=== PATIENT | male | born 1955 | race Hispanic/Latino ===

== ENCOUNTER 2020-01-24 22:23 | Inpatient (IN) | payer OTHER ==
[2020-01-24 22:55] LABS: Basophils % 0.8 % (0-1.3); Hematocrit 43.7 % (39.6-49.0); Lymphocytes % 19.1 % (15.3-44.8); RBC Red Blood Cell Count 4.84 M/uL (4.33-5.43)
[2020-01-24 22:59] LABS: Protime INR 1.06
[2020-01-24] MEDS ORDERED: NA CHLORIDE 0.9% 250 ML ONE (23:11)
[2020-01-24] MEDS ORDERED: AZITHROMYCIN 500 MG INJ IVPB ONE (23:11)
[2020-01-24 23:12] LABS: Albumin 3.8 g/dL (3.4-5.0); Bilirubin Direct 0.2 mg/dL (0-0.2); Bilirubin Total 0.6 mg/dL (0.2-1.0); CKMB Creatine Kinase MB 1.6 ng/mL (0.3-3.6); Magnesium 2.3 mg/dL (1.8-2.4); Potassium 4.1 mmol/L (3.5-5.1); Protein, Total 7.9 g/dL (6.4-8.2); Troponin (Emerg Dept Use Only) 0.22 ng/mL (0.0-0.045)
[2020-01-24] MEDS ORDERED: NA CHLORIDE 0.9% 500 ML ONE (23:12)
[2020-01-24] MEDS ORDERED: CEFTRIAXONE/SWI 1gm 1 GM/10 ML SYR ONE (23:12)
--- NOTE | 2020-01-25 00:03 | ER ---
Nurse's Notes [facility] Name: Krzysztof Gay Age: 64 yrs Sex: Male : 1955 Arrival Date: 01/24/2020 Time: 22:24 Bed 7 Private MD: Diagnosis: Pulmonary embolism without acute cor pulmonale;Unspecified combined systolic (congestive) and diastolic (congestive) heart failure Presentation: 01/23 22:37 Chief complaint: Patient states: shortness of breath progressively getting worse for 4 wh weeks now. Pt C/O cough but denies fever. Coronavirus screen: Client denies travel out of the [place] in the last 14 days. cough unrelated to allergies, shortness of breath, Client presents with at least one sign or symptom that may indicate coronavirus-19. Standard/surgical mask placed on the client. Ebola Screen: Patient negative for fever greater than or equal to 101.5 degrees Fahrenheit, and additional compatible Ebola Virus Disease symptoms Patient denies exposure to infectious person. Initial Sepsis Screen: Does the patient meet any 2 criteria? RR > 20 per min. HR > 90 bpm. Does the patient have a suspected source of infection? No. Patient's initial sepsis screen is negative. Risk Assessment: Do you want to hurt yourself or someone else? Patient reports no desire to harm self or others. Onset of symptoms was January 24, 2020. 22:37 Method Of Arrival: Ambulatory 22:37 Acuity: GELACIO 3 Triage Assessment: 22:42 Respiratory: Onset: The symptoms/episode began/occurred gradually, the patient has mild shortness of breath. Historical: - Allergies: 22:41 No Known Allergies; - Home Meds: 22:41 Unable to obtain [Active]; - PMHx: 22:41 Depression; Hypertension; - PSHx: 22:41 Neck Surgery; - Immunization history:: Adult Immunizations unknown. - Social history:: Smoking status: Patient/guardian denies using. Screenin:42 Abuse screen: Denies threats or abuse. Denies injuries from another. Nutritional screening: No deficits noted. Tuberculosis screening: No symptoms or risk factors identified. Fall Risk None identified. Assessment: 22:41 General: Appears in no apparent distress. Behavior is calm, cooperative, appropriate for age. Pain: Denies pain. Neuro: Level of Consciousness is awake, alert, obeys commands, Oriented to person, place, time, situation, Appropriate for age. Cardiovascular: Heart tones S1 S2 Rhythm is sinus tachycardia. Respiratory: Reports shortness of breath cough that is Airway is patent Respiratory effort is even, Respiratory pattern is tachypnea Breath sounds with wheezes. GI: Abdomen is flat, non-distended. : No signs and/or symptoms were reported regarding the genitourinary system. EENT: No signs and/or symptoms were reported regarding the EENT system. Derm: Skin is intact, is healthy with good turgor, Skin is pink, warm \T\ dry. normal. Musculoskeletal: Circulation, motion, and sensation intact. 01/24 00:00 Reassessment: Patient appears in no apparent distress at this time. No changes from previously documented assessment. Patient and/or family updated on plan of care and expected duration. Pain level reassessed. Patient is alert, oriented x 3, equal unlabored respirations, skin warm/dry/pink. 00:25 Reassessment: Provider at bedside explaining POC need for admit. Vital Signs: 01/23 22:37 BP 159 / 118; Pulse 132; Resp 24; Temp 98.6; Pulse Ox 100% on R/A; Weight 79.38 kg; Height 5 ft. 10 in. (177.80 cm); 01/24 00:00 BP 121 / 91; Pulse 115; Resp 22; Pulse Ox 98% on R/A; 00:45 BP 125 / 95; Pulse 126; Resp 22; Pulse Ox 99% on R/A; 01/23 22:37 Body Mass Index 25.11 (79.38 kg, 177.80 cm) ED Course: 01/23 22:24 Patient arrived in ED. ds1 22:26 Bright Long MD is Attending Physician. tw4 22:36 Naren Faulkner is Primary Nurse. 22:40 Triage completed. 22:43 Patient has correct armband on for positive identification. Placed in gown. Bed in low wh position. Call light in reach. Side rails up X 1. railroad detective on. Pulse ox on. NIBP on. 22:43 Arm band placed on right wrist. 22:45 Inserted saline lock: 20 gauge in right antecubital area, using aseptic technique. jb5 Blood collected. 22:48 XRAY CXR (1 view) In Process Unspecified. EDMS 22:50 BMP Sent. jb5 22:50 CBC with Diff Sent. jb5 22:50 Ckmb Sent. jb5 22:50 CPK Sent. jb5 22:50 D-Dimer Sent. jb5 22:50 Hepatic Function Sent. jb5 22:50 Lipase Sent. jb5 22:50 Magnesium Sent. jb5 22:51 NT PRO-BNP Sent. jb5 22:51 PT-INR Sent. jb5 22:51 Ptt, Activated Sent. jb5 22:51 Troponin (emerg Dept Use Only) Sent. jb5 23:48 CT Chest For PE Angio In Process Unspecified. [facility] 01/24 00:00 Tabitha Keyes MD is Hospitalizing Provider. tw4 00:01 Hospitalizing Provider role handed off by Tabitha Keyes MD tw4 00:01 Amos Faith MD is Hospitalizing Provider. tw4 00:41 Inserted saline lock: 20 gauge in right wrist, using aseptic technique. 00:54 No provider procedures requiring assistance completed. Patient admitted, IV remains in place. Administered Medications: Discontinued: Heparin (DVT/PE Drip) 18 units/kg/hr - (HEParin 69093 units, D5W 500 ml) IV at calculated rate Per protocol; Max initial rate 1800 units/hr 01/23 23:04 Drug: NS 0.9% 500 ml Route: IV; Rate: bolus; Site: right antecubital; 01/24 00:37 Follow up: Response: No adverse reaction; IV Status: Order to discontinue infusion 01/23 23:06 Drug: Rocephin - (cefTRIAXone) 1 grams Route: IVPB; Infused Over: 30 mins; Site: right antecubital; 01/24 00:37 Follow up: Response: No adverse reaction; IV Status: Completed infusion 01/23 23:09 Drug: AZITHromycin 500 mg Route: IVPB; Infused Over: 1 hrs; Site: right antecubital; 01/24 00:37 Follow up: Response: No adverse reaction; IV Status: Completed infusion 00:28 Drug: Heparin (DVT/PE- Bolus per protocol) - HEParin 80 units/kg {Co-Signature: [facility] (Rui Gavin RN).} Route: IVP; Site: right antecubital; 00:37 Follow up: Response: No adverse reaction 00:32 Drug: Heparin (DVT/PE Drip) 18 units/kg/hr - (HEParin 19632 units, D5W 500 ml) {Co-Signature: rv (Rui Gavin RN).} Route: IV; Rate: calculated rate; Site: right antecubital; 00:38 Follow up: Response: No adverse reaction; IV Status: Order to discontinue infusion 00:34 Drug: Lasix 60 mg Route: IVP; Site: right antecubital; rv 00:45 Follow up: Response: No adverse reaction 00:45 Drug: Lovenox 1 mg/kg Route: Sub-Q; Site: right lower abdomen; 00:54 Follow up: Response: No adverse reaction Outcome: 00:03 Decision to Hospitalize by Provider. tw4 00:54 Admitted to ER Hold. Please see [facility] for further documentation. 00:54 Condition: stable 00:54 Instructed on the need for admit. 09:56 Patient left the ED. sv Signatures: Dispatcher [employer] EDMS Yessica Nelson, RN BRANDI Andra Díaz ds1 Rosa Flanagan jb5 Naren Faulkner Bright Long MD MD tw4 Rui Gavin, RN RN rv Rui Gavin RN rv Corrections: (The following items were deleted from the chart) 00:46 01/23 22:41 Respiratory: Reports shortness of breath cough that is Airway is patent Respiratory effort is even, Respiratory pattern is tachypnea Breath sounds with wheezes 01/24 01:43 01/23 22:41 Respiratory: Reports shortness of breath cough that is Airway is patent Respiratory effort is even, Respiratory pattern is tachypnea Breath sounds are clear
--- NOTE | 2020-01-25 00:04 | EDPHYS ---
Physician Documentation [facility] Name: Krzysztof Gay Age: 64 yrs Sex: Male : 1955 Arrival Date: 01/24/2020 Time: 22:24 Bed 7 Private MD: ED Physician Bright Long HPI: 01/23 23:00 This 64 yrs old Male presents to ER via Ambulatory with complaints of tw4 Shortness Of Breath. 23:00 The patient has shortness of breath at rest. Onset: The symptoms/episode began/occurred tw4 3 month(s) ago, and became worse 3 week(s) ago. Duration: The symptoms are intermittent. The patient's shortness of breath is aggravated by exertion, supine position, is alleviated by rest. Associated signs and symptoms: The patient has no apparent associated signs or symptoms. Severity of symptoms: At their worst the symptoms were moderate in the emergency department the symptoms are unchanged. The patient has not experienced similar symptoms in the past. Historical: - Allergies: 22:41 No Known Allergies; - Home Meds: 22:41 Unable to obtain [Active]; - PMHx: 22:41 Depression; Hypertension; - PSHx: 22:41 Neck Surgery; - Immunization history:: Adult Immunizations unknown. - Social history:: Smoking status: Patient/guardian denies using. ROS: 23:00 Constitutional: Negative for fever, chills, and weight loss, Eyes: Negative for injury, tw4 pain, redness, and discharge, Cardiovascular: Negative for chest pain, palpitations, and edema, Abdomen/GI: Negative for abdominal pain, nausea, vomiting, diarrhea, and constipation, Back: Negative for injury and pain, MS/Extremity: Negative for injury and deformity, Skin: Negative for injury, rash, and discoloration, Neuro: Negative for headache, weakness, numbness, tingling, and seizure. 23:00 Respiratory: Positive for shortness of breath, Negative for cough, dyspnea on exertion, hemoptysis, orthopnea, pleurisy. Exam: 23:00 Constitutional: This is a well developed, well nourished patient who is awake, alert, tw4 and in no acute distress. Head/Face: Normocephalic, atraumatic. Chest/axilla: Normal chest wall appearance and motion. Nontender with no deformity. No lesions are appreciated. 23:00 Respiratory: Lungs have equal breath sounds bilaterally, clear to auscultation and percussion. No rales, rhonchi or wheezes noted. No increased work of breathing, no retractions or nasal flaring. Abdomen/GI: Soft, non-tender, with normal bowel sounds. No distension or tympany. No guarding or rebound. No evidence of tenderness throughout. Back: No spinal tenderness. No costovertebral tenderness. Full range of motion. Skin: Warm, dry with normal turgor. Normal color with no rashes, no lesions, and no evidence of cellulitis. MS/ Extremity: Pulses equal, no cyanosis. Neurovascular intact. Full, normal range of motion. Neuro: Awake and alert, GCS 15, oriented to person, place, time, and situation. Cranial nerves II-XII grossly intact. Motor strength 5/5 in all extremities. Sensory grossly intact. Cerebellar exam normal. Normal gait. 23:00 Cardiovascular: Rate: tachycardic, actual rate is 132 bpm, Rhythm: Pulses: no pulse deficits are appreciated. Vital Signs: 22:37 BP 159 / 118; Pulse 132; Resp 24; Temp 98.6; Pulse Ox 100% on R/A; Weight 79.38 kg; Height 5 ft. 10 in. (177.80 cm); 01/24 00:00 BP 121 / 91; Pulse 115; Resp 22; Pulse Ox 98% on R/A; 00:45 BP 125 / 95; Pulse 126; Resp 22; Pulse Ox 99% on R/A; 01/23 22:37 Body Mass Index 25.11 (79.38 kg, 177.80 cm) MDM: 01/23 22:26 Patient medically screened. tw4 01/24 02:39 Differential diagnosis: Anemia Bronchitis reactive airway disease, Unstable Angina. tw4 Antibiotic administration: Rocephin and Zithromax given. Data reviewed: nurses notes. Data reviewed: vital signs, lab test result(s), cardiac enzymes, CBC, electrolytes, radiologic studies, CT scan, plain films. Data interpreted: Pulse oximetry: Interpretation: normal. Test interpretation: by ED physician or midlevel provider: plain radiologic studies. Counseling: I had a detailed discussion with the patient and/or guardian regarding: the historical points, exam findings, and any diagnostic results supporting the discharge/admit diagnosis, lab results, radiology results. Physician consultation: Amos Faith MD regarding admission, to the ICU, patient's condition, and will see patient. 01/23 22:35 Order name: Blood Culture Adult (2) 01/23 22:35 Order name: BMP; Complete Time: 23:16 01/23 23:38 Interpretation: Normal except: GLUC 143; CRE 1.89; GFR 36. 01/23 22:35 Order name: CBC with Diff; Complete Time: 23:16 01/23 22:35 Order name: Ckmb; Complete Time: 23:16 01/23 22:35 Order name: CPK; Complete Time: 23:16 01/23 22:35 Order name: D-Dimer; Complete Time: 23:16 01/23 23:38 Interpretation: Normal except: D-DIMER 6485. 01/23 22:35 Order name: Hepatic Function; Complete Time: 23:16 01/23 23:38 Interpretation: Normal except: A/G 0.9; GLOB 4.1. 01/23 22:35 Order name: Lipase; Complete Time: 23:16 01/23 22:35 Order name: Magnesium; Complete Time: 23:16 01/23 22:35 Order name: NT PRO-BNP; Complete Time: 23:16 01/23 23:38 Interpretation: Normal except: NT PRO-BNP 2627. 01/23 22:35 Order name: PT-INR; Complete Time: 23:16 01/23 22:35 Order name: Ptt, Activated; Complete Time: 23:16 01/23 22:35 Order name: Troponin (emerg Dept Use Only); Complete Time: 23:16 01/23 23:38 Interpretation: Normal except: TROPED 0.22. 01/23 22:35 Order name: XRAY CXR (1 view) 01/23 22:35 Order name: CT Chest For PE Angio 01/23 22:51 Order name: Lactate; Complete Time: 23:38 01/23 23:38 Interpretation: Normal except: LAC 2.9. 01/24 00:05 Order name: SARS-COV-2 RT PCR; Complete Time: 00:10 EDMS 01/24 02:29 Order name: Lactate Sepsis 2 HR Follow-up; Complete Time: 02:38 EDMS 01/24 02:38 Interpretation: Normal except: LACTATE SEPSIS 3.4. tw4 01/24 02:31 Order name: Troponin I; Complete Time: 02:38 EDMS 01/24 02:38 Interpretation: Normal except: TROP 0.81. tw4 01/24 06:00 Order name: Lipid Profile; Complete Time: 06:19 EDMS 01/24 06:19 Interpretation: Normal except: CHOL 224; C-LDL 148. tw4 01/24 06:14 Order name: Troponin I; Complete Time: 06:19 EDMS 01/24 06:20 Interpretation: Within normal limits: TROP 1.89. tw 01/24 06:18 Order name: Protime (+INR); Complete Time: 06:19 EDIN 01/24 06:19 Interpretation: Normal except: PT 13.8. tw 01/24 06:43 Order name: CBC with Automated Diff EDIN 01/24 07:04 Order name: Basic Metabolic Panel EDIN 01/24 07:04 Order name: Magnesium EDIN 01/24 07:07 Order name: Lactate EDIN 01/23 22:35 Order name: EKG; Complete Time: 22:36 tw4 01/23 22:35 Order name: Cardiac monitoring; Complete Time: 22:51 tw4 01/23 22:35 Order name: EKG - Nurse/Tech; Complete Time: 22:51 [facility] 01/23 22:35 Order name: IV Saline Lock; Complete Time: 22:51 tw 01/23 22:35 Order name: Labs collected and sent; Complete Time: 22:51 tw4 01/23 22:35 Order name: O2 Per Protocol; Complete Time: 22:52 tw 01/23 22:35 Order name: O2 Sat Monitoring; Complete Time: 22:52 tw 01/23 22:49 Order name: Document PUI#; Complete Time: 22:52 tw 01/23 22:49 Order name: Droplet/Contact Precautions; Complete Time: 22:52 [facility] 01/23 22:49 Order name: Notify Health Dept [phone]/ ; Complete Time: 22:53 tw4 01/24 00:47 Order name: CONS Physician Consult EDMS EC/25 23:00 Rate is 125 beats/min. Rhythm is regular. QRS [place] is Normal. QRS interval is normal. tw4 QT interval is normal. No Q waves. T waves are Peaked in leads V4, V5, V6. T waves are Inverted in leads II, III, aVF. No ST changes noted. Clinical impression: Sinus tachycardia. Interpreted by me. Reviewed by me. Administered Medications: Discontinued: Heparin (DVT/PE Drip) 18 units/kg/hr - (HEParin 30177 units, D5W 500 ml) IV at calculated rate Per protocol; Max initial rate 1800 units/hr 23:04 Drug: NS 0.9% 500 ml Route: IV; Rate: bolus; Site: right antecubital; 01/24 00:37 Follow up: Response: No adverse reaction; IV Status: Order to discontinue infusion 01/23 23:06 Drug: Rocephin - (cefTRIAXone) 1 grams Route: IVPB; Infused Over: 30 mins; Site: right antecubital; 01/24 00:37 Follow up: Response: No adverse reaction; IV Status: Completed infusion 01/23 23:09 Drug: AZITHromycin 500 mg Route: IVPB; Infused Over: 1 hrs; Site: right antecubital; 01/24 00:37 Follow up: Response: No adverse reaction; IV Status: Completed infusion 00:28 Drug: Heparin (DVT/PE- Bolus per protocol) - HEParin 80 units/kg {Co-Signature: rv (Rui Gavin RN).} Route: IVP; Site: right antecubital; 00:37 Follow up: Response: No adverse reaction 00:32 Drug: Heparin (DVT/PE Drip) 18 units/kg/hr - (HEParin 57327 units, D5W 500 ml) {Co-Signature: rv (Rui Gavin RN).} Route: IV; Rate: calculated rate; Site: right antecubital; 00:38 Follow up: Response: No adverse reaction; IV Status: Order to discontinue infusion 00:34 Drug: Lasix 60 mg Route: IVP; Site: right antecubital; 00:45 Follow up: Response: No adverse reaction 00:45 Drug: Lovenox 1 mg/kg Route: Sub-Q; Site: right lower abdomen; 00:54 Follow up: Response: No adverse reaction Disposition: 01/25/20 00:03 Hospitalization ordered by Amos Faith for Inpatient Admission. Preliminary diagnosis are Pulmonary embolism without acute cor pulmonale, Unspecified combined systolic (congestive) and diastolic (congestive) heart failure. - Bed requested for Telemetry/MedSurg (Inpatient). - Status is Inpatient Admission. sv - Condition is Stable. - Problem is new. - Symptoms have improved. Signatures: Dispatcher [employer] EDIN Yessica eNlson RN RN Roger Middleton PA PA [id number] Lucie, Naren Bright Long MD MD tw4 Rose MarroquinElena 2 Fani Miller Ronaldo, RN RN rv Rui Gavin RN rv Corrections: (The following items were deleted from the chart) 01/23 23:03 22:50 CORONAVIRUS+MR.LAB.BRZ ordered. [facility] 01/24 00:29 00:03 Hospitalization Ordered by Amos Faith MD for Inpatient Admission. Preliminary tw4 diagnosis is Pulmonary embolism without acute cor pulmonale; Unspecified combined systolic (congestive) and diastolic (congestive) heart failure. Bed requested for Telemetry/MedSurg (Inpatient). Status is Inpatient Admission. Condition is Stable. Problem is new. Symptoms have improved. tw4 00:52 00:29 01/25/2020 00:03 Hospitalization Ordered by Amos Faith MD for Inpatient 2 Admission. Preliminary diagnosis is Pulmonary embolism without acute cor pulmonale; Unspecified combined systolic (congestive) and diastolic (congestive) heart failure. Bed requested for Intensive Care Unit. Status is Inpatient Admission. Condition is Stable. Problem is new. Symptoms have improved. tw4 07:49 00:52 01/25/2020 00:03 Hospitalization Ordered by Amos Faith MD for Inpatient eb Admission. Preliminary diagnosis is Pulmonary embolism without acute cor pulmonale; Unspecified combined systolic (congestive) and diastolic (congestive) heart failure. Bed requested for [facility] ER HOLD. Status is Inpatient Admission. Condition is Stable. Problem is new. Symptoms have improved. mw2 09:22 07:49 01/25/2020 00:03 Hospitalization Ordered by Amos Faith MD for Inpatient eb Admission. Preliminary diagnosis is Pulmonary embolism without acute cor pulmonale; Unspecified combined systolic (congestive) and diastolic (congestive) heart failure. Bed requested for Telemetry/MedSurg (Inpatient). Status is Inpatient Admission. Condition is Stable. Problem is new. Symptoms have improved. eb 09:56 09:22 01/25/2020 00:03 Hospitalization Ordered by Amos Faith MD for Inpatient sv Admission. Preliminary diagnosis is Pulmonary embolism without acute cor pulmonale; Unspecified combined systolic (congestive) and diastolic (congestive) heart failure. Bed requested for Telemetry/MedSurg (Inpatient). Status is Inpatient Admission. Condition is Stable. Problem is new. Symptoms have improved. eb
[2020-01-25] MEDS ORDERED: HEPARIN 5000 UNIT/ML 1 ML VIAL ONE (00:29)
[2020-01-25] MEDS ORDERED: HEPARIN/D5W 25,000 UNIT/500 ML BAG IV ONE (00:30)
[2020-01-25] MEDS ORDERED: FUROSEMIDE 100 MG/10 ML VIAL IV ONE (00:46)
[2020-01-25] MEDS ORDERED: ENOXAPARIN 100 MG/ML SYR SQ ONE (00:54)
[2020-01-25] MEDS ORDERED: ENOXAPARIN 80 MG/0.8 ML SQ ONE (00:58)
[2020-01-25 01:09] VITALS: BMI 25.9
[2020-01-25] MEDS ORDERED: IPRATROPIUM BROM 0.5MG/2.5ML NEB PRN (01:10)
[2020-01-25] MEDS ORDERED: MORPHINE 2 MG/ML SYR IV PRN (01:10)
[2020-01-25] MEDS ORDERED: ALBUTEROL 2.5 MG/3 ML NEB SOL NEB PRN (01:10)
[2020-01-25] MEDS ORDERED: ONDANSETRON 4 MG/2 ML VIAL IV PRN (01:10)
--- NOTE | 2020-01-25 01:26 | P.HP ---
Certification for Inpatient Patient admitted to: Inpatient With expected LOS: >2 Midnights Patient will require the following post-hospital care: None Practitioner: I am a practitioner with admitting privileges, knowledge of patient current condition, hospital course, and medical plan of care. Services: Services provided to patient in accordance with Admission requirements found in Title 42 Section 412.3 of the Code of Federal Regulations <Beltran Middleton - Last Filed: 01/25/20 00:59> Patient History Date of Service: 01/25/20 Primary Care Provider: None Reason for admission: Pulmonary Embolus, CHF History of Present Illness: This is a 64 y/o Male with history of Hypertension and Depression that came to the emergency room for evaluation today for increased shortness of breath that started about 3 months ago but over the last 3 weeks has had increased symptoms. Today had markedly worse symptoms to the point where he was short of breath at rest. Came to be evaluated at that time. Patient upon arrival was tachycardic and dyspneic but with normal oxygen saturation. Denies recent surgeries over the past six months, recent trauma, prolonged immobilization, smoking history, or cancer history. Patient on CXR shows cardiomegaly. Labs notable for a creatinine of 1.86, troponin of 0.22, elevated DD, and elevated BNP. CTA PE protocol completed showing bilateral lobar pulmonary embolisms with segmental extension. No right heart failure noted on CT. After assessing patient. He remains dyspneic and tachycardic but with normal BP and oxygen saturation on O2 via NC. Will admit to ICU for the night for closer observation Home medications list reviewed: Yes - Past Medical/Surgical History Has patient received pneumonia vaccine in the past: No Diabetic: No - Social History Smoking Status: Never smoker Smoking therapy provided: No Alcohol use: No CD- Drugs: No Caffeine use: No Place of Residence: Home <Beltran Middleton - Last Filed: 01/25/20 00:59> Date of Service: 01/25/20 <Amos Faith - Last Filed: 01/25/20 13:05> Review of Systems General: Unremarkable Eyes: Unremarkable ENT: Unremarkable Respiratory: Cough, Shortness of Breath, SOB with Excertion Cardiovascular: As per HPI Gastrointestinal: Unremarkable Musculoskeletal: Unremarkable Integumentary: Unremarkable Neurological: Unremarkable Lymphatics: Unremarkable <Beltran Middleton - Last Filed: 01/25/20 00:59> Physical Examination - Vital Signs Temperature: 98.6 F Blood Pressure: 159/118 Pulse: 132 Respirations: 28 Pulse Ox (%): 97 (NC 2 Lpm ) - Physical Exam General: Alert, In no apparent distress, Oriented x3, Cooperative HEENT: PERRLA, Mucous membr. moist/pink, EOMI Neck: Supple, 2+ carotid pulse no bruit, JVD not distended, No Thyromegaly Respiratory: Other (Patient has bilateral crackles in the bases with mild expiratory wheezing present ) Cardiovascular: No edema, Normal pulses, No gallops, No rubs, No murmurs, Irregular heart rate/rhythm (Sinus Tachycardia present ) Capillary refill: <2 Seconds Gastrointestinal: Normal bowel sounds, Soft and benign, Non-distended, No ascites, No tenderness, No masses, No rebound, No guarding Musculoskeletal: No clubbing, No swelling, No contractures, No erythema, No tenderness, No warmth Integumentary: No rashes, No breakdown, No significant lesion, No tenderness /swelling, No erythema, No warmth, No cyanosis Neurological: Normal speech, Normal strength at 5/5 x4 extr, Normal tone, Sensation intact, Cranial nerves 3-12 intact, Normal affect Lymphatics: No axilla or inguinal lymphadenopathy - Studies Laboratory Data (last 24 hrs) 01/24/20 22:43: PT 12.5, INR 1.06, APTT 27.0 01/24/20 22:43: WBC 10.6, Hgb 14.8, Hct 43.7, Plt Count 217 01/24/20 22:43: Sodium 139, Potassium 4.1, BUN 17, Creatinine 1.89 H, Glucose 143 H, Magnesium 2.3, Total Bilirubin 0.6, AST 15, ALT 23, Alkaline Phosphatase 82, Lipase 85 <Beltran Middleton - Last Filed: 01/25/20 00:59> - Studies Laboratory Data (last 24 hrs) 01/24/20 22:43: PT 12.5, INR 1.06, APTT 27.0 01/24/20 22:43: WBC 10.6, Hgb 14.8, Hct 43.7, Plt Count 217 01/24/20 22:43: Sodium 139, Potassium 4.1, BUN 17, Creatinine 1.89 H, Glucose 143 H, Magnesium 2.3, Total Bilirubin 0.6, AST 15, ALT 23, Alkaline Phosphatase 82, Lipase 85 Microbiology Data (last 24 hrs): 01/24/20 22:55 Blood - Blood Anaerobic Blood Culture - Final <Amos Faith - Last Filed: 01/25/20 13:05> Assessment and Plan - Problems (Diagnosis) (1) Pulmonary embolus Current Visit: Yes Status: Acute Qualifiers: Pulmonary embolism type: other Chronicity: acute Acute cor pulmonale presence: without acute cor pulmonale Qualified Code(s): I26.99 - Other pulmonary embolism without acute cor pulmonale (2) Congestive heart failure Current Visit: Yes Status: Acute Qualifiers: Heart failure type: unspecified Heart failure chronicity: acute Qualified Code(s): I50.9 - Heart failure, unspecified (3) Hypertension Current Visit: Yes Status: Chronic Qualifiers: Hypertension type: essential hypertension Qualified Code(s): I10 - Essential (primary) hypertension (4) Elevated troponin Current Visit: Yes Status: Acute - Plan 1. Continue to monitor for hemodynamic stability in ICU 2. Heparinize therapeutically per guidelines for pulmonary embolus 3. Consulted pulmonary critical care 4. Consulted Cardiology 5. Will continue to diurese patient for pulmonary congestion 6. Will maintain and treat BP to acceptable level 7. Labs in the AM and will continue to trend troponin Discharge Plan: Home Plan to discharge in: Greater than 2 days - Advance Directives Does patient have a Living Will: No Does patient have a Durable POA for Healthcare: No - Code Status/Comfort Care Code Status Assessed: Yes Code Status: Full Code Critical Care: Yes (30 minutes ) Time Spent Managing Pts Care (In Minutes): 70 <Beltran Middleton - Last Filed: 01/25/20 00:59> - Plan Plan of care discussed with Beltran Middleton and I agree with the management plan as noted above. Patient with approximately 1 year of intermittent heart failure symptoms: Orthopnea, lower extremity edema, SOB Troponin continues to rise, concern for NSTEMI continue aspirin, BB, discussed with cardiology - may need cardiac cath tomorrow, heparin drip patient denies chest pain /pressure <Amos Faith - Last Filed: 01/25/20 13:05>
[2020-01-25 05:51] LABS: Protime INR 1.17
[2020-01-25 06:36] LABS: Absolute Lymphocytes (CBC) 1.6 K/uL (0.7-4.9); Basophils % 0.8 % (0-1.3); Hematocrit 40.4 % (39.6-49.0); MPV 11.1 fL (7.6-11.3); RBC Red Blood Cell Count 4.44 M/uL (4.33-5.43)
[2020-01-25 07:03] LABS: Magnesium 2.2 mg/dL (1.8-2.4); Potassium 4.3 mmol/L (3.5-5.1)
[2020-01-25] MEDS ORDERED: PNEUMOCOCCAL VACCINE 0.5 ML IMVAC ONE (08:00)
[2020-01-25] MEDS ORDERED: INFLUENZA VACCINE (for 3y+) 0.5 ML DOSE IMVAC ONE (08:00)
[2020-01-25] MEDS ORDERED: FUROSEMIDE 20 MG/ 2ML VIAL IV SCH ×2 (09:00→17:00)
[2020-01-25] MEDS ORDERED: LOSARTAN POTASSIUM 50 MG TABLET PO SCH (09:00)
[2020-01-25] MEDS ORDERED: FUROSEMIDE 20 MG/ 2ML VIAL ONE (09:07)
--- NOTE | 2020-01-25 10:38 | RAD REPORT ---
EXAM DESCRIPTION: USExtrem Venous W Compress Bil01/25/2020 10:19 am CLINICAL HISTORY: Leg pain COMPARISON: none FINDINGS: The common femoral, superficial femoral, right popliteal and posterior tibial veins bilate rally are compressible and demonstrate augmentation. Doppler demonstrates good flow. Echogenic material is present within left popliteal vein compatible with acute thrombus. The vein is partially compressible IMPRESSION: Acute thrombus left popliteal vein.
--- NOTE | 2020-01-25 10:40 | P.CNS ---
Date of Consult: 01/25/20 Primary Care Provider: None Chief Complaint: Pulmonary Embolus, CHF History of Present Illness: Patient is 64 years of age with a history of hypertension depression came to the emergency room with worsening dyspnea for the past 3 months subtle the past 3 weeks patient is Yoruba-speaking only found to have lower lobe pulmonary embolism in addition to bilateral pleural effusions as doing well No medications have been listed Allergies No Known Allergies Allergy (Verified 01/25/20 01:08) - Past Medical/Surgical History Diabetic: No -: Hypertension -: Depression -: Neck Surgery - Social History Alcohol use: No CD- Drugs: No Caffeine use: No Place of Residence: Home Review of Systems is unable to be obtained Physical Examination Temp Pulse Resp BP Pulse Ox 96.9 F 118 H 18 142/90 H 96 01/25/20 10:08 01/25/20 10:08 01/25/20 10:08 01/25/20 10:08 01/25/20 10:08 General: Alert, In no apparent distress, Oriented x3 Respiratory: Crackles/rales Cardiovascular: No edema, Abnormal S3 Gastrointestinal: Normal bowel sounds, Soft and benign Laboratory Data (last 24 hrs) 01/24/20 22:43: PT 12.5, INR 1.06, APTT 27.0 01/24/20 22:43: WBC 10.6, Hgb 14.8, Hct 43.7, Plt Count 217 01/24/20 22:43: Sodium 139, Potassium 4.1, BUN 17, Creatinine 1.89 H, Glucose 143 H, Magnesium 2.3, Total Bilirubin 0.6, AST 15, ALT 23, Alkaline Phosphatase 82, Lipase 85 - Problems (1) Pulmonary embolus Current Visit: Yes Status: Acute Plan: Patient is 64 years of age had chronic dyspnea for 3 months worse the past 3 weeks years bilateral lower lobe emboli agree with full anticoagulation Qualifiers: Pulmonary embolism type: other Chronicity: acute Acute cor pulmonale presence: without acute cor pulmonale Qualified Code(s): I26.99 - Other pulmonary embolism without acute cor pulmonale (2) Congestive heart failure Current Visit: Yes Status: Acute Plan: Patient is 64 years of age has bilateral pleural effusion history of congestive heart failure he also has chronic renal failure CBC unremarkable agree with diuretics 2D echo discuss with cardiology plan to do an echocardiogram this tomorrow switched to IV heparin this evening the have underlying coronary artery disease I have added a low-dose beta-lacey with a low-dose MENG-inhibitor continue with diuretics Qualifiers: Heart failure type: unspecified Heart failure chronicity: acute Qualified Code(s): I50.9 - Heart failure, unspecified
[2020-01-25] MEDS: carvediloL 3.125 MG TAB PO SCH ×2 (11:41→18:00)
[2020-01-25] MEDS ORDERED: ENOXAPARIN 80 MG/0.8 ML SQ SCH (12:00)
--- NOTE | 2020-01-25 13:21 | CON ---
Date of Consultation: 01/25/2020 Reason For Consultation: Elevated troponin. History Of Present Illness: A 64-year-old male, history of hypertension, no known cardiac history, p resented with shortness of breath, worsening over the past few months along with orthopnea and lower extremity edema and some chest discomfort. He describes it as burning sensation. He declines having any chest pain today. No significant shortness of breath and he was speaking in full sentences. Wo rkup revealed bilateral lobar pulmonary embolism, started on Lovenox. Clinically and hemodynamically however he has been stable. Past Medical History: Hypertension. Medications: Refer to reconciliation sheet for detailed list. Allergies: NO KNOWN DRUG ALLERGIES. Social History: He is an ex-smoker, stopped about 25 years ago. Does not drink, use any drugs. Review of Systems: All systems reviewed and they were negative except mentioned in the HPI. Family History: No premature coronary artery disease or cancer. Physical Examination: Vital Signs: Temperature 96.9, heart rate is 110, breathing at 18, blood pressure is 142/90, satting 96%. General: This is a middle-aged male, in no distress. Head and neck: PUPILS are equal, reactive to light. Intact eye movements. No JVD. No cervical lym phadenopathy. Neck supple. Thyroid is not enlarged. Lungs: Clear to auscultation bilaterally. No rhonchi, rales, or crackles. No accessory muscle use. Heart: Regular rate and rhythm. No extra sounds. Abdomen: Soft, nontender. Bowel sounds positive. No organomegaly. No masses or hernia. No rigidi ty or rebound. Extremities: No clubbing, cyanosis. Positive edema. Skin: No rashes. Neurologic: Alert, awake, oriented x3. No acute focal deficits appreciated. Investigations: Creatinine 1.74, down from earlier which was 1.89. His troponin peaked at 4.33. LD L cholesterol is 148. CTA chest, bilateral pulmonary embolism. Assessment And Recommendations: 1.Hxu-[id number] myocardial infarction. On EKG, There is a T-wave inversion in inferolateral lead s. The patient is chest pain free at this moment. Recommend IV heparin for anticoagulation for the purpose of pulmonary embolism and to keep n.p.o. past midnight. Obtain echocardiogram first thing in the morning. If ejection fraction is low, proceed with coronary angiogram despite the fact that his kidney function is abnormal, but if his ejection fraction is normal, we will wait on the coronary an giogram until the kidney function further improves. 2.Acute congestive heart failure symptoms. Agree with IV diuretics. Obtain echocardiogram and like ly coronary angiogram in the morning tomorrow and continue to trend troponins. 3.Pulmonary embolus. IV heparin as above. Discussed the case with the primary hospitalist and pulmonary speech correction consultant on the case. /MODL Voice ID: [id number] Report ID: [id number]
[2020-01-25] MEDS: ASPIRIN EC 81 MG TAB PO SCH (13:45)
--- NOTE | 2020-01-25 14:13 | RAD REPORT ---
EXAM DESCRIPTION: RAD - Chest Single View - 01/24/2020 10:50 pm CLINICAL HISTORY: SOB COMPARISON: None. FINDINGS: Single frontal radiograph view of the chest. Cardiomediastinal silhouette: Cardiomegaly. Lungs: Pulmonary vascular congestion with bilateral interstitial opacities. Bones: Degenerative change of the spine and shoulders. Upper abdomen: No abnormality identified. IMPRESSION: 1. Cardiomegaly with interstitial pulmonary edema pattern. Electronically signed by: Severino Olsen 01/24/2020 11:44 PM NEUROLOGY PROFESSOR Due to temporary technical issues with the PACS/Fluency reporting system, reports are being signed by the in house radiologists without review as a courtesy to insure prompt reporting. The interpreting radiologist is fully responsible for the content of the report.
--- NOTE | 2020-01-25 14:16 | RAD REPORT ---
EXAM DESCRIPTION: CT - Chest For Pe Angio - 01/25/2020 12:40 am CLINICAL HISTORY: DYSPNEA COMPARISON: None Available. TECHNIQUE: CTA of the chest obtained following the uncomplicated intravenous administration of iodin ated contrast. 3-D/MIP reformatted images of the chest available for evaluation. FINDINGS: Chest: Pulmonary arteries: Contrast bolus is adequate. Multiple lobar and segmental pulmonary emboli bilater ally most severely affecting the lower lobes. Moderate clot burden. Thyroid: No abnormalities of the visualized thyroid. Great Vessels: Great vessels have normal anatomic configuration. Thoracic Aorta: Atherosclerotic plaque of the thoracic aorta. Heart: Cardiomegaly. Coronary artery atherosclerosis. No definite bowing of the intraventricular sept um or right ventricular enlargement. Lymph Nodes: No enlarged mediastinal lymph nodes identified. Esophagus: No abnormalities of the esophagus identified. Other: No additional findings. Lungs: Bibasilar compressive atelectasis. Pleura: Small bilateral pleural effusions. Respiratory motion artifact. Trachea/Airways: No acute abnormality of the trachea. Bones: Mild degenerative endplate spondylosis. Upper Abdomen: Limited images of the upper abdomen demonstrate no definite abnormalities of visualize d portions of the liver, pancreas, spleen, or adrenal glands. IMPRESSION: 1. Multiple bilateral lobar and segmental pulmonary emboli, most severely affecting the lower lobes. Moderate clot burden. No right heart strain. 2. Small bilateral pleural effusions with bibasilar compressive atelectasis. 3. Cardiomegaly with coronary artery atherosclerosis. Urgent finding reported to Dr. Long at 01/24/2020 11:56 PM BUTTER GRADER This exam was performed according to our departmental dose-optimization program, which includes autom ated exposure control, adjustment of the mA and/or kV according to patient size and/or use of iterati ve reconstruction technique. Electronically signed by: Severino Olsen 01/25/2020 12:00 AM BUTTER GRADER Due to temporary technical issues with the PACS/Fluency reporting system, reports are being signed by the in house radiologists without review as a courtesy to insure prompt reporting. The interpreting radiologist is fully responsible for the content of the report.
--- NOTE | 2020-01-25 15:23 | P.CNS ---
Date of Consult: 01/25/20 Reason for Consult: elevated creatinine Primary Care Provider: None Chief Complaint: Pulmonary Embolus, CHF History of Present Illness: Patient is 64 years of age with HTN , Depression , history of intermittent nocturia and hesistancy , previously on oral meds for HTN but none since stopped following with PCP at [place] over last 2 years , admitted now for worsening SOB . CT shows b/l pulmonary embolism . He denies any body swelling , no nausea or vomiting .in the ER , his creatinine is noted elevated to 1.8, + contrast exposure now . No skin rash , no new joint paisn . He wdit to 1x/day use of Ibuprofen for a sinus infection 2 weeks ago . duration of use of 2 days . No family hx of ESRD Allergies No Known Allergies Allergy (Verified 01/25/20 01:08) Home medications list reviewed: Yes Home Medications: OLANZapine [Zyprexa] 5 mg PO DAILY 01/25/20 - Past Medical/Surgical History Diabetic: No -: Hypertension -: Depression -: Neck Surgery - Social History Alcohol use: No CD- Drugs: No Caffeine use: No Place of Residence: Home Review of Systems 10-point ROS is otherwise unremarkable Physical Examination Temp Pulse Resp BP Pulse Ox 96.9 F 118 H 18 142/90 H 96 01/25/20 10:08 01/25/20 11:41 01/25/20 10:08 01/25/20 11:41 01/25/20 10:08 General: Alert, In no apparent distress, Oriented x3, Obese HEENT: Atraumatic, Normocephalic, PERRLA Neck: Supple, 2+ carotid pulse no bruit, JVD not distended, No Thyromegaly Respiratory: Clear to auscultation bilaterally, Normal air movement Cardiovascular: No edema, Normal pulses, Normal S1 S2 Gastrointestinal: Normal bowel sounds, Soft and benign, Non-distended Musculoskeletal: No clubbing, No swelling Integumentary: No rashes, No breakdown, No significant lesion Neurological: Normal speech, Normal strength at 5/5 x4 extr, Normal tone Urinary: Kidneys palpable Laboratory Data (last 24 hrs) 01/24/20 22:43: PT 12.5, INR 1.06, APTT 27.0 01/24/20 22:43: WBC 10.6, Hgb 14.8, Hct 43.7, Plt Count 217 01/24/20 22:43: Sodium 139, Potassium 4.1, BUN 17, Creatinine 1.89 H, Glucose 143 H, Magnesium 2.3, Total Bilirubin 0.6, AST 15, ALT 23, Alkaline Phosphatase 82, Lipase 85 - Problems (1) ARF (acute renal failure) Current Visit: Yes Status: Acute (2) Congestive heart failure Current Visit: Yes Status: Acute Qualifiers: Heart failure type: unspecified Heart failure chronicity: acute Qualified Code(s): I50.9 - Heart failure, unspecified (3) Elevated troponin Current Visit: Yes Status: Acute (4) Pulmonary embolus Current Visit: Yes Status: Acute Qualifiers: Pulmonary embolism type: other Chronicity: acute Acute cor pulmonale presence: without acute cor pulmonale Qualified Code(s): I26.99 - Other pulmonary embolism without acute cor pulmonale (5) Hypertension Current Visit: Yes Status: Chronic Qualifiers: Hypertension type: essential hypertension Qualified Code(s): I10 - Essential (primary) hypertension Physician Review Additional Text: # ARF -creatinine elevated at 1.86 - may be due to pre-renal from increase resp fluid loss - high risk of superimposed contrast nephropathy - will start gentle IVF - avoid nsaids - obtain urine studies -Hold ACEI or ARB for now until creatinine < 1.2- will dc already started losartan # HTN -elevated , given hx of LUTS - will add cardura 2 mg bid or flomax # b/l PE- follow plan for anticoagulation thank you Dr Faith for this consult , may team will follow along .
[2020-01-25 15:31] LABS: Urine Appearance CLEAR; Urine Bilirubin NEGATIVE (NEG); Urine Blood NEGATIVE (NEG); Urine Color YELLOW; Urine Glucose NEGATIVE (NEG); Urine Protein NEGATIVE (NEG); Urine Specific Gravity 1.015 (1.005-1.030); Urine Urobilinogen 0.2 mg/dL (0.2-1.0)
[2020-01-25 15:35] LABS: Urine Microscopic Reflex NO UMIC
--- NOTE | 2020-01-25 18:56 | RAD REPORT ---
EXAM DESCRIPTION: CT - Head Brain Wo Cont - 01/25/2020 6:44 pm CLINICAL HISTORY: Dysarthria/possible CVA COMPARISON: None TECHNIQUE: Computed axial tomography of the head was obtained. IV contrast was not requested. All CT scans are performed using dose optimization technique as appropriate and may include automated exposure control or mA/KV adjustment according to patient size. FINDINGS: An intracranial bleed is not seen . The ventricles are normal in caliber. No extra-axial fluid collection is noted. Fluid within the sinuses/ mastoids is not seen. IMPRESSION: No acute intracranial abnormality is seen. If patient's symptoms persist MRI of the bra in would be recommended.
--- NOTE | 2020-01-25 19:17 | P.PN ---
Subjective Date of Service: 01/25/20 Primary Care Provider: None Chief Complaint: Pulmonary Embolus, CHF Subjective: New changes Patient at approximately 1800 hours today after utilizing the bathroom started to have mental status changes per family. Called nurse in who noticed he was having trouble getting his name out. This was reported to me and head CT was ordered stat. Patient had neurologic assessment completed showing NIH of 1 on descriptive changes showing mild aphasia. No other focal deficits noted. CT by Dr. Leone was negative for acute changes. Patient seems to be doing better from when family talked to him till now. I talked to Dr. Jernigan about case and the fact that it is mild and patient is on full anticoagulation. Would not be a candidate for tPA. Dr. Jernigan agrees and will consult on case and see patient tomorrow morning. MRI Stroke protocol ordered for AM. Neuro checks Q2HR ordered as well. Reminded family to make sure he is not to get out of bed for any reason. Review of Systems General: As per HPI Eyes: Unremarkable ENT: Unremarkable Respiratory: Unremarkable Cardiovascular: Unremarkable Gastrointestinal: Unremarkable Musculoskeletal: Unremarkable Integumentary: Unremarkable Neurological: As per HPI Lymphatics: Unremarkable Physical Examination - Vital Signs Temperature: 98.7 F Blood Pressure: 106/61 Pulse: 102 Respirations: 16 Pulse Ox (%): 95 - Physical Exam General: Alert, In no apparent distress, Oriented x3, Cooperative HEENT: PERRLA, Mucous membr. moist/pink, EOMI Neck: Supple Respiratory: Clear to auscultation bilaterally, Normal air movement Cardiovascular: No edema, Normal pulses, Regular rate/rhythm, Normal S1 S2, No gallops, No rubs, No murmurs Capillary refill: <2 Seconds Gastrointestinal: Normal bowel sounds, Soft and benign, Non-distended, No ascites, No tenderness, No masses, No rebound, No guarding Musculoskeletal: No clubbing, No swelling, No contractures, No erythema, No tenderness, No warmth Integumentary: No rashes, No breakdown, No significant lesion, No tenderness/swelling, No erythema, No warmth, No cyanosis Neurological: Normal speech, Normal strength at 5/5 x4 extr, Normal tone, Sensation intact, Cranial nerves 3-12 intact, Normal affect, Other (NIH 1 present...Mild aphasia ) Lymphatics: No axilla or inguinal lymphadenopathy - Studies Laboratory Data (last 24 hrs) 01/24/20 22:43: PT 12.5, INR 1.06, APTT 27.0 01/24/20 22:43: WBC 10.6, Hgb 14.8, Hct 43.7, Plt Count 217 01/24/20 22:43: Sodium 139, Potassium 4.1, BUN 17, Creatinine 1.89 H, Glucose 143 H, Magnesium 2.3, Total Bilirubin 0.6, AST 15, ALT 23, Alkaline Phosphatase 82, Lipase 85 Microbiology Data (last 24 hrs): 01/24/20 22:55 Blood - Blood Anaerobic Blood Culture - Final Medications List Reviewed: Yes Assessment & Plan - Problems (Diagnosis) (1) Pulmonary embolus Current Visit: Yes Status: Acute Plan: Switching patient to heparin at 23:00 hours from LMWH in preparation for cardiac cath Qualifiers: Pulmonary embolism type: other Chronicity: acute Acute cor pulmonale presence: without acute cor pulmonale Qualified Code(s): I26.99 - Other pulmonary embolism without acute cor pulmonale (2) Congestive heart failure Current Visit: Yes Status: Acute Plan: Will continue to diurese and monitor for pulmonary congestion or worsening of HF Qualifiers: Heart failure type: unspecified Heart failure chronicity: acute Qualified Code(s): I50.9 - Heart failure, unspecified (3) Hypertension Current Visit: Yes Status: Chronic Plan: Monitor BP closely. Will keep patient permissively hypertensive now that he had mild CVA vs. TIA Qualifiers: Hypertension type: essential hypertension Qualified Code(s): I10 - Essential (primary) hypertension (4) Elevated troponin Current Visit: Yes Status: Acute Plan: Plan is to still have patient go to cardiac catheterization laboratory technician in the AM for angiogram. Will continue to monitor troponins (5) CVA (cerebral vascular accident) Current Visit: Yes Status: Acute Plan: Patient not candidate for tPA. Will continue heparin therapy. Dr. Jernigan consulted. Neuro checks Q2HR ordered and MRI stroke protocol ordered Qualifiers: CVA mechanism: unspecified Qualified Code(s): I63.9 - Cerebral infarction, unspecified Discharge Plan: Home Plan to discharge in: Greater than 2 days Time Spent Managing Pts Care (In Minutes): 45
[2020-01-25] MEDS: FOLIC ACID 1 MG in NA CHLORIDE 0.9% 50 ML IV SCH (20:00)
[2020-01-25] MEDS ORDERED: ATORVASTATIN 40 MG TAB PO SCH (21:00)
[2020-01-25] MEDS ORDERED: FOLIC ACID 5 MG/ML VIAL ONE (21:30)
[2020-01-25] MEDS ORDERED: NA CHLORIDE 0.9% 50 ML ONE (21:31)
[2020-01-25 22:42] LABS: Protime INR 1.13
[2020-01-25] MEDS ORDERED: HEPARIN/D5W 25,000 UNIT/500 ML BAG IV SCH (23:00)
[2020-01-25] MEDS ORDERED: HEPARIN 5000 UNIT/ML 1 ML VIAL IV SCH (23:00)
[2020-01-26 04:35] LABS: Absolute Lymphocytes (CBC) 1.7 K/uL (0.7-4.9); Basophils % 1.1 % (0-1.3); Hematocrit 39.5 % (39.6-49.0); Lymphocytes % 19.8 % (15.3-44.8); MPV 11.4 fL (7.6-11.3); RBC Red Blood Cell Count 4.33 M/uL (4.33-5.43)
[2020-01-26 04:36] LABS: Protime INR 1.21
[2020-01-26 04:45] LABS: Potassium 3.9 mmol/L (3.5-5.1)
[2020-01-26] MEDS: carvediloL 3.125 MG TAB PO SCH (05:32)
[2020-01-26] MEDS ORDERED: FUROSEMIDE 20 MG TABLET PO SCH (09:00)
[2020-01-26] MEDS ORDERED: LORazepam 2 MG/ML VIAL IV ONE (09:36)
[2020-01-26] MEDS: ASPIRIN EC 81 MG TAB PO SCH (10:09)
[2020-01-26] MEDS: FOLIC ACID 1 MG in NA CHLORIDE 0.9% 50 ML IV SCH (10:12)
[2020-01-26] MEDS ORDERED: HEPARIN 5000 UNIT/ML 1 ML VIAL ONE (11:18)
[2020-01-26] MEDS ORDERED: MIDAZOLAM HCL 2 MG/2 ML INJ ONE (11:18)
[2020-01-26] MEDS ORDERED: HEPA 1000U/500MLS 2,000 UNIT/1,000 ML BAG IV ONE (11:18)
[2020-01-26] MEDS ORDERED: FENTANYL CITR 100 MCG/2 ML ONE (11:18)
[2020-01-26] MEDS ORDERED: VERAPAMIL HCL 10 MG/4 ML VIAL IV ONE (11:19)
[2020-01-26] MEDS ORDERED: NITROGLYCERIN/D5W 25 MG/250 ML BTL IV ONE (11:19)
[2020-01-26] MEDS ORDERED: NITROGLYCERIN 100 MCG/ML SYR (for cath lab use only) IV ONE (11:19)
[2020-01-26] MEDS ORDERED: ATROPINE SULF 1 MG/10 ML SYR IV ONE (11:19)
[2020-01-26] MEDS ORDERED: LIDOCAINE 1% 20 ML MDV ONE (11:19)
[2020-01-26] MEDS ORDERED: NA CHLORIDE 0.9% 1,000 ML ONE (11:20)
--- NOTE | 2020-01-26 11:39 | RAD REPORT ---
EXAM DESCRIPTION: US - Renal Ultrasound-Complete - 01/26/2020 11:18 am CLINICAL HISTORY: . Acute renal insufficiency COMPARISON: None. FINDINGS: The right kidney measures 11 cm with a mildly increased echotexture. 2.7 centimeter cyst The left kidney measures 11 cm with a mildly increased echotexture. Small left renal cyst Hydronephrosis is not seen. No gross abnormality of bladder. The prostate gland is moderately enlarged IMPRESSION: No hydronephrosis Mildly increased renal echotexture consistent with parenchymal disease
--- NOTE | 2020-01-26 11:51 | RAD REPORT ---
EXAM DESCRIPTION: MRI - Brain Wo Cont - 01/26/2020 11:07 am CLINICAL HISTORY: Dysarthria/CVA COMPARISON: January 25, [address] TECHNIQUE: Axial, sagittal, and coronal magnetic images of the brain were obtained. Contrast was not requested FINDINGS: Mild abnormal signal within periventricular, deep and subcortical white matter consistent with ischemic changes secondary small vessel disease Diffusion-weighted/ADC mapping reveals 13 millimeter area abnormal signal within the left insula comp atible with acute infarction. 7 millimeter area of abnormal signal within the deep white matter left frontal lobe an additional smaller areas of abnormal signal compatible with acute infarct. . The ventricles are normal caliber. An extra-axial fluid collection is not present Fluid within the sinuses/mastoids is not noted IMPRESSION: Acute left insular infarct. Additional small left frontal lobe white matter infarcts
--- NOTE | 2020-01-26 12:21 | RAD REPORT ---
EXAM DESCRIPTION: MRI - MRA Head Wo Cont - 01/26/2020 11:06 am CLINICAL HISTORY: Dysarthria/CVA COMPARISON: None. TECHNIQUE: Magnetic resonance angiogram was performed. 3D MIPS reconstruction performed FINDINGS: The anterior cerebral, right middle cerebral, posterior cerebral, distal internal carotid and basilar arteries do not demonstrate a significant stenosis. There is an abrupt cut off of a branch of the left middle cerebral artery An aneurysm is not displayed. IMPRESSION: Abrupt cut off of a branch of the left middle cerebral artery suspicious for thrombus
--- NOTE | 2020-01-26 13:24 | P.PN ---
Subjective Date of Service: 01/26/20 Primary Care Provider: None Chief Complaint: Pulmonary Embolus, CHF Subjective: No new changes, Other (had LHC that revealed severely reduced EF of 10-15% and apical balooning. had CVA diagnosed overnight.) Physical Examination - Vital Signs Temperature: 98.2 F Blood Pressure: 124/73 Pulse: 113 Respirations: 18 Pulse Ox (%): 95 - Physical Exam General: Alert, Oriented x3 HEENT: Atraumatic, Normocephalic Neck: Supple Respiratory: Clear to auscultation bilaterally Cardiovascular: Regular rate/rhythm, Normal S1 S2 Gastrointestinal: Normal bowel sounds Musculoskeletal: No swelling Neurological: Normal speech, Normal strength at 5/5 x4 extr, Cranial nerves 3-12 intact - Studies Microbiology Data (last 24 hrs): 01/24/20 22:55 Blood - Blood Anaerobic Blood Culture - Final Medications List Reviewed: Yes Assessment And Plan - Plan ALYSSA-Creatinine is stable at 1.74. Still deemed due to contrast nephropathy/prerenal issues. we will continue gentle hydration and avoid nephrotoxins. we will continue to dose meds for eGFR. we will continue to hold losartan. PE-On anticoagulation with heparin drip. we will monitor. NSTEMI- elevated troponin noted. LHC done today revealed cardiomyopathy without significant coronary lesions. we will continue care as per cardiology. CVA-Newly diagnosed overnight today. On antiplatelet meds and anticoagulation therapy. Pt is being transferred to [facility] for higher level of care.
[2020-01-26] MEDS ORDERED: ACETYLCYST 20% 4 ML VIAL IH ONE (13:36)
[2020-01-26] MEDS ORDERED: METOPROLOL TARTRATE 5 MG/5 ML INJ IV ONE (13:40)
--- NOTE | 2020-01-26 14:04 | OP ---
Date of Procedure: 01/26/2020 Surgeon: BRITTNEY MARTINS Procedure Performed: Selective coronary angiogram. Indication: 1.Non-ST elevation myocardial infarction. 2.Severely depressed LV function. Access: Right radial artery 6-Bahraini closed with TR band. Complications: None. Bleeding: Less than 5 mL. Total Contrast Used: 11 mL. Description Of Procedure: After risks, benefits, and alternatives were explained, patient agreed to procedure and signed informed consent. We brought the patient [facility], prepped and draped in usual sterile fashion. We accessed right radial artery using a pediatric micropuncture kit and placed a 6-Bahraini slender sheath, and we took 5-Bahraini [place] catheter into the aortic root, engaged the left main coronary artery and the right coronary artery and took standard vi ews. Then, we took the catheter out as well as the sheath and placed a TR band with good hemostasis. Findings: 1.Left main is large and normal. 2.LAD: Moderate size with luminal irregularities. No significant disease. 3.Ramus intermedius: Moderate in size with luminal irregularities. 4.Left circumflex: Moderate size, no significant disease. 5.RCA is large dominant and normal. Conclusion: Nonischemic cardiomyopathy with normal coronary arteries. Recommendation: Guideline directed medical therapy for congestive heart failure and obtain an offici al echocardiogram. SR/MODL Voice ID: [id number] Report ID: [id number]
[2020-01-26 14:28] VITALS: BP 112/84; TEMP 98.1; O2SAT 98
--- NOTE | 2020-01-26 15:34 | CON ---
Reason For Hospitalization: Speech difficulties, problems understanding, being understood and gettin g words out. History Of Present Illness: Mr. Brady Gay is a 64-year-old patient with hypertension, dyslipidemia , who comes in the hospital on the 23 of January after experiencing sudden difficulty getting word s and thoughts together and expressing himself. He came in on 23 of January with these symptoms. However, he appeared to have had a fluctuating course, but initially, he had also shortness of breat h and his evaluation revealed pulmonary embolus in multiple lobes and his evaluation of the extremiti es revealed an acute thrombus in the left popliteal vein. The patient's family said he actually had a lower extremity clot after he drove a long trip to [place] from [place] and has been treated for that . His head CT scan in the emergency room showed no acute ischemic or hemorrhagic changes. The patie nt was treated with high-dose anticoagulation because of his pulmonary embolus and the lower extremit y thrombus and he is treated with such. His speech deficits improved and he is more comprehensible. He was able to be understood more clearly. Throughout this, he did not have face, arm or leg numbne ss or weakness. A subsequent brain MRI done on the showed an acute left insular infarct. In ad dition, there were small left frontal lobe white matter infarcts which suggested thromboembolic event s. The MRA of his brain revealed an abrupt cut off branch of the left middle cerebral artery which m ay explain in part the patient's aphasic presentation. However, his full-dose anticoagulation likely is a contributing factor to improving his speech function. He did have a cardiac catheterization wh ich was done after his echocardiogram suggested about 10% to 15% ejection fraction. The study identi fied nonischemic cardiomyopathy with normal coronary arteries. The left main was readily large and n ormal. Left anterior descending was moderate size with luminal irregularities. The ramus intermediu s was moderate in size with luminal irregularities. The left circumflex was moderate in size with no significant disease and the right coronary artery was large, dominant and normal. The potential for the improvement and any ischemic deficits due to his intercerebral occlusion was discussed with the team and it was felt that the patient would be best served by a transfer to [place] for potential int ercerebral 4-vessel angiogram and intervention as appropriate. Therefore, this transfer was initiate d. Past Medical History: Hypertension, dyslipidemia, remote history of smoking in the past, depression. Social History: As indicated smoking, but no alcohol or IV drug use. No risky behaviors or practice s. Family History: The patient denies any history of coagulation in his family or hypercoagulable state s. Allergies: NO KNOWN DRUG ALLERGIES. Current Medications: Aspirin 81 mg daily, Lipitor 40 mg at bedtime, Coreg 3.125 mg twice daily, Lasi x 20 mg daily. He is on full dose heparin 25,000 units and was received earlier and he is receiving 1000 units and he is on cardiac protocol following his cardiac catheterization. He also has Atrovent nebulizer for his pulmonary congestion as identified on chest imaging. Review of Systems: Aside from mentioned, no recent fevers, chills, nausea, vomiting, myalgias, arthralgias, headache, we ight change, rash, psychiatric complaints. No gastrointestinal issues or genitourinary issues. Surgical History: Neck surgery. Physical Examination: VITAL SIGNS: Blood pressure 124/73, pulse up to 113, respiratory rate 16-20, temperature 98.2, oxyge n saturation 95% on 3 L oxygen by nasal cannula. Weight 180 pounds, height 5 feet 10 inches, BMI 25. General: Mr. Abreu is resting comfortably. He is in no significant distress. HEENT: He is normocephalic, atraumatic. Sclerae anicteric. Oropharynx is pink and moist. Neck: Supple. Chest: Clear. Heart: Regular. Extremities: Show no edema, clubbing, or cyanosis Neurologic: He is actually alert and oriented to person, place, time, and situation. He has no expressive or receptive aphasias as his deficits are r esolved. Cranial nerves show no focal deficits on 2 through 12 and fully intact. His motor examinat ion in the upper and lower extremities show full strength proximally and distally, 5/5. Sensory exam intact in upper and lower extremities proximally and distally. Reflexes 2+ in upper and lower extre mities proximally and distally. Coordination intact in upper and lower extremities. Gait, he has go od stance and stride. Laboratory Studies: Complete blood count with differential essentially normal. Coagulation panel sh ows aPTT that is elevated to 112 and after hydration now up to 35.4, which is normal. INR 1.1 1.21. Chemistries show elevated creatinine to 1.73, glucose up to 114, lactic acid 1.2. Troponin has been elevated as the patient is having cardiac cath. His most recent troponin 6.18 and beta natriuretic peptide of 1597. Cholesterol panel shows LDL cholesterol elevated to 148, total cholesterol 224. Li pase 85. His cholesterol to HDL ratio 4.67, HDL cholesterol of 48. Lactic acid was 3.4 on yesterday . His urinalysis is unremarkable except elevated random total protein in the urine. COVID-19 is neg ative. His renal ultrasound shows no significant abnormalities. Chest and thoracic CT angiogram ash ntified multiple bilateral lobar and segmental pulmonary emboli, most severely affecting the lower lo bes. Moderate clot burden. There is no right cardiac strain. There are small bilateral pleural eff usions and bibasilar compressive atelectasis. There is cardiomegaly with coronary artery sclerosis i dentified. Assessment: Mr. 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 He also has pulmonary embolus and lower extremity clot as well. There was no evidence noted of a [id number] shunt on the patient's evaluation by the band tumbler. The patient is bein g prepped for transfer to [place] for possible intracerebral intervention to minimize his risk of wor sening cognitive deficits and also neurological focal deficits. Plan: The patient will maintain good hydration. At this point, full anticoagulation in addition to the high-dose statin along with aspirin and will be monitored carefully for risk of developing a hemo rrhagic conversion. He has a workup for infection suggesting possibility of an infection. He is estefany ng treated by primary care physician for that. Once he is fully evaluated in [place] and treated, he may return to [facility] or actually return to clinic with Dr. Jernigan for followup within a month. LAUREL/KAMRON Voice ID: [id number] Report ID: [id number]
--- NOTE | 2020-01-26 21:25 | P.DS ---
Admission Date: 01/25/20 Discharge Date: 01/26/20 Primary Care Provider: None Disposition: TRANSFER TO [facility] Reason for Admission: Pulmonary Embolus, CHF Consultations: Pulmonology - Dr. Pacheco Nephrology - Dr. Mackenzie / [place] Cardiology - Dr. Montiel Neurology - Dr. Jernigan Procedures: CXR (01/24): Cardiomegaly with insterstitial pulmonary edema pattern CTA Chest (01/24): multiple bilateral lobar and segmental PE, most severely affecting the lower lobes. Moderate clot burden. No right heart strain. Small bilateral pleural effusions with bibasilar compressive atelectasis. Cardiomegaly with coronary artery atherosclerosis. Renal U/S (01/24): No hydronephrosis. Mildly increased renal echotexture consistent with parenchymal disease. Bilateral Lower Extremity Venous U/S (01/24): Acute thrombus Left popliteal vein CT Head (01/24): no acute intracranial abnormality is seen. MRI Brain (01/25): 13mm area of abnormal signal within left insula compatible with acute infarction. 7mm area of abnormal signal within the deep white matter of Left frontal lobe and additional smaller areas of abnormal signal compatible with acute infarct. mild abnormal signal within periventricular, deep, and subcortical white matter consistent with ischemic changes secondary to small vessel disease. MRA Brain (01/25): The anterior cerebral, right middle cerebral, posterior cerebral, distal internal carotid and basilar arteries do not demonstrate a significant stenosis. There is an abrupt cut off of a branch of the left middle cerebral artery. An aneurysm is not displayed. Cardiac Cath (01/25): nonischemic cardiomyopathy with normal coronary arteries. (11ml contrast used) 1. Left main is large and normal. 2. LAD: Moderate size with luminal irregularities. No significant disease. 3. Ramus intermedius: Moderate in size with luminal irregularities. 4. Left circumflex: Moderate size, no significant disease. 5. RCA is large dominant and normal. Problem List: Acute left insula infarction and small acute infarcts in left frontal lobe Thrombus in branch of left middle cerebral artery Bilateral lobar and segmental PE Nonischemic cardiomyopathy with normal coronary arteries (likely Takotsubo) NSTEMI Hypertension Brief History of Present Illness: 64yo M, PMH reportedly: HTN, Depression, who presented to ED due to increased SOB that began ~3 months ago, but acutely worsened over the last ~3 weeks. He reported markedly worse symptoms over the past day to the point he was short of breath at rest. Workup in ED revealed bilateral PE, Cr: 1.86, troponin: 0.22, and elevated BNP. Hospital Course: Patient was admitted for further evaluation/treatment of his bilateral PE. Pulmonology was consulted and he was started on 1mg/kg lovenox q12hr. His troponins were trended and continued to climb (peaking at 6.4). Cardiology was consulted and patient was transitioned to heparin drip in the late evening of 01/24. On 01/24 at ~1800, family noted patient had difficulty speaking (having difficulty getting words out, expressing himself) after patient got out of bed to use the bathroom. Neurologic assessment at this time was consistent with NIH of 1 on descriptive images/language showing mild aphasia, no other focal deficits noted. A stat CT brain was negative for acute changes. Upon arrival to room from CT patient appeared to be talking better. The case was discussed with neurology and the fact that it was mild and patient was on full anticoagulation, he would not be a candidate for tPA. He had MRI brain the following morning w hich was consistent with a new stroke. MRA revealed an abrupt cutoff of a branch of his Left MCA. At time of transfer, patient's language / aphasia had significantly improved and appeared to have resolved. A bedside echocardiogram was performed by Dr. Montiel, [employer], which was concerning for EF: 10-15%. The patient was taken for diagnostic cardiac catheterization, revealing normal coronary arteries, but severely depressed LVEF (10-15%) and minimally functioning anterior LV wall. The case was again discussed with neurology who recommended transfer to tertiary care center for further monitoring and evaluation with possible intercerebal 4-vessel angiogram / MRI perfusion scan and intervention as appropriate. Patient was noted to have elevated creatinine with unknown baseline and denied history of kidney disease. Nephrology was consulted - felt likely due to contrast induced nephropathy from CTA / pre-renal. Renal U/S was obtained as noted above. Vital Signs/Physical Exam: Temp Pulse Resp BP Pulse Ox 98.1 F 98 H 18 112/84 95 01/26/20 14:19 01/26/20 14:19 01/26/20 14:19 01/26/20 14:19 01/26/20 14:13 General: Alert, Oriented x3 HEENT: PERRLA, EOMI, Sclerae nonicteric Respiratory: Diminished, Crackles/rales (bilaterally) Cardiovascular: No edema, No murmurs, Irregular heart rate/rhythm (sinus tachycardia 90s) Gastrointestinal: Soft and benign, Non-distended, No tenderness Musculoskeletal: No tenderness Integumentary: No rashes Neurological: Normal speech, Normal strength at 5/5 x4 extr, Sensation intact, Cranial nerves 3-12 intact, Normal reflexes 2+ (bilaterally, & symmetric), Normal affect Laboratory Data at Discharge: WBC 8.8 K/uL (4.3-10.9) 01/26/20 04:06 Hgb 13.2 g/dL (13.6-17.9) L 01/26/20 04:06 Hct 39.5 % (39.6-49.0) L 01/26/20 04:06 Plt Count 203 K/uL (152-406) 01/26/20 04:06 PT 14.2 SECONDS (9.5-12.5) H 01/26/20 04:06 INR 1.21 01/26/20 04:06 APTT 35.4 SECONDS (24.3-36.9) 01/26/20 11:51 Sodium 139 mmol/L (136-145) 01/26/20 04:06 Potassium 3.9 mmol/L (3.5-5.1) 01/26/20 04:06 BUN 22 mg/dL (7-18) H 01/26/20 04:06 Creatinine 1.73 mg/dL (0.55-1.3) H 01/26/20 04:06 Glucose 112 mg/dL (74-106) H 01/26/20 04:06 Magnesium 2.2 mg/dL (1.8-2.4) 01/25/20 06:23 Total Bilirubin 0.6 mg/dL (0.2-1.0) 01/24/20 22:43 AST 15 U/L (15-37) 01/24/20 22:43 ALT 23 U/L (12-78) 01/24/20 22:43 Alkaline Phosphatase 82 U/L (45-117) 01/24/20 22:43 Troponin I 6.18 ng/mL (0.0-0.045) H* 01/25/20 22:27 Triglycerides 139 mg/dL (<150) 01/25/20 05:30 Cholesterol 224 mg/dL (<200) H 01/25/20 05:30 HDL Cholesterol 48 mg/dL (40-60) 01/25/20 05:30 Cholesterol/HDL Ratio 4.67 01/25/20 05:30 Lipase 85 U/L (73-393) 01/24/20 22:43 Home Medications: OLANZapine [Zyprexa] 5 mg PO DAILY 01/25/20 Followup: NONE,NONE [Primary Care Provider] - Time spent managing pt's care (in minutes): 55
== END 2020-01-26 15:02 | disposition short-term general hospital (02) | DRG 175 ==
LOC: ER 22:23 → ERHOLD 01-25 00:53 → 2ND 01-25 09:39
PROVIDERS: ADMIT Hospitalist; ATTEND Hospitalist
PROC: 4A023N7 Measurement of Cardiac Sampling and Pressure, Left Heart, Percutaneous Approach (ICD-10-PCS; principal; 2020-01-26)
PROC: B2111ZZ Fluoroscopy of Multiple Coronary Arteries using Low Osmolar Contrast (ICD-10-PCS; 2020-01-26)
DX: I26.99 Other pulmonary embolism without acute cor pulmonale (principal); I63.9 Cerebral infarction, unspecified; I21.4 Non-ST elevation (NSTEMI) myocardial infarction; I50.21 Acute systolic (congestive) heart failure; I13.0 Hypertensive heart and chronic kidney disease with heart failure and stage 1 through stage 4 chronic kidney disease, or unspecified chronic kidney disease; N17.9 Acute kidney failure, unspecified; I42.8 Other cardiomyopathies; I51.81 Takotsubo syndrome; R47.01 Aphasia; I82.432 Acute embolism and thrombosis of left popliteal vein; N18.9 Chronic kidney disease, unspecified; E78.5 Hyperlipidemia, unspecified; I25.10 Atherosclerotic heart disease of native coronary artery without angina pectoris; R29.701 NIHSS score 1; Z87.891 Personal history of nicotine dependence; Z79.899 Other long term (current) drug therapy; Z20.828 Contact with and (suspected) exposure to other viral communicable diseases
CPT/HCPCS: 36415; 70450; 70544; 70551; 71045; 71275; 76770; 80048; 80061; 80076; 81003; 82550; 82553; 82570; 83605; 83690; 83735; 83880; 84156; 84300; 84484; 85025; 85347; 85379; 85610; 85730; 87040; 93005; 93454; 93970; 96365; 96372; 96375; 99285; C1893; J0456; J0696; J1644; J1650; J1940; J2250; J3010; J7030; J7040; J7050; Q9967; U0003

== ENCOUNTER 2020-02-14 11:08 | Observation (INO) | payer OTHER, SELFPAY ==
--- OUTSIDE RECORDS SUMMARY | 2020-02-14 11:16 | XMS REPORT | Clinical Summary ---
:1955 Author Organization [facility] Address [address] [place] [address] Care Team Providers Name Role Phone Unavailable Primary Care Provider Unavailable Allergies No Known Allergies Medications Medication Sig Dispensed Refills Start Date End Date Status OLANZapine Take 5 mg by 0 Active (ZYPREXA) 5 MG mouth tablet nightly. amiodarone Take 1 tablet 60 tablet 0 01/31/2020 Acti ve (PACERONE) 100 MG (100 mg 1 tablet total) by mouth 2 (two) times daily for 30 days. apixaban (ELIQUIS) Take 1 tablet 60 tablet 0 01/31/2020 Active 5 mg Tab tablet (5 mg total) 1 by mouth 2 (two) times daily for 30 days. atorvastatin Take 1 tablet 30 tablet 0 01/31/2020 Ac tive (LIPITOR) 80 MG (80 mg total) 1 tablet by mouth nightly for 30 days. enalapril Take 20 mg by 0 Discon tinued (VASOTEC) 20 MG mouth daily. 0 ( Stop Taking at tablet Discharge) Active Problems Problem Noted Date Iron deficiency 01/30/2020 Congestive heart failure 01/27/2020 Acute pulmonary embolism without acute cor pulmonale 1 03/28/2019 Hypertension 01/27/2020 Aphasia 01/27/2020 Troponin level elevated 01/27/2020 Bipolar depression 01/27/2020 Acute deep vein thrombosis (DVT) of popliteal vein of left lower extremity 01/27/2020 Pulmonary hypertension 01/27/2020 Ischemic stroke 01/26/2020 Encounters Date Type Specialty Care Team Description 01/28/2020 Travel 01/26/2020 - Hospital General Internal Basilio Trammell Iron defic iency (Primary Dx); 01/31/2020 Encounter Medicine MD Margy Aphasia; Jame Long Congestive he art failure, unspecified HF chronicity, unspecified heart failure type (HCC); MD Essence Ischemic stroke (HCC); Sherry Alexis Other acute pul monary embolism, unspecified whether acute cor pulmonale present (HCC); MD Romeo Acute deep vein thrombosis (DVT) of popl iteal vein of left lower extremity (HCC); Trixie Julian acute pul monary embolism without acute cor pulmonale (HCC); Tabitha Chapman MD Bipolar depr ession (HCC); Acute systolic congestive heart failure (HCC); Pulmonary hyper tension (HCC); Troponin level elevated; 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 Last Filed Vital Signs Vital Sign Reading Time Taken Comments Blood Pressure 120/78 01/31/2020 3:00 PM [facility] Pulse 92 01/31/2020 3:00 PM [facility] Temperature 37.4 C (99.4 F) 01/31/2020 3:00 PM [facility] Respiratory Rate 18 01/31/2020 3:00 PM [facility] Oxygen Saturation 97% 01/31/2020 3:00 PM [facility] Inhaled Oxygen Concentration - - Weight 75.8 kg (167 lb) 01/26/2020 4:30 PM [facility] Height 177.8 cm (5' 10") 01/27/2020 7:00 AM [facility] Body Mass Index 23.96 01/26/2020 4:30 PM [facility] Plan of Treatment Date Type Specialty Care Team Description 03/19/2020 Office Visit Cardiology Adrián Davis MD [address] [place] [address] [address] [facility] [place], [place] [address] [phone] Health Maintenance Due Date Last Done Comments COLON CANCER SCREENING COLONOSCOPY 1955 PNEUMOCOCCAL 65+ YRS (1 of 1 - [id number]) 2018 MEDICARE ANNUAL WELLNESS (YEAR 2 or FIRST YEAR if no 01/30/2019 IPPE) INFLUENZA VACCINE (#1) 2019 Procedures Procedure Name Priority Date/Time Associated Comments Diagnosis SARS-COV2/RT-PCR ([facility] & Routine 01/31/2020 3:50 Results for this REF LABS) PM [facility] [employer] [facility] procedure are i n the results section. ECG 12-LEAD Routine 01/31/2020 7:39 Results for this AM [facility] procedure are i n the results section. PT/APTT Routine 01/31/2020 4:20 Results for this AM [facility] procedure are i n the results section. BASIC METABOLIC PANEL Routine 01/31/2020 4:20 Re sults for this (7) AM [facility] procedure are i n the results section. MAGNESIUM Routine 01/31/2020 4:20 Results for this AM [facility] procedure are i n the results section. MR CARDIAC WITHOUT & Routine 01/30/2020 11:26 Res ults for this WITH CONTRAST AM [facility] procedure are in the results section. ECG 12-LEAD Routine 01/30/2020 8:14 Results for this AM [facility] [employer] [facility] procedure are i n the results section. CBC W/PLT COUNT & AUTO Routine 01/30/2020 2:22 R esults for this DIFFERENTIAL AM [facility] procedure are i n the results section. CBC W/PLT COUNT & AUTO Add-On 01/30/2020 2:22 R esults for this DIFFERENTIAL AM [facility] procedure are i n the results section. APTT Routine 01/30/2020 2:22 Results for this AM [facility] [employer] [facility] procedure are i n the results section. RETICULOCYTE COUNT Routine 01/30/2020 2:22 Resul ts for this AM [facility] [employer] [facility] procedure are i n the results section. PERIPHERAL BLOOD SMEAR - Routine 01/30/2020 2:22 Results for this PATHOLOGIST REVIEW AM [facility] procedure are in the results section. FOLATE, SERUM Routine 01/30/2020 2:22 Results fo r this AM [facility] [employer] [facility] procedure are i n the results section. VITAMIN B12 Routine 01/30/2020 2:22 Results for this AM [facility] procedure are i n the results section. IRON, TIBC, % SAT. Routine 01/30/2020 2:22 Resul ts for this (WITHOUT FERRITIN) AM [facility] procedure are in the results section. FERRITIN Routine 01/30/2020 2:22 Results for this AM [facility] [employer] [facility] procedure are i n the results section. BASIC METABOLIC PANEL Routine 01/30/2020 2:22 Re sults for this (7) AM [facility] [employer] [facility] procedure are i n the results section. MAGNESIUM Routine 01/30/2020 2:22 Results for this AM [facility] [employer] [facility] procedure are i n the results section. CT CHEST WITH IV Routine 01/30/2020 1:57 Results for this CONTRAST AM [facility] [employer] [facility] procedure are i n the results section. CT ABDOMEN/PELVIS WITH Routine 01/30/2020 1:10 R esults for this IV CONTRAST AM [facility] [employer] [facility] procedure are i n the results section. APTT Routine 01/29/2020 8:05 Results for this PM [facility] [employer] [facility] procedure are i n the results section. XR FOOT RIGHT 3 VIEW Routine 01/29/2020 2:58 Res ults for this PM [facility] [employer] [facility] procedure are i n the results section. THROMBIN TIME Routine 01/29/2020 12:00 Results fo r this PM [facility] [employer] [facility] procedure are i n the results section. APTT Routine 01/29/2020 12:00 Results for this PM [facility] [employer] [facility] procedure are i n the results section. ALPHA FETOPROTEIN (AFP), Routine 01/29/2020 12:00 Results for this TUMOR MARKER PM [facility] [employer] [facility] procedure are i n the results section. CARBOHYDRATE ANTIGEN Routine 01/29/2020 12:00 Res ults for this 19-9 (CA 19-9) PM [facility] [employer] [facility] procedure are in the results section. CARCINOEMBRYONIC ANTIGEN Routine 01/29/2020 12:00 Results for this (CEA) PM [facility] procedure are i n the results section. ECG 12-LEAD Routine 01/29/2020 8:20 Results for this AM [facility] [employer] [facility] procedure are i n the results section. APTT Routine 01/29/2020 5:38 Results for this AM [facility] [employer] [facility] procedure are i n the results section. YENH-2-LGGHCNPZAGFT I Routine 01/29/2020 5:12 Re sults for this IGA AM [facility] procedure are i n the results section. LWFA-2-BKSOWXMJSFAU I Routine 01/29/2020 5:12 Re sults for this IGM AM [facility] [employer] [facility] procedure are i n the results section. DYKE-3-CQOSZRKGCXXN I Routine 01/29/2020 5:12 Re sults for this IGG AM [facility] procedure are i n the results section. JAK2 MUTATION (V617F) Routine 01/29/2020 5:12 Re sults for this QUANTITATIVE AM [facility] procedure are i n the results section. PSA Routine 01/29/2020 5:12 Results for this AM [facility] [employer] [facility] procedure are i n the results section. BETA-2 GLYCOPROTEIN Routine 01/29/2020 5:12 Resu lts for this ANTIBODIES AM [facility] procedure are i n the results section. CARDIOLIPIN ANTIBODIES, Routine 01/29/2020 5:12 Results for this IGG AND IGM AM [facility] procedure are i n the results section. BASIC METABOLIC PANEL Routine 01/29/2020 5:12 Re sults for this (7) AM [facility] [employer] [facility] procedure are i n the results section. MAGNESIUM Routine 01/29/2020 5:12 Results for this AM [facility] [employer] [facility] procedure are i n the results section. APTT Routine 01/28/2020 10:16 Results for this PM [facility] [facility] procedure are i n the results section. APTT Routine 01/28/2020 4:33 Results for this PM [facility] [employer] [facility] procedure are i n the results section. ECHO W/ CONTRAST LIMITED KARMA 01/28/2020 9:36 Results for this STUDY AM [facility] procedure are i n the results section. APTT Routine 01/28/2020 8:18 Results for this AM [facility] [facility] procedure are i n the results section. TROPONIN I Routine 01/28/2020 8:15 Results for this AM [facility] [employer] [facility] procedure are i n the results section. TROPONIN I Routine 01/28/2020 1:45 Results for this AM [facility] [employer] [facility] procedure are i n the results section. APTT Routine 01/28/2020 1:45 Results for this AM [facility] [facility] procedure are i n the results section. BASIC METABOLIC PANEL Routine 01/28/2020 1:45 Re sults for this (7) AM [facility] procedure are i n the results section. MAGNESIUM Routine 01/28/2020 1:45 Results for this AM [facility] [employer] [facility] procedure are i n the results section. TROPONIN I Routine 01/27/2020 6:21 Results for this PM [facility] [facility] procedure are i n the results section. APTT Routine 01/27/2020 6:21 Results for this PM [facility] [employer] [facility] procedure are i n the results section. 2D ECHO W/ DOPPLER STAT 01/27/2020 7:46 Resul ts for this (CW/PW/COLOR) AM [facility] procedure are in the results section. APTT Routine 01/27/2020 7:46 Results for this AM [facility] [employer] [facility] procedure are i n the results section. TROPONIN I Routine 01/27/2020 7:46 Results for this AM [facility] [employer] [facility] procedure are i n the results section. CT BRAIN WITHOUT IV Routine 01/27/2020 4:52 Resu lts for this CONTRAST AM [facility] [facility] procedure are i n the results section. CBC (HEMOGRAM ONLY) Routine 01/27/2020 12:50 Resu lts for this AM [facility] [employer] [facility] procedure are i n the results section. BASIC METABOLIC PANEL Routine 01/27/2020 12:50 Re sults for this (7) AM [facility] [employer] [facility] procedure are i n the results section. PHOSPHORUS Routine 01/27/2020 12:50 Results for this AM [facility] [employer] [facility] procedure are i n the results section. MAGNESIUM Routine 01/27/2020 12:50 Results for this AM [facility] [employer] [facility] procedure are i n the results section. HEMOGLOBIN A1C Routine 01/27/2020 12:50 Results f or this AM [facility] [employer] [facility] procedure are i n the results section. LIPID PANEL Routine 01/27/2020 12:50 Results for this AM [facility] [employer] [facility] procedure are i n the results section. APTT STAT 01/27/2020 12:50 Results for this AM [facility] [employer] [facility] procedure are i n the results section. TROPONIN I Routine 01/27/2020 12:18 Results for this AM [facility] [employer] [facility] procedure are i n the results section. ABORH, MANUAL STAT 01/26/2020 6:18 Results fo r this PM [facility] [facility] [employer] [facility] procedure are i n the results section. CBC W/PLT COUNT & AUTO Routine 01/26/2020 5:54 R esults for this DIFFERENTIAL PM [facility] [facility] procedure are i n the results section. HOMOCYSTEINE Routine 01/26/2020 5:54 Results for this PM [facility] [facility] procedure are i n the results section. RPR Routine 01/26/2020 5:54 Results for this PM [facility] [facility] procedure are i n the results section. HEMOGLOBIN A1C AP Routine 01/26/2020 5:54 Results f or this PM [facility] [facility] procedure are i n the results section. CBC W/PLT COUNT & AUTO Routine 01/26/2020 5:54 R esults for this DIFFERENTIAL PM [facility] [facility] procedure are i n the results section. BASIC METABOLIC PANEL Routine 01/26/2020 5:54 Re sults for this (7) PM [facility] [employer] [facility] procedure are i n the results section. TYPE AND SCREEN, Routine 01/26/2020 5:53 Results for this AUTOMATED PM [facility] procedure are i n the results section. APTT Routine 01/26/2020 5:53 Results for this PM [facility] [employer] [facility] procedure are i n the results section. after 02/13/2019 Results SARS-CoV2/RT-PCR (Asymptomatic ONLY) (01/31/2020 3:50 PM [facility] [employer] [facility]) SARS-COV2/RT-PCR Negative Not Detected, [facility] Negative, See [facility] external report CENTER for linked test SARS-COV-2 [facility] PER[facility] Specimen Other - Nasopharyngeal wall structure (b arianna structure) Narrative Performed At Negative result for this test determines that ADE FARMERDom [facility] SARS-CoV-2 RNA was not present in the specimen above the Limit of Detection (LOD). However, Negative results do not preclude SARS-CoV-2 infection and should not be used as the sole basis for treatment or patient management decisions. Negative results must be combined with clinical observations, patient history, and epidemiological information. A false negative result may occur if a specimen is improperly collected, transported or handled. A false negative result should be considered if patient's recent exposures or clinical presentation indicate that COVID-19 (SARS-CoV-2) is likely and diagnostic tests for other causes of illness are negative. Re-testing should be considered in cases of suspected false negatives. The limit of detection for this assay is 800 copies/mL. This SARS CoV-2 test is a real-time RT-PCR test intended for the qualitative detection of nucleic acid from SARS-CoV-2 in a nasopharyngeal swab specimen collected from individuals suspected of COVID-19 by their healthcare provider. This test has not been Food and Drug Administration (FDA) cleared or approved. This is a modified version of an approved Emergency Use Authorization (EUA) and is in the process of review by the FDA. Once authorized by the FDA, the issued EUA will be effective until the declaration that circumstances exist justifying the authorization of the emergency use of in vitro diagnostic tests for detection and/or diagnosis of COVID-19 is terminated under Section 564(b)(2) of the Act or the EUA is revoked under Section 564(g) of the Act. Fact Sheet for Healthcare Providers: https://www.[employer].com/sites/default/files/pro duct/documents/Fact_Sheet_HC_Providers_Lyra_SA RS-CoV-2.pdf Fact Sheet for Healthcare Patients: https://www.[employer].com/sites/default/files/pro duct/documents/Fact_Sheet_Patients_Lyra_SARS-C oV-2.pdf Performing Laboratory: [place] [address] [facility] [place] [address] Performing Organization Address [facility] Phone Number [facility] [address] [place] [address] CENTER ECG 12 lead (01/31/2020 7:39 AM [facility] [facility])Only the most recent of3 resultswithin the time period is included. Specimen Narrative Performed At Ventricular Rate 92 BPM GE MUSE Atrial Rate 92 BPM P-R Interval 130 ms QRS Duration 152 ms Q-T Interval 422 ms QTC Calculation(Bazett) 521 ms P [place] 65 degrees R [place] 45 degrees T [place] 67 degrees Normal sinus rhythm Non-specific intra-ventricular conductio n delay Abnormal ECG When compared with ECG of 30-JAN-2020 08 :14, T wave inversion no longer evident in In ferior leads Confirmed by MD Lay Roberto ([id number]) on 01/30 9:22:50 PM Procedure Note Interface, External Ris In - 01/31/2020 9:22 PM [facility] [facility] Ventricular Rate 92 BPM Atrial Rate 92 BPM P-R Interval 130 ms QRS Duration 152 ms Q-T Interval 422 ms QTC Calculation(Bazett) 521 ms P [place] 65 degrees R [place] 45 degrees T [place] 67 degrees Normal sinus rhythm Non-specific intra-ventricular conductio n delay Abnormal ECG When compared with ECG of 30-JAN-2020 08 :14, T wave inversion no longer evident in In ferior leads Confirmed by MD Lay Roberto ([id number]) on 01/31/2020 9:22:50 PM Performing Organization Address City/[facility]/Zipcode Phone Number Depop PT/aPTT (01/31/2020 4:20 AM [facility] [employer] [facility]) Pathologist Sig nature Protime 13.1 11.9 - 14.2 seconds [facility] INR 1.03 <=5.90 [facility] PTT 76.6 (H) 22.5 - 36.0 seconds [facility] Specimen Blood Narrative Performed At Effective 07/27/2018: PT Reference Range [facility] Change New: 11.9-14.2 Previous: 11.7-14.7 RECOMMENDED COUMADIN/WARFARIN INR THERAPY RANGES STANDARD DOSE: 2.0-3.0 Includes: PROPHYLAXIS for venous thrombosis, systemic embolization; TREATMENT for venous thrombosis and/or pulmonary embolus. HIGH RISK: Target INR is 2.5-3.5 for patients wiht mechanical heart valves. Performing Organization Address City/[facility] Phone Number [facility] [address] [place] [address] [phone] CENTER Magnesium (01/31/2020 4:20 AM [facility] [employer] [facility])Only the most recent of5 resultswithin the time period is included. Pathologist Sig nature Magnesium 1.9 1.6 - 2.6 mg/dL [facility] Specimen Blood Narrative Performed At Offset Duplicating Machine Operator ID - [facility] Performing Organization Address [facility] Phone Number [address] [address] CENTER Basic Metabolic Panel (01/31/2020 4:20 AM [facility] [employer] [facility])Only the most recent of6 results within the time period is included. Sodium 139 136 - 145 meq/L [facility] Potassium 4.1 3.5 - 5.1 meq/L [facility] Chloride 106 98 - 107 meq/L [facility] CO2 21 (L) 22 - 29 meq/L [facility] BUN 18 7 - 21 mg/dL [facility] Creatinine 1.47 (H) 0.57 - 1.25 [facility] mg/dL [facility] Glucose 108 (H) 70 - 105 mg/dL [facility] Calcium 9.2 8.4 - 10.2 [facility] mg/dL [facility] EGFR 48Comment: ESTIMATED mL/min/1.73 sq [facility] GFR IS NOT m [facility] ACCURATE [place] CREATININE CLEARANCE IN PREDICTING GLOMERULAR FILTRATION RATE. ESTIMATED GFR IS NOT APPLICABLE FOR DIALYSIS PATIENTS. Specimen Blood Narrative Performed At Offset Duplicating Machine Operator [facility] Performing Organization Address City/State/Zipcode Phone Number [facility] [address] [place] [address] CENTER MR cardiac without & with IV contrast (01/30/2020 11:26 AM [facility] [facility]) Specimen Narrative Performed At FINAL REPORT [employer] [place] EXAM: MRI CARDIAC WITH AND WITHOUT INDICATION: Cardiomyopathy, non-ischemic suspected COMPARISON: CT chest abdomen and pelvis 01/30/2020. Technique: [employer] 450 1.5 [employer] MRI scanner. Multiplanar and multisequence imaging was performed of jenny akins heart. * Dual IR T1 and gradient echo imaging for anatomic definition. * Dynamic cine imaging (FIESTA) for card iac chamber and wall-motion analysis. * Flow quantification sequences for hemo dynamics. * T1 weighted dual IR sequence post co ntrast and Delayed gadolinium-enhancement analysis after in jection of gadolinium-chelate (dose per epic notes). FINDINGS: The chest wall and mediastinum appear no rmal. No significant adenopathy is identified. The thora cic aorta appears normal in course, caliber, and contour. There is no evidence for acute aortic pathology. Small bilateral pleural effusions. Hyper intense consolidations in both lung bases are better evaluated on same-day CT chest. Suboptimally seen pulmonary embolism and better visualized on same-day CT. CARDIAC CHAMBERS: The cardiac chambers demonstrate normal atrioventricular and ventriculoarterial concordance, and syst emic and pulmonary venous return. The left atrium is enlarged. Jenny akins right atrium normal in size. LEFT VENTRICLE: The left ventricle is se verely dilated but normal in thickness, and has severely depressed sy stolic function. Severe global hypokinesis. No visualized thromb us in the left ventricle. Quantitative left ventricular functional values are as follows: EDV = 388.7 mL; EDVi = 199 mL/m2 ESV = 328.4 mL; ESVi = 168.1 mL/m2 Stroke volume = 60.3 mL; SVi = 30.9 m L/m2 LVEF = 16 % Absolute Cardiac Output = 6.0 l/min.; COi = 3.1 l/min/m2 LV mass = 289.2 gm Black blood image sequence demonstrates homogeneous intensity of the left ventricular myocardium, which goes against edema or infiltrative process. Delayed-enhancement imaging reveals few small foci of intramyocardial delay enhancement along the anterolatera l and inferolateral wall of the left ventricle. While some of these foci appear to represent volume average from the adjacent blood p ool, a few may represent true foci of intramyocardial interstitial fib rosis, for example, on series 29, image three and distal inferolateral wall on series 30, image 8. RIGHT VENTRICLE: The right ventricle is normal in size and shape, and has moderately decreased systolic functi on. Mild global hypokinesis. No presence of scar. Quantitative right ventricular functiona l values are as follows: EDV = 151 mL; EDVi = 77.3 mL/m2 ESV = 96.9 mL; ESVi = 49.6 mL/m2 Stroke volume = 54.1 mL; SVi = 27.7 m L/m2 RVEF = 36 % Absolute Cardiac Output = 5.4 l/min.; COi = 2.8 l/min/m2 CARDIAC VALVES: Aortic valve: Normal Mitral valve: Mild thickening of the trudy ral valve leaflets with associated mild mitral valve regurgitati on with an eccentric posteriorly directed jet. Tricuspid valve: Normal Pulmonic valve: Not evaluated Flow quantification through the ascendin g aorta: Forward volume = 38 mL/beat Reverse volume = 4.5 mL/beat Net forward volume = 33.5 mL/beat Aortic regurgitant fraction = 11.8 % PERICARDIUM: Small pericardial effusion. UPPER ABDOMEN: Partially visualized right renal cysts. BONES: No acute bone marrow abnormalities. IMPRESSION: 1. Dilated left ventricle with preserv ed thickness and severely decreased systolic function (LVEF 16%). Severe global hypokinesis with associated scattered foci of intram yocardial scar in the lateral wall of the left ventricle, some of whic h may represent volume average while others may represent true tiny areas of interstitial fibrosis. 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 However, there ar e no findings to suggest amyloidosis or LV noncompaction. Sarcoid osis appears also less likely given the absence of mediastinal and pul monary sarcoidosis. 2. No visualized thrombus in the left ventricle. 3. Normal size of the right ventricle with associated mild global hypokinesis and moderate decreased systo lic function (RVEF 36%). There are scar within the right ventricl e. 4. Mild mitral valve regurgitation. 5. Small bilateral pleural effusions wit h adjacent consolidations and few segmental pulmonary pulmonary artery embolism are better seen on same-day CT. Signed: Anastasia Mahajan MD Report Verified Date/Time: 01/30/2020 16:48:46 [place] Location: [facility] [address] Procedure Note Interface, External Ris In - 01/30/2020 4:50 PM [facility] [facility] FINAL REPORT EXAM: MRI CARDIAC WITH AND WITHOUT INDICATION: Cardiomyopathy, non-ischemic suspected COMPARISON: CT chest abdomen and pelvis 01/30/2020. Technique: [employer]A 450 1.5 [facility] MRI scanner. Multiplanar and multisequence imaging was performed of [facility] heart. * Dual IR T1 and gradient echo imaging for anatomic definition. * Dynamic cine imaging (FIESTA) for card iac chamber and wall-motion analysis. * Flow quantification sequences for hemo dynamics. * T1 weighted dual IR sequence post con trast and Delayed gadolinium-enhancement analysis after in jection of gadolinium-chelate (dose per epic notes). FINDINGS: The chest wall and mediastinum appear no rmal. No significant adenopathy is identified. The thoraci c aorta appears normal in course, caliber, and contour. There is no evidence for acute aortic pathology. Small bilateral pleural effusions. Hyper intense consolidations in both lung bases are better evaluated on same-day CT chest. Suboptimally seen pulmonary embolism and better visualized on same-day CT. CARDIAC CHAMBERS: The cardiac chambers demonstrate normal atrioventricular and ventriculoarterial concordance, and syst emic and pulmonary venous return. The left atrium is enlarged. Th e right atrium normal in size. LEFT VENTRICLE: The left ventricle is se verely dilated but normal in thickness, and has severely depressed sy stolic function. Severe global hypokinesis. No visualized thromb us in the left ventricle. Quantitative left ventricular functional values are as follows: EDV = 388.7 mL; EDVi = 199 mL/m2 ESV = 328.4 mL; ESVi = 168.1 mL/m2 Stroke volume = 60.3 mL; SVi = 30.9 mL /m2 LVEF = 16 % Absolute Cardiac Output = 6.0 l/min.; COi = 3.1 l/min/m2 LV mass = 289.2 gm Black blood image sequence demonstrates homogeneous intensity of the left ventricular myocardium, which goes against edema or infiltrative process. Delayed-enhancement imaging reveals few small foci of intramyocardial delay enhancement along the anterolatera l and inferolateral wall of the left ventricle. While some of these foci appear to represent volume average from the adjacent blood p ool, a few may represent true foci of intramyocardial interstitial fib rosis, for example, on series 29, image three and distal inferolateral wall on series 30, image 8. RIGHT VENTRICLE: The right ventricle is normal in size and shape, and has moderately decreased systolic functi on. Mild global hypokinesis. No presence of scar. Quantitative right ventricular functiona l values are as follows: EDV = 151 mL; EDVi = 77.3 mL/m2 ESV = 96.9 mL; ESVi = 49.6 mL/m2 Stroke volume = 54.1 mL; SVi = 27.7 mL /m2 RVEF = 36 % Absolute Cardiac Output = 5.4 l/min.; COi = 2.8 l/min/m2 CARDIAC VALVES: Aortic valve: Normal Mitral valve: Mild thickening of the trudy ral valve leaflets with associated mild mitral valve regurgitati on with an eccentric posteriorly directed jet. Tricuspid valve: Normal Pulmonic valve: Not evaluated Flow quantification through the ascendin g aorta: Forward volume = 38 mL/beat Reverse volume = 4.5 mL/beat Net forward volume = 33.5 mL/beat Aortic regurgitant fraction = 11.8 % PERICARDIUM: Small pericardial effusion. UPPER ABDOMEN: Partially visualized right renal cysts. BONES: No acute bone marrow abnormalities. IMPRESSION: 1. Dilated left ventricle with preserve d thickness and severely decreased systolic function (LVEF 16%). Severe global hypokinesis with associated scattered foci of intram yocardial scar in the lateral wall of the left ventricle, some of whic h may represent volume average while others may represent true tiny areas of interstitial fibrosis. 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 However, there ar e no findings to suggest amyloidosis or LV noncompaction. Sarcoid osis appears also less likely given the absence of mediastinal and pul monary sarcoidosis. 2. No visualized thrombus in the left v entricle. 3. Normal size of the right ventricle w ith associated mild global hypokinesis and moderate decreased systo lic function (RVEF 36%). There are scar within the right ventricl e. 4. Mild mitral valve regurgitation. 5. Small bilateral pleural effusions wit h adjacent consolidations and few segmental pulmonary pulmonary artery embolism are better seen on same-day CT. Signed: Anastasia Mahajan MD Report Verified Date/Time: 01/30/2020 1 6:48:46 [place] Location: [place] Robby mclean [address] [place] [address] Performing Organization Address City/[facility] [place]/[facility] Phone Number [facility] Peripheral Blood Smear - Path Review (01/30/2020 2:22 AM [employer]) Pathologist Review Cell counts [facility] Pathologist: Lynda Mccoy [facility] One[facility] (beqom [facility] signature) CENTER Specimen Blood Performing Organization Address [facility] [place]/[facility] Phone Number [address] [address] CENTER Iron, TIBC, % sat. (without ferritin) (01/30/2020 2:22 AM [employer]) Pathologist Sig nature Iron 34.0 (L) 40.0 - 160.[address] [facility] ug/dL [facility] TIBC 278 250 - 450 ug/dL [facility] Iron % Saturation 12 (L) 20 - 55 % [facility] Specimen Blood Narrative Performed At Offset Duplicating Machine Operator ID - [facility] Performing Organization Address [facility] [place]/[facility] Phone Number [address] [address] CENTER CBC with platelet count + automated diff (01/30/2020 2:22 AM [employer])Only the most recent of2 resultswithin the time period is included. Pathologist Sig nature WBC 6.2 3.5 - 10.5 [facility] K/L [facility] RBC 4.17 (L) 4.63 - 6.08 [facility] M/L [facility] Hemoglobin 12.4 (L) 13.7 - 17.5 [facility] GM/DL [facility] Hematocrit 39.1 (L) 40.1 - 51.0 % [facility] MCV 93.8 (H) 79.0 - 92.2 fL [facility] MCH 29.7 25.7 - 32.2 pg [facility] MCHC 31.7 (L) 32.3 - 36.5 [facility] GM/DL [facility] RDW 12.5 11.6 - 14.4 % [facility] Platelets 224 150 - 450 K/CU [facility] MM [facility] MPV 13.2 (H) 9.4 - 12.4 fL [facility] nRBC 0 0 - 0 /100 WBC [facility] % Neutros 64 % [facility] % Lymphs 25 % [facility] % Monos 8 % [facility] % Eos 3 % [facility] % Baso 1 % [facility] # Neutros 3.94 1.78 - 5.38 [facility] # Lymphs 1.54 1.32 - 3.57 [facility] # Monos 0.49 0.30 - 0.82 [facility] # Eos 0.16 0.04 - 0.54 [facility] # Baso 0.05 0.01 - 0.08 [facility] Immature 0 0 - 1 % [facility] Granulocytes-Relative [facility] Specimen Blood Performing Organization Address City/State/Zipcode Phone Number [facility] [address] [place] [address] CENTER aPTT (01/30/2020 2:22 AM [employer])Only the most recent of12 resultswithin the time period is included. Pathologist Sig nature PTT 82.7 (H) 22.5 - 36.0 seconds [facility] Specimen Blood Performing Organization Address [facility] Phone Number [address] [address] CENTER Reticulocyte count (01/30/2020 2:22 AM [employer]) Pathologist Sig nature % Retic 1.9 (H) 0.5 - 1.8 % [facility] Specimen Blood Narrative Performed At Offset Duplicating Machine Operator ID - [id number] [facility] Performing Organization Address [facility] Phone Number [address] [address] CENTER Folate, Serum (01/30/2020 2:22 AM [employer]) Pathologist Sig nature Folate 10.50 >=7.00 ng/mL [facility] Specimen Blood Narrative Performed At [employer] Duplicating Machine Operator ID - EDASI [facility] Performing Organization Address [facility] Phone Number [address] [address] CENTER Ferritin (01/30/2020 2:22 AM [employer]) Pathologist Sig nature Ferritin 95.99 5.00 - 275.00 ng/mL [facility] Specimen Blood Narrative Performed At Offset Duplicating Machine Operator ID - ED[facility]I [facility] Performing Organization Address [facility] Phone Number [address] [address] CENTER Vitamin B12 (01/30/2020 2:22 AM [employer]) Pathologist Sig nature Vitamin B12 296 213 - 816 pg/mL [facility] Specimen Blood Narrative Performed At Offset Duplicating Machine Operator ID - EDASI [facility] Performing Organization Address City/State/Zipcode Phone Number [facility] [address] [place] [address] chest with IV contrast (01/30/2020 1:57 AM [employer]) Specimen Narrative Performed At FINAL REPORT [employer] [place] EXAM: CT of the chest, abdomen and pelvi s, with contrast CLINICAL HISTORY: Unlisted reason for ex am. Evaluate for malignancy. Patient with unprovoked DVT and PEs. TECHNIQUE: CT of the chest, abdomen and pelvis was performed with intravenous contrast administration. T his exam was performed according to our departmental dose optim ization program which includes automated exposure control, adj ustment of the mA and/or kV according to patient's size and/or use o f iterative reconstructive technique. COMPARISON: None FINDINGS: CHEST: LOWER NECK: Within normal limits. AIRWAYS, PLEURA AND LUNGS: Patent centra l tracheobronchial tree. Peripheral airspace opacities in the lef t lower lobe, which may represent pneumonia or infarcts. Small b ilateral pleural effusions (right greater than left) with associate d compressive atelectasis. No pneumothorax. VESSELS: Atherosclerotic calcifications of the aorta and coronary arteries. No thoracic aortic aneurysm. F illing defects in segmental and subsegmental branches of the bilater al lower lobe pulmonary arteries similarly acute emboli. HEART: Cardiomegaly. No pericardial effu malka. JACKI AND MEDIASTINUM: Within normal limi ts. SOFT TISSUES: Within normal limits. BONES: Mild pulmonary compression fractu re deformities of T4-T6 vertebral bodies. Generalized osteopenia . No suspicious osseous lesions. ABDOMEN AND PELVIS: HEPATOBILIARY: Within normal limits. PANCREAS: Within normal limits. SPLEEN: Within normal limits. ADRENALS: Within normal limits. KIDNEYS/URETERS: Round left renal hypode nsities measuring simple fluid attenuation, which may represent c ysts, measuring up to 3.4 x 3 cm in size. Bilateral renal hypodensitie s too small to characterize. No hydroureteronephrosis or radiopaque s tones. URINARY BLADDER: Within normal limits. REPRODUCTIVE ORGANS: Enlarged prostate g land measuring 5.3 cm in diameter. BOWEL/MESENTERY: No bowel obstruction or abnormal wall thickening. Normal appendix. PERITONEUM/RETROPERITONEUM: No free air, free fluid or fluid collection. VESSELS: Mild abdomen demonstrates solomon es of the aorta with calcified and noncalcified mural plaque. No abdominal aortic aneurysm. LYMPH NODES: No abdominal or pelvic lymp hadenopathy. SOFT TISSUES: Within normal limits. BONES: Generalized osteopenia. No suspic ious osseous lesion. Degenerative changes of the lumbar spine . IMPRESSION: Bilateral lower lobe segmental and subse gmental pulmonary emboli. Left lower lobe opacity which may repres ent pneumonia/or pulmonary infarct. Cardiomegaly. Left renal cysts and other additional bi lateral renal hypodensities too small to characterize. Renal ultraso und versus CT/MRI may be performed for further characterization. Enlarged prostate gland. No findings to suggest malignancy in the chest, abdomen pelvis. Signed: Anca Solis MD Report Verified Date/Time: 01/30/2020 03:26:01 Procedure Note Interface, External Ris In - 01/30/2020 3:29 AM [employer] FINAL REPORT EXAM: CT of the chest, abdomen and pelvi s, with contrast CLINICAL HISTORY: Unlisted reason for ex am. Evaluate for malignancy. Patient with unprovoked DVT and PEs. TECHNIQUE: CT of the chest, abdomen and pelvis was performed with intravenous contrast administration. Th is exam was performed according to our departmental dose optim ization program which includes automated exposure control, adj ustment of the mA and/or kV according to patient's size and/or use o f iterative reconstructive technique. COMPARISON: None FINDINGS: CHEST: LOWER NECK: Within normal limits. AIRWAYS, PLEURA AND LUNGS: Patent centra l tracheobronchial tree. Peripheral airspace opacities in the lef t lower lobe, which may represent pneumonia or infarcts. Small b ilateral pleural effusions (right greater than left) with associate d compressive atelectasis. No pneumothorax. VESSELS: Atherosclerotic calcifications of the aorta and coronary arteries. No thoracic aortic aneurysm. F illing defects in segmental and subsegmental branches of the bilater al lower lobe pulmonary arteries similarly acute emboli. HEART: Cardiomegaly. No pericardial effu malka. JACKI AND MEDIASTINUM: Within normal limi ts. SOFT TISSUES: Within normal limits. BONES: Mild pulmonary compression fractu re deformities of T4-T6 vertebral bodies. Generalized osteopenia . No suspicious osseous lesions. ABDOMEN AND PELVIS: HEPATOBILIARY: Within normal limits. PANCREAS: Within normal limits. SPLEEN: Within normal limits. ADRENALS: Within normal limits. KIDNEYS/URETERS: Round left renal hypode nsities measuring simple fluid attenuation, which may represent c ysts, measuring up to 3.4 x 3 cm in size. Bilateral renal hypodensitie s too small to characterize. No hydroureteronephrosis or radiopaque s tones. URINARY BLADDER: Within normal limits. REPRODUCTIVE ORGANS: Enlarged prostate g land measuring 5.3 cm in diameter. BOWEL/MESENTERY: No bowel obstruction or abnormal wall thickening. Normal appendix. PERITONEUM/RETROPERITONEUM: No free air, free fluid or fluid collection. VESSELS: Mild abdomen demonstrates solomon es of the aorta with calcified and noncalcified mural plaque. No abdominal aortic aneurysm. LYMPH NODES: No abdominal or pelvic lymp hadenopathy. SOFT TISSUES: Within normal limits. BONES: Generalized osteopenia. No suspic ious osseous lesion. Degenerative changes of the lumbar spine . IMPRESSION: Bilateral lower lobe segmental and subse gmental pulmonary emboli. Left lower lobe opacity which may repres ent pneumonia/or pulmonary infarct. Cardiomegaly. Left renal cysts and other additional bi lateral renal hypodensities too small to characterize. Renal ultraso und versus CT/MRI may be performed for further characterization. Enlarged prostate gland. No findings to suggest malignancy in the chest, abdomen pelvis. Signed: Anca Solis MD Report Verified Date/Time: 01/30/2020 0 3:26:01 Performing Organization Address City/State/[facility] Phone Number [employer] [place] CT abdomen/pelvis with IV contrast (01/30/2020 1:10 AM [employer]) Specimen Narrative Performed At FINAL REPORT [employer] [place] EXAM: CT of the chest, abdomen and pelvi s, with contrast CLINICAL HISTORY: Unlisted reason for ex am. Evaluate for malignancy. Patient with unprovoked DVT and PEs. TECHNIQUE: CT of the chest, abdomen and pelvis was performed with intravenous contrast administration. T his exam was performed according to our departmental dose optim ization program which includes automated exposure control, adj ustment of the mA and/or kV according to patient's size and/or use o f iterative reconstructive technique. COMPARISON: None FINDINGS: CHEST: LOWER NECK: Within normal limits. AIRWAYS, PLEURA AND LUNGS: Patent centra l tracheobronchial tree. Peripheral airspace opacities in the lef t lower lobe, which may represent pneumonia or infarcts. Small b ilateral pleural effusions (right greater than left) with associate d compressive atelectasis. No pneumothorax. VESSELS: Atherosclerotic calcifications of the aorta and coronary arteries. No thoracic aortic aneurysm. F illing defects in segmental and subsegmental branches of the bilater al lower lobe pulmonary arteries similarly acute emboli. HEART: Cardiomegaly. No pericardial effu malka. JACKI AND MEDIASTINUM: Within normal limi ts. SOFT TISSUES: Within normal limits. BONES: Mild pulmonary compression fractu re deformities of T4-T6 vertebral bodies. Generalized osteopenia . No suspicious osseous lesions. ABDOMEN AND PELVIS: HEPATOBILIARY: Within normal limits. PANCREAS: Within normal limits. SPLEEN: Within normal limits. ADRENALS: Within normal limits. KIDNEYS/URETERS: Round left renal hypode nsities measuring simple fluid attenuation, which may represent c ysts, measuring up to 3.4 x 3 cm in size. Bilateral renal hypodensitie s too small to characterize. No hydroureteronephrosis or radiopaque s tones. URINARY BLADDER: Within normal limits. REPRODUCTIVE ORGANS: Enlarged prostate g land measuring 5.3 cm in diameter. BOWEL/MESENTERY: No bowel obstruction or abnormal wall thickening. Normal appendix. PERITONEUM/RETROPERITONEUM: No free air, free fluid or fluid collection. VESSELS: Mild abdomen demonstrates solomon es of the aorta with calcified and noncalcified mural plaque. No abdominal aortic aneurysm. LYMPH NODES: No abdominal or pelvic lymp hadenopathy. SOFT TISSUES: Within normal limits. BONES: Generalized osteopenia. No suspic ious osseous lesion. Degenerative changes of the lumbar spine . IMPRESSION: Bilateral lower lobe segmental and subse gmental pulmonary emboli. Left lower lobe opacity which may repres ent pneumonia/or pulmonary infarct. Cardiomegaly. Left renal cysts and other additional bi lateral renal hypodensities too small to characterize. Renal ultraso und versus CT/MRI may be performed for further characterization. Enlarged prostate gland. No findings to suggest malignancy in the chest, abdomen pelvis. Signed: Anca Solis MD Report Verified Date/Time: 01/30/2020 03:26:01 Procedure Note Interface, External Ris In - 01/30/2020 3:29 AM [employer] FINAL REPORT EXAM: CT of the chest, abdomen and pelvi s, with contrast CLINICAL HISTORY: Unlisted reason for ex am. Evaluate for malignancy. Patient with unprovoked DVT and PEs. TECHNIQUE: CT of the chest, abdomen and pelvis was performed with intravenous contrast administration. Th is exam was performed according to our departmental dose optim ization program which includes automated exposure control, adj ustment of the mA and/or kV according to patient's size and/or use o f iterative reconstructive technique. COMPARISON: None FINDINGS: CHEST: LOWER NECK: Within normal limits. AIRWAYS, PLEURA AND LUNGS: Patent centra l tracheobronchial tree. Peripheral airspace opacities in the lef t lower lobe, which may represent pneumonia or infarcts. Small b ilateral pleural effusions (right greater than left) with associate d compressive atelectasis. No pneumothorax. VESSELS: Atherosclerotic calcifications of the aorta and coronary arteries. No thoracic aortic aneurysm. F illing defects in segmental and subsegmental branches of the bilater al lower lobe pulmonary arteries similarly acute emboli. HEART: Cardiomegaly. No pericardial effu malka. JACKI AND MEDIASTINUM: Within normal limi ts. SOFT TISSUES: Within normal limits. BONES: Mild pulmonary compression fractu re deformities of T4-T6 vertebral bodies. Generalized osteopenia . No suspicious osseous lesions. ABDOMEN AND PELVIS: HEPATOBILIARY: Within normal limits. PANCREAS: Within normal limits. SPLEEN: Within normal limits. ADRENALS: Within normal limits. KIDNEYS/URETERS: Round left renal hypode nsities measuring simple fluid attenuation, which may represent c ysts, measuring up to 3.4 x 3 cm in size. Bilateral renal hypodensitie s too small to characterize. No hydroureteronephrosis or radiopaque s tones. URINARY BLADDER: Within normal limits. REPRODUCTIVE ORGANS: Enlarged prostate g land measuring 5.3 cm in diameter. BOWEL/MESENTERY: No bowel obstruction or abnormal wall thickening. Normal appendix. PERITONEUM/RETROPERITONEUM: No free air, free fluid or fluid collection. VESSELS: Mild abdomen demonstrates solomon es of the aorta with calcified and noncalcified mural plaque. No abdominal aortic aneurysm. LYMPH NODES: No abdominal or pelvic lymp hadenopathy. SOFT TISSUES: Within normal limits. BONES: Generalized osteopenia. No suspic ious osseous lesion. Degenerative changes of the lumbar spine . IMPRESSION: Bilateral lower lobe segmental and subse gmental pulmonary emboli. Left lower lobe opacity which may repres ent pneumonia/or pulmonary infarct. Cardiomegaly. Left renal cysts and other additional bi lateral renal hypodensities too small to characterize. Renal ultraso und versus CT/MRI may be performed for further characterization. Enlarged prostate gland. No findings to suggest malignancy in the chest, abdomen pelvis. Signed: Anca Solis MD Report Verified Date/Time: 01/30/2020 0 3:26:01 Performing Organization Address City/[place] Phone Number [employer] [place] XR foot 3 views right (01/29/2020 2:58 PM [employer]) Specimen Narrative Performed At FINAL REPORT [employer] [place] CLINICAL HISTORY: Pain and tenderness COMPARISON: None. FINDINGS: 3 images of the right foot are submitted . There is no acute fracture or malalignme nt. No destructive bony lesion, radiopaque foreign body or signi ficant degenerative change is present. The soft tissues are grossly unremarkabl e. Signed: Josiah Gómez MD Report Verified Date/Time: 01/29/2020 23:20:24 Procedure Note Interface, External Ris In - 01/29/2020 11:22 PM [employer] FINAL REPORT CLINICAL HISTORY: Pain and tenderness COMPARISON: None. FINDINGS: 3 images of the right foot are submitted . There is no acute fracture or malalignme nt. No destructive bony lesion, radiopaque foreign body or signi ficant degenerative change is present. The soft tissues are grossly unremarkabl e. Signed: Josiah Gómez MD Report Verified Date/Time: 01/29/2020 2 3:20:24 Performing Organization Address City/[place] Phone Number [facility] [employer] Carbohydrate antigen 19-9 (CA 19-9) (01/29/2020 12:00 PM [employer]) CA 19-9 8 <34 U/mL [facility] Comment: INC[facility]PORATED This test was performed using the Siemens Chemilumines cent method. Values obtained from different assay methods cannot be used interchangeably. CA19-9 levels, regardless of value, should not be inte rpreted as absolute evidence of the presence or absence of disease. Specimen Blood - Entire left upper arm (body stru cture) Narrative Performed At Performing Lab [facility] EZ [facility] [address] [place] [address] Waleska Spencer MD, PhD, COREY Performing Organization Address City/[facility] [place]/Zipcode Phone Number [place] [address] INCORPORATED [address] [facility] Alpha fetoprotein (AFP), tumor marker (01/29/2020 12:00 PM [employer]) Pathologist Sig nature Alpha-Fetoprotein 8.0 <10.0 ng/mL [facility] Specimen Blood - Entire left upper arm (body stru cture) Narrative Performed At [employer] Operator ID - [facility] Performing Organization Address City/[facility]/Zipcode Phone Number [address] [address] CENTER Thrombin time (01/29/2020 12:00 PM [employer]) Pathologist Sig nature Thrombin Time >240.0 13.8 - 20.0 [facility] (H)Comment: A [facility] MEDICAL part of lupus CENTER tst Specimen Blood - Entire left upper arm (body stru cture) Performing Organization Address City/[facility]/Zipcode Phone Number [facility] [address] [place] [address] CENTER Carcinoembryonic Antigen (CEA) (01/29/2020 12:00 PM [employer]) Pathologist Sig nature CEA, SERUM 0.7 0.0 - 5.0 ng/mL [facility] Specimen Blood - Entire left upper arm (body stru cture) Narrative Performed At Offset Duplicating Machine Operator ID - [facility] Performing Organization Address City/State/Zipcode Phone Number [facility] [address] [place] [address] CENTER Dekd-6-Exptmifuwvlj I IgA (01/29/2020 5:12 AM [employer]) Beta-2 <9 < OR = 20 [facility] Glycoprotein I Ab, Comment: [facility] IgA The antiphospholipid antibody syndrome (APS) is a clinical-pathologic correlation that includes a clinical event (e.g. thrombosis, loss, thrombocytopenia) and persistent positive antiphospholipid antibodies (IgM or IgG COCO >40 MPL/GPL,IgM or IgG anti-b2GPI antibodies or a lupus anticoagulant). International consensus guidelines for APS suggest waiting at least 12 weeks before retesting to confirm antibody persistence. The [facility]up[facility] immunological classification criteria for systemic lupus erythematosus (SLE) include testing for isotype IgA, which has yet to be incorporated into APS criteria. Low level antiphospholipid antibodies may sometimes be detected in the setting of infection, drug therapy or aging. Specimen Blood Narrative Performed At Performing [place] [address] [place] [address] Waleska Spencer MD, PhD, COREY Performing Organization Address [facility] [place] [address] INCORPORATED [address] [facility] Xodd-7-Fbfxxxxhxbnl I IgM (01/29/2020 5:12 AM [employer]) Pathologist Sig nature Beta-2 Glycoprotein I <9 < OR = 20 [facility] Ab, IgM INCORPORATED Specimen Blood Narrative Performed At Performing Lab [facility] [place] [address] [place] [address] Waleska Spencer MD, PhD, COREY Performing Organization Address [facility] Phone Number [facility] [place] [address] INCORPORATED [address] [facility] Sjle-7-Dturwoabzjkg I IgG (01/29/2020 5:12 AM [employer]) Pathologist Sig nature Beta-2 Glycoprotein I <9 < OR = 20 [facility] Ab, IgG INCORPORATED Specimen Blood Narrative Performed At Performing Lab [facility] [employer] [facility] [place] [address] [place] [address] Waleska Spencer MD, PhD, COREY Performing Organization Address City/State/Zipcode Phone Number [place] [address] INCORPORATED [address] [facility] JAK2 MUTATION (V617F) QUANTITATIVE (01/29/2020 5:12 AM [employer]) CLINICAL INDICATION NOT GIVEN [facility] ([facility] SPECIMEN SOURCE: NOT GIVEN [facility] INCORPORATED Block/Specimen ID NOT GIVEN [facility] JAK2 V617F Mutation NOT DETECTED NOT DETECTED [facility] GENE DNR [facility] INC[facility]PORATED AMINO ACID DNR [facility] INC[facility] MUTATIONS/POLYMORPH DNR [facility] ISMS INCORPORATED Mutation Analysis DNR [facility] INC[facility] Exons 10,11,13-16 DNR [facility] INCORPORATED NUCLEOTIDE CHANGE DNR [facility] INC[facility] References: DNR [facility] INC[facility]PORATED INTERPRETATION SEE BELOW [facility] ([facility]) Comment: INCORPORATED A JAK2 V617F mutation is not detected. This data was reviewed and interpreted by Miguel Angel Sloan, PhD. HCLD(ABB) ASSAY DETAILS SEE BELOW [facility] Comment: INCORPORATED This PCR-based advanced sequencing assay interro maldonado DNA from leukocytes for the presence of mutations in codon 617 of JAK2. The se nsitivity of mutation detection is 5%. Alterations outside of the tested are as of this gene will not be detected. Synonymous or known non-synonymous po lymorphic changes (SNPs) are not reported. JAK2 V617F mutation is associ ated with myeloproliferative neoplasms (MPNs), including polycyt hemia vera (PV), essential thrombocythemia (ET) and primary myelofibros is (PMF), and a small subset of other myeloid neoplasms. Increasing allele b urden of JAK2 V617F in MPNs has been shown in a number of studies to be assoc iated with increased symptoms including pruritis, splenomegaly, and leukocy tosis. Results of this assay should be correlated with morphology and other l aboratory testing for final diagnosis and classification. If this test is ne gative, additional testing that may be useful for workup of MPNs, dependi ng on presenting hematologic features, includes BCR-ABL1 rearrangement (test code 18521 or 64829V) or mutational analysis of CALR (ET/PMF, 65862) , JAK2 exon 12 (PV, 44488), MPL (ET/PMF, 16278) or CSF3R (chronic neutroph ilic leukemia, 41706). Residual material from this sample may be used except for BCR-ABL1 testing; call lab to add. DNA was aligned to GRCh37(hg19) for analysis and trans cript ID [id number] was used as reference for JAK2 sequenc e. For additional information, please refer to http://education.[employer]/faq/FMV071 (This link is being provided for informational/educati onal purposes only.) This test was developed and its analytical performance characteristics have been determined by [facility]. It has not been cleared or approved by FDA. This assay has been validated pursuant to the CLIA regulations and is used for clini cassius purposes. Specimen Blood Narrative Performed At Performing Lab [facility] INC[facility] [place] [address] [place] [address] Waleska Spencer MD, PhD, COREY Performing Organization Address [facility] Centercode Phone Number [place] [address] INCORPORATED [address] [employer] Beta-2 glycoprotein antibodies (01/29/2020 5:12 AM [employer]) B2 Glcoprotein Ab Refer to [facility] Profile individual INCORPORATED B2-Glycoprotein IgG, IgM and IgA results. Specimen Blood Performing Organization Address [facility] Centercode Phone Number [place] [address] INCORPORATED [address] [employer] Cardiolipin Antibodies, IgG and IgM (01/29/2020 5:12 AM [employer]) Pathologist Sig nature Anticardiolipin IgG <1.6 <20.0 GPL [facility] Anticardiolipin IgM 1.4 <20.0 MPL [facility] Specimen Blood Narrative Performed At Anticardiolipin IgG Result Interpretatio n: [facility] <20.0 GPL Normal >/= 20.0 GPL Positive Anticardiolipin IgM Result Interpretatio n: <20.0 MPL Normal >/= 20.0 MPL Positive Performing Organization Address [facility]/Zipcode Phone Number [facility] [address] [place] [address] CENTER PSA (01/29/2020 5:12 AM [employer]) Pathologist Sig nature PSA 3.9 0.0 - 4.0 ng/mL [facility] Specimen Blood Narrative Performed At Offset Duplicating Machine Operator ID - [facility]AL CENTER Performing Organization Address City/State/Zipcode Phone Number [facility] [address] [place] [address] [place] Echo w contrast limited study (01/28/2020 9:36 AM [employer]) Pathologist Sig nature Ejection Fraction [facility] E[facility] HEART[facility] [employer]CK ESSON CPA Specimen Narrative Performed At Transthoracic Echocardiography Report (T TE) [facility] E[facility] HEARTLAB [employer] CreationsCKESSON CPACS Demographics Patient Name KITTY CRANE, Date of Study 01/28/2020 KRZYSZTOF Gender Male Visit Number [id number] Race Unknown Room Number 2206 Number Date of 1955 Referring Physician Age 64 year(s) Supervisor Electronics Assembly Abed Everett Interpreting Physician DELORIS Stephen Procedure Type of Study TTE procedure:ECHO W/CONT LTD STUDY WO DOPP (KARMA) Indications:LV thrombus. Clinical History HGB 12.8 HCT 39.6 % Contrast Medium: Definity. Amount - 2 ml Height: 70 inches Weight: 75.75 kg (167 lbs) BSA: 1.93 m^2 BMI: 23.96 kg/m^2 HR: 99 bpm BP: 108/77 mmHg Summary Limited study to assess LV thrombus. No evidence of LV mass/thrombus. Signature Findings Left Ventricle LV endocardium is adequately visualized with IV ultrasound enhancing agent. The left ventricle is chamber size (by vol index) is severely enlarged (male - LVED vol >100ml/m2). Normal LV wall thickness. All of the LV segments are severely hypokinetic . Estimated LVEF by qualitative assessment is severely reduced (<20%) . No evidence of LV mass/thrombus. Low stroke volume index. Aortic Valve Mild AoV cusp thickening. Mild aortic regurgitation. Mitral Valve Mild MV leaflet thickening. Tricuspid Valve Mild tricuspid regurgitation. Estimated peak systolic PA pressure is 60-65 mmHg (bdhxhfdc-rh-rhwtsi pulmonary hyperten malka) . Pulmonic Valve PV is not well visualized. Aorta Aortic root size (SInus of Valsalva diameter) is norm al . Pericardium A small posterior pericardial effusion is present . IVC/SVC/PA/PV/Pleural The estimated RA pressure by IVC dynamics 11-15mmHg . Chambers/Structures Left Ventricle LVIDd: 6.67 cm LVEDV:228.96 ml LV Septum Diastolic: 0.81 cm LV PW Diastolic: 0.75 cm LVEDV Davis's:243.75 ml LVEDVI: 126 ml/m^ 2 LVOT Diameter: 1.96 cm Doppler/Quantitative Measurements Aortic Valve Peak Velocity: 1.03 m/s Mean Velocity: 0.71 m/s Peak Gradient: 4.26 mmHg Mean Gradient: 2.27 mmHg AV Area (continuity): 2.46 cm^2 AV VTI: 14.26 cm AV DVI: 0.82 LVOT Peak Velocity: 0.84 m/s Peak Gradient: 2.86 mmHg Mean Velocity: 0.53 m/s Mean Gradient: 1.4 mmHg LVOT Diameter: 1.96 cm LVOT VTI: 11.64 cm LVOT Area: 3.02 cm^2 LVOT SV:35.1 ml LVOT CO: 3.48 l/min LVOT CI: 1.8 l/min/m^2 Tricuspid Valve TR Velocity: 3.48 m/s TR Gradient: 48.41 mmHg Procedure Note Interface, External Ris In - 01/28/2020 3:29 PM [employer] Transthoracic Echocardiography Report (TTE) Demographics Patient Name KITTY CRANE, Date o f Study 01/28/2020 KRZYSZTOF Gender Male Visit Number [id number] Race Unknown Room [facility] 2206 Number Date of 1955 Referr ing Physician Age 64 year(s) Sonogr apher Abed Everett Interp reting Caesar Das MD Procedure Type of Study TTE procedure:ECHO W/CONT LTD STUDY WO DOPP (KARMA) Indications:LV thrombus. Clinical History HGB 12.8 HCT 39.6 % Contrast Medium: Definity. Amount - 2 ml Height: 70 inches Weight: 75.75 kg (167 lbs) BSA: 1.93 m^2 BMI: 23.96 kg/m^2 HR: 99 bpm BP: 108/77 mmHg Summary Limited study to assess LV thrombus. No evidence of LV mass/thrombus. Signature Findings Left Ventricle LV endocardium i s adequately visualized with IV ultrasound enhan cing agent. The left ventricle is chamber size (by vol index) is severely enlarged (male - LVED vol >100ml/m2). Normal LV wall thickness. All o f the LV segments are severely hypokinetic . Es timated LVEF by qualitative assessment is se verely reduced (<20%) . No evidence of LV mass/throm bus. Low stroke volum e index. Aortic Valve Mild AoV cusp th ickening. Mild aortic regu rgitation. Mitral Valve Mild MV leaflet thickening. Tricuspid Valve Mild tricuspid r egurgitation. Estimated peak s ystolic PA pressure is 60-65 mmHg (ptgmxrhs-bd-leo ere pulmonary hypertension) . Pulmonic Valve PV is not well v isualized. Aorta Aortic root size (SInus of Valsalva diameter) is normal . Pericardium A small posterio r pericardial effusion is present . IVC/SVC/PA/PV/Pleural The estimated RA pressure by IVC dynamics 11-15mmHg . Chambers/Structures Left Ventricle LVIDd: 6.67 cm LVEDV:228.96 ml LV Septum Diastolic: 0.81 cm LV PW Diastolic: 0.75 cm LVEDV Davis's:243.75 ml LVEDVI: 126 ml/m^2 LVOT Diameter: 1.96 cm Doppler/Quantitative Measurements Aortic Valve Peak Velocity: 1.03 m/s Mean Velocity: 0.71 m/s Peak Gradient: 4.26 mmHg Mean Gradient: 2.27 mmHg AV Area (continuity): 2.46 cm^2 AV VTI: 14.26 cm AV DVI: 0.82 LVOT Peak Velocity: 0.84 m/s Pea k Gradient: 2.86 mmHg Mean Velocity: 0.53 m/s Kalie n Gradient: 1.4 mmHg LVOT Diameter: 1.96 cm LVO T VTI: 11.64 cm LVOT Area: 3.02 cm^2 LVO T SV:35.1 ml LVOT CO: 3.48 l/min LVO T CI: 1.8 l/min/m^2 Tricuspid Valve TR Velocity: 3.48 m/s TR Gradient: 48.41 mmHg Performing Organization Address City/State/Zipcode Phone Number [facility]ART[facility] Troponin I (01/28/2020 8:15 AM [employer])Only the most recent of5 resultswithin the time period is included. Pathologist Sig nature Troponin I 1.40 (HH) 0.00 - 0.03 ng/mL [facility] Specimen Blood Narrative Performed At Troponin I (TnI) levels must be interpreted [facility] in the context of the presenting symptoms and the clinical findings. Elevated TnI levels indicate myocardial damage, but are not specific for ischemic heart disease. Elevated TnI levels are seen in patients with other cardiac conditions (including myocarditis and congestive heart failure), and slight TnI elevations occur in patients with other conditions, including sepsis, renal failure, acidosis, acute neurological disease, and persistent tachyarrhythmia. Offset Duplicating Machine Operator ID - DOTTIE Mclean Performing Organization Address City/State/Zipcode Phone Number [facility] [address] [place] [address] CENTER Transthoracic 2D echo w/ doppler (cw/pw/color) (01/27/2020 7:46 AM [employer]) Pathologist Sig nature Ejection Fraction [facility] ECHO HEARTLAB MKCK ESSON [facility] Specimen Narrative Performed At Transthoracic Echocardiography Report (T TE) [facility]ART[facility] Demographics Patient Name KITTY CRANE, Date of Study 01/27/2020 KRZYSZTOF Gender Male Visit Number [id number] Race Unknown Room Number 7401 Number Date of 1955 Referring Fifi Alfredo NP Physician Age 64 year(s) Supervisor Electronics Assembly Ruth mae [facility] Tablet Making Machine Operator Helper Sudeep Corea Interpreting Yessica francis MD Physician Procedure Type of Study TTE procedure:2DECHO W DOPPLER(CW/PW/COLOR) (STAT) Indications:Stroke work up. Clinical History HGB 12.8 HCT 39.6 % HTN, PULM EMBOLISM, CVA/STROKE Contrast Medium: Definity. Amount - 3 ml Height: 70 inches Weight: 75.75 kg (167 lbs) BSA: 1.93 m^2 BMI: 23.96 kg/m^2 HR: 103 bpm BP: 99/75 mmHg Summary 1. LV is severely enlarged. All of the LV segments are severely hypokinetic. LVEFis severely reduced (< 20%) . 2. Normal RV size and function. 3. LV diastolic function is indetermina te.I 4. V saline contrast injection was negative for a PFO (patent foramen ovale) at rest and post Valsalva 5. Estimated peak systolic PA pressure is 65-70 mmHg (severe pulmonary hypertension) . Previous Study No prior studies available for comparis on. Signature Findings Left Ventricle LV endocardium is adequately visualized with IV ultrasound enhancing agent. The left ventricle is chamber size (by vol index) is severely enlarged (male - LVED vol >100ml/m2). Normal LV wall thickness. All of the LV segments are severely hypokinetic . Estimated LVEF by qualitative assessment is severely reduced (<20%) . LV diastolic function is indeterminate. Left Atrium LA size is severely enlarged (>48 ml/m2) . Right Ventricle Normal right ventricle structure and function. Right Atrium Normal righ t atrium. Atrial Septum IV saline contrast injection was negative for a PFO (patent foramen ovale) at rest and post Valsalva . Aortic Valve Mild AoV cusp thickening. Mild aortic regurgitation. Mitral Valve Mild MV leaflet thickening. Mild mitral annular calcification. Lzkg-om-iipttyox mitral regu rgitation. Tricuspid Valve Mild tricuspid regurgitation. Estimated peak systolic PA pressure is 65-70 mmHg (severe pulmonary hypertension) . Pulmonic Valve Normal PV structure and function by limited views and Doppler. Aorta Aortic root size (SInus of Valsalva diameter) is norm al . Pericardium A small posterior, posterolateral pericardial effusion is present . IVC/SVC/PA/PV/Pleural The estimated RA pressure by IVC dynamics 11-15mmHg . Chambers/Structures Left Atrium LA Dimension: 4.67 cm LA Area: 29.13 cm^2 LA Volume: 106.54 ml LA Vol. Index: 55 ml/m^2 Left Ventricle LVIDd: 7.63 cm LVEDV:310.3 ml LV Septum Diastolic: 0.81 cm LV PW Diastolic: 0.84 cm LVEDV Davis's:260.32 ml LVESV Davis's:211.95 ml LVEF Davis's: 18.6 % LVEDVI: 135 ml/m^2 LVESVI: 110 ml/m^2 LVOT Diameter: 1.97 cm Aorta Ao Root S of Umm.: 3.13 cm Doppler/Quantitative Measurements Aortic Valve Peak Velocity: 0.86 m/s Mean Velocity: 0.53 m/s Peak Gradient: 2.96 mmHg Mean Gradient: 1.36 mmHg AV Area (continuity): 2.4 cm^2 AV VTI: 10.09 cm AV DVI: 0.79 LVOT Peak Velocity: 0.68 m/s Peak Gradient: 1.84 mmHg Mean Velocity: 0.39 m/s Mean Gradient: 0.79 mmHg LVOT Diameter: 1.97 cm LVOT VTI: 7.96 cm LVOT Area: 3.05 cm^2 LVOT SV:24.25 ml LVOT CO: 2.5 l/min LVOT CI: 1.3 l/min/m^2 Tricuspid Valve TR Velocity: 3.71 m/s TR Gradient: 55.06 mmHg Procedure Note Interface, External Ris In - 01/27/2020 12:53 PM [employer] Transthoracic Echocardiography Report (TTE) Demographics Patient Name KITTY CRANE, Date of Study 01/27/2020 KRZYSZTOF Gender Male Visit Number [id number] Race Unknown Room [facility] 7401 Number Date of 1955 Carole Alfredo, ANA Physicia n Age 64 year(s) Sonograp her Ruth Espinosa, [facility] Tablet Making Machine Operator Helper Sudeep Banks MD Physicia n Procedure Type of Study TTE procedure:2DECHO W DOPPLE R(CW/PW/COLOR) (STAT) Indications:Stroke work up. Clinical History HGB 12.8 HCT 39.6 % HTN, PULM EMBOLISM, CVA/STROKE Contrast Medium: Definity. Amount - 3 ml Height: 70 inches Weight: 75.75 kg (167 lbs) BSA: 1.93 m^2 BMI: 23.96 kg/m^2 HR: 103 bpm BP: 99/75 mmHg Summary 1. LV is severely enlarged. All of the LV segments are severely hypokinetic. LVEFis severely reduced (< 20%) . 2. Normal RV size and function. 3. LV diastolic function is indetermina te.I 4. V saline contrast injection was nega tive for a PFO (patent foramen ovale) at rest and post Valsalva 5. Estimated peak systolic PA pressure is 65-70 mmHg (severe pulmonary hypertension) . Previous Study No prior studies available for comparis on. Signature Findings Left Ventricle LV endocardium i s adequately visualized with IV ultrasound enhan cing agent. The left ventricle is chamber size (by vol index) is severely enlarged (male - LVED vol >100ml/m2). Normal LV wall thickness. All o f the LV segments are severely hypokinetic . Es timated LVEF by qualitative assessment is se verely reduced (<20%) . LV diastolic functi on is indeterminate. Left Atrium LA size is sever dayron enlarged (>48 ml/m2) . Right Ventricle Normal right vadim tricle structure and function. Right Atrium Normal right atr ium. Atrial Septum IV saline contra st injection was negative for a PFO (patent foramen ovale) at rest and post Valsalva . Aortic Valve Mild AoV cusp th ickening. Mild aortic regu rgitation. Mitral Valve Mild MV leaflet thickening. Mild mitral annular calcification. M zma-xi-jjgwmtnt mitral regurgitation. Tricuspid Valve Mild tricuspid r egurgitation. Estimated peak s ystolic PA pressure is 65-70 mmHg (severe pulmonar y hypertension) . Pulmonic Valve Normal PV struct ure and function by limited views and Doppler. Aorta Aortic root size (SInus of Valsalva diameter) is normal . Pericardium A small posterio r, posterolateral pericardial effu malka is present . IVC/SVC/PA/PV/Pleural The estimated RA pressure by IVC dynamics 11-15mmHg . Chambers/Structures Left Atrium LA Dimension: 4.67 cm LA Area: 29.13 cm^2 LA Volume: 106.54 ml LA Vol. Index: 55 ml/m^2 Left Ventricle LVIDd: 7.63 cm LVEDV:310.3 ml LV Septum Diastolic: 0.81 cm LV PW Diastolic: 0.84 cm LVEDV Davis's:260.32 ml LVESV Davis's:211.95 ml LVEF Davis's: 18.6 % LVEDVI: 135 ml/m^2 LVESVI: 110 ml/m^2 LVOT Diameter: 1.97 cm Aorta Ao Root S of Umm.: 3.13 cm Doppler/Quantitative Measurements Aortic Valve Peak Velocity: 0.86 m/s Mean Velocity: 0.53 m/s Peak Gradient: 2.96 mmHg Mean Gradient: 1.36 mmHg AV Area (continuity): 2.4 cm^2 AV VTI: 10.09 cm AV DVI: 0.79 LVOT Peak Velocity: 0.68 m/s Pea k Gradient: 1.84 mmHg Mean Velocity: 0.39 m/s Kalie n Gradient: 0.79 mmHg LVOT Diameter: 1.97 cm LVO T VTI: 7.96 cm LVOT Area: 3.05 cm^2 LVO T SV:24.25 ml LVOT CO: 2.5 l/min LVO T CI: 1.3 l/min/m^2 Tricuspid Valve TR Velocity: 3.71 m/s TR Gradient: 55.06 mmHg Performing Organization Address City/State/[facility] Cent[facility] Phone Number [facility] CT brain without IV contrast (01/27/2020 4:52 AM [employer]) Specimen Narrative Performed At FINAL REPORT Point [facility] EXAM: CT head without contrast. CLINICAL HISTORY: Stroke, follow up COMPARISON: None. TECHNIQUE: CT images of the head were ob tained without intravenous contrast. This exam was performed acco rding to our departmental dose optimization program which includes auto mated exposure control, adjustment of the mA and/or kV according to patient's size and/or use of iterative reconstructive technique. FINDINGS: There is mild generalized parenchymal at rophy. There is small hypodensity in the left insular cortex a nd subcortical white matter, which may represent an acute infarct. There is no acute intracranial hemorrhag e, extra-axial fluid collection, mass effect, herniation or h ydrocephalus. The basal cisterns are patent. The visualized orbits are normal. The visualized paranasal sinuses and tympanomastoid cavities are clear. The skull base and calvarium are intact. IMPRESSION: Small hypodensity in the left insula, wh ich may represent an acute infarct, better assessed with an MRI. No acute intracranial hemorrhage or mass effect. Signed: Anca Solis MD Report Verified Date/Time: 01/27/2020 05:00:11 Procedure Note Interface, External Ris In - 01/27/2020 5:02 AM [employer] FINAL REPORT EXAM: CT head without contrast. CLINICAL HISTORY: Stroke, follow up COMPARISON: None. TECHNIQUE: CT images of the head were ob tained without intravenous contrast. This exam was performed accor ding to our departmental dose optimization program which includes auto mated exposure control, adjustment of the mA and/or kV according to patient's size and/or use of iterative reconstructive technique. FINDINGS: There is mild generalized parenchymal at rophy. There is small hypodensity in the left insular cortex a nd subcortical white matter, which may represent an acute infarct. There is no acute intracranial hemorrhag e, extra-axial fluid collection, mass effect, herniation or h ydrocephalus. The basal cisterns are patent. The visualized orbits are normal. The v isualized paranasal sinuses and tympanomastoid cavities are clear. The skull base and calvarium are intact. IMPRESSION: Small hypodensity in the left insula, wh ich may represent an acute infarct, better assessed with an MRI. No acute intracranial hemorrhage or mass effect. Signed: Anca Solis MD Report Verified Date/Time: 01/27/2020 0 5:00:11 Performing Organization Address City/State/Zipcode Phone Number [facility] CBC (Hemogram only) (01/27/2020 12:50 AM [employer]) [facility] WBC 6.4 3.5 - 10.5 K/L [facility] RBC 4.28 (L) 4.63 - 6.08 M/L [facility] Hemoglobin 12.8 (L) 13.7 - 17.5 GM/DL [facility] Hematocrit 39.6 (L) 40.1 - 51.0 % [facility] MCV 92.5 (H) 79.0 - 92.2 fL [facility] MCH 29.9 25.7 - 32.2 pg [facility] MCHC 32.3 32.3 - 36.5 GM/DL [facility] RDW 12.7 11.6 - 14.4 % [facility] Platelets 201 150 - 450 K/CU MM [facility] MPV 12.4 9.4 - 12.4 fL [facility] nRBC 0 0 - 0 /100 WBC [facility] Specimen Blood Performing Organization Address City/[facility] Phone Number [address] [address] CENTER Phosphorus (01/27/2020 12:50 AM [employer]) Pathologist Sig nature Phosphorus 3.6 2.3 - 4.7 mg/dL [facility] Specimen Blood Narrative Performed At Offset Duplicating Machine Operator ID - DOTTIE M [facility] Performing Organization Address City/[facility] Cent[facility]ode Phone Number [address] [address] CENTER Hemoglobin A1c - Fasting (01/27/2020 12:50 AM [employer])Only the most recent of2 resultswithin the time period is included. Pathologist Sig nature Hemoglobin A1C 5.9 4.3 - 6.1 % [facility] Specimen Blood Narrative Performed At Fasting [facility] Performing Organization Address City/[facility]/Zipcode Phone Number [address] [address] CENTER Fasting lipid panel (01/27/2020 12:50 AM [employer]) Pathologist Sig nature Triglycerides 139 mg/dL [facility] Cholesterol 203 mg/dL [facility] HDL 40 mg/dL [facility] LDL Calculated 135 mg/dL [facility] Specimen Blood Narrative Performed At Triglyceride Reference Range: [facility] Low Risk <150 Borderline 150-199 High Risk 200-499 Very High Risk >=500 Cholesterol Reference Range: Low Risk <200 Borderline 200-239 High Risk >240 HDL Cholesterol Reference Range: Low Risk >=60 High Risk <40 LDL Cholesterol Reference Range: Optimal <100 Near Optimal 100-129 Borderline 130-159 High 160-189 Very High >=190 [employer] Machine Operator ID - DOTTIE Mclean Performing Organization Address City/[facility]/Zipcode Phone Number [address] [phone] CENTER [place], manual (01/26/2020 6:18 PM [employer]) Pathologist Sig nature Rh Factor POS [facility] [place] ABO Grouping A [facility] [place] Specimen Blood Performing Organization Address City/[facility]/Zipcode Phone Number [address] [phone] RPR (01/26/2020 5:54 PM [employer]) Pathologist Sig nature RPR Nonreactive Nonreactive [facility] Specimen Blood Performing Organization Address City/[facility]/Zipcode Phone Number [address] [phone] CENTER Homocysteine (01/26/2020 5:54 PM [employer]) Pathologist Sig nature Homocysteine 14.5 5.1 - 15.4 umol/L [facility] Specimen Blood Narrative Performed At Offset Duplicating Machine Operator ID - ELIZABETH [facility] Performing Organization Address City/[facility]/Zipcode Phone Number [facility] [address] [place] [address] CENTER Type and screen, automated (01/26/2020 5:53 PM [employer]) Pathologist Sig nature ABO/RH AUTOMATED A POSITIVE [facility] Ab Scrn NEGATIVE [facility] Specimen Blood Performing Organization Address City/State/Zipcode Phone Number [facility] [address] [place] [address] after 02/13/2019 Advance Directives For more information, please contact: [phone] Code Status Date Activated Date Inactivated Comments Full Code 01/26/2020 5:03 PM 01/31/2020 7:58 PM This code status was determined by: Patient
--- OUTSIDE RECORDS SUMMARY | 2020-02-14 11:18 | XMS REPORT | Continuity of Care Document ---
:1955 Author Organization [facility] t Address [address] [place] [address] Care Team Providers Name Role Phone MARGY TRAMMELL Attending Clinician Unavailable Margy Trammell MD Attending Clinician Essence Long MD Attending Clinician Romeo Alexis MD Attending Clinician Iesha PUENTES I. 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 2- Delicia kes - 00:00: Medical 00 [place] Congestive Congestive Disease Active 2019-[address] heart heart 03-28 [facility] failure failure 00:00: Medical 00 [place] Acute Acute Disease Active 2019-[address] [facility] pulmonary pulmonary 03-28 [facility] - embolism embolism 00:00: Medica l without without 00 Center acute cor acute cor pulmonale pulmonale Hypertensi Hypertensi Disease Active 2019-[address] on on 03-28 [facility] - 00:00: Medical 00 [place] Aphasia Aphasia Disease Active 2019-[address] [facility] [address] 03-28 [facility] - 00:00: Medical 00 [place] Troponin Troponin Disease Active 2019-03 [facility] level 03-28 [facility] - elevated elevated 00:00: Medica l 00 Center Bipolar Bipolar Disease Active 2019-[address] [facility] [address] depression depression 03-28 Delicia kes - 00:00: Medical 00 [place] Acute deep Acute deep Disease Active 2019-[address] vein vein 03-28 [facility] - thrombosis thrombosis 00:00: Me dical (DVT) of (DVT) of 00 Center popliteal popliteal vein of vein of left lower left lower extremity extremity Pulmonary Pulmonary Disease Active 2019-[address] [facility] hypertensi hypertensi 03-28 Delicia kes - on on 00:00: Medical 00 [place] Ischemic Ischemic Disease Active 2019-03 [facility] stroke stroke 03-27 [facility] - 00:00: Medical 00 [place] Allergies, Adverse Reactions, Alerts This patient has no known allergies or adverse reactions. Social History Social Habit Start Date Stop Date Quantity Comments Source Sex Assigned At [facility] Exposure to SARS-CoV-[address] [facility] Medical (event) Center Medications Ordered Filled Start Stop Current Ordering Indication Dosage Frequency Signature Comments Components Source Medication Medication Date Date Medication? Clinician (SIG) Name Name OLANZapine 2019-03 Yes 5mg QD Take [address] (ZYPREXA) 5 04-02 by mouth [facility] - MG tablet 17:58: nightly. Medi carlitos 29 [place] enalapril 2019-03- No 20mg QD Take [address] (VASOTEC) 04-02 by mouth [facility] - 20 MG 15:16: 00:00 daily. Medical tablet 41 :00 [place] amiodarone 2019-03- Yes 100mg Q.5D Take [address] (PACERONE) 04-02 tablet [facility] - 100 MG 00:00: 23:59 (100 mg Medical tablet 00 :00 total) by Center mouth 2 (two) times daily for 30 days. apixaban 2019-03- Yes 5mg Q.5D Take [address] (ELIQUIS) 5 04-02 tablet (5 Delicia kes - mg Tab 00:00: 23:59 mg total) Medic al tablet 00 :00 by mouth 2 Center (two) times daily for 30 days. atorvastati 2019-03- Yes 80mg QD Take [address] n (LIPITOR) 04-02 tablet (80 L ukes - 80 MG 00:00: 23:59 mg total) Medica l tablet 00 :00 by mouth Center nightly for 30 days. Vital Signs Vital Name Observation Time Observation Value Comments Source Systolic blood 2020-01-31 15:00:00 120 mm[Hg] [facility] Diastolic blood 2020-01-31 15:00:00 78 mm[Hg] [facility] Heart rate 2020-01-31 15:00:00 92 /min [facility] Body temperature 2020-01-31 15:00:00 37.44 Sandra [facility] Respiratory rate 2020-01-31 15:00:00 18 /min [facility] Oxygen saturation in 2020-01-31 15:00:00 97 /min [facility] Arterial blood by Medical Ce nter Pulse oximetry Body height 2020-01-27 07:00:00 177.8 cm [facility] Body weight 2020-01-26 16:30:00 75.751 kg [facility] BMI 2020-01-26 16:30:00 23.96 kg/m2 [facility] Procedures Procedure Date / Time Performing Clinician Source Performed SARS-COV2/RT-PCR ([facility] & 2020-01-31 15:50:00 Sherry Alexis [facility] REF LABS) [facility] ECG 12-LEAD 2020-01-31 07:39:50 Adrián Davis [facility] MAGNESIUM 2020-01-31 04:20:00 Ricardo Ayala [facility] BASIC METABOLIC PANEL (7) 2020-01-31 04:20:00 Ricardo Ayala I [facility] PT/APTT 2020-01-31 04:20:00 Jame Long [facility] MR CARDIAC WITHOUT & WITH 2020-01-30 11:26:00 Jame Long [facility] ECG 12-LEAD 2020-01-30 08:14:14 Adrián Davis [facility] MAGNESIUM 2020-01-30 02:22:00 Ricardo Ayala [facility] BASIC METABOLIC PANEL (7) 2020-01-30 02:22:00 Ricardo Ayala [facility] FERRITIN 2020-01-30 02:22:00 Aminata [facility] IRON, TIBC, % SAT. (WITHOUT 2020-01-30 02:22:00 Aminata [facility] FERRITIN) [facility] VITAMIN B12 2020-01-30 02:22:00 Aminata [facility] FOLATE, SERUM 2020-01-30 02:22:00 Aminata [facility] PERIPHERAL BLOOD SMEAR - 2020-01-30 02:22:00 Aminata [facility] PATHOLOGIST REVIEW Medical Cente r RETICULOCYTE COUNT 2020-01-30 02:22:00 Aminata [facility] APTT 2020-01-30 02:22:00 Jamie [facility] CBC W/PLT COUNT & AUTO 2020-01-30 02:22:00 Jame Long [facility] CT CHEST WITH IV CONTRAST 2020-01-30 01:57:00 Jame Long [facility] CT ABDOMEN/PELVIS WITH IV 2020-01-30 01:10:00 Jame Long [facility] APTT 2020-01-29 20:05:00 Jame Long [facility] XR FOOT RIGHT 3 VIEW 2020-01-29 14:58:00 Troy Moreno [facility] CARCINOEMBRYONIC ANTIGEN 2020-01-29 12:00:00 Sa Tiffanieud Christen [facility] (CEA) [facility] CARBOHYDRATE ANTIGEN 19-9 2020-01-29 12:00:00 Troy Moreno [facility] (CA 19-9) [facility] ALPHA FETOPROTEIN (AFP), 2020-01-29 12:00:00 Troy Moreno [facility] TUMOR MARKER [facility] APTT 2020-01-29 12:00:00 Jamie [facility] THROMBIN TIME 2020-01-29 12:00:00 Troy Moreno [facility] ECG 12-LEAD 2020-01-29 08:20:27 Adrián Davis [facility] APTT 2020-01-29 05:38:00 Jame Long [facility] MAGNESIUM 2020-01-29 05:12:00 [facility] BASIC METABOLIC PANEL (7) 2020-01-29 05:12:00 [facility] CARDIOLIPIN ANTIBODIES, IGG 2020-01-29 05:12:00 [place], [facility] AND IGM [facility] BETA-2 GLYCOPROTEIN 2020-01-29 05:12:00 [place], [facility] PSA 2020-01-29 05:12:00 [place], [facility] JAK2 MUTATION (V617F) 2020-01-29 05:12:00 [place], [facility] QUANTITATIVE [facility] [id number] I IGG 2020-01-29 05:12:00 [place], [facility] TSFU-1-[id number] I IGM 2020-01-29 05:12:00 [place], [facility] BDAM-9-VFJBIIAGTZSS I IGA 2020-01-29 05:12:00 Diana, [facility] APTT 2020-01-28 22:16:00 Jame Long [facility] APTT 2020-01-28 16:33:00 Jamie [facility] ECHO W/ CONTRAST LIMITED 2020-01-28 09:36:28 Jame Long [facility] APTT 2020-01-28 08:18:00 Jamie [facility] TROPONIN I 2020-01-28 08:15:00 Emery Alvarenga [facility] MAGNESIUM 2020-01-28 01:45:00 Jamie, [facility] BASIC METABOLIC PANEL (7) 2020-01-28 01:45:00 Jamie [facility] APTT 2020-01-28 01:45:00 Jamie, [facility] TROPONIN I 2020-01-28 01:45:00 Emery Alvarenga [facility] APTT 2020-01-27 18:21:00 Jamie, [facility] TROPONIN I 2020-01-27 18:21:00 Cornell Mckeon [facility] 2D ECHO W/ DOPPLER 2020-01-27 07:46:59 Juni [facility] (CW/PW/COLOR) [facility] TROPONIN I 2020-01-27 07:46:00 Jamie [facility] APTT 2020-01-27 07:46:[address] [facility] [address] BRAIN WITHOUT IV 2020-01-27 04:52:00 Jamie [facility] APTT 2020-01-27 00:50:00 Jamie [facility] LIPID PANEL 2020-01-27 00:50:00 Jamie, [facility] HEMOGLOBIN A1C 2020-01-27 00:50:00 Jamie [facility] MAGNESIUM 2020-01-27 00:50:00 Jamie [facility] PHOSPHORUS 2020-01-27 00:50:00 Juni [facility] BASIC METABOLIC PANEL (7) 2020-01-27 00:50:00 Jamie [facility] CBC (HEMOGRAM ONLY) 2020-01-27 00:50:00 Juni Fifi [facility] TROPONIN I 2020-01-27 00:18:00 Jamie [facility] ABORH, MANUAL 2020-01-26 18:18:00 Sherine Jeffrey [facility] BASIC METABOLIC PANEL (7) 2020-01-26 17:54:00 Jamie Gamalielsatya DEAN I [facility] HEMOGLOBIN A1C 2020-01-26 17:54:00 Jamie [facility] RPR 2020-01-26 17:54:00 Jamie [facility] HOMOCYSTEINE 2020-01-26 17:54:00 Jamie, [facility] CBC W/PLT COUNT & AUTO 2020-01-26 17:54:00 [facility] APTT 2020-01-26 17:53:00 [facility] TYPE AND SCREEN, AUTOMATED 2020-01-26 17:53:00 Jamie, Adwoamichelle Garcia [facility] Plan of Care Planned Activity Planned Date Details Comments Source Future Scheduled 2019-10-31 INFLUENZA VACCINE (#1) C [facility] - Test 00:00:00 [code = INFLUENZA Medical Ce nter VACCINE (#1)] Future Scheduled 2019-01-[address] [facility] - Test 00:00:00 WELLNESS (YEAR 2 or Medical Center FIRST YEAR if no IPPE) [code = MEDICARE ANNUAL WELLNESS (YEAR 2 or FIRST YEAR if no IPPE)] Future Scheduled 2018 PNEUMOCOCCAL 65+ YRS [facility] Test [facility]00 (1 of 1 - Medical Center HONO75_Sxoietu PCV13) [code = PNEUMOCOCCAL 65+ YRS (1 of - [id number]_Vqrrcld PCV13)] Future Scheduled [address] [facility] - Test 00:00:00 malignant neoplasm of Medica l Center colon (procedure) [code = 059964340] Results Test Description Test Time Test Comments Results Result Comments Source JAK2 MUTATION (V617F) QUANTITATIVE 2020-02-06 19:13:00 Test Item Value Reference Range Interpretation Comme nts CLINICAL INDICATION NOT GIVEN ([facility]) (test code = 3097067) SPECIMEN SOURCE: (test NOT GIVEN code = 0805510) Block/Specimen ID NOT GIVEN (test code = 6671209) JAK2 V617F Mutation NOT DETECTED NOT DETECTED ([facility]) (test code = 5720993) GENE (test code = DNR 8454449) AMINO ACID (test code DNR = 0402153) MUTATIONS/POLYMORPHISM DNR S (test code = 5977799) Mutation Analysis DNR (test code = 5596382) Exons 10,11,13-16 DNR (test code = 4171056) NUCLEOTIDE CHANGE DNR (test code = 7057557) References: (test code DNR = 0993429) INTERPRETATION ([facility]) SEE BELOW A J AK2 V617F mutation is (test code = 5494604) not de tected. This data was reviewed and in terpreted by Miguel Angel Sloan, PhD . HCLD(ABB) ASSAY DETAILS (test SEE BELOW This PCR -based advanced code = 4502866) sequencing a ssay interrogates DNA from leukoc ytes forthe presence of mut ations in codon 617 of JA K2. The sensitivity of mutationdetecti on is 5%. Alterations out side of the tested areas of this gene willnot be dete cted. Synonymous or k nown non-synonymous polymorphic changes(SNPs) a re not reported. JAK2 V617F mutation is associated withmyeloprolif erative neoplasms (MPNs ), including polycythemia ve ra (PV),essential thrombocythemia (ET) and primary myelofi brosis (PMF), and a smallsubs et of other myeloid neoplas ms. Increasing allele burden o f JAK2 V617F inMPNs has been shown in a number of studi es to be associated with increasedsympto ms including pruritis, splen omegaly, and leukocytosis. R esults of thisassay shoul d be correlated with morphology and other labor atory testing forfinal diagno sis and classification. If this test is negative, additionaltesti ng that may be useful for work up of MPNs, depending on presentinghemat ologic features, inclu vinny BCR-ABL1 rearrangement ( test code 31793 ao95446T) or mutational analysis of CARLITOS R (ET/PMF, 63720), JAK2 ex on 12 (PV,27536), MPL (ET/PMF, 70755) or CSF3R (chronic neutrophilic le ukemia, 76240).Residual material from this sample may be used except for BCR- ABL1 testing;call la b to add. DNA was aligned to GRCh37(hg19) for analysis an d transcript [id number] was used as reference for J AK2 sequence. For additional information, please refer tohttp://educat ion.[employer].Pandabus/faq/ BNY160(This link is being p rovided for informational/e ducational purposes only.) This test was developed and i ts analytical performance siri racteristics havebeen juhi ined by [facility] bishop.It has not been cleare d or approved by FDA. This as say has been validatedpursua nt to the CLIA regulations and is used for clinical purpos es. CARO (test code = CARO) Performing Lab EZ [facility] [address] [place] [address] Waleska Spencer MD, PhD, COREY [facility]eta-2 glycoprotein [id number] 06:00:00 Test Item Value Reference Range Interpretation Comments B2 Glcoprotein Ab Refer to individual Profile (test code = B2-Glycoprotein IgG, 2557) IgM and IgA results. [facility] antigen 19-9 (CA 19-9)2020-02-01 14:58:00 Test Item Value Reference Range Interpretation Comments CA 19-9 8 U/mL <34 This test was (test code = performed using the 87577-2) Siemens Chemiluminescen t method.Values o btained from different assay methods cannot be used interchangeably .CA19-9 levels, regardl ess of value, should n ot be interpreted as absoluteevidenc e of the presence or abs ence of disease. CARO (test Performing Lab code = CARO) EZ [facility] [address] [place] [address] Waleska Spencer MD, PhD, COREY [facility] Center[facility]-CoV2/RT-PCR (Asymptomatic ONLY)2020-01-31 21:23:00 Test Item Value Reference Range Interpretation Comments SARS-COV2/RT-PCR Negative Not Detected, (test code = Negative, See 14070-9) external report for linked test SARS-COV-2 [facility] PERFORMING LAB (test code = 14321-2) CARO (test code = Negative result for this CARO) test determines that SARS-CoV-2 RNA was not present in the [...] of the Act. Fact Sheet for Healthcare Providers:https://www.[employer]l.Pandabus/sites/default/f jose/product/documents/F act_Sheet_HC_Providers_L kkp_PIOO-UlU-0.pdf Fact Sheet for Healthcare Patients:https://www.[employer] del.Pandabus/sites/default/fi les/product/documents/Fa ct_Sheet_Patients_Lyra_S ARS-CoV-2.pdf Performing Laboratory:[facility] [place] [address] [facility] Center[facility]OV2/RT-PCR ([facility])2020-01-31 21:23:00 Test Item Value Reference Range Interpretation Comments SARS-COV2/RT-PCR (test Negative Not Detected, Negative, code = 1603908) See external report for linked test SARS-COV-[address] [facility] (test code = 1350548) Negative result for this test determines that SARS-CoV-2 RNA was not present in the specimen above the Limit of Detection (LOD). However, Negative results do not preclude SARS-CoV-2 infection and should not be used as the sole basis for treatment or patient management decisions. Negative results mustbe combined with clinical observations, patient history, and epidemiological information. A false negative result may occur if a specimen is improperly collected, transported or handled. A false negative result should be considered if patient's recent exposures or clinical presentation indicate that COVID-19 (SARS-CoV-2) is likely and diagnostic tests for other causes of illness are negative. Re-testing should be considered in cases of suspected false negatives.The limit of detection for this assay is 800 copies/mL.This SARS CoV-2 test is a real-time RT-PCR test intended for the qualitative detection of nucleic acid from SARS-CoV-2 in a nasopharyngeal swab specimen collected from individuals susp ected of COVID-19 by their healthcare provider.This test has not been Food and Drug [...] is revoked under Section 564(g) of the Act.Fact Sheet for Healthcare Providers:https://www.[employer]le [employer].com/sites/default/files/product/documents/Fact_Shee b_MX_Wxnkpuolq_Fteg_OJBS-LzK-4.pdfFact Sheet for Healthcare Patients:https://www.[employer].com/sites/default/files/product/ documents/Upkw_Brhgz_Ujztzapi_Lwgg_NNIR-NpY-0.pdfPerforming Laboratory:[facility], [place] [address]ASZ 12 [id number] 21:22:53Interface, External Ris In - 01/31/2020 9:22 PM CSTVentricular Rate 92 BPMAtrial Rate 92 BPMP-R Interval 130 msQRS Duration 152 msQ-T Interval 422 msQTC Calculation(Bazett) 521 msP [place] 65 degreesR [place] 45 degreesT [place] 67 degreesNormal sinus rhythmNon-specific intra-ventricular conduction delayAbnorm al ECGWhen compared with ECG of 30-JAN-2020 08:14,T wave inversion no longer evident in Inferior leadsConfirmed by MD Rosanne, Dillon ([id number]) on 01/31/2020 9:22:50 [facility]Glycoprotein I IgG 2020-01-31 11:35:00 Test Item Value Reference Range Interpretation Comments Beta-2 Glycoprotein I <9 < OR = 20 SGU Ab, IgG (test code = 35110-2) CARO (test code = CARO) Performing Lab EZ [facility] [address] [place] [address] Waleska Spencer MD, PhD, [facility]-Glycoprotein I [id number] 11:35:00 Test Item Value Reference Range Interpretation Comments Beta-2 Glycoprotein I <9 < OR = 20 SMU Ab, IgM (test code = 09841-1) CARO (test code = CARO) Performing Lab EZ [facility] [address] [place] [address] Waleska Spencer MD, PhD, [facility] HospitalBeta-2-Glycoprotein I [id number] 11:35:00 Test Item Value Reference Interpretation Comments Range Beta-2 <9 < OR = 20 The antiphospho lipid antibody Glycoprotein I CHANDRIKA syndrome (APS ) roberta Ab, IgA (test clinical-patho logic code = 87157-6) correlation that includesa clinical event (e.g. thrombosis, pre gnancyloss, thrombocytopeni a) and persistent positiveantipho spholipid antibodies (IgM or IgG COCO>40 MPL/GPL,IgM or IgG anti-b2GPI antibodies ora lupus anticoagulant). International consensusguidel gilberto for APS suggest waiting at least 12weeks before retesting to confirm antibod ypersistence. The [facility] immunologicalcl assification criteria for [facility] lupuserythemato duke (SLE) include testing for isotypeIgA, whi ch has yet to be incorporated into APScriteria. Lo w level antiphospholipi d antibodiesmay s ometimes be detected in the setting ofinfection, dr ug therapy or aging. CARO (test code Performing Lab = CARO) EZ [facility] [address] [place] [address] Waleska Spencer MD, PhD, COREY [facility] Metabolic [id number] 06:30:00 Test Item Value Reference Range Interpretation Comments Sodium (test code = 139 meq/L 929-981 7677-2) Potassium (test code = 4.1 meq/L 3.5-5.1 2823-3) Chloride (test code = 106 meq/L 98-107 2075-0) CO2 (test code = 21 meq/L 22-29 L 2028-9) BUN (test code = 18 mg/dL 7-21 3094-0) Creatinine (test code 1.47 mg/dL 0.57-1.25 H = 2160-0) Glucose (test code = 108 mg/dL 70-105 H 2345-7) Calcium (test code = 9.2 mg/dL 8.4-10.2 37888-0) EGFR (test code = 48 mL/min/1.73 [place] [address]-7) NOT ACCURATE CREATININE CLEARANCE IN PREDICTING GLOMERULAR FILTRATION RATE . ESTIMATED GFR I S NOT APPLICABLE FOR DIALYSIS PATIENTS. CARO (test code = CARO) Loading Inspector ID - EDASI Lab Interpretation Abnormal (test code = 51414-0) [facility] Rosa[facility]esium2020-12-02 06:30:00 Test Item Value Reference Range Interpretation Comments Magnesium (test code = 1.9 mg/dL 1.6-2.6 65517-8) CARO (test code = CARO) Loading Inspector ID - EDASI Lab Interpretation (test Normal code = 42280-2) [facility] METABOLIC [id number] 06:30:00 Test Item Value Reference Range Interpretation Comments SODIUM (BEAKER) 139 meq/L 136-145 (test code = 381) POTASSIUM (BEAKER) 4.1 meq/L 3.5-5.1 (test code = 379) CHLORIDE (BEAKER) 106 meq/L 98-107 (test code = 382) CO2 (BEAKER) (test 21 meq/L 22-29 L code = 355) BLOOD UREA NITROGEN 18 mg/dL 7-21 (BEAKER) (test code = 354) CREATININE (BEAKER) 1.47 mg/dL 0.57-1.25 H (test code = 358) GLUCOSE RANDOM 108 mg/dL 70-105 H (BEAKER) (test code = 652) CALCIUM (BEAKER) 9.2 mg/dL 8.4-10.2 (test code = 697) EGFR (BEAKER) (test 48 mL/min/1.73 ESTIMA CARLOS GFR IS code = 1092) sq m NOT ACCURATE CREATININE CLEARANCE IN PREDICTING GLOMERULAR FILTRATION RATE . ESTIMATED GFR I S NOT APPLICABLE FOR DIALYSIS PATIEN TS. Loading Inspector ID - [id number] 06:30:00 Test Item Value Reference Range Interpretation Comments MAGNESIUM (BEAKER) (test code = 1.9 mg/dL 1.6-2.6 627) Loading Inspector ID - EDASIPT/[id number] 05:05:00 Test Item Value Reference Range Interpretation Comments Protime (test code = 13.1 11.9- 14.2 5902-2) seconds INR (test code = 1.03 <=5.90 6301-6) PTT (test code = 76.6 22.5- 36.0 H 51246-2) seconds CARO (test code = CARO) Effective 07/27/2018: PT Reference Range ChangeNew: 11.9-14.2 Previous: 11.7-14.7 RECOMMENDED COUMADIN/WARFARIN INR THERAPY RANGESSTANDARD DOSE: 2.0-3.0 Includes: PROPHYLAXIS for venous thrombosis, systemic embolization; TREATMENT for venous thrombosis and/or pulmonary embolus.HIGH RISK: Target INR is 2.5-3.5 for patients wiht mechanical heart valves. Lab Interpretation Abnormal (test code = 90859-7) [facility] Rosa[facility]/[id number] 05:05:00 Test Item Value Reference Range Interpretation Comments PROTIME (BEAKER) (test code = 13.1 seconds 11.9-14.2 759) INR (VIET) (test code = 370) 1.03 <=5.90 PARTIAL THROMBOPLASTIN TIME 76.6 seconds 22.5-36.0 H (VIET) (test code = 760) Effective 07/27/2018: PT Reference Range ChangeNew: 11.9-14.2 Previous: 11.7- 14.7RECOMMENDED COUMADIN/WARFARIN INR THERAPY RANGESSTANDARD DOSE: 2.0-3.0 Includes: PROPHYLAXIS for venous thrombosis, systemic embolization; TREATMENT for venous thrombosis and/or pulmonary embolus.HIGH RISK: Target INR is2.5-3.5 for patients wiht mechanical heart valves.MR, CARDIAC, [id number] 16:48:00Unlisted Reason for Exam - Click Yes and Enter Reason Below->No [facility] : 1955 Sex: MFINAL REPORT EXAM: MRI CARDIAC WITH AND WITHOUT INDICATION: Cardiom yopathy, non-ischemic suspected COMPARISON: CT chest abdomen and pelvis 01/30/2020. Technique: YouSticker 450 1.5 Ghada MRI scanner. Multiplanar and multisequence imaging was performed of the heart. *Dual IR T1 and gradient echo imaging for anatomic definition.* Dynamic cine imaging (FIESTA) for cardiac chamber and wall-motion analysis.* Flow quantification sequences for hemodynamics.* T1 weighteddual IR sequence post contrast and Delayed gadolinium-enhancement analysis after injection of gadolinium-chelate (dose per epic notes). FINDINGS:The chest wall and mediastinum appear normal. No signif icant adenopathy is identified. The thoracic aorta appears normal in course, caliber, and contour. There is no evidence for acute aortic pathology. Small bilateral pleural effusions. Hyperintense consolidations in both lung bases are better evaluated on same-day CT chest. Suboptimally seen pulmonary embolism and better visualized on same-day CT. CARDIAC CHAMBERS:The cardiac chambers demonstratenormal atrioventricular and ventriculoarterial concordance, and systemic and pulmonary venous return. The left atrium is enlarged. The right atrium normal in size. LEFT VENTRICLE: The left ventricle is severely dilated but normal in thickness, and has severely depressed systolic function. Severe global hypokinesis. No visualized thrombus in the left ventricle. Quantitative left ventricular functional values are as follows:EDV = 388.7 mL; EDVi = 199 mL/m2ESV = 328.4 mL; ESVi = 168.1 mL/m2 Strokevolume = 60.3 mL; SVi = 30.9 mL/m2LVEF = 16 %Absolute Cardiac Output = 6.0 l/min.; COi = 3.1 l/min/m2LV mass = 289.2 gm Black blood image sequence demonstrates homogeneous intensity of the left ventricular myocardium, which goes against edema or infiltrative process. Delayed-enhancement imaging reveals few small foci of intramyocardial delay enhancement along the anterolateral and inferolateral wall of the left ventricle. While some of these foci appear to represent volume average from the adjacent blood pool, a few may represent true foci of intramyocardial interstitial fibrosis, for example,on series 29, image three and distal inferolateral wall on series 30, image 8. RIGHT VENTRICLE: The right ventricle is normal in size and shape, and has moderately decreased systolic function. Mild global hypokinesis. No presence of scar. Quantitative right ventricular functional values are as follows:EDV = 151 mL; EDVi = 77.3 mL/m2ESV = 96.9 mL; ESVi = 49.6 mL/m2 Stroke volume = 54.1 mL; SVi =27.7 mL/m2RVEF = 36 %Absolute Cardiac Output = 5.4 l/min.; COi = 2.8 l/min/m2 CARDIAC VALVES:Aortic valve: NormalMitral valve: Mild thickening of the mitral valve leaflets with associated mild mitral valve regurgitation with an eccentric posteriorly directed jet.Tricuspid valve: NormalPulmonic valve: Not evaluated Flow quantification through the ascending aorta:Forward volume = 38 mL/beatReverse volume = 4.5 mL/beatNet forward volume = 33.5 mL/beatAortic regurgitant fraction = 11.8 % PERICARDIUM: Small pericardial effusion. UPPER ABDOMEN: Partially visualized right renal cysts. BONES:No acute bone marrow abnormalities. IMPRESSION: 1. Dilated left ventricle with preserved thickness and severely decreased systolic function (LVEF 16%). Severe global hypokinesis with associated scattered foci of intramyocardial scar in the lateral wall of the left ventricle, some of which may represent volume average while others may represent true tiny areas of interstitial fibrosis. - Overall MRI findings are consistent with nonischemic cardiomyopathy of uncertain etiology. However, there are no findings to suggest amyloidosis or LV noncompaction. Sarcoidosis appears also less likely given the absence of mediastinal and pulmonary sarcoidosis. 2. No visualized thrombus in the left ventricle. 3. Normal size of the right ventricle with associated mild global hypokinesis and moderate decreased systolic function (RVEF 36%). There are scar within the right ventricle. 4. Mild mitral valve regurgitation.5. Small bilateral pleural effusions with adjacent consolidations and few segmental pulmonary pulmonary artery embolism are better seen on same-day CT. Signed: Anastasia Mahajan MDReport Verified Date/Time: 01/30/2020 16:48:46 Reading Location: [facility] Reading Room [address] [place], [place] [address]Electronicallysigned by: ANASTASIA PARSON M.D. on 01/30/2020 04:48 PMMR cardiac without & with IV [id number] 16:48:00Interface, External Ris In - 01/30/2020 4:50 PM CSTFINAL REPORT EXAM: MRI CARDIAC WITH AND WITHOUT INDICATION: Cardiomyopathy, non-ischemic suspected COMPARISON: CT chest abdomen and pelvis 01/30/2020. Technique: PrezmaA 450 1.5 Ghada MRI scanner. Multiplanar and multisequence imaging was performed of the heart. * Dual IR T1 and gradient echo imaging for anatomic definition.* Dynamic cine imaging (FIESTA) for cardiac chamber and wall-motion analysis.* Flow quantificationsequences for hemodynamics.* T1 weighted dual IR sequence post contrast and Delayed gadolinium-enhancement analysis after injection of gadolinium-chelate (dose per epic notes). FINDINGS:The chest wall and mediastinum appear normal. No significant adenopathy is identified. The thoracic aorta appears normal in course, caliber, and contour. There is no evidence for acute aortic pathology. Small bilateral pleural effusions. Hyperintense consolidations in both lung bases are better evaluated on same-day CT chest. Suboptimally seen pulmonary embolism and better visualized on same-day CT. CARDIACCHAMBERS:The cardiac chambers demonstrate normal atrioventricular and ventriculoarterial concordance, and systemic and pulmonary venous return. The left atrium is enlarged. The right atrium normal in size. LEFT VENTRICLE: The left ventricle is severely dilated but normal in thickness, and has severely depressed systolic function. Severe global hypokinesis. No visualized thrombus in the left ventricle. Quantitative left ventricular functional values are as follows:EDV = 388.7 mL; EDVi = 199 mL/m2ESV = 328.4 mL; ESVi = 168.1 mL/m2 Stroke volume = 60.3 mL; SVi = 30.9 mL/m2LVEF = 16 %Absolute Cardiac Output = 6.0 l/min.; COi = 3.1 l/min/m2LV mass = 289.2 gm Black blood image sequence demonstrates homogeneous intensity of the left ventricular myocardium, which goes against edema or infiltrative process. Delayed-enhancement imaging reveals few small foci of intramyocardial delay enhancement along the anterolateral and inferolateral wall of the left ventricle. While some of these foci appearto represent volume average from the adjacent blood pool, a few may represent true foci of intramyocardial interstitial fibrosis, for example, on series 29, image three and distal inferolateral wall onseries 30, image 8. RIGHT VENTRICLE: The right ventricle is normal in size and shape, and has moderately decreased systolic function. Mild global hypokinesis. No presence of scar. Quantitative right ventricular functional values are as follows:EDV = 151 mL; EDVi = 77.3 mL/m2ESV = 96.9 mL; ESVi = 49.6 mL/m2 Stroke volume = 54.1 mL; SVi = 27.7 mL/m2RVEF = 36 %Absolute Cardiac Output = 5.4 l/min.; COi = 2.8 l/min/m2 CARDIAC VALVES:Aortic valve: NormalMitral valve: Mild thickening of the mitral valve leaflets with associated mild mitral valve regurgitation with an eccentric posteriorly directed jet.Tricuspid valve: NormalPulmonic valve: Not evaluated Flow quantification through the ascending aorta:Forward volume = 38 mL/beatReverse volume = 4.5 mL/beatNet forward volume = 33.5 mL/beatAortic regurgitant fraction = 11.8 % PERICARDIUM: Small pericardial effusion. UPPER ABDOMEN: Partially visualized right renal cysts. BONES:No acute bone marrow abnormalities. IMPRESSION: 1. Dilated left ventricle with preserved thickness and severely decreased systolic function (LVEF 16%). Severe globalhypokinesis with associated scattered foci of intramyocardial scar in the lateral wall of the left ventricle, some of which may represent volume average while others may represent true tiny areas of interstitial fibrosis. - Overall MRI findings are consistent with nonischemic cardiomyopathy of uncertain etiology. However, there are no findings to suggest amyloidosis or LV noncompaction. Sarcoidosis appears also less likely given the absence of mediastinal and pulmonary sarcoidosis. 2. No visualized thrombus in the left ventricle. 3. Normal size of the right ventricle with associated mild global hypokinesis and moderate decreased systolic function (RVEF 36%). There are scar within the right ventricle. 4. Mild mitral valve regurgitation. 5. Small bilateral pleural effusions with adjacent consolidations and few segmental pulmonary pulmonary artery embolism are better seen on same-day CT. Signed:Anastasia Mahajan Verified Date/Time: 01/30/2020 16:48:46 Reading Location: [facility] Reading Room [address] [place] [address] [facility] Review 2020-01-30 15:12:00 Test Item Value Reference Range Interpretation Comments Pathologist Review (test Cell counts code = 2640) confirmed. Pathologist: (test code Lynda Mccoy M.D. = 2849) (electronic signature) [facility] PATHOLOGIST REVIEW 2020-01-30 15:12:00 Test Item Value Reference Range Interpretation Comments PERIPHERAL SMR REVIEW Cell counts confirmed. (BEAKER) (test code = 2640) [id number] Lynda Mccoy M.D. (BEELMER) (test code = (electronic signature) 2849) Cardiolipin Antibodies, IgG and [id number] 15:03:00 Test Item Value Reference Range Interpretation Comments Anticardiolipin IgG <1.6 <20.0 GPL (test code = 3181-5) Anticardiolipin IgM 1.4 <20.0 MPL (test code = 3182-3) CARO (test code = CARO) Anticardiolipin IgG Result Interpretation: <20.0 GPL Normal>/= 20.0 GPL Positive Anticardiolipin IgM Result Interpretation: <20.0 MPL Normal>/= 20.0 MPL Positive Lab Interpretation Normal (test code = 14234-1) [facility]ARDIOLIP[facility] ANTIBODIES, IGG AND [id number] 15:03:00 Test Item Value Reference Range Interpretation Comments ANTICARDIOLIPIN IGG ANTIBODY (BEAKER) < GPL <20.0 (test code = 712) ANTICARDIOLIPIN IGM ANTIBODY (BEAKER) 1.4 MPL <20.0 (test code = 713) Anticardiolipin IgG Result Interpretation: <20.0 GPL Normal>/= 20.0 GPL PositiveAnticardiolipin IgM Result Interpretation: <20.0 MPL Normal>/= 20.0 MPL [id number] 05:40:00 Test Item Value Reference Range Interpretation Comments Ferritin (test code = 95.99 ng/mL 5-275 2276-4) CARO (test code = CARO) Loading Inspector ID - EDASI Lab Interpretation (test Normal code = 63146-4) [facility] RosaFolate, [id number] 05:40:00 Test Item Value Reference Range Interpretation Comments Folate (test code = 10.50 ng/mL >=7.00 2284-8) CARO (test code = CARO) Loading Inspector ID - EDASI Lab Interpretation (test Normal code = 42712-3) [facility] Rosa[facility]ERRITIN2020-12-01 05:40:00 Test Item Value Reference Range Interpretation Comments FERRITIN (BEAKER) (test code = 95.99 ng/mL 5.00-275.00 361) Loading Inspector ID - EDASIFOLATE, [id number] 05:40:00 Test Item Value Reference Range Interpretation Comments FOLATE (BEAKER) (test code = 362) 10.50 ng/mL >=7.00 Loading Inspector ID - EDASIVitamin [id number] 04:44:00 Test Item Value Reference Range Interpretation Comments Vitamin B12 (test code = 296 pg/mL 075-558 4663-9) CARO (test code = CARO) Loading Inspector ID - EDASI Lab Interpretation (test Normal code = 36885-0) [facility] RosaVITAMIN [id number] 04:44:00 Test Item Value Reference Range Interpretation Comments VITAMIN B12 (BEAKER) (test code = 296 pg/mL 213-816 774) Loading Inspector ID - EDASICBC with platelet count + automated [id number] 04:33:00 Test Item Value Reference Range Interpretation Comments WBC (test code = 6690-2) 6.2 3.5- 10.5 K/L RBC (test code = 789-8) 4.17 4.63- 6.08 M/L L MCHC (test code = 786-4) 31.7 32.3- 36.5 GM/DL L Hematocrit (test code = 4544-3) 39.1 % 40.1-51 L MCV (test code = 787-2) 93.8 fL 79-92.2 H MCH (test code = 785-6) 29.7 pg 25.7-32.2 RDW (test code = 788-0) 12.5 % 11.6-14.4 Platelets (test code = 777-3) 224 150- 450 K/CU MM MPV (test code = 76600-0) 13.2 fL 9.4-12.4 H nRBC (test code = 413) 0 0- 0 /100 WBC % Neutros (test code = 429) 64 % % Lymphs (test code = 430) 25 % % Monos (test code = 431) 8 % % Eos (test code = 432) 3 % % Baso (test code = 437) 1 % # Neutros (test code = 670) 3.94 1.78- 5.38 K/L # Lymphs (test code = 414) 1.54 1.32- 3.57 K/L # Monos (test code = 415) 0.49 0.30- 0.82 K/L # Eos (test code = 416) 0.16 0.04- 0.54 K/L # Baso (test code = 417) 0.05 0.01- 0.08 K/L Immature Granulocytes-Relative 0 % 0-1 (test code = 2801) Lab Interpretation (test code = Abnormal 73259-5) [facility] W/PLT COUNT & AUTO [id number] 04:33:00 Test Item Value Reference Range Interpretation Comments WHITE BLOOD CELL COUNT (BEAKER) 6.2 K/ L 3.5-10.5 (test code = 775) RED BLOOD CELL COUNT (BEAKER) 4.17 M/ L 4.63-6.08 L (test code = 761) HEMOGLOBIN (BEAKER) (test code = 12.4 GM/DL 13.7-17.5 L 410) HEMATOCRIT (BEAKER) (test code = 39.1 % 40.1-51.0 L 411) MEAN CORPUSCULAR VOLUME (BEAKER) 93.8 fL 79.0-92.2 H (test code = 753) MEAN CORPUSCULAR HEMOGLOBIN 29.7 pg 25.7-32.2 (BEAKER) (test code = 751) MEAN CORPUSCULAR HEMOGLOBIN CONC 31.7 GM/DL 32.3-36.5 L (BEAKER) (test code = 752) RED CELL DISTRIBUTION WIDTH 12.5 % 11.6-14.4 (BEAKER) (test code = 412) PLATELET COUNT (BEAKER) (test 224 K/CU MM 150-450 code = 756) MEAN PLATELET VOLUME (BEAKER) 13.2 fL 9.4-12.4 H (test code = 754) NUCLEATED RED BLOOD CELLS 0 /100 WBC 0-0 (BEAKER) (test code = 413) NEUTROPHILS RELATIVE PERCENT 64 % (BEAKER) (test code = 429) LYMPHOCYTES RELATIVE PERCENT 25 % (BEAKER) (test code = 430) MONOCYTES RELATIVE PERCENT 8 % (BEAKER) (test code = 431) EOSINOPHILS RELATIVE PERCENT 3 % (BEAKER) (test code = 432) BASOPHILS RELATIVE PERCENT 1 % (BEAKER) (test code = 437) NEUTROPHILS ABSOLUTE COUNT 3.94 K/ L 1.78-5.38 (BEAKER) (test code = 670) LYMPHOCYTES ABSOLUTE COUNT 1.54 K/ L 1.32-3.57 (BEAKER) (test code = 414) MONOCYTES ABSOLUTE COUNT (BEAKER) 0.49 K/ L 0.30-0.82 (test code = 415) EOSINOPHILS ABSOLUTE COUNT 0.16 K/ L 0.04-0.54 (BEAKER) (test code = 416) BASOPHILS ABSOLUTE COUNT (BEAKER) 0.05 K/ L 0.01-0.08 (test code = 417) IMMATURE GRANULOCYTES-RELATIVE 0 % 0-1 PERCENT (BEAKER) (test code = 2801) Iron, TIBC, % sat. (without ferritin)2020-01-30 04:18:00 Test Item Value Reference Range Interpretation Comments Iron (test code = 2498-4) 34.0 ug/dL 40-160 L TIBC (test code = 2500-7) 278 ug/dL 250-450 Iron % Saturation (test 12 % 20-55 L code = 2502-3) CARO (test code = CARO) Loading Inspector ID - EDASI Lab Interpretation (test Abnormal code = 34954-3) [facility] Rosa[facility], TIBC, % SAT. (WITHOUT FERRITIN)2020-01-30 04:18:00 Test Item Value Reference Range Interpretation Comments IRON (BEAKER) (test code = 547) 34.0 ug/dL 40.0-160.0 L TOTAL IRON BINDING CAPACITY 278 ug/dL 250-450 (BEAKER) (test code = 769) IRON % SATURATION (2) (BEAKER) 12 % 20-55 L (test code = 2590) Loading Inspector ID - EDASICT, [id number] 03:26:00Unlisted Reason for Exam - Click Yes and Enter Reason Below->YesUnlisted Reason for Exam->Evaluate for malignancy. [facility]provoke DVT and [facility]s [facility] 1955 Sex: MFINAL REPORT EXAM: CT of the chest, abdomen and pelvis, with contrast CLINICAL HISTORY: Unlisted reason for exam. Evaluate for malignancy. Patient with unprovoked DVT and PEs. TECHNIQUE: CT of the chest, abdomen and pelvis was performed with intravenous contrast administration. This exam was performed according to our departmental dose optimization program which includes automated exposure control, adjustment of the mA and/or kV according to patient's size and/or use of iterative reconstructive technique. COMPARISON: None FINDINGS: CHEST:LOWER NECK: Within normal limits.AIRWAYS, PLEURA AND LUNGS: Patent central tracheobronchial tree. Peripheral airspace opacitiesin the left lower lobe, which may represent pneumonia or infarcts. Small bilateral pleural effusions (right greater than left) with associated compressive atelectasis. No pneumothorax. VESSELS: Atherosclerotic calcifications of the aorta and coronary arteries. No thoracic aortic aneurysm. Filling defects in segmental and subsegmental branches of the bilateral lower lobe pulmonary arteries similarly acute emboli.HEART: Cardiomegaly. No pericardial effusion.JACKI AND MEDIASTINUM: Within normal limits.SOFT TISSUES: Within normal limits.BONES: Mild pulmonary compression fracture deformities of T4-T6 vertebral bodies. Generalized osteopenia. No suspicious osseous lesions. ABDOMEN AND PELVIS: HEPATOBILIARY: Within normal limits.PANCREAS: Within normal limits.SPLEEN: Within normal limits.ADRENALS: Withinnormal limits.KIDNEYS/URETERS: Round left renal hypodensities measuring simple fluid attenuation, which may represent cysts, measuring up to 3.4 x 3 cm in size. Bilateral renal hypodensities too small to characterize. No hydroureteronephrosis or radiopaque stones. URINARY BLADDER: Within normal limits.REPRODUCTIVE ORGANS: Enlarged prostate gland measuring 5.3 cm in diameter. BOWEL/MESENTERY: No bowelobstruction or abnormal wall thickening. Normal appendix.PERITONEUM/RETROPERITONEUM: No free air, free fluid or fluid collection. VESSELS: Mild abdomen demonstrates changes of the aorta with calcified and noncalcified mural plaque. No abdominal aortic aneurysm. LYMPH NODES: No abdominal or pelvic lymphadenopathy.SOFT TISSUES: Within normal limits.BONES: Generalized osteopenia. No suspicious osseous lesion. Degenerative changes of the lumbar spine. IMPRESSION: Bilateral lower lobe segmental and subsegmental pulmonary emboli.Left lower lobe opacity which may represent pneumonia/or pulmonary infarct.Cardiomegaly.Left renal cysts and other additional bilateral renal hypodensities too small to characterize. Renal ultrasound versus CT/MRI may be performed for further characterization.Enlarged prostate gland.No findings to suggest malignancy in the chest, abdomen pelvis. Signed: Anca Solis MDReport Verified Date/Time: 01/30/2020 03:26:01 CT, CHEST, WITH [id number] 03:26:00Unlisted Reason for Exam - Click Yes and Enter Reason Below->YesUnlisted Reason for Exam->Evaluate for malignancy. [facility]provoke [facility] and [facility]s [facility] 1955 Sex: MFINAL REPORT EXAM: CT of the chest, abdomen and pelvis, with contrast CLINICAL HISTORY: Unlisted reason for exam. Evaluate for malignancy. Patient with unprovoked DVT and PEs. TECHNIQUE: CT of the chest, abdomen and pelvis was performed with intravenous contrast administration. This exam was performed according to our departmental dose optimization program which includes automated exposure control, adjustment of the mA and/or kV according to patient's size and/or use of iterative reconstructive technique. COMPARISON: None FINDINGS: CHEST:LOWER NECK: Within normal limits.AIRWAYS, PLEURA AND LUNGS: Patent central tracheobronchial tree. Peripheral airspace opacitiesin the left lower lobe, which may represent pneumonia or infarcts. Small bilateral pleural effusions (right greater than left) with associated compressive atelectasis. No pneumothorax. VESSELS: Atherosclerotic calcifications of the aorta and coronary arteries. No thoracic aortic aneurysm. Filling defects in segmental and subsegmental branches of the bilateral lower lobe pulmonary arteries similarly acute emboli.HEART: Cardiomegaly. No pericardial effusion.JACKI AND MEDIASTINUM: Within normal limits.SOFT TISSUES: Within normal limits.BONES: Mild pulmonary compression fracture deformities of T4-T6 vertebral bodies. Generalized osteopenia. No suspicious osseous lesions. ABDOMEN AND PELVIS: HEPATOBILIARY: Within normal limits.PANCREAS: Within normal limits.SPLEEN: Within normal limits.ADRENALS: Withinnormal limits.KIDNEYS/URETERS: Round left renal hypodensities measuring simple fluid attenuation, which may represent cysts, measuring up to 3.4 x 3 cm in size. Bilateral renal hypodensities too small to characterize. No hydroureteronephrosis or radiopaque stones. URINARY BLADDER: Within normal limits.REPRODUCTIVE ORGANS: Enlarged prostate gland measuring 5.3 cm in diameter. BOWEL/MESENTERY: No bowelobstruction or abnormal wall thickening. Normal appendix.PERITONEUM/RETROPERITONEUM: No free air, free fluid or fluid collection. VESSELS: Mild abdomen demonstrates changes of the aorta with calcified and noncalcified mural plaque. No abdominal aortic aneurysm. LYMPH NODES: No abdominal or pelvic lymphadenopathy.SOFT TISSUES: Within normal limits.BONES: Generalized osteopenia. No suspicious osseous lesion. Degenerative changes of the lumbar spine. IMPRESSION: Bilateral lower lobe segmental and subsegmental pulmonary emboli.Left lower lobe opacity which may represent pneumonia/or pulmonary infarct.Cardiomegaly.Left renal cysts and other additional bilateral renal hypodensities too small to characterize. Renal ultrasound versus CT/MRI may be performed for further characterization.Enlarged prostate gland.No findings to suggest malignancy in the chest, abdomen pelvis. Signed: Anca Solis MDReport Verified Date/Time: 01/30/2020 03:26:01 [facility] chest with IV [id number] 03:26:00Interface, External Ris In - 01/30/2020 3:29 AM CSTFINAL REPORT EXAM: CT of the chest, abdomen and pelvis, with contrast CLINICAL HISTORY: Unlisted reason for exam. Evaluate formalignancy. Patient with unprovoked DVT and PEs. TECHNIQUE: CT of the chest, abdomen and pelvis was performed with intravenous contrast administration. This exam was performed according to our departmental dose optimization program which includes automated exposure control, adjustment of the mA and/or kV according to patient's size and/or use of iterative reconstructive technique. COMPARISON: None FINDINGS: CHEST:LOWER NECK: Within normal limits.AIRWAYS, PLEURA AND LUNGS: Patent central tracheobronchial tree. Peripheral airspace opacities in the left lower lobe, which may represent pneumonia or infarcts. Small bilateral pleural effusions (right greater than left) with associated compressive atelectasis. No pneumothorax. VESSELS: Atherosclerotic calcifications of the aorta and coronary arteries.No thoracic aortic aneurysm. Filling defects in segmental and subsegmental branches of the bilaterallower lobe pulmonary arteries similarly acute emboli.HEART: Cardiomegaly. No pericardial effusion.JACKI AND MEDIASTINUM: Within normal limits.SOFT TISSUES: Within normal limits.BONES: Mild pulmonary compression fracture deformities of T4-T6 vertebral bodies. Generalized osteopenia. No suspicious osseous lesions. ABDOMEN AND PELVIS: HEPATOBILIARY: Within normal limits.PANCREAS: Within normal limits.SPLEEN: Within normal limits.ADRENALS: Within normal limits.KIDNEYS/URETERS: Round left renal hypodensities measuring simple fluid attenuation, which may represent cysts, measuring up to 3.4 x 3 cm in size. Bilateral renal hypodensities too small to characterize. No hydroureteronephrosis or radiopaque stones. URINARY BLADDER: Within normal limits.REPRODUCTIVE ORGANS: Enlarged prostate gland measuring 5.3 cm in diameter. BOWEL/MESENTERY: No bowel obstruction or abnormal wall thickening. Normal appendix.PERITONEUM/RETROPERITONEUM: No free air, free fluid or fluid collection. VESSELS: Mild abdomen demonstrates changes of the aorta with calcified and noncalcified mural plaque. No abdominal aortic aneurysm. LYMPH NODES: No abdominal or pelvic lymphadenopathy.SOFT TISSUES: Within normal limits.BONES: Generalized osteopenia. No suspicious osseous lesion. Degenerative changes of the lumbar spine. IMPRESSION: Bilateral lower lobe segmental and subsegmental pulmonary emboli.Left lower lobe opacity which may represent pneumonia/or pulmonary infarct.Cardiomegaly.Left renal cysts and other additional bilateralrenal hypodensities too small to characterize. Renal ultrasound versus CT/MRI may be performed for further characterization.Enlarged prostate gland.No findings to suggest malignancy in the chest, abdomen pelvis. Signed: Anca Solis [facility] Verified Date/Time: 01/30/2020 03:26:01 Electronicallysigned by: ANCA SOLIS MD on 01/30/2020 03:26 [facility] [id number] 03:26:00 Interface, External Ris In - 01/30/2020 3:29 AM CSTFINAL REPORT EXAM: CT of the chest, abdomen and pelvis, with contrast CLINICAL HISTORY: Unlisted reason for exam. Evaluate formalignancy. Patient with unprovoked DVT and PEs. TECHNIQUE: CT of the chest, abdomen and pelvis was p erformed with intravenous contrast administration. This exam was performed according to our departmental dose optimization program which includes automated exposure control, adjustment of the mA and/or kV according to patient's size and/or use of iterative reconstructive technique. COMPARISON: None FINDINGS: CHEST:LOWER NECK: Within normal limits.AIRWAYS, PLEURA AND LUNGS: Patent central tracheobronchial tree. Peripheral airspace opacities in the left lower lobe, which may represent pneumonia or infarcts. Small bilateral pleural effusions (right greater than left) with associated compressive atelectasis. No pneumothorax. VESSELS: Atherosclerotic calcifications of the aorta and coronary arteries.No thoracic aortic aneurysm. Filling defects in segmental and subsegmental branches of the bilaterallower lobe pulmonary arteries similarly acute emboli.HEART: Cardiomegaly. No pericardial effusion.JACKI AND MEDIASTINUM: Within normal limits.SOFT TISSUES: Within normal limits.BONES: Mild pulmonary compression fracture deformities of T4-T6 vertebral bodies. Generalized osteopenia. No suspicious osseous lesions. ABDOMEN AND PELVIS: HEPATOBILIARY: Within normal limits.PANCREAS: Within normal limits.SPLEEN: Within normal limits.ADRENALS: Within normal limits.KIDNEYS/URETERS: Round left renal hypodensities measuring simple fluid attenuation, which may represent cysts, measuring up to 3.4 x 3 cm in size. Bilateral renal hypodensities too small to characterize. No hydroureteronephrosis or radiopaque stones. URINARY BLADDER: Within normal limits.REPRODUCTIVE ORGANS: Enlarged prostate gland measuring 5.3 cm in diameter. BOWEL/MESENTERY: No bowel obstruction or abnormal wall thickening. Normal appendix.PERITONEUM/RETROPERITONEUM: No free air, free fluid or fluid collection. VESSELS: Mild abdomen demonstrates changes of the aorta with calcified and noncalcified mural plaque. No abdominal aortic aneurysm. LYMPH NODES: No abdominal or pelvic lymphadenopathy.SOFT TISSUES: Within normal limits.BONES: Generalized osteopenia. No suspicious osseous lesion. Degenerative changes of the lumbar spine. IMPRESSION: Bilateral lower lobe segmental and subsegmental pulmonary emboli.Left lower lobe opacity which may represent pneumonia/or pulmonary infarct.Cardiomegaly.Left renal cysts and other additional bilateralrenal hypodensities too small to characterize. Renal ultrasound versus CT/MRI may be performed for further characterization.Enlarged prostate gland.No findings to suggest malignancy in the chest, abdomen pelvis. Signed: Anca Solis MDReport Verified Date/Time: 01/30/2020 03:26:01 Electronicallysigned by: ANCA SOLIS MD on 01/30/2020 03:26 [facility] METABOLIC [id number] 02:53:00 Test Item Value Reference Range Interpretation Comments SODIUM (BEAKER) 136 meq/L 136-145 (test code = 381) POTASSIUM (BEAKER) 4.4 meq/L 3.5-5.1 (test code = 379) CHLORIDE (BEAKER) 104 meq/L 98-107 (test code = 382) CO2 (BEAKER) (test 21 meq/L 22-29 L code = 355) BLOOD UREA NITROGEN 16 mg/dL 7-21 (BEAKER) (test code = 354) CREATININE (BEAKER) 1.42 mg/dL 0.57-1.25 H (test code = 358) GLUCOSE RANDOM 113 mg/dL 70-105 H (BEAKER) (test code = 652) CALCIUM (BEAKER) 9.1 mg/dL 8.4-10.2 (test code = 697) EGFR (BEAKER) (test 50 mL/min/1.73 ESTIMA CARLOS GFR IS code = 1092) sq m NOT ACCURATE CREATININE CLEARANCE IN PREDICTING GLOMERULAR FILTRATION RATE . ESTIMATED GFR I S NOT APPLICABLE FOR DIALYSIS PATIEN TS. Loading Inspector ID - [id number] 02:53:00 Test Item Value Reference Range Interpretation Comments MAGNESIUM (BEAKER) (test code = 2.0 mg/dL 1.6-2.6 627) Loading Inspector ID - [id number] 02:42:00 Test Item Value Reference Range Interpretation Comments PTT (test code = 93716-1) 82.7 22.5- 36.0 seconds H Lab Interpretation (test code = Abnormal 58844-1) [facility] 02:42:00 Test Item Value Reference Range Interpretation Comments PARTIAL THROMBOPLASTIN TIME 82.7 seconds 22.5-36.0 H (BEAKER) (test code = 760) Reticulocyte [id number] 02:32:00 Test Item Value Reference Range Interpretation Comments % Retic (test code = 1.9 % 0.5-1.8 H 97655-6) CARO (test code = CARO) Loading Inspector ID - [id number] Lab Interpretation (test Abnormal code = 14487-6) [facility] RosaRETICULOCYTE [id number] 02:32:00 Test Item Value Reference Range Interpretation Comments RETICULOCYTE COUNT PCT (BEAKER) (test 1.9 % 0.5-1.8 H code = 575) Loading Inspector ID - [id number], FOOT, MIN 3 VIEWS, [id number] 23:20:00Reason for exam:->Pain and tenderness [facility] : 1955 Sex: MFINAL REPORT CLINICAL HISTORY: Pain and tenderness COMPARISON: None. FINDINGS: 3 images of the right foot are submitted. There is no acute fracture or malalignment. Nodestructive bony lesion, radiopaque foreign body or significant degenerative change is present. The soft tissues are grossly unremarkable. Signed: Peter Justin MDReport Verified Date/Time: 01/29/2020 23:20:24 XR foot 3 views [id number] 23:20:00Interface, External Ris In - 01/29/2020 11:22 PM CSTFINAL REPORT CLINICAL HISTORY: Pain and tenderness COMPARISON: None. FINDINGS: 3 images of the right foot are submitted. There is no acute fracture or malalignment. No destructive bony lesion, radiopaque foreign body or significant degenerative change is present. The soft tissues are grossly unremarkable. Signed: Peter Justin MDReport Verified Date/Time: 01/29/2020 23:20:24 [facility] Test Item Value Reference Range Interpretation Comments PARTIAL THROMBOPLASTIN TIME 77.5 seconds 22.5-36.0 H (BEAKER) (test code = 760) Thrombin [id number] 13:19:00 Test Item Value Reference Range Interpretation Comments Thrombin Time (test code = >240.0 13.8- 20.0 secs H A part of lupus tst 3243-3) Lab Interpretation (test Abnormal code = 12614-1) [facility] RosaTHROMBIN [id number] 13:19:00 Test Item Value Reference Range Interpretation Comments THROMBIN TIME (BEAKER) > secs 13.8-20.0 H A par t of lupus tst (test code = 550) Carcinoembryonic Antigen (CEA)2020-01-29 13:14:00 Test Item Value Reference Range Interpretation Comments CEA, SERUM (test code = 0.7 ng/mL 0-5 9-6) CARO (test code = CARO) Loading Inspector ID - CHUCK Lab Interpretation (test Normal code = 24674-8) [facility] RosaAlpha fetoprotein (AFP), tumor [id number] 13:14:00 Test Item Value Reference Range Interpretation Comments Alpha-Fetoprotein (test 8.0 ng/mL <10.0 code = 1834-1) CARO (test code = CARO) Loading Inspector ID - CHUCK M Lab Interpretation (test Normal code = 18909-5) [facility] RosaCARCINOEMBRYONIC ANTIGEN (CEA)2020-01-29 13:14:00 Test Item Value Reference Range Interpretation Comments CARCINOEMBRYONIC ANTIGEN (BEAKER) 0.7 ng/mL 0.0-5.0 (test code = 685) Loading Inspector ID - CHUCK MALPHA FETOPROTEIN (AFP), TUMOR [id number] 13:14:00 Test Item Value Reference Range Interpretation Comments ALPHA-FETOPROTEIN (BEAKER) (test 8.0 ng/mL <10.0 code = 1094) Loading Inspector ID - CHUCK [id number] 12:32:00 Test Item Value Reference Range Interpretation Comments PARTIAL THROMBOPLASTIN TIME 97.2 seconds 22.5-36.0 H (BEAKER) (test code = 760) [id number] 11:37:00 Test Item Value Reference Range Interpretation Comments RPR (test code = 58104-1) Nonreactive Nonreactive Lab Interpretation (test code = Normal 06902-4) [facility] Rosa[facility]PR2020-11-30 11:37:00 Test Item Value Reference Range Interpretation Comments RPR SCREEN (BEAKER) (test code = Nonreactive Nonreactive 420) [id number] 07:02:00 Test Item Value Reference Range Interpretation Comments PSA (test code = 2857-1) 3.9 ng/mL 0-4 CARO (test code = CARO) Loading Inspector ID - DUC Lab Interpretation (test Normal code = 27310-6) [facility] RosaPSA2020-11-30 07:02:00 Test Item Value Reference Range Interpretation Comments PROSTATE SPECIFIC ANTIGEN (BEAKER) 3.9 ng/mL 0.0-4.0 (test code = 844) Loading Inspector ID - DUCBASIC METABOLIC [id number] 06:41:00 Test Item Value Reference Range Interpretation Comments SODIUM (BEAKER) 138 meq/L 136-145 (test code = 381) POTASSIUM (BEAKER) 4.3 meq/L 3.5-5.1 (test code = 379) CHLORIDE (BEAKER) 105 meq/L 98-107 (test code = 382) CO2 (BEAKER) (test 24 meq/L 22-29 code = 355) BLOOD UREA NITROGEN 17 mg/dL 7-21 (BEAKER) (test code = 354) CREATININE (BEAKER) 1.46 mg/dL 0.57-1.25 H (test code = 358) GLUCOSE RANDOM 109 mg/dL 70-105 H (BEAKER) (test code = 652) CALCIUM (BEAKER) 9.1 mg/dL 8.4-10.2 (test code = 697) EGFR (BEAKER) (test 48 mL/min/1.73 ESTIMA CARLOS GFR IS code = 1092) sq m NOT ACCURATE CREATININE CLEARANCE IN PREDICTING GLOMERULAR FILTRATION RATE . ESTIMATED GFR I S NOT APPLICABLE FOR DIALYSIS PATIEN TS. Loading Inspector ID - [id number] 06:41:00 Test Item Value Reference Range Interpretation Comments MAGNESIUM (BEAKER) (test code = 2.2 mg/dL 1.6-2.6 627) Loading Inspector ID - [id number] 06:17:00 Test Item Value Reference Range Interpretation Comments PARTIAL THROMBOPLASTIN TIME 89.0 seconds 22.5-36.0 H (BEAKER) (test code = 760) [id number] 22:50:00 Test Item Value Reference Range Interpretation Comments PARTIAL THROMBOPLASTIN TIME 44.0 seconds 22.5-36.0 H (BEAKER) (test code = 760) [id number] 16:59:00 Test Item Value Reference Range Interpretation Comments PARTIAL THROMBOPLASTIN TIME 78.1 seconds 22.5-36.0 H (BEAKER) (test code = 760) Echo w contrast limited [id number] 15:29:01Ejection FractionSLEH ECHO HEARTLAB MKCKESSON CPACSInterface, External Ris In - 01/28/2020 3:29 PM C STTransthoracic Echocardiography Report (TTE) Demographics Patient Name KITTY CRANE, Date ofStudy 01/28/2020 ALISON Gender Male Visit Number [id number] Race Unknown Room Number 2206 Number Date of 1955 Referring Physician Age 64 year(s) Core Driller Kenny Clarossif Interpreting Yessica Banks Physician Procedure Type of Study TTE procedure:ECHO W/CONT LTD STUDY WO DOPP (KARMA) Indications:LV thrombus.Clinical HistoryHGB 12.8HCT 39.6 %Contrast Medium: Definity. Amount - 2 mlHeight: 70 inches Weight: 75.75 kg (167 lbs) BSA: 1.93 m^2 BMI: 23.96 kg/m^2HR: 99 bpm BP: 108/77 mmHg Summary Limited [...] assessment is severely reduced (<20%) . No evidenceof LV mass/thrombus. Low stroke volume index. Aortic Valve Mild AoV cusp thickening. Mild aortic regurgitation. Mitral Valve Mild MV leaflet thickening. Tricuspid Valve Mild tricuspid regurgitation. Estimated peak systolic PA pressure is 60-65 mmHg (bxxvmfzx-gm-ecedvk pulmonary hypertension) . Pulmonic Valve PV is not well visualized. Aorta Aortic root size (SInus of Valsalva diameter) is normal . Pericardium A small p osterior pericardial effusion is present . IVC/SVC/PA/PV/Pleural The [...] TR Velocity: 3.48 m/s TR Gradient: 48.41 mmHgS[facility] Medical Center of Santa RosaAPTT2020-11-29 09:33:00 Test Item Value Reference Range Interpretation Comments PARTIAL THROMBOPLASTIN TIME 100.1 seconds 22.5-36.0 H (BEAKER) (test code = 760) Troponin [id number] 09:16:00 Test Item Value Reference Range Interpretation Comments Troponin I (test code = 1.40 ng/mL 0-0.03 99058-5) CARO (test code = CARO) Troponin I (TnI) levels must be interpreted in the context of the presenting symptoms and the clinical findings. Elevated TnI levels indicate myocardial damage, but are not specific for ischemic heart disease. Elevated TnI levels are seen in patients with other cardiac conditions (including myocarditis and congestive heart failure), and slight TnI elevations occur in patients with other conditions, including sepsis, renal failure, acidosis, acute neurological disease, and persistent tachyarrhythmia.Opera tor ID - DOTTIE M Lab Interpretation (test Abnormal code = 56239-6) [facility] RosaTROPONIN [id number] 09:16:00 Test Item Value Reference Range Interpretation Comments TROPONIN I (BEAKER) (test code = 1.40 ng/mL 0.00-0.03 397) Troponin I (TnI) levels must be interpreted in the context of the presenting symptoms and the clinical findings. Elevated TnI levels indicate myocardial damage, but are not specific for ischemic heart disease. Elevated TnI levels are seen in patients with other cardiac conditions (including myocarditis and congestive heart failure), and slight TnI elevations occur in patients with other conditions, including sepsis, renal failure, acidosis, acute neurological disease, and persistent tachyarrhythmia.Loading Inspector ID - DOTTIE MTROPONIN [id number] 02:47:00 Test Item Value Reference Range Interpretation Comments TROPONIN I (BEAKER) (test code = 1.82 ng/mL 0.00-0.03 HH 397) Troponin I (TnI) levels must be interpreted in the context of the presenting symptoms and the clinical findings. Elevated TnI levels indicate myocardial damage, but are not specific for ischemic heart disease. Elevated TnI levels are seen in patients with other cardiac conditions (including myocarditis and congestive heart failure), and slight TnI elevations occur in patients with other conditions, including sepsis, renal failure, acidosis, acute neurological disease, and persistent tachyarrhythmia.Loading Inspector ID - DOTTIE MBASIC METABOLIC [id number] 02:22:00 Test Item Value Reference Range Interpretation Comments SODIUM (BEAKER) 137 meq/L 136-145 (test code = 381) POTASSIUM (BEAKER) 4.5 meq/L 3.5-5.1 (test code = 379) CHLORIDE (BEAKER) 105 meq/L 98-107 (test code = 382) CO2 (BEAKER) (test 21 meq/L 22-29 L code = 355) BLOOD UREA NITROGEN 17 mg/dL 7-21 (BEAKER) (test code = 354) CREATININE (BEAKER) 1.29 mg/dL 0.57-1.25 H (test code = 358) GLUCOSE RANDOM 112 mg/dL 70-105 H (BEAKER) (test code = 652) CALCIUM (BEAKER) 9.1 mg/dL 8.4-10.2 (test code = 697) EGFR (BEAKER) (test 56 mL/min/1.73 ESTIMA CARLOS GFR IS code = 1092) sq m NOT ACCURATE CREATININE CLEARANCE IN PREDICTING GLOMERULAR FILTRATION RATE . ESTIMATED GFR I S NOT APPLICABLE FOR DIALYSIS PATIEN TS. Loading Inspector ID - [id number] 02:22:00 Test Item Value Reference Range Interpretation Comments MAGNESIUM (BEAKER) (test code = 2.1 mg/dL 1.6-2.6 627) Loading Inspector ID - [id number] 02:17:00 Test Item Value Reference Range Interpretation Comments PARTIAL THROMBOPLASTIN TIME 96.5 seconds 22.5-36.0 H (BEAKER) (test code = 760) TROPONIN [id number] 19:13:00 Test Item Value Reference Range Interpretation Comments TROPONIN I (VIET) (test code = 1.60 ng/mL 0.00-0.03 397) Troponin I (TnI) levels must be interpreted in the context of the presenting symptoms and the clinical findings. Elevated TnI levels indicate myocardial damage, but are not specific for ischemic heart disease. Elevated TnI levels are seen in patients with other cardiac conditions (including myocarditis and congestive heart failure), and slight TnI elevations occur in patients with other conditions, including sepsis, renal failure, acidosis, acute neurological disease, and persistent tachyarrhythmia.Loading Inspector ID - DOTTIE [id number] 19:03:00 Test Item Value Reference Range Interpretation Comments PARTIAL THROMBOPLASTIN TIME 59.7 seconds 22.5-36.0 H (VIET) (test code = 760) Transthoracic 2D echo w/ doppler (cw/pw/color)2020-01-27 12:53:18Ejection FractionSLEH ECHO HEARTLAB MKCKESSON CPACSInterface, External Ris In - 01/27/2020 12:53 PM CSTTransthoracic Echocardiography Report (TTE) Demographics Patient Name KITTY CRANE, Date of Study 01/27/2020 ALISON Gender Male Visit Number [id number] Race Unknown Room Number 7401 Number Date of 1955 Referring Fifi Alfredo NP Physician Age 64 year(s) Core Driller Ruth Espinosa, [facility] Production Assistant Sudeep Corea Interpreting Yessica Banks MD Physician Procedure Type of Study TTE procedure:2DECHO W DOPPLER(CW/PW/COLOR) (STAT) Indications:Stroke work up.Clinical HistoryHGB 12.8HCT 39.6 %HTN, PULM EMBOLISM, CVA/STROKEContrast Medium: Definity. Amount - 3 mlHeight: 70 inchesWeight: 75.75 kg (167 lbs) BSA: 1.93 m^2 BMI: 23.96 kg/m^2HR: 103 bpm BP: 99/75 mmHg Summary 1. LV is severely enlarged. All of the LV segments are severely hypokinetic. LVEFis severely reduced (<20%) . 2. Normal RV size and function. 3. LV diastolic function is indeterminate.I 4. V saline contrastinjection was negative for a PFO (patent foramen ovale) at rest and post Valsalva 5. Estimated peak systolic PA pressure is 65-70 mmHg (severe pulmonary hypertension) . Previous Study No prior studies available for comparison. Signature Findings Left Ventricle LV endocardium is [...] ventricle structure and function. Right Atrium Normal right atrium. Atrial Septum IV saline contrast injection was negative for a PFO (patent foramen ovale) at rest and post Valsalva . Aortic Valve Mild AoV cusp thickening. Mild aortic regurgitation. Mitral Valve Mild MV leaflet thickening. Mild mitral annular calcification. Hmpj-mf-jxgjhcwh mitral regurgitation. Tricuspid Valve Mild tricuspid regurgitation. Estimated peak systolic PA pressure is 65-70 mmHg (severe pulmonary hypertension) . Pulmonic Valve Normal PV structure and function by limited viewsand Doppler. Aorta Aortic root size (SInus of Valsalva diameter) is normal . Pericardium A small posterior, posterolateral pericardial [...] cm AV DVI: 0.79 LVOT Peak Velocity: 0.68m/s Peak Gradient: 1.84 mmHg Mean Velocity: 0.39 m/s Mean Gradient: 0.79 mmHg LVOT Diameter: 1.97 cm LVOT VTI: 7.96 cm LVOT Area: 3.05 cm^2 LVOT SV:24.25 ml LVOT CO: 2.5 l/min LVOT CI: 1.3 l/min/m^2 Tricuspid Valve TR Velocity: 3.71 m/s TR Gradient: 55.06 mmHgSutter Medical Center of Santa RosaTRPRISMA HEALTH BAPTIST EASLEY HOSPITALNIN [id number] 08:52:00 Test Item Value Reference Range Interpretation Comments TROPONIN I (VIET) (test code = 1.70 ng/mL 0.00-0.03 397) Troponin I (TnI) levels must be interpreted in the context of the presenting symptoms and the clinical findings. Elevated TnI levels indicate myocardial damage, but are not specific for ischemic heart disease. Elevated TnI levels are seen in patients with other cardiac conditions (including myocarditis and congestive heart failure), and slight TnI elevations occur in patients with other conditions, including sepsis, renal failure, acidosis, acute neurological disease, and persistent tachyarrhythmia.Loading Inspector ID - DOTTIE [id number] 08:25:00 Test Item Value Reference Range Interpretation Comments PARTIAL THROMBOPLASTIN TIME 65.8 seconds 22.5-36.0 H (VIET) (test code = 760) Hemoglobin A1c - [id number] 08:16:00 Test Item Value Reference Range Interpretation Comments Hemoglobin A1C (test code = 4548-4) 5.9 % 4.3-6.1 CARO (test code = CARO) Fasting Lab Interpretation (test code = Normal 79425-8) [facility] RosaHEMOGLOBIN [id number] 08:16:00 Test Item Value Reference Range Interpretation Comments HEMOGLOBIN A1C (BEAKER) (test code = 5.9 % 4.3-6.1 368) FastingHEMOGLOBIN [id number] 08:16:00 Test Item Value Reference Range Interpretation Comments HEMOGLOBIN A1C (BEAKER) (test code = 5.8 % 4.3-6.1 368) CT, BRAIN, WITHOUT [id number] 05:00:00Verify current renal function studies, consider renal protection order set as neededUnlisted Reason for Exam - Click Yes and Enter Reason Below->No [facility] : 1955 Sex: MFINAL REPORT EXAM: CT head without contrast. CLINICAL HISTORY: Stro ke, follow up COMPARISON: None. TECHNIQUE: CT images of the head were obtained without intravenous contrast. This exam was performed according to our departmental dose optimization program which includes automated exposure control, adjustment of the mA and/or kV according to patient's size and/or useof iterative reconstructive technique. FINDINGS:There is mild generalized parenchymal atrophy. Thereis small hypodensity in the left insular cortex and subcortical white matter, which may represent anacute infarct.There is no acute intracranial hemorrhage, extra-axial fluid collection, mass effect, herniation or hydrocephalus. The basal cisterns are patent. The visualized orbits are normal. The visualized paranasal sinuses and tympanomastoid cavities are clear. The skull base and calvarium are intact. IMPRESSION: Small hypodensity in the left insula, which may represent an acute infarct, better assessed with an MRI.No acute intracranial hemorrhage or mass effect. Signed: Anca Solis Verified Date/Time: 01/27/2020 05:00:11 [facility] brain without IV contrast 2020-01-27 05:00:00Interface, External Ris In - 01/27/2020 5:02 AM CSTFINAL REPORT EXAM: CT head without contrast. CLINICAL HISTORY: Stroke, follow up COMPARISON: None. TECHNIQUE: CT images of the head were obtained without intravenous contrast. This exam was performed according to our departmental dose optimization program which includes automated exposure control, adjustment of the mA and/orkV according to patient's size and/or use of iterative reconstructive technique. FINDINGS:There is mild generalized parenchymal atrophy. There is small hypodensity in the left insular cortex and subcortical white matter, which may represent an acute infarct.There is no acute intracranial hemorrhage, extra-axial fluid collection, mass effect, herniation or hydrocephalus. The basal cisterns are patent. The visualized orbits are normal. The visualized paranasal sinuses and tympanomastoid cavities areclear. The skull base and calvarium are intact. IMPRESSION: Small hypodensity in the left insula, which may represent an acute infarct, better assessed with an MRI.No acute intracranial hemorrhage ormass effect. Signed: Anca Solis Verified Date/Time: 01/27/2020 05:00:11 [facility]27 01:26:00 Test Item Value Reference Range Interpretation Comments WBC (test code = 6690-2) 6.4 3.5- 10.5 K/L RBC (test code = 789-8) 4.28 4.63- 6.08 M/L L MCHC (test code = 786-4) 32.3 32.3- 36.5 GM/DL L Hematocrit (test code = 4544-3) 39.6 % 40.1-51 L MCV (test code = 787-2) 92.5 fL 79-92.2 H MCH (test code = 785-6) 29.9 pg 25.7-32.2 RDW (test code = 788-0) 12.7 % 11.6-14.4 Platelets (test code = 777-3) 201 150- 450 K/CU MM MPV (test code = 44669-3) 12.4 fL 9.4-12.4 nRBC (test code = 413) 0 0- 0 /100 WBC Lab Interpretation (test code = Abnormal 53085-8) [facility] (HEMOGRAM ONLY)2020-01-27 01:26:00 Test Item Value Reference Range Interpretation Comments WHITE BLOOD CELL COUNT (BEAKER) 6.4 K/ L 3.5-10.5 (test code = 775) RED BLOOD CELL COUNT (BEAKER) 4.28 M/ L 4.63-6.08 L (test code = 761) HEMOGLOBIN (BEAKER) (test code = 12.8 GM/DL 13.7-17.5 L 410) HEMATOCRIT (BEAKER) (test code = 39.6 % 40.1-51.0 L 411) MEAN CORPUSCULAR VOLUME (BEAKER) 92.5 fL 79.0-92.2 H (test code = 753) MEAN CORPUSCULAR HEMOGLOBIN 29.9 pg 25.7-32.2 (BEAKER) (test code = 751) MEAN CORPUSCULAR HEMOGLOBIN CONC 32.3 GM/DL 32.3-36.5 (BEAKER) (test code = 752) RED CELL DISTRIBUTION WIDTH 12.7 % 11.6-14.4 (BEAKER) (test code = 412) PLATELET COUNT (BEAKER) (test 201 K/CU MM 150-450 code = 756) MEAN PLATELET VOLUME (BEAKER) 12.4 fL 9.4-12.4 (test code = 754) NUCLEATED RED BLOOD CELLS 0 /100 WBC 0-0 (BEAKER) (test code = 413) Fasting lipid [id number] 01:25:00 Test Item Value Reference Range Interpretation Comments Triglycerides (test 139 mg/dL code = 2571-8) Cholesterol (test code 203 mg/dL = 3-3) HDL (test code = 40 mg/dL 2084-) LDL Calculated (test 135 mg/dL code = 06531-4) CARO (test code = CARO) Triglyceride Reference Range: Low Risk <150 Borderline 150-199 High Risk 200-499 Very High Risk >=500 Cholesterol Reference Range: Low Risk <200 Borderline 200-239 High Risk >240 HDL Cholesterol Reference Range: Low Risk >=60 High Risk <40 LDL Cholesterol Reference Range: Optimal <100 Near Optimal 100-129 Borderline 130-159 High 160-189 Very High >=190 Loading Inspector [place] Smith [facility] RosaPhosphorus2020-11-28 01:25:00 Test Item Value Reference Range Interpretation Comments Phosphorus (test code = 3.6 mg/dL 2.3-4.7 2777-1) CARO (test code = CARO) Loading Inspector [place] Smith Lab Interpretation (test Normal code = 55975-2) [facility] RosaBASIC METABOLIC [id number] 01:25:00 Test Item Value Reference Range Interpretation Comments SODIUM (BEAKER) 135 meq/L 136-145 L (test code = 381) POTASSIUM (BEAKER) 3.9 meq/L 3.5-5.1 (test code = 379) CHLORIDE (BEAKER) 103 meq/L 98-107 (test code = 382) CO2 (BEAKER) (test 23 meq/L 22-29 code = 355) BLOOD UREA NITROGEN 18 mg/dL 7-21 (BEAKER) (test code = 354) CREATININE (BEAKER) 1.45 mg/dL 0.57-1.25 H (test code = 358) GLUCOSE RANDOM 126 mg/dL 70-105 H (BEAKER) (test code = 652) CALCIUM (BEAKER) 8.8 mg/dL 8.4-10.2 (test code = 697) EGFR (BEAKER) (test 49 mL/min/1.73 ESTIMA CARLOS GFR IS code = 1092) sq m NOT ACCURATE CREATININE CLEARANCE IN PREDICTING GLOMERULAR FILTRATION RATE . ESTIMATED GFR I S NOT APPLICABLE FOR DIALYSIS PATIEN TS. Loading Inspector [place] Jojo DOTTIE [id number] 01:25:00 Test Item Value Reference Range Interpretation Comments MAGNESIUM (BEAKER) (test code = 2.1 mg/dL 1.6-2.6 627) Loading Inspector ID - DOTTIE [id number] 01:25:00 Test Item Value Reference Range Interpretation Comments PHOSPHORUS (BEAKER) (test code = 3.6 mg/dL 2.3-4.7 604) Loading Inspector ID - DOTTIE MLIPID [id number] 01:25:00 Test Item Value Reference Range Interpretation Comments TRIGLYCERIDES (BEAKER) (test code = 139 mg/dL 540) CHOLESTEROL (BEAKER) (test code = 203 mg/dL 631) HDL CHOLESTEROL (BEAKER) (test code 40 mg/dL = 976) LDL CHOLESTEROL CALCULATED (BEAKER) 135 mg/dL (test code = 633) Triglyceride Reference Range: Low Risk <150 Borderline 150-199 High Risk 200-499 Very High Risk >=500Cholesterol Reference Range: Low Risk <200 Borderline 200-239 High Risk >240HDL Cholesterol Reference Range: Low Risk >=60 High Risk <40LDL Cholesterol Reference Range: Optimal <100 Near Optimal 100-129 Borderline 130-159 High 160-189 Very High >=190 Loading Inspector ID - DOTTIE [id number] 01:09:00 Test Item Value Reference Range Interpretation Comments PARTIAL THROMBOPLASTIN TIME 45.7 seconds 22.5-36.0 H (SHANNENAKER) (test code = 760) TROPONIN [id number] 01:03:00 Test Item Value Reference Range Interpretation Comments TROPONIN I (SHANNENAKER) (test code = 2.03 ng/mL 0.00-0.03 HH 397) Troponin I (TnI) levels must be interpreted in the context of the presenting symptoms and the clinical findings. Elevated TnI levels indicate myocardial damage, but are not specific for ischemic heart disease. Elevated TnI levels are seen in patients with other cardiac conditions (including myocarditis and congestive heart failure), and slight TnI elevations occur in patients with other conditions, including sepsis, renal failure, acidosis, acute neurological disease, and persistent tachyarrhythmia.Loading Inspector ID - DOTTIE MType and screen, [id number] 19:10:00 Test Item Value Reference Range Interpretation Comments ABO/RH AUTOMATED (BEAKER) (test A POSITIVE code = 2260) Ab Scrn (test code = 890-4) NEGATIVE [facility] [id number] 18:45:00 Test Item Value Reference Range Interpretation Comments Rh Factor (test code = 2589) POS ABO Grouping (test code = 2588) A [facility]2020-[facility]-27 18:41:00 Test Item Value Reference Range Interpretation Comments Homocysteine (test code = 14.5 umol/L 5.1-15.4 75323-2) CARO (test code = CARO) Loading Inspector ID - ADMIN Lab Interpretation (test Normal code = 77607-3) [facility]2020-[facility]-27 18:41:00 Test Item Value Reference Range Interpretation Comments HOMOCYSTEINE (BEAKER) (test code 14.5 umol/L 5.1-15.4 = 642) Loading Inspector ID - ADMINBASIC METABOLIC [id number] 18:20:00 Test Item Value Reference Range Interpretation Comments SODIUM (BEAKER) 138 meq/L 136-145 (test code = 381) POTASSIUM (BEAKER) 4.1 meq/L 3.5-5.1 (test code = 379) CHLORIDE (BEAKER) 104 meq/L 98-107 (test code = 382) CO2 (BEAKER) (test 22 meq/L 22-29 code = 355) BLOOD UREA NITROGEN 19 mg/dL 7-21 (BEAKER) (test code = 354) CREATININE (BEAKER) 1.43 mg/dL 0.57-1.25 H (test code = 358) GLUCOSE RANDOM 106 mg/dL 70-105 H (BEAKER) (test code = 652) CALCIUM (BEAKER) 8.9 mg/dL 8.4-10.2 (test code = 697) EGFR (BEAKER) (test 49 mL/min/1.73 ESTIMA CARLOS GFR IS code = 1092) sq m NOT ACCURATE CREATININE CLEARANCE IN PREDICTING GLOMERULAR FILTRATION RATE . ESTIMATED GFR I S NOT APPLICABLE FOR DIALYSIS PATIEN TS. Loading Inspector ID - [id number] 18:14:00 Test Item Value Reference Range Interpretation Comments PARTIAL THROMBOPLASTIN TIME 33.8 seconds 22.5-36.0 (BEAKER) (test code = 760) 6 hours after starting heparin infusion and as indicated per sliding scaleCBC W/PLT COUNT & AUTO [id number] 18:07:00 Test Item Value Reference Range Interpretation Comments WHITE BLOOD CELL COUNT (BEAKER) 7.4 K/ L 3.5-10.5 (test code = 775) RED BLOOD CELL COUNT (BEAKER) 4.30 M/ L 4.63-6.08 L (test code = 761) HEMOGLOBIN (BEAKER) (test code = 13.0 GM/DL 13.7-17.5 L 410) HEMATOCRIT (BEAKER) (test code = 39.7 % 40.1-51.0 L 411) MEAN CORPUSCULAR VOLUME (BEAKER) 92.3 fL 79.0-92.2 H (test code = 753) MEAN CORPUSCULAR HEMOGLOBIN 30.2 pg 25.7-32.2 (BEAKER) (test code = 751) MEAN CORPUSCULAR HEMOGLOBIN CONC 32.7 GM/DL 32.3-36.5 (BEAKER) (test code = 752) RED CELL DISTRIBUTION WIDTH 12.6 % 11.6-14.4 (BEAKER) (test code = 412) PLATELET COUNT (BEAKER) (test 202 K/CU MM 150-450 code = 756) MEAN PLATELET VOLUME (BEAKER) 12.0 fL 9.4-12.4 (test code = 754) NUCLEATED RED BLOOD CELLS 0 /100 WBC 0-0 (BEAKER) (test code = 413) NEUTROPHILS RELATIVE PERCENT 68 % (BEAKER) (test code = 429) LYMPHOCYTES RELATIVE PERCENT 20 % (BEAKER) (test code = 430) MONOCYTES RELATIVE PERCENT 12 % (BEAKER) (test code = 431) EOSINOPHILS RELATIVE PERCENT 1 % (BEAKER) (test code = 432) BASOPHILS RELATIVE PERCENT 0 % (BEAKER) (test code = 437) NEUTROPHILS ABSOLUTE COUNT 5.01 K/ L 1.78-5.38 (BEAKER) (test code = 670) LYMPHOCYTES ABSOLUTE COUNT 1.45 K/ L 1.32-3.57 (BEAKER) (test code = 414) MONOCYTES ABSOLUTE COUNT (BEAKER) 0.86 K/ L 0.30-0.82 H (test code = 415) EOSINOPHILS ABSOLUTE COUNT 0.06 K/ L 0.04-0.54 (BEAKER) (test code = 416) BASOPHILS ABSOLUTE COUNT (BEAKER) 0.02 K/ L 0.01-0.08 (test code = 417) IMMATURE GRANULOCYTES-RELATIVE 0 % 0-1 PERCENT (BEAKER) (test code = 2801)
--- NOTE | 2020-02-14 13:49 | RAD REPORT ---
EXAM DESCRIPTION: RAD - Chest Single View - 02/14/2020 1:34 pm CLINICAL HISTORY: COUGH Chest pain. COMPARISON: Chest Single View dated 01/24/2020 FINDINGS: Portable technique limits examination quality. Mildly prominent interstitial lung markings are seen suggesting interstitial pneumonia/viral pneumoni tis. The heart is moderately enlarged in size. No displaced fractures.
[2020-02-14 14:08] LABS: Protime INR 1.35
[2020-02-14 14:09] LABS: Absolute Lymphocytes (CBC) 1.2 K/uL (0.7-4.9); Basophils % 0.9 % (0-1.3); Hematocrit 41.6 % (39.6-49.0); Lymphocytes % 11.9 % (15.3-44.8); MPV 11.6 fL (7.6-11.3); RBC Red Blood Cell Count 4.63 M/uL (4.33-5.43)
[2020-02-14 14:12] LABS: Albumin 3.8 g/dL (3.4-5.0); Bilirubin Direct 0.1 mg/dL (0-0.2); Bilirubin Total 0.8 mg/dL (0.2-1.0); Potassium 4.2 mmol/L (3.5-5.1); Protein, Total 7.7 g/dL (6.4-8.2); Troponin (Emerg Dept Use Only) 0.07 ng/mL (0.0-0.045)
--- NOTE | 2020-02-14 14:41 | ER ---
Nurse's Notes [facility] Name: Krzysztof Gay Age: 64 yrs Sex: Male : 1955 Arrival Date: 02/14/2020 Time: 11:09 Bed 18 Private MD: Diagnosis: Cardiomyopathy;Unspecified combined systolic (congestive) and diastolic (congestive) heart failure;Unspecified kidney failure;Cough Presentation: 02/13 11:42 Chief complaint: Patient's son or daughter states: pt developed a cough last night, em denies any other symptoms, daughter states he was transferred to [place] due to being in heart failure, is wearing a device to see if his heart will get better, denies fever, chest pain or N/V. Coronavirus screen: Client denies travel out of the [place] in the last 14 days. Ebola Screen: Patient negative for fever greater than or equal to 101.5 degrees Fahrenheit, and additional compatible Ebola Virus Disease symptoms Patient denies exposure to infectious person. Patient denies travel to an Ebola-affected area in the 21 days before illness onset. No symptoms or risks identified at this time. Initial Sepsis Screen: Does the patient meet any 2 criteria? No. Patient's initial sepsis screen is negative. Does the patient have a suspected source of infection? No. Patient's initial sepsis screen is negative. Risk Assessment: Do you want to hurt yourself or someone else? Patient reports no desire to harm self or others. Onset of symptoms was February 13, 2020. 11:42 Method Of Arrival: Ambulatory em 11:42 Acuity: GELACIO 2 em Historical: - Allergies: 11:49 No Known Allergies; em - PMHx: 11:49 Depression; Hypertension; heart failure; em - PSHx: 11:49 Neck Surgery; em - Immunization history:: Adult Immunizations. - Social history:: Smoking status: Patient denies any tobacco usage or history of. - Family history:: not pertinent. Screenin:16 Abuse screen: Denies threats or abuse. Denies injuries from another. Nutritional zb screening: No deficits noted. Tuberculosis screening: No symptoms or risk factors identified. Fall Risk None identified. Assessment: 13:01 General: Appears in no apparent distress. comfortable, Behavior is calm, cooperative, zb appropriate for age. Pain: Denies pain. Neuro: Level of Consciousness is awake, alert, obeys commands, Oriented to person, place, time, situation. Cardiovascular: Denies chest pain, shortness of breath, Murmur present Capillary refill < 3 seconds in bilateral fingers Patient's skin is warm and dry. Pulses are all present. Respiratory: Reports cough that is non-productive, hacking, persistent since yesterday Airway is patent Respiratory effort is even, unlabored, Respiratory pattern is regular, symmetrical, Breath sounds are clear bilaterally. GI: Abdomen is round non-distended. GI: Bowel sounds present X 4 quads. Abd is soft and non tender X 4 quads. : No signs and/or symptoms were reported regarding the genitourinary system. EENT: No signs and/or symptoms were reported regarding the EENT system. Derm: Skin is intact, is healthy with good turgor, Skin is normal. Musculoskeletal: Circulation, motion, and sensation intact. Capillary refill < 3 seconds, in bilateral Range of motion: intact in all extremities. 14:00 Reassessment: Patient appears in no apparent distress at this time. Patient and/or zb family updated on plan of care and expected duration. Pain level reassessed. Patient is alert, oriented x 3, equal unlabored respirations, skin warm/dry/pink. family at bedside. 15:00 Reassessment: Patient appears in no apparent distress at this time. Patient and/or zb family updated on plan of care and expected duration. Pain level reassessed. Patient is alert, oriented x 3, equal unlabored respirations, skin warm/dry/pink. family at bedside. pt up ad beto. 16:00 Reassessment: Patient appears in no apparent distress at this time. Patient and/or zb family updated on plan of care and expected duration. Pain level reassessed. Patient is alert, oriented x 3, equal unlabored respirations, skin warm/dry/pink. pt ambulates to restroom. blood pressure and heart rate lowered. 17:00 Reassessment: Patient appears in no apparent distress at this time. Patient and/or zb family updated on plan of care and expected duration. Pain level reassessed. Patient is alert, oriented x 3, equal unlabored respirations, skin warm/dry/pink. pt placed on o2 1L per family request. 19:10 Reassessment: Patient and/or family updated on plan of care and expected duration. Pain aj1 level reassessed. General: Appears in no apparent distress. comfortable, Behavior is calm, cooperative, appropriate for age. Pain: Denies pain. Neuro: Level of Consciousness is awake, alert, obeys commands, Oriented to person, place, time, situation. Cardiovascular: Denies chest pain, shortness of breath, Murmur present Patient's skin is warm and dry. Respiratory: Reports cough that is non-productive, hacking, persistent Airway is patent Respiratory effort is even, unlabored, Respiratory pattern is regular, symmetrical, Breath sounds are clear bilaterally. GI: Abdomen is round non-distended, Abd is soft and non tender X 4 quads. : No signs and/or symptoms were reported regarding the genitourinary system. EENT: No signs and/or symptoms were reported regarding the EENT system. Derm: No signs and/or symptoms reported regarding the dermatologic system. Skin is pink, warm \T\ dry. normal. Musculoskeletal: No signs and/or symptoms reported regarding the musculoskeletal system. Circulation, motion, and sensation intact. 20:10 Reassessment: Patient appears in no apparent distress at this time. No changes from aj1 previously documented assessment. Patient and/or family updated on plan of care and expected duration. Pain level reassessed. Patient is alert, oriented x 3, equal unlabored respirations, skin warm/dry/pink. 21:07 Reassessment: Patient appears in no apparent distress at this time. No changes from aj1 previously documented assessment. Patient and/or family updated on plan of care and expected duration. Pain level reassessed. Patient is alert, oriented x 3, equal unlabored respirations, skin warm/dry/pink. Vital Signs: 11:42 BP 148 / 96; Pulse 114; Resp 18; Temp 98.0(O); Pulse Ox 99% on R/A; Weight 77.11 kg; em Height 5 ft. 10 in. (177.80 cm); Pain 0/10; 13:00 BP 140 / 107; Pulse 121; Resp 18; Pulse Ox 96% on R/A; zb 14:00 BP 150 / 103; Pulse 121; Resp 18; Pulse Ox 95% on R/A; zb 15:00 BP 150 / 105; Pulse 124; Resp 16; Pulse Ox 95% on R/A; zb 16:00 BP 117 / 107; Pulse 117; Resp 18; Pulse Ox 95% on R/A; zb 17:42 BP 129 / 95; Pulse 108; Resp 20; Pulse Ox 94% on 1 lpm NC; zb 19:00 BP 127 / 90; Pulse 102; Resp 20; Pulse Ox 94% on 1 lpm NC; aj1 20:00 BP 121 / 81; Pulse 93; Resp 20; Pulse Ox 94% on 1 lpm NC; aj1 21:00 BP 121 / 81; Pulse 88; Resp 20; Pulse Ox 95% on 1 lpm NC; aj1 11:42 Body Mass Index 24.39 (77.11 kg, 177.80 cm) em ED Course: 11:09 Patient arrived in ED. ag5 11:48 Triage completed. em 11:49 Arm band placed on. em 12:00 Patient has correct armband on for positive identification. Placed in gown. Bed in low zb position. Call light in reach. Side rails up X 1. Adult w/ patient. Door closed. Noise minimized. 12:22 Corazon Coy FNP-C is PHCP. snw 12:22 Adrian Martinez MD is Attending Physician. snw 12:25 Kamini Conrad RN is Primary Nurse. zb 12:47 Adrian Martinez MD is Attending Physician. siri 13:30 Inserted saline lock: 20 gauge in right antecubital area, using aseptic technique. zb 13:34 XRAY Chest (1 view) In Process Unspecified. EDMS 14:38 Clive Mckenzie is Hospitalizing Provider. siri 19:12 Primary Nurse role handed off by Kamini Conrad RN mw2 20:05 Report given to BRANDI Fabian. aj1 20:25 Marjorie Fonseca RN is Primary Nurse. aj1 21:39 Report given to BRANDI Karimi. aj1 21:39 No provider procedures requiring assistance completed. Patient admitted, IV remains in aj1 place. Administered Medications: 15:00 Drug: Lopressor 25 mg Route: PO; zb 16:38 Follow up: Response: No adverse reaction; Blood pressure is lowered zb 15:01 Drug: Lasix 20 mg Route: IVP; Site: right antecubital; zb 16:38 Follow up: Response: No adverse reaction; Blood pressure is lowered zb Outcome: 14:40 Decision to Hospitalize by Provider. siri 21:39 Admitted to Med/surg accompanied by tech, via wheelchair, with oxygen. aj1 21:39 Condition: good 21:39 Discharge instructions given to patient, family, Instructed on the need for admit, Demonstrated understanding of instructions. 21:40 Patient left the ED. aj1 Signatures: Dispatcher [employer] EDMS Marjorie Fonseca RN RN aj1 Adrian Martinez MD MD cha Waters, Shelly, [facility] Naseem Villagran, RN RN em Gonzalo Marroquinnara mw2 Yesenia Rosario ag5 Kamini Conrad RN RN zb Corrections: (The following items were deleted from the chart) 12:14 11:42 Acuity: GELACIO 3 em em 20:40 19:40 Reassessment: Patient is anxious, combative and confused. Respiratory rate is aj1 32-43 breaths per minute, heart rate is in the 120s. Notified DERIC Brownlee. Verbal order for Ativan received and charted in [facility]. No change noted after Ativan administration aj1 :42 20:00 Reassessment: Patient remains agitated, has managed to disconnect Bi-PAP, despite aj1 wrist restraints. Patient is flailing in the bed screaming. Notified DERIC Brownlee aj1 20:42 19:15 General: Appears uncomfortable, Behavior is agitated, anxious, combative, aj1 uncooperative, aj1 :42 19:15 Pain: Unable to use pain scale. Does not appear to understand pain scale. aj1 aj1 :42 19:15 Neuro: Level of Consciousness is awake, confused, Oriented to none aj1 aj1 20:42 19:15 Cardiovascular: Heart tones S1 S2 present Murmur present Patient's skin is warm aj1 and dry. Rhythm is sinus tachycardia aj1 :42 19:15 Respiratory: Airway is patent Respiratory effort is even, Respiratory pattern is aj1 regular, symmetrical, tachypnea Breath sounds are clear bilaterally. aj1 :42 19:15 GI: Abdomen is round non-distended, aj1 aj1 :42 19:15 : No signs and/or symptoms were reported regarding the genitourinary system. aj1aj1 20:42 19:15 Derm: Skin is intact, Skin is normal, aj1 aj1 : 19:15 Musculoskeletal: Range of motion: limited in right ankle Splint in place to right aj1 ankle aj : 20:05 Reassessment: Patient moved to ER bed 4 aj1 aj1 : 19:00 BP 180 / 117; Pulse 123bpm; Resp 38bpm; Pulse Ox 91% BiPAP; aj1 aj1 :42 19:30 BP 203 / 116; Pulse 123bpm; Resp 36bpm; Pulse Ox 91% BiPAP; aj1 aj1
--- NOTE | 2020-02-14 14:41 | EDPHYS ---
Physician Documentation [facility] Name: Krzysztof Gay Age: 64 yrs Sex: Male : 1955 Arrival Date: 02/14/2020 Time: 11:09 Bed 18 Private MD: ED Physician Adrian Martinez HPI: 02/13 14:26 This 64 yrs old Male presents to ER via Ambulatory with complaints of Cough. siri 14:26 The patient or guardian reports cough, that is intermittent, difficulty breathing. siri Onset: The symptoms/episode began/occurred 3 day(s) ago. Severity of symptoms: At their worst the symptoms were mild, in the emergency department the symptoms are unchanged. Modifying factors: The symptoms are alleviated by cool environment, the symptoms are aggravated by exertion. Associated signs and symptoms:. The patient has experienced similar episodes in the past. Historical: - Allergies: 11:49 No Known Allergies; em - PMHx: 11:49 Depression; Hypertension; heart failure; em - PSHx: 11:49 Neck Surgery; em - Immunization history:: Adult Immunizations. - Social history:: Smoking status: Patient denies any tobacco usage or history of. - Family history:: not pertinent. ROS: 14:26 Constitutional: Negative for fever, chills, and weight loss, Eyes: Negative for injury, siri pain, redness, and discharge, ENT: Negative for injury, pain, and discharge, Neck: Negative for injury, pain, and swelling, Cardiovascular: Negative for chest pain, palpitations, and edema, Abdomen/GI: Negative for abdominal pain, nausea, vomiting, diarrhea, and constipation, Back: Negative for injury and pain, : Negative for injury, bleeding, discharge, and swelling, MS/Extremity: Negative for injury and deformity, Skin: Negative for injury, rash, and discoloration, Neuro: Negative for headache, weakness, numbness, tingling, and seizure, Psych: Negative for depression, anxiety, suicide ideation, homicidal ideation, and hallucinations, Allergy/Immunology: Negative for hives, rash, and allergies, Endocrine: Negative for neck swelling, polydipsia, polyuria, polyphagia, and marked weight changes, Hematologic/Lymphatic: Negative for swollen nodes, abnormal bleeding, and unusual bruising. 14:26 Respiratory: Positive for cough, shortness of breath, on exertion. Exam: 14:26 Constitutional: This is a well developed, well nourished patient who is awake, alert, siri and in no acute distress. Head/Face: Normocephalic, atraumatic. Eyes: Pupils equal round and reactive to light, extra-ocular motions intact. Lids and lashes normal. Conjunctiva and sclera are non-icteric and not injected. Cornea within normal limits. Periorbital areas with no swelling, redness, or edema. ENT: Nares patent. No nasal discharge, no septal abnormalities noted. Tympanic membranes are normal and external auditory canals are clear. Oropharynx with no redness, swelling, or masses, exudates, or evidence of obstruction, uvula midline. Mucous membranes moist. Neck: Trachea midline, no thyromegaly or masses palpated, and no cervical lymphadenopathy. Supple, full range of motion without nuchal rigidity, or vertebral point tenderness. No Meningismus. Chest/axilla: Normal chest wall appearance and motion. Nontender with no deformity. No lesions are appreciated. Abdomen/GI: Soft, non-tender, with normal bowel sounds. No distension or tympany. No guarding or rebound. No evidence of tenderness throughout. Back: No spinal tenderness. No costovertebral tenderness. Full range of motion. Male : Normal genitalia with no discharge or lesions. Skin: Warm, dry with normal turgor. Normal color with no rashes, no lesions, and no evidence of cellulitis. MS/ Extremity: Pulses equal, no cyanosis. Neurovascular intact. Full, normal range of motion. Neuro: Awake and alert, GCS 15, oriented to person, place, time, and situation. Cranial nerves II-XII grossly intact. Motor strength 5/5 in all extremities. Sensory grossly intact. Cerebellar exam normal. Normal gait. 14:26 Cardiovascular: Rate: tachycardic, Rhythm: regular, Heart sounds: normal, Edema: is not appreciated, JVD: is noted bilaterally, to 1 cm. 14:26 ECG was reviewed by the Attending Physician. Vital Signs: 11:42 BP 148 / 96; Pulse 114; Resp 18; Temp 98.0(O); Pulse Ox 99% on R/A; Weight 77.11 kg; em Height 5 ft. 10 in. (177.80 cm); Pain 0/10; 13:00 BP 140 / 107; Pulse 121; Resp 18; Pulse Ox 96% on R/A; zb 14:00 BP 150 / 103; Pulse 121; Resp 18; Pulse Ox 95% on R/A; zb 15:00 BP 150 / 105; Pulse 124; Resp 16; Pulse Ox 95% on R/A; zb 16:00 BP 117 / 107; Pulse 117; Resp 18; Pulse Ox 95% on R/A; zb 17:42 BP 129 / 95; Pulse 108; Resp 20; Pulse Ox 94% on 1 lpm NC; zb 19:00 BP 127 / 90; Pulse 102; Resp 20; Pulse Ox 94% on 1 lpm NC; aj1 20:00 BP 121 / 81; Pulse 93; Resp 20; Pulse Ox 94% on 1 lpm NC; aj1 21:00 BP 121 / 81; Pulse 88; Resp 20; Pulse Ox 95% on 1 lpm NC; aj1 11:42 Body Mass Index 24.39 (77.11 kg, 177.80 cm) em MDM: 12:47 Patient medically screened. [facility] 14:30 Differential Diagnosis: Obstructed Airway Bronchitis Influenza Upper Respiratory siri Infection Sinusitis Viral Syndrome Pneumonia. Data reviewed: vital signs, nurses notes, lab test result(s), EKG, radiologic studies, plain films. 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 Test interpretation: by ED physician or midlevel provider: ECG, plain radiologic studies. Counseling: I had a detailed discussion with the patient and/or guardian regarding: the historical points, exam findings, and any diagnostic results supporting the discharge/admit diagnosis, the presence of at least one elevated blood pressure reading (>120/80) during this emergency department visit, lab results, radiology results, the need to transfer to another facility, for higher level of care, [facility] does not immediately have the required specialist. 02/13 13:01 Order name: Basic Metabolic Panel; Complete Time: 14:17 siri 02/13 13:01 Order name: CBC with Diff; Complete Time: 15:33 siri 02/13 13:01 Order name: LFT's; Complete Time: 14:17 siri 02/13 13:01 Order name: Magnesium; Complete Time: 14:17 siri 02/13 13:01 Order name: NT PRO-BNP; Complete Time: 14:17 [facility] 02/13 13:01 Order name: PT-INR; Complete Time: 15:33 [facility] 02/13 13:01 Order name: Troponin (emerg Dept Use Only); Complete Time: 14:17 [facility] 02/13 13:01 Order name: XRAY Chest (1 view); Complete Time: 14:17 [facility] 02/13 13:01 Order name: EKG; Complete Time: 13:02 [facility] 02/13 14:56 Order name: Urine Dipstick--Ancillary (enter results) 02/13 15:17 Order name: COVID-19 02/13 18:38 Order name: SARS-COV-2 RT PCR EDMS 02/13 13:01 Order name: Cardiac monitoring; Complete Time: 14:25 [facility] 02/13 13:01 Order name: EKG - Nurse/Tech; Complete Time: 14:25 [facility] 02/13 13:01 Order name: IV Saline Lock; Complete Time: 14:25 [facility] 02/13 13:01 Order name: Labs collected and sent; Complete Time: 14:25 [facility] 02/13 13:01 Order name: O2 Per Protocol; Complete Time: 14:25 [facility] 02/13 13:01 Order name: O2 Sat Monitoring; Complete Time: 14:25 [facility] 02/13 13:01 Order name: Urine Dipstick-Ancillary (obtain specimen); Complete Time: 15:11 [facility] EC:26 Rate is 120 beats/min. Rhythm is regular. QRS [place] is Normal. MO interval is normal. [facility] QRS interval is normal. QT interval is normal. No Q waves. T waves are Normal. No ST changes noted. Clinical impression: Sinus tachycardia. Interpreted by me. Reviewed by me. Administered Medications: 15:00 Drug: Lopressor 25 mg Route: PO; zb 16:38 Follow up: Response: No adverse reaction; Blood pressure is lowered zb 15:01 Drug: Lasix 20 mg Route: IVP; Site: right antecubital; zb 16:38 Follow up: Response: No adverse reaction; Blood pressure is lowered zb Disposition: 02/14/20 14:40 Hospitalization ordered by Clive Mckenzie for Observation. Preliminary diagnosis are Cardiomyopathy, Unspecified combined systolic (congestive) and diastolic (congestive) heart failure, Unspecified kidney failure, Cough. - Bed requested for Telemetry/MedSurg (observation). - Status is Observation. aj1 - Condition is Fair. - Problem is new. - Symptoms have improved. Signatures: Dispatcher [employer] Marjorie Julien RN RN aj1 Joyce Olivares RN RN dw Anderson, Corey, MD MD cha Munoz, Edgar, RN Kamini Velazquez RN BRANDI zb Corrections: (The following items were deleted from the chart) 19:38 14:40 Hospitalization Ordered by Clive Mckenzie for Observation. Preliminary diagnosis dw is Cardiomyopathy; Unspecified combined systolic (congestive) and diastolic (congestive) heart failure; Unspecified kidney failure; Cough. Bed requested for Telemetry/MedSurg (observation). Status is Observation. Condition is Fair. Problem is new. Symptoms have improved. [facility] 21:40 19:38 02/14/2020 14:40 Hospitalization Ordered by Clive Mckenzie for Observation. aj1 Preliminary diagnosis is Cardiomyopathy; Unspecified combined systolic (congestive) and diastolic (congestive) heart failure; Unspecified kidney failure; Cough. Bed requested for Telemetry/MedSurg (observation). Status is Observation. Condition is Fair. Problem is new. Symptoms have improved. dw
[2020-02-14] MEDS ORDERED: METOPROLOL TAR 25 MG TAB ONE (14:45)
[2020-02-14] MEDS ORDERED: FUROSEMIDE 20 MG/ 2ML VIAL ONE (14:45)
--- NOTE | 2020-02-14 15:46 | P.HP ---
Certification for Inpatient Patient admitted to: Observation With expected LOS: <2 Midnights Practitioner: I am a practitioner with admitting privileges, knowledge of patient current condition, hospital course, and medical plan of care. 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 Patient stated he could not sleep all night because of the cough. Chest x-ray done in the emergency department demonstrates increased interstitial markings suggestive of pneumonitis versus interstitial pneumonia. COVID 19 is pending. Patient suspected to have CHF exacerbation versus COVID pneumonia. Initial troponin is mildly elevated. BNP is also elevated. Serum creatinine is at baseline. Cardiology-Dr. Montiel was informed recommended hospitalization for diuresis. Patient hospitalized for further management. Allergies No Known Allergies Allergy (Verified 01/25/20 01:08) Home Medications: OLANZapine [Zyprexa] 5 mg PO DAILY 01/25/20 - Past Medical/Surgical History Diabetic: No -: Hypertension -: Depression -: Neck Surgery - Family History Family History: Reviewed- Non-Contributory - Social History Alcohol use: No CD- Drugs: No Caffeine use: No Review of Systems Other: Except as documented, all other systems reviewed and negative. Physical Examination - Physical Exam General: Alert, In no apparent distress HEENT: Mucous membr. moist/pink, Sclerae nonicteric Neck: Supple, JVD not distended Respiratory: Normal air movement, Crackles/rales (Mild bibasilar rales) Cardiovascular: No edema, Normal S1 S2, Other (Tachycardia) Capillary refill: <2 Seconds Gastrointestinal: Normal bowel sounds, Soft and benign, Non-distended, No ascites, No tenderness Musculoskeletal: No swelling, No tenderness Integumentary: No rashes, No erythema Neurological: Normal speech, Normal strength at 5/5 x4 extr, Cranial nerves 3-12 intact - Studies Laboratory Data (last 24 hrs) 12/16/20 13:37: PT 15.8 H, INR 1.35 02/14/20 13:37: WBC 9.7, Hgb 13.6, Hct 41.6, Plt Count 190 02/14/20 13:37: Sodium 141, Potassium 4.2, BUN 17, Creatinine 1.73 H, Glucose 128 H, Magnesium 2.0, Total Bilirubin 0.8, AST 16, ALT 29, Alkaline Phosphatase 83 Assessment and Plan - Problems (Diagnosis) (1) Acute on chronic systolic heart failure Current Visit: Yes Status: Acute (2) History of CVA (cerebrovascular accident) Current Visit: Yes Status: Acute (3) Elevated troponin Current Visit: No Status: Acute (4) Pulmonary embolus Current Visit: No Status: Acute Qualifiers: Pulmonary embolism type: other Chronicity: acute Acute cor pulmonale presence: without acute cor pulmonale Qualified Code(s): I26.99 - Other pulmonary embolism without acute cor pulmonale - Plan Place under observation. Treat with IV Lasix. Oxygen p.r.n. Give a dose of digoxin for tachycardia. COVID 19 is pending. Cardiology consult. Validate and reconcile home medications. Not sure if patient is on anticoagulation. He needs anticoagulation for PE, severe LV dysfuction and h/o thrombotic CVA. - Advance Directives Does patient have a Living Will: No Does patient have a Durable POA for Healthcare: No
[2020-02-14 16:47] LABS: Urine Blood NEGATIVE (NEG); Urine Glucose NEGATIVE (NEG); Urine Protein NEGATIVE (NEG); Urine pH 5.5 (5.0-7.0)
[2020-02-14] MEDS ORDERED: ATORVASTATIN 80 MG TAB PO SCH (21:43)
[2020-02-14] MEDS: FUROSEMIDE 40 MG/4 ML VIAL IV SCH (22:23)
[2020-02-14] MEDS: APIXABAN 5 MG TABLET PO SCH (22:24)
[2020-02-14] MEDS: AMIODARONE HCL 200 MG TAB PO SCH (22:24)
[2020-02-15 00:03] VITALS: BMI 24.6
[2020-02-15 04:30] LABS: Absolute Lymphocytes (CBC) 0.9 K/uL (0.7-4.9); Basophils % 0.5 % (0-1.3); Hematocrit 39.5 % (39.6-49.0); Lymphocytes % 10.7 % (15.3-44.8); MPV 11.4 fL (7.6-11.3); RBC Red Blood Cell Count 4.47 M/uL (4.33-5.43)
[2020-02-15 04:36] LABS: Protime INR 1.59
[2020-02-15 04:54] LABS: Potassium 3.7 mmol/L (3.5-5.1)
[2020-02-15] MEDS ORDERED: PNEUMOCOCCAL VACCINE 0.5 ML IMVAC ONE (06:00)
[2020-02-15] MEDS: FUROSEMIDE 40 MG/4 ML VIAL IV SCH (08:21)
[2020-02-15] MEDS: AMIODARONE HCL 200 MG TAB PO SCH (08:23)
[2020-02-15] MEDS: APIXABAN 5 MG TABLET PO SCH (08:25)
[2020-02-15] MEDS ORDERED: POTASSIUM CL SA 10 MEQ TAB PO ONE (09:00)
--- NOTE | 2020-02-15 09:00 | P.DS ---
Admission Date: 02/14/20 Discharge Date: 02/15/20 Disposition: ROUTINE DISCHARGE Discharge Condition: FAIR Reason for Admission: Cough and shortness of breath - Problems (1) Acute on chronic systolic heart failure Status: Acute (2) History of CVA (cerebrovascular accident) Status: Acute (3) Elevated troponin Status: Acute (4) Pulmonary embolus Status: Acute Qualifiers: Pulmonary embolism type: other Chronicity: acute Acute cor pulmonale presence: without acute cor pulmonale Qualified Code(s): I26.99 - Other pulmonary embolism without acute cor pulmonale Brief History of Present Illness: 64-year-old gentleman recently admitted for pulmonary embolism, found to have 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 Patient stated he could not sleep all night because of the cough. Chest x-ray done in the emergency department demonstrates increased interstitial markings suggestive of pneumonitis versus interstitial pneumonia. COVID 19 is pending. Patient suspected to have CHF exacerbation versus COVID pneumonia. Initial troponin is mildly elevated. BNP is also elevated. Serum creatinine is at baseline. Cardiology-Dr. Montiel was informed recommended hospitalization for diuresis. Patient hospitalized for further management. Hospital Course: Patient place under observation on the medical floor and treated for CHF exacerbation with IV Lasix. Patient became asymptomatic with treatment. His cough is significantly improved, he stated he had no issues overnight and slept through the night. The patient was seen and evaluated by cardiology-Dr. Montiel who recommended low-dose MENG-inhibitor and beta-lacey in addition to maintenance diuretics. Patient discharged with lasix, Coreg and Lasix 40 mg daily. He will follow with Dr. Montiel as an outpatient. Vital Signs/Physical Exam: Temp Pulse Resp BP Pulse Ox 98.5 F 78 18 108/63 92 02/15/20 04:00 02/15/20 08:21 02/15/20 04:00 02/15/20 08:21 02/15/20 04:00 Laboratory Data at Discharge: WBC 8.6 K/uL (4.3-10.9) 02/15/20 04:00 Hgb 13.1 g/dL (13.6-17.9) L 02/15/20 04:00 Hct 39.5 % (39.6-49.0) L 02/15/20 04:00 Plt Count 164 K/uL (152-406) 02/15/20 04:00 PT 18.6 SECONDS (9.5-12.5) H 02/15/20 04:00 INR 1.59 02/15/20 04:00 Sodium 139 mmol/L (136-145) 02/15/20 04:00 Potassium 3.7 mmol/L (3.5-5.1) 02/15/20 04:00 BUN 21 mg/dL (7-18) H 02/15/20 04:00 Creatinine 1.83 mg/dL (0.55-1.3) H 02/15/20 04:00 Glucose 108 mg/dL (74-106) H 02/15/20 04:00 Magnesium 2.0 mg/dL (1.8-2.4) 02/15/20 04:00 Total Bilirubin 0.8 mg/dL (0.2-1.0) 02/14/20 13:37 AST 16 U/L (15-37) 02/14/20 13:37 ALT 29 U/L (12-78) 02/14/20 13:37 Alkaline Phosphatase 83 U/L (45-117) 02/14/20 13:37 Home Medications: OLANZapine [Zyprexa] 5 mg PO BEDTIME 01/25/20 Amiodarone HCl 100 mg PO DAILY 02/14/20 Apixaban [Eliquis] 5 mg PO BID 02/14/20 Atorvastatin Calcium [Lipitor] 80 mg PO BEDTIME 02/14/20 Furosemide [Lasix] 40 mg PO DAILY #30 tablet 02/15/20 Lisinopril [Zestril] 2.5 mg PO DAILY #30 tablet 02/15/20 carvediloL [Coreg] 3.125 mg PO BID #60 tab 02/15/20 New Medications: carvediloL [Coreg] 3.125 mg PO BID #60 tab Furosemide [Lasix] 40 mg PO DAILY #30 tablet Lisinopril [Zestril] 2.5 mg PO DAILY #30 tablet Followup: Unknown,U [Primary Care Provider] - Rishi Montiel MD [ACTIVE - CAN ADMIT] - (within 2 weeks.)
[2020-02-15 12:48] VITALS: O2SAT 93
[2020-02-15 13:37] VITALS: BP 112/69; TEMP 97.6
--- NOTE | 2020-02-15 15:23 | CON ---
Date of Consultation: 02/15/2020 Reason For Consultation: Heart failure. History Of Present Illness: This is a 64-year-old male, who was admitted to the hospital with shortn ess of breath and cough. Was found to be in heart failure, started on IV diuretics. The patient was seen by myself recently for a very low ejection fraction. Had a heart catheterization that was nega tive. At that time, he had a stroke prior to the heart catheterization and was sent to [place] for p ossible neuro intervention. Comes back, has recovered. No residual weakness. Denies having any brenda st pain, but he has a LifeVest in place and appears to be comfortable and speaking in full sentences. No significant orthopnea or edema. Past Medical History: Hypertension, depression, systolic congestive heart failure, nonischemic cardi omyopathy. Medications: Refer to reconciliation sheet for detailed list. Allergies: NO KNOWN DRUG ALLERGIES. Family History: No premature coronary artery disease or cancer. Review of Systems: All systems were reviewed and they were negative except what mentioned in the HPI. Physical Examination: Vital Signs: Temperature is 97.6, pulse 89, breathing 18, blood pressure 112/69, saturating 93%. General: Pleasant middle-aged male, in no distress. Head and Neck: Pupils are equal, reactive to light. Intact eye movements. No significant JVD. Lungs: Clear to auscultation bilaterally. No rhonchi, rales, or crackles. No accessory muscle use. Heart: Regular rate and rhythm. No extra sounds. Abdomen: Soft, nontender. Bowel sounds positive. No organomegaly. No masses or hernia. No rigidi ty or rebound. Extremities: No edema, clubbing, or cyanosis. Intact pulses. Skin: No rash noted. Neurologic: Alert, awake, oriented x3. No acute focal deficits appreciated. Investigations: Creatinine 1.83. White blood cell count 8.6, hemoglobin 13.1. Chest x-ray; pulmona ry edema. Assessment And Plan: 1.Acute on chronic systolic congestive heart failure exacerbation. Agree with IV diuresis, Lasix 40 mg q.12 hours. Continue to monitor BUN, creatinine, electrolytes. 2.Recommend to start guidelines directed medical therapy for heart failure and to use Coreg 3.125 mg q.12 hours along with low-dose lisinopril 2.5 mg daily and titrate this as needed. Continue Lasix. Thank you for the consult. /KAMRON Voice ID: [id number] Report ID: [id number]
[2020-02-15] MEDS ORDERED: DIGOXIN 0.25 MG TABLET PO ONE (15:33)
[2020-02-15] MEDS ORDERED: OLANZapine 2.5 MG TAB PO SCH (21:00)
== END 2020-02-15 14:51 | disposition home or self-care (01) ==
LOC: ER 11:08 → ERHOLD 15:31 → 2ND 21:14
PROVIDERS: ADMIT Internal Medicine; ATTEND Internal Medicine
DX: I11.0 Hypertensive heart disease with heart failure (principal); I50.23 Acute on chronic systolic (congestive) heart failure; I26.99 Other pulmonary embolism without acute cor pulmonale; I42.8 Other cardiomyopathies; R74.8 Abnormal levels of other serum enzymes; Z20.828 Contact with and (suspected) exposure to other viral communicable diseases; R94.31 Abnormal electrocardiogram [ECG] [EKG]; Z86.73 Personal history of transient ischemic attack (TIA), and cerebral infarction without residual deficits; F32.9 Major depressive disorder, single episode, unspecified
CPT/HCPCS: 93005; 85025 ×2; 80048 ×2; 36415; 83735 ×2; 85610 ×2; 80076; 81003; 84484; 83880; 71045; 94760 ×2; 96374; 99285; U0003; J1940 ×3

== ENCOUNTER 2021-03-18 15:18 | Emergency (ER) | payer OTHER ==
--- OUTSIDE RECORDS SUMMARY | 2021-03-18 15:28 | XMS REPORT | Continuity of Care Document ---
:1955 Author Organization [facility] t Address [address] [place] [address] Care Team Providers Name Role Phone MARGY TRAMMELL Attending Clinician Unavailable Tarsha Attending Clinician Unavailable TARSHA Attending Clinician Unavailable Fransisca PAZ Attending Clinician Unavailable Iam Fonseca Attending Clinician Unavailable TERRI Attending Clinician Unavailable Margy Trammell MD Attending Clinician Essence Long MD Attending Clinician Romeo Alexis MD Attending Clinician Iesha PUENTES IJustin Attending Clinician MARGY TRAMMELL Admitting Clinician Unavailable Physician, Primary or Family Admitting Clinician Unavailанна REEVES I. 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 Hypercoagu Hypercoagu Disease Active U T lable lable 11-06 Health state state 00:00: 00 Iron Iron Disease Active 2019-03 [facility] deficiency deficiency 2 He alth 00:00: 00 Pulmonary Pulmonary Disease Active 2019-03 UT hypertensi hypertensi 03-28 He alth on on 00:00: 00 Bipolar Bipolar Disease Active 2019-03 UT depression depression 03-28 He alth 00:00: 00 Hypertensi Hypertensi Disease Active 2019-03 U T on on 03-28 Health 00:00: 00 Congestive Congestive Disease Active 2019-[address] [facility] heart 03[facility]28 [facility] failure [facility] Medical 00 Center Acute Acute Disease Active 2019-[address] [facility] pulmonary pulmonary 03-28 [facility] - embolism embolism 00:00: Medica l without without 00 Center acute cor acute cor pulmonale pulmonale Aphasia Aphasia Disease Active 2019-[address] [facility] 03-28 [facility] - 00:[facility]: Medical 00 [place] Troponin Troponin Disease Active 2019-03 [facility] level level 03-28 [facility] - elevated elevated 00:00: Medica l 00 Center Acute deep Acute deep Disease Active 2019-[address] vein vein 03-28 [facility] - thrombosis thrombosis 00:00: Me dical (DVT) of (DVT) of 00 Center popliteal popliteal vein of vein of left lower left lower extremity extremity Ischemic Ischemic Disease Active 2019-03 [facility] stroke stroke 03-27 [facility] - 00:[facility]: Medical 00 Center Allergies, Adverse Reactions, Alerts Allergy Allergy Status Severity Reaction(s) Onset Inactive Treating Comm ents Source Name Type Date Date Clinician No Known DA Active [facility] Allergie 8-24 Clear s 00:00: Goldman 00 [facility] No Known DA Active [facility] Allergie 8-24 Clear s 00:00: Goldman 00 [facility] NO KNOWN Allergy Active [facility] Medical [place] Social History Social Habit Start Date Stop Date Quantity Comments Source History [facility] Health Alcohol Std Drinks History [facility] Health Alcohol Binge Exposure to Not sure [facility] SARS-CoV-2 (event) History [facility] Health Alcohol Comment Tobacco use and 2020-10-10 2020-10-10 Smokeless tobacco [facility] exposure 00:00:00 00:00:00 non-user Alcohol intake 2020-10-10 2020-10-10 Lifetime [facility] 00:00:00 00:00:00 non-drinker (finding) History SDOH 2020-10-10 2020-10-10 1 [facility] Alcohol Frequency 00:00:00 00:00:00 Tobacco Comment 2020-10-10 2020-10-10 QUIT [facility]ARS AGO [facility] 00:00:[facility] 00:00:00 Sex Assigned At [birth year] [facility] 00:00:00 00:00:00 Smoking Status Start Date Stop Date Source Ex-smoker 2020-10-10 00:00:00 2020-10-10 00:00:00 [facility] Medications Ordered Filled Start Stop Current Ordering Indication Dosage Frequency Signature Comments Components Source Medication Medication Date Date Medication? Clinician (SIG) Name Name OLANZapine Yes every UT (ZyPREXA) 5 8-12 night. Health MG tablet 18:31: 50 lisinopril Yes 20mg QD Take 20 mg U T 20 MG 8-12 by mouth 1 Health tablet 18:31: (one) time 50 each day. apixaban Yes 5mg Q.5D Take 5 mg UT (Eliquis) 5 8-12 by mouth 2 He alth MG tablet 18:31: (two) 50 times a day. carvedilol Yes Take by UT (Coreg) 25 8-12 mouth 2 Health MG tablet 18:31: (two) 50 times a day with meals. furosemide Yes Take by UT (Lasix) 40 8-12 mouth. Health MG tablet 18:31: 50 atorvastati Yes 80mg QD Take 80 mg UT n (Lipitor) 8-12 by mouth 1 He alth 80 MG 18:31: (one) time tablet 50 each day. amiodarone Yes QD Take by UT (Pacerone) 8-12 mouth 1 Health 100 MG 18:31: (one) time tablet 50 each day. OLANZapine Yes every UT (ZyPREXA) 5 8-12 night. Health MG tablet 18:31: 50 lisinopril 2021-0 Yes 20mg QD Take 20 mg U T 20 MG 8-12 by mouth 1 Health tablet 18:31: (one) time 50 each day. apixaban 2021-0 Yes 5mg Q.5D Take 5 mg UT (Eliquis) 5 8-12 by mouth 2 He alth MG tablet 18:31: (two) 50 times a day. carvedilol 2021-0 Yes Take by UT (Coreg) 25 8-12 mouth 2 Health MG tablet 18:31: (two) 50 times a day with meals. furosemide 2021-0 Yes Take by UT (Lasix) 40 8-12 mouth. Health MG tablet 18:31: 50 atorvastati 2021-0 Yes 80mg QD Take 80 mg UT n (Lipitor) 8-12 by mouth 1 He alth 80 MG 18:31: (one) time tablet 50 each day. amiodarone 2021-0 Yes QD Take by UT (Pacerone) 8-12 mouth 1 Health 100 MG 18:31: (one) time tablet 50 each day. OLANZapine 2021-0 Yes every UT (ZyPREXA) 5 8-12 night. Health MG tablet 18:31: 50 lisinopril 2021-0 Yes 20mg QD Take 20 mg U T 20 MG 8-12 by mouth 1 Health tablet 18:31: (one) time 50 each day. apixaban 2021-0 Yes 5mg Q.5D Take 5 mg UT (Eliquis) 5 8-12 by mouth 2 He alth MG tablet 18:31: (two) 50 times a day. carvedilol 2021-0 Yes Take by UT (Coreg) 25 8-12 mouth 2 Health MG tablet 18:31: (two) 50 times a day with meals. furosemide 2021-0 Yes Take by UT (Lasix) 40 8-12 mouth. Health MG tablet 18:31: 50 atorvastati 2021-0 Yes 80mg QD Take 80 mg UT n (Lipitor) 8-12 by mouth 1 He alth 80 MG 18:31: (one) time tablet 50 each day. amiodarone 2021-0 Yes QD Take by UT (Pacerone) 8-12 mouth 1 Health 100 MG 18:31: (one) time tablet 50 each day. lisinopril 2021-0 Yes 20mg QD Take 20 mg U T 20 MG 8-12 by mouth 1 Health tablet 13:31: (one) time 50 each day. apixaban 2021-0 Yes 5mg Q.5D Take 5 mg UT (Eliquis) 5 8-12 by mouth 2 He alth MG tablet 13:31: (two) 50 times a day. carvedilol 2021-0 Yes Take by UT (Coreg) 25 8-12 mouth 2 Health MG tablet 13:31: (two) 50 times a day with meals. furosemide 2021-0 Yes Take by UT (Lasix) 40 8-12 mouth. Health MG tablet 13:31: 50 atorvastati 2021-0 Yes 80mg QD Take 80 mg UT n (Lipitor) 8-12 by mouth 1 He alth 80 MG 13:31: (one) time tablet 50 each day. amiodarone 2021-0 Yes QD Take by UT (Pacerone) 8-12 mouth 1 Health 100 MG 13:31: (one) time tablet 50 each day. OLANZapine 2021-0 Yes every UT (ZyPREXA) 5 8-12 night. Health MG tablet 13:31: 50 lisinopril 2021-0 Yes 20mg QD Take 20 mg U T 20 MG 8-12 by mouth 1 Health tablet 13:31: (one) time 50 each day. apixaban 2021-0 Yes 5mg Q.5D Take 5 mg UT (Eliquis) 5 8-12 by mouth 2 He alth MG tablet 13:31: (two) 50 times a day. carvedilol 2021-0 Yes Take by UT (Coreg) 25 8-12 mouth 2 Health MG tablet 13:31: (two) 50 times a day with meals. furosemide 2021-0 Yes Take by UT (Lasix) 40 8-12 mouth. Health MG tablet 13:31: 50 atorvastati 2021-0 Yes 80mg QD Take 80 mg UT n (Lipitor) 8-12 by mouth 1 He alth 80 MG 13:31: (one) time tablet 50 each day. amiodarone 2021-0 Yes QD Take by UT (Pacerone) 8-12 mouth 1 Health 100 MG 13:31: (one) time tablet 50 each day. OLANZapine 2021-0 Yes every UT (ZyPREXA) 5 8-12 night. Health MG tablet 13:31: 50 OLANZapine 2019-03 Yes 5mg QD Take [address] (ZYPREXA) 5 2-02 by mouth [facility] - MG tablet 17:58: nightly. [address] OLANZapine 2019-03 Yes 5mg QD Take [address] (ZYPREXA) 5 2-02 by mouth [facility] - MG tablet 17:58: nightly. [address] OLANZapine 2019-03 Yes 5mg QD Take [address] (ZYPREXA) 5 2-02 by mouth [facility] - MG tablet 17:58: nightly. [address] enalapril 2019-03- No 20mg QD Take [address] (VASOTEC) 04-02 by mouth [facility] - 20 MG 15:16: 00:00 daily. Medical tablet 41 :00 [place] enalapril 2019-03 No 20mg QD Take [address] (VASOTEC) 04-02 by mouth [facility] - 20 MG 15:16: 00:00 daily. Medical tablet 41 :00 [place] enalapril 2019-03- No 20mg QD Take [address] (VASOTEC) 04-02 by mouth [facility] - 20 MG 15:16: 00:00 daily. Medical tablet 41 :00 [place] amiodarone 2019-03- No 100mg Q.5D Take [address] (PACERONE) 04-02 tablet [facility] - 100 MG 00:00: 23:59 (100 mg Medical tablet 00 :00 total) by Center mouth 2 (two) times daily for 30 days. apixaban 2019-03- No 5mg Q.5D Take [address] (ELIQUIS) 5 04-02 tablet (5 Delicia kes - mg Tab 00:00: 23:59 mg total) Medic al tablet 00 :00 by mouth 2 Center (two) times daily for 30 days. atorvastati 2019-03- No 80mg QD Take [address] n (LIPITOR) 04-02 tablet (80 L ukes - 80 MG 00:00: 23:59 mg total) Medica l tablet 00 :00 by mouth Center nightly for 30 days. amiodarone 2019-03 No 100mg Q.5D Take [address] (PACERONE) 04-02 tablet [facility] - 100 MG 00:00: 23:59 (100 mg Medical tablet 00 :00 total) by Center mouth 2 (two) times daily for 30 days. apixaban 2019-03- No 5mg Q.5D Take [address] (ELIQUIS) 5 04-02 tablet (5 Delicia kes - mg Tab 00:00: 23:59 mg total) Medic al tablet 00 :00 by mouth 2 Center (two) times daily for 30 days. atorvastati 2019-03 No 80mg QD Take [address] n (LIPITOR) 04-02 tablet (80 L ukes - 80 MG 00:00: 23:59 mg total) Medica l tablet 00 :00 by mouth Center nightly for 30 days. amiodarone 2019-03 No 100mg Q.5D Take [address] (PACERONE) 04-02 tablet [facility] - 100 MG 00:00: 23:59 (100 mg Medical tablet 00 :00 total) by Center mouth 2 (two) times daily for 30 days. apixaban 2019-03 No 5mg Q.5D Take [address] (ELIQUIS) 5 04-02 tablet (5 Delicia kes - mg Tab 00:00: 23:59 mg total) Medic al tablet 00 :00 by mouth 2 Center (two) times daily for 30 days. atorvastati 2019-03 No 80mg QD Take [address] n (LIPITOR) 04-02 tablet (80 L ukes - 80 MG 00:00: 23:59 mg total) Medica l tablet 00 :00 by mouth Center nightly for 30 days. Vital Signs Vital Name Observation Time Observation Value Comments Source HEIGHT 2020-01-27 07:00:00 177.8 cm WEIGHT 2020-01-26 16:30:00 75.751 kg Systolic blood 2020-11-06 14:18:00 107 mm[Hg] [facility] Diastolic blood 2020-11-06 14:18:00 69 mm[Hg] [facility] pressure Heart rate 2020-11-06 14:18:00 70 /min [facility] Body weight 2020-11-06 14:18[facility] 2020-10-10 18:29:00 153 mm[Hg] [facility] pressure Diastolic blood 2020-10-10 18:29:00 84 mm[Hg] [facility] pressure Heart rate 2020-10-10 18:29:00 82 /min [facility] Body weight 2020-10-10 18:29:00 81.647 kg [facility] Systolic blood 2020-10-10 18:29:00 153 mm[Hg] [facility] pressure Diastolic blood 2020-10-10 18:29:00 84 mm[Hg] [facility]th pressure Heart rate 2020-10-10 18:29:00 82 /min [facility] Body weight 2020-10-10 18:29:00 81.647 kg [facility] HEIGHT 2020-01-27 07:00:00 177.8 cm WEIGHT 2020-01-26 16:30:00 75.751 kg Systolic blood 2020-01-31 15:00:00 120 mm[Hg] [facility] Diastolic blood 2020-01-31 15:00:00 78 mm[Hg] [facility] Heart rate 2020-01-31 15:00:00 92 /min [facility] Body temperature 2020-01-31 15:00:00 37.44 Sandra [facility] Respiratory rate 2020-01-31 15:00:00 18 /min [facility] Oxygen saturation in 2020-01-31 15:00:00 97 /min [facility] - Arterial blood by Medical Ce nter Pulse oximetry Body height 2020-01-27 07:00:[address] [facility] Body weight 2020-01-26 16:30:[address] [facility] BMI 2020-01-26 16:30:00 23.96 kg/m2 [facility] Procedures Procedure Date / Time Performing Clinician Source Performed ECG 12-LEAD 2020-11-06 14:16:00 Tarsha [facility] ECG 12-LEAD 2020-10-10 18:41:[facility] & 2020-01-31 15:50:00 Sherry Alexis [facility] - REF LABS) [facility] ECG 12-LEAD 2020-01-31 07:39:50 Terri [facility] MAGNESIUM 2020-01-31 04:20:00 [facility] BASIC METABOLIC PANEL (7) 2020-01-31 04:20:00 [facility] PT/APTT 2020-01-31 04:20:00 Jame Long [facility] MR CARDIAC WITHOUT & WITH 2020-01-30 11:26:[address] [facility] IV CONTRAST [facility] ECG 12-LEAD 2020-01-30 08:14:14 Terri [facility] MAGNESIUM 2020-01-30 02:22:00 [facility] BASIC METABOLIC PANEL (7) 2020-01-30 02:22:00 [facility] FERRITIN 2020-01-30 02:22:00 Aminata [facility] IRON, TIBC, % SAT. (WITHOUT 2020-01-30 02:22:00 Aminata [facility] FERRITIN) [facility] VITAMIN B12 2020-01-30 02:22:00 Aminata [facility] FOLATE, SERUM 2020-01-30 02:22:00 Aminata [facility] PERIPHERAL BLOOD SMEAR - 2020-01-30 02:22:00 Aminata [facility] - PATHOLOGIST REVIEW Medical Cente r RETICULOCYTE COUNT 2020-01-30 02:22:[address] [facility] APTT 2020-01-30 02:[facility] & AUTO 2020-01-30 02:22:00 Jame Long [facility] CT CHEST WITH IV CONTRAST 2020-01-30 01:57:00 Jame Long [facility] CT ABDOMEN/PELVIS WITH IV 2020-01-30 01:10:00 Jame Long [facility] APTT 2020-01-29 20:05:00 Jame Long [facility] XR FOOT 3 VIEWS RIGHT 2020-01-29 14:58:00 MinhTroy padron [facility] CARCINOEMBRYONIC ANTIGEN 2020-01-29 12:00:00 Minhnereida [facility] Christen [facility] (CEA) [facility] CARBOHYDRATE ANTIGEN 19-9 2020-01-29 12:00:00 MinhTroy padron [facility] (CA 19-9) [facility] ALPHA FETOPROTEIN (AFP), 2020-01-29 12:00:00 [facility] TUMOR MARKER [facility] APTT 2020-01-29 12:00:00 [facility] THROMBIN TIME 2020-01-29 12:00:00 MinhTroy padron [facility] ECG 12-LEAD 2020-01-29 08:20:27 Adrián Davis [facility] APTT 2020-01-29 05:38:00 Jame Long [facility] MAGNESIUM 2020-01-29 05:12:00 [facility] BASIC METABOLIC PANEL (7) 2020-01-29 05:12:00 Ricardo Ayala [facility] CARDIOLIPIN ANTIBODIES, IGG 2020-01-29 05:12:00 [place], [facility] - AND IGM [facility] BETA-2 GLYCOPROTEIN 2020-01-29 05:12:00 [place], [facility] L ukes - ANTIBODIES [facility] PSA 2020-01-29 05:12:00 [place], [facility] JAK2 MUTATION ([id number]) 2020-01-29 05:12:00 [place], [facility]carmen [facility] [id number] I IGG 2020-01-29 05:12:00 Diana, [facility] I [facility] [id number] I IGM 2020-01-29 05:12:00 [place], [facility] I [facility] [id number] I IGA 2020-01-29 05:12:00 Diana, [facility] APTT 2020-01-28 22:16:00 Jame Long [facility] APTT 2020-01-28 16:33:00 [facility]/ CONTRAST LIMITED 2020-01-28 09:36:28 Jame Long [facility] APTT 2020-01-28 08:18:00 [facility] TROPONIN I 2020-01-28 08:15:00 [facility] MAGNESIUM 2020-01-28 01:45:00 Jamie, [facility] BASIC METABOLIC PANEL (7) 2020-01-28 01:45:00 Jamie [facility] APTT 2020-01-28 01:45:00 Jamie, [facility] TROPONIN I 2020-01-28 01:45:00 [facility] APTT 2020-01-27 18:21:00 Jamie, [facility] TROPONIN I 2020-01-27 18:21:[address] [facility] 2D ECHO W/ DOPPLER 2020-01-27 07:46:[address] [facility] (CW/PW/COLOR) [facility] TROPONIN I 2020-01-27 07:46:00 Jamie [facility] APTT 2020-01-27 07:46:00 [facility] CT BRAIN WITHOUT IV 2020-01-27 04:52:00 Ricardo Ayala [facility] APTT 2020-01-27 00:50:00 Jamie [facility] LIPID PANEL 2020-01-27 00:50:00 Jamie [facility] HEMOGLOBIN A1C 2020-01-27 00:50:00 Jamie [facility] MAGNESIUM 2020-01-27 00:50:00 Jamie [facility] PHOSPHORUS 2020-01-27 00:50:00 Jnui [facility] BASIC METABOLIC PANEL (7) 2020-01-27 00:50:00 [facility] CBC (HEMOGRAM ONLY) 2020-01-27 00:50:00 Juni [facility] TROPONIN I 2020-01-27 00:18:00 Jamie [facility] ABORH, MANUAL 2020-01-26 18:18:00 Sherine Jeffrey [facility] BASIC METABOLIC PANEL (7) 2020-01-26 17:54:00 Ricardo Ayala [facility] CBC W/PLT COUNT & AUTO 2020-01-26 17:54:00 Jamie [facility] HEMOGLOBIN A1C 2020-01-26 17:54:00 [facility] RPR 2020-01-26 17:54:00 Jamie [facility] HOMOCYSTEINE 2020-01-26 17:54:00 Jamie, [facility] TYPE AND SCREEN, AUTOMATED 2020-01-26 17:53:00 Ricardo Ayala [facility] APTT 2020-01-26 17:53:00 Jamie, [facility] Plan of Care Planned Activity Planned Date Details Comments Source Future Scheduled 2020-10-30 [facility] 00:00:00 (Season Ended) [code = Medic al Center INFLUENZA VACCINE (Season Ended)] Future Scheduled 2020-10-[address] [facility] 00:00:00 (Season Ended) [code = Medic al Center INFLUENZA VACCINE (Season Ended)] Future Scheduled 2020-10-[address] [facility] Test 00:00:00 (Season Ended) [code = Medic al Center INFLUENZA VACCINE (Season Ended)] Future Scheduled 2019-01-[address] [facility] - Test 00:00:00 WELLNESS (YEAR 2 or Medical Center FIRST YEAR if no IPPE) [code = MEDICARE ANNUAL WELLNESS (YEAR 2 or FIRST YEAR if no IPPE)] Future Scheduled 2019-01-[address] [facility] - Test 00:00:00 WELLNESS (YEAR 2 or Medical Center FIRST YEAR if no IPPE) [code = MEDICARE ANNUAL WELLNESS (YEAR 2 or FIRST YEAR if no IPPE)] Future Scheduled 2019-01-[address] [facility] - Test 00:00:00 WELLNESS (YEAR 2 or Medical Center FIRST YEAR if no IPPE) [code = MEDICARE ANNUAL WELLNESS (YEAR 2 or FIRST YEAR if no IPPE)] Future Scheduled 2018 PNEUMOCOCCAL 65+ YRS [facility] Test 00:00:00 (1 of 1 - Medical Center [id number] PCV13) [code = PNEUMOCOCCAL 65+ YRS (1 of 1 - [id number] PCV13)] Future Scheduled 2018 PNEUMOCOCCAL 65+ YRS [facility] - Test 00:00:00 (1 of 1 [facility] [id number] PCV13) [code = PNEUMOCOCCAL 65+ YRS (1 of 1 - [id number] PCV13)] Future Scheduled 2018 PNEUMOCOCCAL 65+ Y[facility] - Test 00:00:00 (1 of 1 - [facility] Center [id number] PCV13) [code = PNEUMOCOCCAL 65+ YRS (1 of 1 - [id number] PCV13)] Future Scheduled 2003 SHINGLES VACCINES ([address] [facility] Test 00:00:00 of 2) [code = SHINGLES Medic al Center VACCINES (1 of 2)] Future Scheduled 2003 SHINGLES VACCINES ([address] [facility] - Test 00:00:00 of 2) [code = SHINGLES Medic al Center VACCINES (1 of 2)] Future Scheduled 2003 SHINGLES VACCINES ([address] [facility] - Test 00:00:00 of 2) [code = SHINGLES Medic al Center VACCINES (1 of 2)] Future Scheduled 1972-02-21 DTAP/TDAP/TD [facility]ACCINES [facility] 00:00:00 (1 - Tdap) [code = Medical C enter DTAP/TDAP/TD VACCINES (1 - Tdap)] Future Scheduled 1972-02-21 DTAP/TDAP/TD [facility]ACCINES [facility] 00:00:00 (1 - Tdap) [code = Medical C enter DTAP/TDAP/TD VACCINES (1 - Tdap)] Future Scheduled 1972-02-21 DTAP/TDAP/TD VACCINES [facility] 00:00:00 (1 - Tdap) [code = Medical C enter DTAP/TDAP/TD VACCINES (1 - Tdap)] Future Scheduled 1971 HEPATITIS C [facility]CRE[facility]ING [facility] 00:00:00 [code = HEPATITIS C Medical Center SCREENING] Future Scheduled 1971 HEPATITIS C [facility]:00:00 [code = HEPATITIS C Medical Center SCREENING] Future Scheduled 1971 HEPATITIS C [facility] 00:[facility]:00 [code = HEPATITIS C Medical Center SCREENING] Future Scheduled [address] [facility] - Test 00:00:00 malignant neoplasm of Medica l Center colon (procedure) [code = 288174511] Future Scheduled [address] [facility] Test 00:00:00 malignant neoplasm of Medica l Center colon (procedure) [code = 083556437] Future Scheduled [address] [facility] - Test 00:00:00 malignant neoplasm of Medica l Center colon (procedure) [code = 480642015] Encounters Start End Encounter Admission Attending Care Care Encounter Source Date/Time Date/Time Type Type Clinicians Facility Department ID 2020-12-06 Inpatient ER SUELLEN, [facility] [id number] [facility] 18:00:11 MESHA 2020-10-22 Inpatient Tarsha, [facility] [id number] [facility] 10:00:00 [facility] [id number] [facility] 2020-10-14 Outpatient TARSHA, [facility] [id number] [place] 09:14:46 [facility] 2020-09-12 Outpatient TARSHA [facility] [id number] [place] 13:08:57 [facility] 2020-11-06 2020-11-06 Office Tarsha [facility] [id number] [place] 08:58:31 10:07:45 [facility] [id number] [facility] 2 [id number] 2020-10-31 2020-10-31 Telephone Shannan Gongora [facility] [id number] [place] 00:00:00 00:00:00 Shannan Gongora [facility] [id number] [facility] 2 [id number] 2020-10-24 2020-10-24 Outpatient GENEVIEVE Lara OUTD [id number] [facility] 05:40:00 05:40:00 [facility] [id number] [facility] 2020-10-10 2020-10-10 Office Tarsha [facility] [id number] 13:20:37 14:21:48 Visit Brianne MALAGON [id number] [facility] [id number] 2020-10-10 2020-10-10 Office Tarsha [facility] [id number] DC 13:20:37 14:21:48 Visit Brianne MALAGON [id number] [facility] [id number] 2020-05-09 2020-05-[address] [id number] 00:[facility] 00:00:00 colleen Fletcher [facility] 2020-05-09 2020-05-09 Documentat Raymundo [facility] [id number] 00:[facility] 00:00:00 colleen Vitale Justine [facility] 2020-03-19 2020-03-19 Outpatient KISHA DAVIS, [facility] [id number] SLE 00:00:00 00:00:00 ADRIÁN 2020-01-26 2020-01-31 Hospital Mesha Johnson [facility] [id number] [facility] 16:19:00 17:58:00 Encounter Jame Long, [facility] 2020-01-28 2020-01-28 Travel [facility] [id number] [facility] 00:00:00 00:00:00 [facility] Results Test Description Test Time Test Comments Results Result Comments Source ECG 12 lead 2020-11-06 14:16:00 Test Item Value Reference Range Interpretation Comme nts Lab Interpretation (test code = 74806-8) Normal [facility] 12 [id number] 14:16:00 Test Item Value Reference Range Interpretation Comments Lab Interpretation (test code = Normal 85095-5) [facility]- XR CHEST 1 [id number] 10:53:00 [facility] : 1955 Sex: M FAX: Brianne Abdi DO [phone] [place]: St: REG FAX: Faby Zamudio [phone] Name: ALISON PAN [facility] : 1955 Age/S: 65/M [address] [place] [address] Unit #: [id number] [place]: [place] [address] Phys: Faby Mckinney CERTIFIED PERSONAL TRAINER Acct: [id number] Dis Date: Status: REG [facility] PHONE #: [phone] Exam Date: 10/24/2020 1044 FAX #: [phone] Reason: Post PM/ICD EXAMS: CPT CODE: [id number] XR CHEST 1 V 16370 CHEST RADIOGRAPH ONE VIEW 10/24/2020 AT 0947 HOURS. CLINICAL HISTORY: Post ICD insertio n. COMPARISON STUDIES: Chest 2 views 10/22/2020. FINDINGS: One viewof the chest was obtained. No visible complication is seen after insertion of a left multileadAICD battery. The cardiac silhouette is enlarged accounting for magnification with central pulmonary vascular congestion. No james edema or dense lobar consolidation. No destructive bone lesions. No pleural effusion or pneumothorax. IMPRESSION: 1. No visible complication post left multilead ICD insertion. 2. Enlarged cardiac silhouette with moderate central pulmonary vascular congestion. SL: [id number] Reported and signed by: Jacob Amato M.D. CC: Brianne Abdi DO; Faby Mckinney NP Technologist: RT Ramos(R) Trnscrd Date/Time/By: 10/24/2020 (6528) : By: [email or web address] Orig Print D/T:S: 10/24/2020 (8163) PAGE 1 Signed ReportBASIC METABOLIC [id number] 12:35:00 Test Item Value Reference Range Interpretation Comments SODIUM (test code = NA) 142 mEq/L 134-147 N POTASSIUM (test code = 5.0 mEq/L 3.4-5.0 N K) CHLORIDE (test code = 108 mEq/L 100-108 N CL) CARBON DIOXIDE (test 27 mEq/l 21-33 N code = CO2) ANION GAP (test code = 12 0-20 N GAP) GLUCOSE (test code = 111 mg/dL 70-110 H GLU) BLOOD UREA NITROGEN 40 mg/dL 7-18 H (test code = BUN) GLOMERULAR FILTRATION 27.1 80-90 L Units of measure = RATE (test code = GFR) ml/mi n/1.73 m2 CREATININE (test code = 2.4 mg/dL 0.6-1.3 H CREAT) CALCIUM (test code = 10.3 mg/dL 8.0-10.5 N CA) PROTHROMBIN [id number] 12:26:00 Test Item Value Reference Range Interpretation Comments PROTHROMBIN TIME 15.0 SECONDS 9.3-12.9 H PATIENT (test code = PTP) INTERNATIONAL NORMAL 1.4 0.8-1.2 H TARGET RATIO (test code = INR BY IN DICATION INR) Indication INR1. Prophyl axis of venous thrombos is 2.0 - 3. 0 (orthopedic genie vanesa), Prophylaxis of venous thrombos is (other than hig h-risk surgery), Belén tment of Deep Vein Thrombosis/Pulm onary Embolism, Preve ntion of systemic emb olism - Tissue heart va lves, Acute Myocardia l Infarction (to prevent systemic embo lism), Valvular heart disease, Atri al Fibrillation, Bileaflet mecha nical valve in aortic position.2. Mec hanical prosthetic valv es (high risk), 2.5 - 3.5 Presence of Lupus Anticoagu lant or Antiphospholi pid Antibodies, Pre vention of systemic e mbolism - Acute Myocard ial Infarction (t o prevent recurre nt infarct). CBC W/AUTO [id number] 12:14:00 Test Item Value Reference Range Interpretation Comments WHITE BLOOD CELL (test code = 7.0 x10 3/uL 4.5-11.0 N WBC) RED BLOOD CELL (test code = 4.21 x10 6/uL 4.00-5.60 N RBC) HEMOGLOBIN (test code = HGB) 13.5 g/dL 12.5-16.9 N HEMATOCRIT (test code = HCT) 41.2 % 37.5-50.7 N MEAN CELL VOLUME (test code = 97.9 fL 81.0-99.0 N MCV) MEAN CELL HGB (test code = MCH) 32.1 pg 27.0-33.0 N MEAN CELL HGB CONCETRATION 32.8 g/dL 33.0-37.0 L (test code = MCHC) RED CELL DISTRIBUTION WIDTH CV 12.3 % 11.5-14.5 N (test code = RDW) RED CELL DISTRIBUTION WIDTH SD 44.4 fL 37.0-54.0 N (test code = RDW-SD) PLATELET COUNT (test code = 158 x10 3/uL 150-400 N PLT) MEAN PLATELET VOLUME (test code 12.3 fL 7.0-9.0 H = MPV) NEUTROPHIL % (test code = NT%) 63.2 % 56.0-77.0 N IMMATURE GRANULOCYTE % (test 1.0 % 0.0-2.0 N code = IG%) LYMPHOCYTE % (test code = LY%) 24.6 % 14.0-32.0 N MONOCYTE % (test code = MO%) 9.4 % 4.8-9.0 H EOSINOPHIL % (test code = EO%) 1.2 % 0.3-3.7 N BASOPHIL % (test code = BA%) 0.6 % 0.0-2.0 N NUCLEATED RBC % (test code = 0.0 % 0-0 N NRBC%) NEUTROPHIL # (test code = NT#) 4.40 x10 3/uL 2.0-7.6 N IMMATURE GRANULOCYTE # (test 0.07 x10 3/uL 0.00-0.03 H code = IG#) LYMPHOCYTE # (test code = LY#) 1.71 x10 3/uL 1.0-3.8 N MONOCYTE # (test code = MO#) 0.65 x10 3/uL 0.1-0.8 N EOSINOPHIL # (test code = EO#) 0.08 x10 3/uL 0.0-0.2 N BASOPHIL # (test code = BA#) 0.04 x10 3/uL 0.0-0.2 N NUCLEATED RBC # (test code = 0.00 x10 3/uL 0.0-0.1 N NRBC#) MANUAL DIFF REQUIRED (test code NO = MDIFF) CBC W/AUTO [id number] 12:13:00 Test Item Value Reference Range Interpretation Comments WHITE BLOOD CELL (test code = x10 3/uL 4.5-11.0 WBC) RED BLOOD CELL (test code = RBC) x10 6/uL 4.00-5.60 HEMOGLOBIN (test code = HGB) 13.5 g/dL 12.5-16.9 N HEMATOCRIT (test code = HCT) 41.2 % 37.5-50.7 N MEAN CELL VOLUME (test code = fL 81.0-99.0 MCV) MEAN CELL HGB (test code = MCH) pg 27.0-33.0 MEAN CELL HGB CONCETRATION (test g/dL 33.0-37.0 code = MCHC) RED CELL DISTRIBUTION WIDTH CV % 11.5-14.5 (test code = RDW) PLATELET COUNT (test code = PLT) 158 x10 3/uL 150-400 N NEUTROPHIL % (test code = NT%) % 56.0-77.0 LYMPHOCYTE % (test code = LY%) % 14.0-32.0 NEUTROPHIL # (test code = NT#) x10 3/uL 2.0-7.6 LYMPHOCYTE # (test code = LY#) x10 3/uL 1.0-3.8 MANUAL DIFF REQUIRED (test code = MDIFF) - XR CHEST 2 [id number] 00:00:00 [facility] : 1955 Sex: M FAX: Brianne Abdi DO [phone] [place]: St: PRE FAX: Camryn Sylvester Name: ALISON PAN [facility] [place] : 1955 Age/S: 65/M [address] [place] [address] Unit #: [id number] Loc: [place] [address] Phys: Camryn Sylvester CERTIFIED PERSONAL TRAINER Acct: [id number] Dis Date: Status: PRE SDC PHONE #: [phone] Exam Date: 10/22/2020 1252 FAX #: [phone] Reason: PREOP EXAMS: CPT CODE: [id number] XR CHEST 2 V 34708 PROCEDURE INFORMATION: Exam: XR Chest Exam date and time: 10/22/2020 12:28 PM Age: 65 years old Clinical indication: Pre-operative exam; Respiratory screening exam; Additional info: Preop TECHNIQUE: Imaging protocol: XR of the chest. Views: 2 views. PA and Lateral COMPARISON: No relevant prior studies available. FINDINGS: Lungs: Mild pulmonary hyperinflation versus good inspiratory effort. No pulmonary edema or consolidation. Pleural spaces: No pleural effusion. No pneumothorax. Heart/Mediastinum: Top normal size cardiac silhouette accounting for magnification. Bones/joints: No destructive bone lesions. Mild smooth thoracic kyphosis with mild multilevel mid and upper thoracic degenerative disc disease. IMPRESSION: 1. No pulmonary edema or consolidation. 2. Hyperinflation versus good inspiratory effort. 3. Top normal size cardiacsilhouette. at 1412 Reported and signed by: Kimmy Weinstein CC: Brianne Abdi DO; Camryn Sylvester NP Technologist: RT Jose Ramon(Dylan) Trnwendi Date/Time/By: 10/22/2020 (1411) : By: [email or web address] Orig Print D/T: S: 10/22/2020 (1412) PAGE 1 Signed ReportJAK2 MUTATION (V617F) [id number] 19:13:00 Test Item Value Reference Interpretation Comments Range CLINICAL NOT GIVEN INDICATION ([facility]) (test code = 9782870) SPECIMEN SOURCE: NOT GIVEN (test code = 9497357) Block/Specimen ID NOT GIVEN (test code = 4644318) JAK2 V617F NOT DETECTED NOT DETECTED Mutation (QUEST) (test code = 7515914) GENE (test code = DNR 6652546) AMINO ACID (test DNR code = 9688618) MUTATIONS/POLYMORP DNR HISMS (test code = 6822515) Mutation Analysis DNR (test code = 0957749) Exons 10,11,13-16 DNR (test code = 5277285) NUCLEOTIDE CHANGE DNR (test code = 4420286) References: (test DNR code = 0116866) INTERPRETATION SEE BELOW A JAK2 V617 F mutation (QUEST) (test code is not de tected. This = 5255459) data was review ed and interpreted by Miguel Angel Sloan, PhD. HCLD(A BB) ASSAY DETAILS SEE BELOW This PCR-based advanced (test code = sequencing assa y 8300194) interrogates DN A from leukocytes fort he presence of mut ations in codon 617 of JA K2. The sensitivity of mutationdetecti on is 5%. Alterations out side of the tested area s of this gene willnot be detected. Synonymous or k nown non-synonymous polymorphic siri nges(SNPs) are not reporte d. JAK2 V617F mutation is associated withmyeloprolif erative neoplasms (MPNs ), including polyc ythemia vera (PV),essen tial thrombocythemia (ET) and primary myelofi brosis (PMF), and a sm allsubset of other myeloi d neoplasms. Incr easing allele burden o f JAK2 V617F inMPNs hamilton s been shown in a numb er of studies to be a ssociated with increaseds ymptoms including pruri tis, splenomegaly, a nd leukocytosis. R esults of thisassay shoul d be correlated with morphology and other laboratory test ing forfinal diagno sis and classification. If this test is negativ e, additionaltesti ng that may be useful f or workup of MPNs, depend ing on presentinghemat ologic features, inclu vinny BCR-ABL1 rearra ngement (test code 9106 5 [id number]) or mu tational analysis of CARLITOS R (ET/PMF, 12807), JAK2 ex on 12 (PV,14862), MPL (ET/PMF, 41853) or CSF3R (chronic neutrophilic le ukemia, 76616).Residual material from this sampl e may be used except for BCR-ABL1 testing;call la kiya to add. DNA was aligned to GRCh37(hg19) fo r analysis and transcript [id number] was used as referen ce for JAK2 sequence. For additional info rmation, please refer tohttp://educat ion.[employer]/ faq/OXT782 (This link is b eing provided for informational/e ducational purposes only.) This test was developed a nd its analytical perf ormance characteristics havebeen determined by [facility].It h as not been cleared or approved by FDA. This as say has been validatedp ursuant to the CLIA regula tions and is used for cli nical purposes. CARO (test code = Performing Lab CARO) [facility] [address] [place] [address] Waleska Spencer MD, PhD, COREY [facility] Hospital[facility]2 MUTATION (V617F) [id number] 19:13:00 Test Item Value Reference Interpretation Comments Range CLINICAL NOT GIVEN INDICATION ([facility]) (test code = 8471885) SPECIMEN SOURCE: NOT GIVEN (test code = 4127266) Block/Specimen ID NOT GIVEN (test code = 5233962) JAK2 V617F NOT DETECTED NOT DETECTED Mutation (QUEST) (test code = 0737892) GENE (test code = DNR 8227505) AMINO ACID (test DNR code = 9457337) MUTATIONS/POLYMORP DNR HISMS (test code = 2134784) Mutation Analysis DNR (test code = 0904536) Exons 10,11,13-16 DNR (test code = 1293309) NUCLEOTIDE CHANGE DNR (test code = 9190633) References: (test DNR code = 2313757) INTERPRETATION SEE BELOW A JAK2 V617 F mutation (QUEST) (test code is not de tected. This = 0250728) data was review ed and interpreted by Miguel Angel Sloan, PhD. HCLD(A BB) ASSAY DETAILS SEE BELOW This PCR-based advanced (test code = sequencing dusty y 9970009) interrogates DN A from leukocytes fort he presence of mut ations in codon 617 of JA K2. The sensitivity of mutationdetecti on is 5%. Alterations out side of the tested area s of this gene willnot be detected. Synonymous or k nown non-synonymous polymorphic siri nges(SNPs) are not reporte d. JAK2 V617F mutation is associated withmyeloprolif erative neoplasms (MPNs ), including polyc ythemia vera (PV),essen tial thrombocythemia (ET) and primary myelofi brosis (PMF), and a sm allsubset of other myeloi d neoplasms. Incr easing allele burden o f JAK2 V617F inMPNs hamilton s been shown in a numb er of studies to be a ssociated with increaseds ymptoms including pruri tis, splenomegaly, a nd leukocytosis. R esults of thisassay shoul d be correlated with morphology and other laboratory test ing forfinal diagno sis and classification. If this test is negativ e, additionaltesti ng that may be useful f or workup of MPNs, depend ing on presentinghemat ologic features, inclu vinny BCR-ABL1 rearra ngement (test code 9106 5 bi16283V) or mu tational analysis of CARLITOS R (ET/PMF, 54077), JAK2 ex on 12 (PV,93297), MPL (ET/PMF, 03400) or CSF3R (chronic neutrophilic le ukemia, 73687).Residual material from this sampl e may be used except for BCR-ABL1 testing;call la b to add. DNA was aligned to GRCh37(hg19) fo r analysis and transcript [id number] was used as referen ce for JAK2 sequence. For additional info rmation, please refer tohttp://educat ion.[employer]/ faq/GXO600 (This link is b eing provided for informational/e ducational purposes only.) This test was developed a nd its analytical perf ormance characteristics havebeen determined by [facility].It h as not been cleared or approved by FDA. This as say has been validatedp ursuant to the CLIA regula tions and is used for cli nical purposes. CARO (test code = Performing Lab CARO) [email or web address] [address] [place] [address] Waleska Spencer MD, PhD, COREY [facility] HospitalJAK2 MUTATION (V617F) [id number] 19:13:00 Test Item Value Reference Interpretation Comments Range CLINICAL NOT GIVEN INDICATION ([facility]) (test code = 8003404) SPECIMEN SOURCE: NOT GIVEN (test code = 1244559) Block/Specimen ID NOT GIVEN (test code = 0616648) JAK2 V617F NOT DETECTED NOT DETECTED Mutation (QUEST) (test code = 4432531) GENE (test code = DNR 8257927) AMINO ACID (test DNR code = 3269483) MUTATIONS/POLYMORP DNR HISMS (test code = 2123308) Mutation Analysis DNR (test code = 1572642) Exons 10,11,13-16 DNR (test code = 9413371) NUCLEOTIDE CHANGE DNR (test code = 5522368) References: (test DNR code = 4590598) INTERPRETATION SEE BELOW A JAK2 V617 F mutation (QUEST) (test code is not de tected. This = 2309704) data was review ed and interpreted by Miguel Angel Sloan, PhD. HCLD(Christen BB) ASSAY DETAILS SEE BELOW This PCR-based advanced (test code = sequencing assa y 6956198) interrogates DN A from leukocytes fort he presence of mut ations in codon 617 of JA K2. The sensitivity of mutationdetecti on is 5%. Alterations out side of the tested area s of this gene willnot be detected. Synonymous or k nown non-synonymous polymorphic siri nges(SNPs) are not reporte d. JAK2 V617F mutation is associated withmyeloprolif erative neoplasms (MPNs ), including polyc ythemia vera (PV),essen tial thrombocythemia (ET) and primary myelofi brosis (PMF), and a sm allsubset of other myeloi d neoplasms. Incr easing allele burden o f JAK2 V617F inMPNs hamilton s been shown in a numb er of studies to be a ssociated with increaseds ymptoms including pruri tis, splenomegaly, a nd leukocytosis. R esults of thisassay shoul d be correlated with morphology and other laboratory test ing forfinal diagno sis and classification. If this test is negativ e, additionaltesti ng that may be useful f or workup of MPNs, depend ing on presentinghemat ologic features, inclu vinny BCR-ABL1 rearra ngement (test code 9106 5 wj07281N) or mu tational analysis of CARLITOS R (ET/PMF, 02041), JAK2 ex on 12 (PV,81958), MPL (ET/PMF, 09257) or CSF3R (chronic neutrophilic le ukemia, 78977).Residual material from this sampl e may be used except for BCR-ABL1 testing;call la b to add. DNA was aligned to GRCh37(hg19) fo r analysis and transcript [id number] was used as referen ce for JAK2 sequence. For additional info rmation, please refer tohttp://educat ion.[employer]/ faq/HGM370 (This link is b eing provided for informational/e ducational purposes only.) This test was developed a nd its analytical perf ormance characteristics havebeen determined by [facility].It h as not been cleared or approved by FDA. This as say has been validatedp ursuant to the CLIA regula tions and is used for cli nical purposes. CARO (test code = Performing Lab CARO) [facility] [address] [place] [address] Waleska Spencer MD, PhD, COREY [facility] HospitalBeta-2 glycoprotein [id number] 06:00:00 Test Item Value Reference Range Interpretation Comments B2 Glcoprotein Ab Refer to individual Profile (test code = B2-Glycoprotein IgG, 2557) IgM and IgA results. [facility] Hospital[facility]-2 glycoprotein [id number] 06:00:00 Test Item Value Reference Range Interpretation Comments B2 Glcoprotein Ab Refer to individual Profile (test code = B2-Glycoprotein IgG, 2557) IgM and IgA results. [facility] Hospital[facility]2 glycoprotein [id number] 06:00:00 Test Item Value Reference Range Interpretation Comments B2 Glcoprotein Ab Refer to individual Profile (test code = B2-Glycoprotein IgG, 2557) IgM and IgA results. [facility] HospitalCarbohydrate antigen 19-9 (CA 19-9)2020-02-01 14:58:00 Test Item Value Reference Range Interpretation Comments CA 19-9 8 U/mL <34 This test was (test code = performed using the 42045-3) Siemens Chemiluminescen t method.Values o btained from different assay methods cannot be used interchangeably .CA19-9 levels, regardl ess of value, should n ot be interpreted as absoluteevidenc e of the presence or abs ence of disease. CARO (test Performing Lab code = CARO) [facility] [address] [place] [address] Waleska Spencer MD, PhD, COREY [facility] HospitalCarbohydrate antigen 19-9 (CA 19-9)2020-02-01 14:58:00 Test Item Value Reference Range Interpretation Comments CA 19-9 8 U/mL <34 This test was (test code = performed using the 91067-5) Siemens Chemiluminescen t method.Values o btained from different assay methods cannot be used interchangeably .CA19-9 levels, regardl ess of value, should n ot be interpreted as absoluteevidenc e of the presence or abs ence of disease. CARO (test Performing Lab code = CARO) [facility] [address] [place] [address] Waleska Spencer MD, PhD, COREY [facility] HospitalCarbohydrate antigen 19-9 (CA 19-9)2020-02-01 14:58:00 Test Item Value Reference Range Interpretation Comments CA 19-9 8 U/mL <34 This test was (test code = performed using the 01548-5) Siemens Chemiluminescen t method.Values o btained from different assay methods cannot be used interchangeably .CA19-9 levels, regardl ess of value, should n ot be interpreted as absoluteevidenc e of the presence or abs ence of disease. CARO (test Performing Lab code = CARO) [employer] [facility] [address] [place] [address] Waleska Spencer MD, PhD, COREY [facility]-PCR (Asymptomatic ONLY)2020-01-31 21:23:00 Test Item Value Reference Range Interpretation Comments SARS-COV2/RT-PCR Negative Not Detected, (test code = Negative, See 84712-7) external report for linked test SARS-COV-2 [facility] (test code = 60074-1) CARO (test code = Negative result for [...] of the Act. Fact Sheet for Healthcare Providers:https://www.[employer]/sites/default/f jose/product/documents/F act_Sheet_HC_Providers_L smy_OKAX-FkQ-5.pdf Fact Sheet for Healthcare Patients:https://www.callum del.com/sites/default/fi les/product/documents/Fa ct_Sheet_Patients_Ly_S ARS-CoV-2.pdf Performing Laboratory:[facility] [place] [address] [facility]ARS-CoV[facility]/RT-PCR (Asymptomatic ONLY)2020-01-31 21:23:00 Test Item Value Reference Range Interpretation Comments SARS-COV2/RT-PCR Negative Not Detected, (test code = Negative, See 32156-7) external report for linked test SARS-COV-2 [facility] (test code = 17865-7) CARO (test code = Negative result for [...] of the Act. Fact Sheet for Healthcare Providers:https://www.[employer]/sites/default/f jose/product/documents/F act_Sheet_HC_Providers_L nbr_FCQH-NuE-9.pdf Fact Sheet for Healthcare Patients:https://www.[employer]/sites/default/fi les/product/documents/Fa ct_Sheet_Patients_Ly_S ARS-CoV-2.pdf Performing Laboratory:[facility] [place] [address] [facility]ARS[facility]/RT-PCR (Asymptomatic ONLY)2020-01-31 21:23:00 Test Item Value Reference Range Interpretation Comments SARS-COV2/RT-PCR Negative Not Detected, (test code = Negative, See 30257-7) external report for linked test SARS-COV-2 [facility] (test code = 06680-6) CARO (test code = Negative result for [...] of the Act. Fact Sheet for Healthcare Providers:https://www.[employer]/sites/default/f jose/product/documents/F act_Sheet_HC_Providers_L haf_AKAK-BpX-3.pdf Fact Sheet for Healthcare Patients:https://www.[employer]/sites/default/fi les/product/documents/Fa ct_Sheet_Patients_Lyra_S ARS-CoV-2.pdf Performing Laboratory:[facility] [place] [address] [facility]ARS-[facility]OV2/[facility]-PCR ([facility])2020-01-31 21:23:00 Test Item Value Reference Range Interpretation Comments SARS-COV2/RT-PCR (test Negative Not Detected, Negative, code = 1505987) See external report for linked test SARS-COV-2 PERFORMING LAB [facility] (test code = 5876467) Negative result for this test determines that [...] 564(g) of the Act.Fact Sheet for Healthcare Providers:https://www.[employer]/sites/default/files/product/documents/Fact_Shee x_RB_Oluztcivh_Tbuc_FOAF-ApE-3.pdfFact Sheet for Healthcare Patients:https://www.[employer]/sites/default/files/product/ documents/Jvki_Azrdp_Fjmqgnyz_Tlzt_KDXJ-FiL-1.pdfPerforming Laboratory:[facility], [place] [address]YRZ 12 [id number] 21:22:53Interface, External Ris In 01/31/2020 9:22 PM CSTVentricular Rate 92 BPMAtrial Rate 92 BPMP-R Interval 130 msQRS Duration 152 msQ-T Interval 422 msQTC Calculation(Bazett) 521 msP Gardner 65 degreesR Gardner 45 degreesT Gardner 67 degreesNormal sinus rhythmNon-specific intra-ventricular conduction delayAbnorm al ECGWhen compared with ECG of 30-JAN-2020 08:14,T wave inversion no longer evident in Inferior leadsConfirmed by MD Lay Roberto ([id number]) on 01/31/2020 9:22:50 [facility] 12 [id number] 21:22:53 Interface, External Ris In 01/31/2020 9:22 PM CSTVentricular Rate 92 BPMAtrial Rate 92 BPMP-R Interval 130 msQRS Duration 152 msQ-T Interval 422 msQTC Calculation(Bazett) 521 msP Gardner 65 degreesR Gardner 45 degreesT Gardner 67 degreesNormal sinus rhythmNon-specific intra-ventricular conduction delayAbnorm al ECGWhen compared with ECG of 30-JAN-2020 08:14,T wave inversion no longer evident in Inferior leadsConfirmed by MD Lay Roberto ([id number]) on 01/31/2020 9:22:50 [facility] 12 [id number] 21:22:53 Interface, External Ris In - 01/31/2020 9:22 PM CSTVentricular Rate 92 BPMAtrial Rate 92 BPMP-R Interval 130 msQRS Duration 152 msQ-T Interval 422 msQTC Calculation(Varun) 521 msP Gardner 65 degreesR Gardner 45 degreesT Gardner 67 degreesNormal sinus rhythmNon-specific intra-ventricular conduction delayAbnorm al ECGWhen compared with ECG of 30-JAN-2020 08:14,T wave inversion no longer evident in Inferior leadsConfirmed by MD Lay Roberto ([id number]) on 01/31/2020 9:22:50 [facility]-Glycoprotein I IgG 2020-01-31 11:35:00 Test Item Value Reference Range Interpretation Comments Beta-2 Glycoprotein <9 See_Comment [Automa wilner I Ab, IgG (test message] The code = 55247-6) system which generated this result transmitted reference range : < OR = 20 SGU. The reference range was not used to interpr et this result as normal/abnormal . CARO (test code = Performing Lab CARO) [facility] [employer] [address] [place] [address] Waleska Spencer MD, PhD, COREY [facility] HospitalBeta-2-Glycoprotein I [id number] 11:35:00 Test Item Value Reference Range Interpretation Comments Beta-2 Glycoprotein <9 See_Comment [Automa wilner I Ab, IgM (test message] The code = 99315-8) system which generated this result transmitted reference range : < OR = 20 SMU. The reference range was not used to interpr et this result as normal/abnormal . CARO (test code = Performing Lab CARO) [facility] [employer] [address] [place] [address] Waleska Spencer MD, PhD, COREY [facility] HospitalBeta-2-Glycoprotein I [id number] 11:35:00 Test Item Value Reference Interpretation Comments Range Beta-2 <9 See_Comment The antiphospho lipid antibody Glycoprotein I syndrome (APS ) roberta Ab, IgA (test clinical-patho logic code = 58807-3) correlation that includesa clinical event (e.g. thrombosis, pre gnancyloss, thrombocytopeni a) and persistent positiveantipho spholipid antibodies (IgM or IgG COCO>40 MPL/GPL,IgM or IgG anti-b2GPI antibodies ora lupus anticoagulant). International consensusguidel gilberto for APS suggest waiting at least 12weeks before retesting to confirm antibod ypersistence. [facility] immunologicalcl assification criteria for [facility] lupuserythemato duke (SLE) include testing for isotypeIgA, whi ch has yet to be incorporated into APScriteria. Lo w level antiphospholipi d antibodiesmay s ometimes be detected in the setting ofinfection, dr ug therapy or aging. [Automat ed message] The system Astley Clarke generated this result tra nsmitted reference range : < OR = 20 CHANDRIKA. The refere nce range was not used to int erpret this result as suly l/abnormal. CARO (test code Performing Lab = CARO) [employer] [address] [place] [address] Waleska Spencer MD, PhD, COREY [facility]-Glycoprotein I [id number] 11:35:00 Test Item Value Reference Range Interpretation Comments Beta-2 Glycoprotein <9 See_Comment [Automa wilner I Ab, IgG (test message] The code = 67848-2) system which generated this result transmitted reference range : < OR = 20 SGU. The reference range was not used to interpr et this result as normal/abnormal . CARO (test code = Performing Lab CARO) [employer] [address] [place] [address] Waleska Spencer MD, PhD, COREY [facility]-Glycoprotein I [id number] 11:35:00 Test Item Value Reference Range Interpretation Comments Beta-2 Glycoprotein <9 See_Comment [Automa wilner I Ab, IgM (test message] The code = 32955-8) system which generated this result transmitted reference range : < OR = 20 SMU. The reference range was not used to interpr et this result as normal/abnormal . CARO (test code = Performing Lab CARO) [employer] [address] [place] [address] Waleska Spencer MD, PhD, COREY [facility] HospitalBeta-2-Glycoprotein I [id number] 11:35:00 Test Item Value Reference Interpretation Comments Range Beta-2 <9 See_Comment The antiphospho lipid antibody Glycoprotein I syndrome (APS ) roberta Ab, IgA (test clinical-patho logic code = 67630-3) correlation that includesa clinical event (e.g. thrombosis, pre gnancyloss, thrombocytopeni a) and persistent positiveantipho spholipid antibodies (IgM or IgG COCO>40 MPL/GPL,IgM or IgG anti-b2GPI antibodies ora lupus anticoagulant). International consensusguidel gilberto for APS suggest waiting at least 12weeks before retesting to confirm antibod ypersistence. [facility] immunologicalcl assification criteria for [facility] lupus[facility]themato [facility] (SLE) include testing for isotypeIgA, whi ch has yet to be incorporated into APScriteria. Lo w level antiphospholipi d antibodiesmay s ometimes be detected in the setting ofinfection, dr ug therapy or aging. [Automat ed message] The system Astley Clarke generated this result tra nsmitted reference range : < OR = 20 CHANDRIKA. The refere nce range was not used to int erpret this result as suly l/abnormal. CARO (test code Performing Lab = CARO) [employer] [facility] [address] [place] [address] Waleska Spencer MD, PhD, COREY [facility] HospitalBeta-2-Glycoprotein I [id number] 11:35:00 Test Item Value Reference Range Interpretation Comments Beta-2 Glycoprotein <9 See_Comment [Automa wilner I Ab, IgG (test message] The code = 29777-6) system which generated this result transmitted reference range : < OR = 20 SGU. The reference range was not used to interpr et this result as normal/abnormal . CARO (test code = Performing Lab CARO) [employer] [facility] [address] [place] [address] Waleska Spencer MD, PhD, COREY [facility] FlezdzFyrc-1-Zibhvfcjmhff I [id number] 11:35:00 Test Item Value Reference Range Interpretation Comments Beta-2 Glycoprotein <9 See_Comment [Automa wilner I Ab, IgM (test message] The code = 56222-8) system which generated this result transmitted reference range : < OR = 20 SMU. The reference range was not used to interpr et this result as normal/abnormal . CARO (test code = Performing Lab CARO) [employer] [address] [place] [address] Waleska Spencer MD, PhD, COREY [facility] Hospital[facility]-2-Glycoprotein I [id number] 11:35:00 Test Item Value Reference Interpretation Comments Range Beta-2 <9 See_Comment The antiphospho lipid antibody Glycoprotein I syndrome (APS ) roberta Ab, IgA (test clinical-patho logic code = 51439-3) correlation that includesa clinical event (e.g. thrombosis, pre gnancyloss, thrombocytopeni a) and persistent positiveantipho spholipid antibodies (IgM or IgG COCO>40 MPL/GPL,IgM or IgG anti-b2GPI antibodies ora lupus anticoagulant). International consensusguidel gilberto for APS suggest waiting at least 12weeks before retesting to confirm antibod ypersistence. [facility] immunologicalcl assification criteria for [facility] lupuserythemato duke (SLE) include testing for isotypeIgA, whi ch has yet to be incorporated into APScriteria. Lo w level antiphospholipi d antibodiesmay s ometimes be detected in the setting ofinfection, dr ug therapy or aging. [Automat ed message] The system whic h generated this result tra nsmitted reference range : < OR = 20 CHANDRIKA. The refere nce range was not used to int erpret this result as suly l/abnormal. CARO (test code Performing Lab = CARO) [employer] [address] [place] [address] Waleska Spencer MD, PhD, COREY [facility] HospitalBasi Metabolic [id number] 06:30:00 Test Item Value Reference Range Interpretation Comments Sodium (test code = 139 meq/L 757-287 0748-2) Potassium (test code = 4.1 meq/L 3.5-5.1 2823-3) Chloride (test code = 106 meq/L 98-107 2075-0) CO2 (test code = 21 meq/L 22-29 L 2027-9) BUN (test code = 18 mg/dL 7-21 3094-0) Creatinine (test code 1.47 mg/dL 0.57-1.25 H = 2160-0) Glucose (test code = 108 mg/dL 70-105 H 2345-7) Calcium (test code = 9.2 mg/dL 8.4-10.2 29397-3) EGFR (test code = 48 mL/min/1.73 [place] [address]-4) NOT ACCURATE CREATININE CLEARANCE IN PREDICTING GLOMERULAR FILTRATION RATE . ESTIMATED GFR I S NOT APPLICABLE FOR DIALYSIS PATIENTS. CARO (test code = CARO) Ultrasound Specialist ID - EDASI Lab Interpretation Abnormal (test code = 15291-1) [facility] 06:30:00 Test Item Value Reference Range Interpretation Comments Magnesium (test code = 1.9 mg/dL 1.6-2.6 60206-1) CARO (test code = CARO) Ultrasound Specialist ID - EDASI Lab Interpretation (test Normal code = 69686-4) [facility] HospitalBasic Metabolic [id number] 06:30:00 Test Item Value Reference Range Interpretation Comments Sodium (test code = 139 meq/L 221-742 3397-2) Potassium (test code = 4.1 meq/L 3.5-5.1 2823-3) Chloride (test code = 106 meq/L 98-107 2075-0) CO2 (test code = 21 meq/L 22-29 L 2027-9) BUN (test code = 18 mg/dL 7- 3094-0) Creatinine (test code 1.47 mg/dL 0.57-1.25 H = 2160-0) Glucose (test code = 108 mg/dL 70-105 H 2345-7) Calcium (test code = 9.2 mg/dL 8.4-10.2 77294-6) EGFR (test code = 48 mL/min/1.[place] [address]-0) NOT ACCURATE CREATININE CLEARANCE IN PREDICTING GLOMERULAR FILTRATION RATE . ESTIMATED GFR I S NOT APPLICABLE FOR DIALYSIS PATIENTS. CARO (test code = CARO) Ultrasound Specialist ID - EDASI Lab Interpretation Abnormal (test code = 28340-6) [facility]2020-12-02 06:30:00 Test Item Value Reference Range Interpretation Comments Magnesium (test code = 1.9 mg/dL 1.6-2.6 24242-6) CARO (test code = CARO) Ultrasound Specialist ID - EDASI Lab Interpretation (test Normal code = 73485-9) [facility] Metabolic [id number] 06:30:00 Test Item Value Reference Range Interpretation Comments Sodium (test code = 139 meq/L 496-440 6619-2) Potassium (test code = 4.1 meq/L 3.5-5.1 2823-3) Chloride (test code = 106 meq/L 98-107 2075-0) CO2 (test code = 21 meq/L 22-29 L 2028-9) BUN (test code = 18 mg/dL 7-21 3094-0) Creatinine (test code 1.47 mg/dL 0.57-1.25 H = 2160-0) Glucose (test code = 108 mg/dL 70-105 H 2345-7) Calcium (test code = 9.2 mg/dL 8.4-10.2 25902-3) EGFR (test code = 48 mL/min/1.[place] [address]-2) NOT ACCURATE CREATININE CLEARANCE IN PREDICTING GLOMERULAR FILTRATION RATE . ESTIMATED GFR I S NOT APPLICABLE FOR DIALYSIS PATIENTS. CARO (test code = CARO) Ultrasound Specialist ID - EDASI Lab Interpretation Abnormal (test code = 44323-5) [facility]2020-12-02 06:30:00 Test Item Value Reference Range Interpretation Comments Magnesium (test code = 1.9 mg/dL 1.6-2.6 12207-3) CARO (test code = CARO) Ultrasound Specialist ID - EDASI Lab Interpretation (test Normal code = 69605-1) [facility] METABOLIC [id number] 06:30:00 Test Item Value Reference Range Interpretation [...] 697) EGFR (BEAKER) (test 48 mL/min/1.73 ESTIMA WILNER GFR IS code = 1092) sq m NOT ACCURATE CREATININE CLEARANCE IN PREDICTING GLOMERULAR FILTRATION RATE . ESTIMATED GFR I S NOT APPLICABLE FOR DIALYSIS PATIEN TS. Ultrasound Specialist ID - [id number] 06:30:00 Test Item Value Reference Range Interpretation Comments MAGNESIUM (BEAKER) (test code = 1.9 mg/dL 1.6-2.6 627) Ultrasound Specialist ID - EDASIPT/[id number] 05:05:00 Test Item Value Reference Interpretation Comments Range Protime (test code = 13.1 See_Comment [Autom ated 8482-2) message] The system which generated this result transmitted reference range : 11.9 - 14.2 seconds. The reference range was not used to interpret this result as normal/abnormal . INR (test code = 1.03 See_Comment [Automated 2441-6) message] The system which generated this result transmitted reference range : <=5.90. The reference range was not used to interpret this result as normal/abnormal . PTT (test code = 76.6 See_Comment H [Automated 33610-9) message] The system which generated this result transmitted reference range : 22.5 - 36.0 seconds. The reference range was not used to interpret this result as normal/abnormal . CARO (test code = Effective 07/27/2018: CARO) PT Reference Range ChangeNew: 11.9-14.2 Previous: 11.7-14.7 RECOMMENDED COUMADIN/WARFARIN INR THERAPY RANGESSTANDARD DOSE: 2.0-3.0 Includes: PROPHYLAXIS for venous thrombosis, systemic embolization; TREATMENT for venous thrombosis and/or pulmonary embolus.HIGH RISK: Target INR is 2.5-3.5 for patients wiht mechanical heart valves. Lab Interpretation Abnormal (test code = 96013-9) [facility] HospitalPT/[id number] 05:05:00 Test Item Value Reference Interpretation Comments Range Protime (test code = 13.1 See_Comment [Autom ated 5902-2) message] The system which generated this result transmitted reference range : 11.9 - 14.2 seconds. The reference range was not used to interpret this result as normal/abnormal . INR (test code = 1.03 See_Comment [Automated 6301-6) message] The system which generated this result transmitted reference range : <=5.90. The reference range was not used to interpret this result as normal/abnormal . PTT (test code = 76.6 See_Comment H [Automated 98147-2) message] The system which generated this result transmitted reference range : 22.5 - 36.0 seconds. The reference range was not used to interpret this result as normal/abnormal . CARO (test code = Effective 07/27/2018: CARO) PT Reference Range ChangeNew: 11.9-14.2 Previous: 11.7-14.7 RECOMMENDED COUMADIN/WARFARIN INR THERAPY RANGESSTANDARD DOSE: 2.0-3.0 Includes: PROPHYLAXIS for venous thrombosis, systemic embolization; TREATMENT for venous thrombosis and/or pulmonary embolus.HIGH RISK: Target INR is 2.5-3.5 for patients wiht mechanical heart valves. Lab Interpretation Abnormal (test code = 76304-7) [facility] HospitalPT/[id number] 05:05:00 Test Item Value Reference Interpretation Comments Range Protime (test code = 13.1 See_Comment [Autom ated 5902-2) message] The system which generated this result transmitted reference range : 11.9 - 14.2 seconds. The reference range was not used to interpret this result as normal/abnormal . INR (test code = 1.03 See_Comment [Automated 6301-6) message] The system which generated this result transmitted reference range : <=5.90. The reference range was not used to interpret this result as normal/abnormal . PTT (test code = 76.6 See_Comment H [Automated 25535-1) message] The system which generated this result transmitted reference range : 22.5 - 36.0 seconds. The reference range was not used to interpret this result as normal/abnormal . CARO (test code = Effective 07/27/2018: CARO) PT Reference Range ChangeNew: 11.9-14.2 Previous: 11.7-14.7 RECOMMENDED COUMADIN/WARFARIN INR THERAPY RANGESSTANDARD DOSE: 2.0-3.0 Includes: PROPHYLAXIS for venous thrombosis, systemic embolization; TREATMENT for venous thrombosis and/or pulmonary embolus.HIGH RISK: Target INR is 2.5-3.5 for patients wiht mechanical heart valves. Lab Interpretation Abnormal (test code = 86359-9) [facility] HospitalPT/[id number] 05:05:00 Test Item Value Reference Range Interpretation Comments PROTIME (BEAKER) (test code = 13.1 seconds 11.9-14.2 759) INR (BEAKER) (test code = 370) 1.03 <=5.90 PARTIAL THROMBOPLASTIN TIME 76.6 seconds 22.5-36.0 H (BEAKER) (test code = 760) Effective 07/27/2018: PT Reference Range ChangeNew: 11.9-14.2 Previous: 11.7- 14.7RECOMMENDED COUMADIN/WARFARIN INR THERAPY RANGESSTANDARD DOSE: 2.0-3.0 Includes: PROPHYLAXIS for venous thrombosis, systemic embolization; TREATMENT for venous thrombosis and/or pulmonary embolus.HIGH RISK: Target INR is2.5-3.5 for patients wiht mechanical heart valves.MR, CARDIAC, [id number] 16:48:00Unlisted Reason for Exam - Click Yes and Enter Reason Below->No [facility] : 1955 Sex: MFINAL REPORT EXAM: MRI CARDIAC WITH AND WITHOUT INDICATION: Cardiom yopathy, non-ischemic suspected COMPARISON: CT chest abdomen and pelvis 01/30/2020. Technique: [employer] OPTIMA 450 1.5 Ghada MRI scanner. Multiplanar [...] MDReport Verified Date/Time: 01/30/2020 16:48:46 Reading Location: [facility] Reading Room [address] [place], [place] [address]Electronicallysigned by: ANASTASIA PARSON M.D. on 01/30/2020 04:48 PMMR cardiac without & with IV [id number] 16:48:00Interface, External Ris In - 01/30/2020 4:50 PM CSTFINAL REPORT EXAM: MRI CARDIAC WITH AND WITHOUT INDICATION: Cardiomyopathy, non-ischemic suspected COMPARISON: CT chest abdomen and pelvis 01/30/2020. Technique: [employer] 450 1.5 Ghada MRI scanner. Multiplanar and [...] better seen on same-day CT. Signed:Anastasia Mahajan MDReport Verified Date/Time: 01/30/2020 16:48:46 Reading Location: [facility] Reading Room [address] [place] [address] [facility]MR [facility] without & with IV contrast 2020-01-30 16:48:00Interface, External Ris In - 01/30/2020 4:50 PM CSTFINAL REPORT EXAM: MRI CARDIAC WITH AND WITHOUT INDICATION: Cardiomyopathy, non-ischemic suspected COMPARISON: CT chest abdomen and pelvis 01/30/2020. Technique: [employer] 450 1.5 Ghada MRI scanner. Multiplanar and [...] hypokinesis. No presence of scar. Quantitative right vadim tricular functional values are as follows:EDV = 151 mL; EDVi = 77.3 mL/m2ESV = 96.9 mL; ESVi = 49.6 mL/m2 Stroke volume = 54.1 mL; SVi = 27.7 mL/m2RVEF = 36 %Absolute Cardiac Output = 5.4 l/min.; COi = 2.8 l/min/m2 CARDIAC VALVES:Aortic valve: NormalMitral valve: Mild thickening of the mitralvalve leaflets with associated mild mitral valve regurgitation [...] Mahajan Verified Date/Time: 01/30/2020 16:48:46 Reading Location: [facility] Reading Room [address] [place] [address] [facility]MR [facility] without & with IV contrast 2020-01-30 16:48:00Interface, External Ris In - 01/30/2020 4:50 PM CSTFINAL REPORT EXAM: MRI CARDIAC WITH AND WITHOUT INDICATION: Cardiomyopathy, non-ischemic suspected COMPARISON: CT chest abdomen and pelvis 01/30/2020. Technique: [employer] 450 1.5 Ghada MRI scanner. Multiplanar and [...] hypokinesis. No presence of scar. Quantitative right vadim tricular functional values are as follows:EDV = 151 mL; EDVi = 77.3 mL/m2ESV = 96.9 mL; ESVi = 49.6 mL/m2 Stroke volume = 54.1 mL; SVi = 27.7 mL/m2RVEF = 36 %Absolute Cardiac Output = 5.4 l/min.; COi = 2.8 l/min/m2 CARDIAC VALVES:Aortic valve: NormalMitral valve: Mild thickening of the mitralvalve leaflets with associated mild mitral valve regurgitation [...] Mahajan Verified Date/Time: 01/30/2020 16:48:46 Reading Location: [facility] Reading Room [address] [place] [address] [facility] CenterPer[facility] - Path Review 2020-01-30 15:12:00 Test Item Value Reference Range Interpretation Comments Pathologist Review (test Cell counts code = 2640) confirmed. Pathologist: (test code Lynda Mccoy M.D. = 2849) (electronic signature) [facility] [id number] 15:12:00 Test Item Value Reference Range Interpretation Comments Pathologist Review (test Cell counts code = 2640) confirmed. Pathologist: (test code Lynda Mccoy M.D. = 2849) (electronic signature) [facility] Hospitalipherwi Blood Sm[facility] - Path [id number] 15:12:00 Test Item Value Reference Range Interpretation Comments Pathologist Review (test Cell counts code = 2640) confirmed. Pathologist: (test code Lynda Mccoy M.D. = 2849) (electronic signature) [facility] 2020-01-30 15:12:00 Test Item Value Reference Range Interpretation Comments PERIPHERAL SMR REVIEW Cell counts confirmed. (BEAKER) (test code = 2640) [id number] Lynda Mccoy M.D. (VIET) (test code = (electronic signature) 2849) Cardiolipin Antibodies, IgG and [id number] 15:03:00 Test Item Value Reference Interpretation Comments Range Anticardiolipin IgG <1.6 See_Comment [Automa wilner (test code = 3181-5) message ] The system which generated this result transmitted reference range : <20.0 GPL. The reference range was not used to interpret this result as normal/abnormal . Anticardiolipin IgM 1.4 See_Comment [Automa wilner (test code = 3182-3) message ] The system which generated this result transmitted reference range : <20.0 MPL. The reference range was not used to interpret this result as normal/abnormal . CARO (test code = Anticardiolipin IgG CARO) Result Interpretation: <20.0 GPL Normal>/= 20.0 GPL Positive Anticardiolipin IgM Result Interpretation: <20.0 MPL Normal>/= 20.0 MPL Positive Lab Interpretation Normal (test code = 37167-9) [facility] HospitalCardiolipin Antibodies, IgG and [id number] 15:03:00 Test Item Value Reference Interpretation Comments Range Anticardiolipin IgG <1.6 See_Comment [Automa wilner (test code = 3181-5) message ] The system which generated this result transmitted reference range : <20.0 GPL. The reference range was not used to interpret this result as normal/abnormal . Anticardiolipin IgM 1.4 See_Comment [Automa wilner (test code = 3182-3) message ] The system which generated this result transmitted reference range : <20.0 MPL. The reference range was not used to interpret this result as normal/abnormal . CARO (test code = Anticardiolipin IgG CARO) Result Interpretation: <20.0 GPL Normal>/= 20.0 GPL Positive Anticardiolipin IgM Result Interpretation: <20.0 MPL Normal>/= 20.0 MPL Positive Lab Interpretation Normal (test code = 99290-0) [facility] HospitalCardiolipin Antibodies, IgG and [id number] 15:03:00 Test Item Value Reference Interpretation Comments Range Anticardiolipin IgG <1.6 See_Comment [Automa wilner (test code = 3181-5) message ] The system which generated this result transmitted reference range : <20.0 GPL. The reference range was not used to interpret this result as normal/abnormal . Anticardiolipin IgM 1.4 See_Comment [[employer]a wilner (test code = 3182-3) message ] The system which generated this result transmitted reference range : <20.0 MPL. The reference range was not used to interpret this result as normal/abnormal . CARO (test code = Anticardiolipin IgG CARO) Result Interpretation: <20.0 GPL Normal>/= 20.0 GPL Positive Anticardiolipin IgM Result Interpretation: <20.0 MPL Normal>/= 20.0 MPL Positive Lab Interpretation Normal (test code = 68144-6) [facility] HospitalCARDIOLIPIN ANTIBODIES, IGG AND [id number] 15:03:00 Test Item Value Reference Range Interpretation Comments ANTICARDIOLIPIN IGG ANTIBODY (BEAKER) < GPL <20.0 (test code = 712) ANTICARDIOLIPIN IGM ANTIBODY (BEAKER) 1.4 MPL <20.0 (test code = 713) Anticardiolipin IgG Result Interpretation: <20.0 GPL Normal>/= 20.0 GPL PositiveAnticardiolipin IgM Result Interpretation: <20.0 MPL Normal>/= 20.0 MPL [id number] 05:40:00 Test Item Value Reference Range Interpretation Comments Ferritin (test code = 95.99 ng/mL 5-275 2276-4) CARO (test code = CARO) Ultrasound Specialist ID - EDASI Lab Interpretation (test Normal code = 22489-1) [facility] [id number] 05:40:00 Test Item Value Reference Range Interpretation Comments Folate (test code = 10.50 ng/mL See_Comment [Automa wilner 2284-8) message] The system which generated this result transmit wilner reference range : >=7.00. The reference range was not used to interpret this result as normal/abnormal . CARO (test code = CARO) Ultrasound Specialist ID - EDASI Lab Interpretation Normal (test code = 93981-0) [facility] HospitalFerritin2020-12-01 05:40:00 Test Item Value Reference Range Interpretation Comments Ferritin (test code = 95.99 ng/mL 5-275 2276-4) CARO (test code = CARO) Ultrasound Specialist ID - EDASI Lab Interpretation (test Normal code = 55988-4) [facility] [id number] 05:40:00 Test Item Value Reference Range Interpretation Comments Folate (test code = 10.50 ng/mL See_Comment [Automa wilner 2284-8) message] The system which generated this result transmit wilner reference range : >=7.00. The reference range was not used to interpret this result as normal/abnormal . CARO (test code = CARO) Ultrasound Specialist ID - EDASI Lab Interpretation Normal (test code = 04169-4) [facility] HospitalFerritin2020-12-01 05:40:00 Test Item Value Reference Range Interpretation Comments Ferritin (test code = 95.99 ng/mL 5-275 2276-4) CARO (test code = CARO) Ultrasound Specialist ID - EDASI Lab Interpretation (test Normal code = 28548-2) [facility] HospitalFolate, [id number] 05:40:00 Test Item Value Reference Range Interpretation Comments Folate (test code = 10.50 ng/mL See_Comment [Automa wilner 2284-8) message] The system which generated this result transmit wilner reference range : >=7.00. The reference range was not used to interpret this result as normal/abnormal . CARO (test code = CARO) Ultrasound Specialist ID - EDASI Lab Interpretation Normal (test code = 19002-4) [facility] HospitalFERRITIN2020-12-01 05:40:00 Test Item Value Reference Range Interpretation Comments FERRITIN (BEAKER) (test code = 95.99 ng/mL 5.00-275.00 361) Ultrasound Specialist ID - EDASIFOLATE, [id number] 05:40:00 Test Item Value Reference Range Interpretation Comments FOLATE (BEAKER) (test code = 362) 10.50 ng/mL >=7.00 Ultrasound Specialist ID - EDASIVitamin [id number] 04:44:00 Test Item Value Reference Range Interpretation Comments Vitamin B12 (test code = 296 pg/mL 014-229 5417-9) CARO (test code = CARO) Ultrasound Specialist ID - EDASI Lab Interpretation (test Normal code = 33917-6) [facility] HospitalVitamin [id number] 04:44:00 Test Item Value Reference Range Interpretation Comments Vitamin B12 (test code = 296 pg/mL 394-249 3370-9) CARO (test code = CARO) Ultrasound Specialist ID - EDASI Lab Interpretation (test Normal code = 96942-2) [id number] 04:44:00 Test Item Value Reference Range Interpretation Comments Vitamin B12 (test code = 296 pg/mL 466-624 7326-9) CARO (test code = CARO) Ultrasound Specialist ID - EDASI Lab Interpretation (test Normal code = 78513-0) [facility] [id number] 04:44:00 Test Item Value Reference Range Interpretation Comments VITAMIN B12 (BEAKER) (test code = 296 pg/mL 213-816 774) Ultrasound Specialist ID - EDASICBC with platelet count + automated [id number] 04:33:00 Test Item Value Reference Range Interpretation Comments WBC (test code = 6690-2) 6.2 See_Comment [A utomated message] The system [employer] generated this result transmitted ref erence range: 3.5 - 10 .5 K/L. The refe rence range was not u sed to interpret this result as normal/abnor mal. RBC (test code = 789-8) 4.17 See_Comment L [Au tomated message] The system Astley Clarke generated this result transmitted ref erence range: 4.63 - 6 .08 M/L. The refe rence range was not u sed to interpret this result as normal/abnor mal. MCHC (test code = 786-4) 31.7 See_Comment L [A utomated message] The system Astley Clarke generated this result transmitted ref erence range: 32.3 - 3 6.5 GM/DL. The refe rence range was not u sed to interpret this result as normal/abnor mal. Hematocrit (test code = 39.1 % 40.1-51 L 4544-3) MCV (test code = 787-2) 93.8 fL 79-92.2 H MCH (test code = 785-6) 29.7 pg 25.7-32.2 RDW (test code = 788-0) 12.5 % 11.6-14.4 Platelets (test code = 224 See_Comment [Aut omated message] 777-3) The system Astley Clarke generated this result transmitted ref erence range: 150 - 45 0 K/CU MM. The referen ce range was not u sed to interpret this result as normal/abnor mal. MPV (test code = 13.2 fL 9.4-12.4 H 50472-2) nRBC (test code = 413) 0 See_Comment [Aut omated message] The system Astley Clarke generated this result transmitted ref erence range: 0 - 0 /1 00 WBC. The refere nce range was not u sed to interpret this result as normal/abnor mal. % Neutros (test code = 64 % 429) % Lymphs (test code = 25 % 430) % Monos (test code = 8 % 431) % Eos (test code = 432) 3 % % Baso (test code = 437) 1 % # Neutros (test code = 3.94 See_Comment [Aut omated message] 670) The system Astley Clarke generated this result transmitted ref erence range: 1.78 - 5 .38 K/L. The refe rence range was not u sed to interpret this result as normal/abnor mal. # Lymphs (test code = 1.54 See_Comment [Auto mated message] 414) The system Astley Clarke generated this result transmitted ref erence range: 1.32 - 3 .57 K/L. The refe rence range was not u sed to interpret this result as normal/abnor mal. # Monos (test code = 0.49 See_Comment [Autom ated message] 415) The system Astley Clarke generated this result transmitted ref erence range: 0.30 - 0 .82 K/L. The refe rence range was not u sed to interpret this result as normal/abnor mal. # Eos (test code = 416) 0.16 See_Comment [Au tomated message] The system Astley Clarke generated this result transmitted ref erence range: 0.04 - 0 .54 K/L. The refe rence range was not u sed to interpret this result as normal/abnor mal. # Baso (test code = 417) 0.05 See_Comment [A utomated message] The system Astley Clarke generated this result transmitted ref erence range: 0.01 - 0 .08 K/L. The refe rence range was not u sed to interpret this result as normal/abnor mal. Immature 0 % 0-1 Granulocytes-Relative (test code = 2801) Lab Interpretation (test Abnormal code = 93372-5) [facility] with platelet count + automated [id number] 04:33:00 Test Item Value Reference Range Interpretation Comments WBC (test code = 6690-2) 6.2 See_Comment [A utomated message] The system Astley Clarke generated this result transmitted ref erence range: 3.5 - 10 .5 K/L. The refe rence range was not u sed to interpret this result as normal/abnor mal. RBC (test code = 789-8) 4.17 See_Comment L [Au tomated message] The system Astley Clarke generated this result transmitted ref erence range: 4.63 - 6 .08 M/L. The refe rence range was not u sed to interpret this result as normal/abnor mal. MCHC (test code = 786-4) 31.7 See_Comment L [A utomated message] The system Astley Clarke generated this result transmitted ref erence range: 32.3 - 3 6.5 GM/DL. The refe rence range was not u sed to interpret this result as normal/abnor mal. Hematocrit (test code = 39.1 % 40.1-51 L 4544-3) MCV (test code = 787-2) 93.8 fL 79-92.2 H MCH (test code = 785-6) 29.7 pg 25.7-32.2 RDW (test code = 788-0) 12.5 % 11.6-14.4 Platelets (test code = 224 See_Comment [Aut omated message] 777-3) The system Astley Clarke generated this result transmitted ref erence range: 150 - 45 0 K/CU MM. The referen ce range was not u sed to interpret this result as normal/abnor mal. MPV (test code = 13.2 fL 9.4-12.4 H 80935-3) nRBC (test code = 413) 0 See_Comment [Aut omated message] The system Astley Clarke generated this result transmitted ref erence range: 0 - 0 /1 00 WBC. The refere nce range was not u sed to interpret this result as normal/abnor mal. % Neutros (test code = 64 % 429) % Lymphs (test code = 25 % 430) % Monos (test code = 8 % 431) % Eos (test code = 432) 3 % % Baso (test code = 437) 1 % # Neutros (test code = 3.94 See_Comment [Aut omated message] 670) The system Astley Clarke generated this result transmitted ref erence range: 1.78 - 5 .38 K/L. The refe rence range was not u sed to interpret this result as normal/abnor mal. # Lymphs (test code = 1.54 See_Comment [Auto mated message] 414) The system Astley Clarke generated this result transmitted ref erence range: 1.32 - 3 .57 K/L. The refe rence range was not u sed to interpret this result as normal/abnor mal. # Monos (test code = 0.49 See_Comment [Autom ated message] 415) The system Astley Clarke generated this result transmitted ref erence range: 0.30 - 0 .82 K/L. The refe rence range was not u sed to interpret this result as normal/abnor mal. # Eos (test code = 416) 0.16 See_Comment [Au tomated message] The system Astley Clarke generated this result transmitted ref erence range: 0.04 - 0 .54 K/L. The refe rence range was not u sed to interpret this result as normal/abnor mal. # Baso (test code = 417) 0.05 See_Comment [A utomated message] The system Astley Clarke generated this result transmitted ref erence range: 0.01 - 0 .08 K/L. The refe rence range was not u sed to interpret this result as normal/abnor mal. Immature 0 % 0-1 Granulocytes-Relative (test code = 2801) Lab Interpretation (test Abnormal code = 49598-5) [facility] with platelet count + automated [id number] 04:33:00 Test Item Value Reference Range Interpretation Comments WBC (test code = 6690-2) 6.2 See_Comment [A utomated message] The system Astley Clarke generated this result transmitted ref erence range: 3.5 - 10 .5 K/L. The refe rence range was not u sed to interpret this result as normal/abnor mal. RBC (test code = 789-8) 4.17 See_Comment L [Au tomated message] The system Astley Clarke generated this result transmitted ref erence range: 4.63 - 6 .08 M/L. The refe rence range was not u sed to interpret this result as normal/abnor mal. MCHC (test code = 786-4) 31.7 See_Comment L [A utomated message] The system Astley Clarke generated this result transmitted ref erence range: 32.3 - 3 6.5 GM/DL. The refe rence range was not u sed to interpret this result as normal/abnor mal. Hematocrit (test code = 39.1 % 40.1-51 L 4544-3) MCV (test code = 787-2) 93.8 fL 79-92.2 H MCH (test code = 785-6) 29.7 pg 25.7-32.2 RDW (test code = 788-0) 12.5 % 11.6-14.4 Platelets (test code = 224 See_Comment [Aut omated message] 777-3) The system Astley Clarke generated this result transmitted ref erence range: 150 - 45 0 K/CU MM. The referen ce range was not u sed to interpret this result as normal/abnor mal. MPV (test code = 13.2 fL 9.4-12.4 H 72482-1) nRBC (test code = 413) 0 See_Comment [Aut omated message] The system Astley Clarke generated this result transmitted ref erence range: 0 - 0 /1 00 WBC. The refere nce range was not u sed to interpret this result as normal/abnor mal. % Neutros (test code = 64 % 429) % Lymphs (test code = 25 % 430) % Monos (test code = 8 % 431) % Eos (test code = 432) 3 % % Baso (test code = 437) 1 % # Neutros (test code = 3.94 See_Comment [Aut omated message] 670) The system Astley Clarke generated this result transmitted ref erence range: 1.78 - 5 .38 K/L. The refe rence range was not u sed to interpret this result as normal/abnor mal. # Lymphs (test code = 1.54 See_Comment [Auto mated message] 414) The system Astley Clarke generated this result transmitted ref erence range: 1.32 - 3 .57 K/L. The refe rence range was not u sed to interpret this result as normal/abnor mal. # Monos (test code = 0.49 See_Comment [Autom ated message] 415) The system Astley Clarke generated this result transmitted ref erence range: 0.30 - 0 .82 K/L. The refe rence range was not u sed to interpret this result as normal/abnor mal. # Eos (test code = 416) 0.16 See_Comment [Au tomated message] The system Astley Clarke generated this result transmitted ref erence range: 0.04 - 0 .54 K/L. The refe rence range was not u sed to interpret this result as normal/abnor mal. # Baso (test code = 417) 0.05 See_Comment [A utomated message] The system Astley Clarke generated this result transmitted ref erence range: 0.01 - 0 .08 K/L. The refe rence range was not u sed to interpret this result as normal/abnor mal. Immature 0 % 0-1 Granulocytes-Relative (test code = 2801) Lab Interpretation (test Abnormal code = 34527-3) [facility] W/PLT COUNT & AUTO [id number] 04:33:00 Test Item Value Reference Range Interpretation [...] = 2502-3) CARO (test code = CARO) Ultrasound Specialist ID - EDASI Lab Interpretation (test Abnormal code = 09195-9) [facility], TIBC, % sat. (without ferritin)2020-01-30 04:18:00 Test Item Value Reference Range Interpretation Comments Iron (test code = 2498-4) 34.0 ug/dL 40-160 L TIBC (test code = 2500-7) 278 ug/dL 250-450 Iron % Saturation (test 12 % 20-55 L code = 2502-3) CARO (test code = CARO) Ultrasound Specialist ID - EDASI Lab Interpretation (test Abnormal code = 52242-2) [facility], TIBC, % sat. (without ferritin)2020-01-30 04:18:00 Test Item Value Reference Range Interpretation Comments Iron (test code = 2498-4) 34.0 ug/dL 40-160 L TIBC (test code = 2500-7) 278 ug/dL 250-450 Iron % Saturation (test 12 % 20-55 L code = 2502-3) CARO (test code = CARO) Ultrasound Specialist ID - EDASI Lab Interpretation (test Abnormal code = 83414-7) [facility], % SAT. (WITHOUT FERRITIN)2020-01-30 04:18:00 Test Item Value Reference Range Interpretation Comments IRON (BEAKER) (test code = 547) 34.0 ug/dL 40.0-160.0 L TOTAL IRON BINDING CAPACITY 278 ug/dL 250-450 (BEAKER) (test code = 769) IRON % SATURATION (2) (BEAKER) 12 % 20-55 L (test code = 2590) Ultrasound Specialist ID - EDASICT, [id number] 03:26:00Unlisted Reason for Exam - Click Yes and Enter Reason Below->YesUnlisted Reason for Exam->Evaluate for malignancy. Patient with unprovoke DVT and PEs [facility] 1955 Sex: MFINAL [...] the chest, abdomen pelvis. Signed: Anca Solis [facility] Verified Date/Time: 01/30/2020 03:26:01 CT, CHEST, WITH [id number] 03:26:00Unlisted Reason for Exam - Click Yes and Enter Reason Below->YesUnlisted Reason for Exam->Evaluate for malignancy. [facility] with [facility]provoke [facility]VT and PEs [facility] : 1955 Sex: [...] Anca Solis [facility] Verified Date/Time: 01/30/2020 03:26:01 CT chest with IV [id number] 03:26:00Interface, External Ris In - 01/30/2020 3:29 [...] by: ANCA SOLIS MD on [facility]/30/2020 [facility] [id number] 03:26:00Interface, External Ris In - 01/30/2020 3:29 [...] normal limits.AIRWAYS, PLEURA AND LUNGS: Patent central tracheobron chial tree. Peripheral airspace opacities in the left [...] normal limits.REPRODUCTIVE ORGANS: Enlarged prostate gland measuring 5.3cm in diameter. BOWEL/MESENTERY: No bowel obstruction or [...] by: ANCA SOLIS MD on 01/30/2020 03[facility] [id number] 03:26:00Interface, External Ris In - 01/30/2020 3:29 [...] normal limits.AIRWAYS, PLEURA AND LUNGS: Patent central tracheobron chial tree. Peripheral airspace opacities in the left [...] normal limits.REPRODUCTIVE ORGANS: Enlarged prostate gland measuring 5.3cm in diameter. BOWEL/MESENTERY: No bowel obstruction or [...] by: ANCA SOLIS MD on 01/30/2020 03[facility] [id number] 03:26:00 Interface, External Ris In - 01/30/2020 [...] by: ANCA SOLIS MD on 01/30/2020 03[facility] [id number] 03:26:00 Interface, External Ris In - 01/30/2020 [...] by: ANCA SOLIS MD on 01/30/2020 03[facility] [id number] 03:26:00 Interface, External Ris In - 01/30/2020 [...] by: ANCA SOLIS MD on 01/30/2020 03:26 [facility] [id number] 02:53:00 Test Item Value Reference Range Interpretation [...] 697) EGFR (BEAKER) (test 50 mL/min/1.73 ESTIMA WILNER GFR IS code = 1092) sq m NOT ACCURATE CREATININE CLEARANCE IN PREDICTING GLOMERULAR FILTRATION RATE . ESTIMATED GFR I S NOT APPLICABLE FOR DIALYSIS PATIEN TS. Ultrasound Specialist ID - [id number] 02:53:00 Test Item Value Reference Range Interpretation Comments MAGNESIUM (BEAKER) (test code = 2.0 mg/dL 1.6-2.6 627) Ultrasound Specialist ID - [id number] 02:42:00 Test Item Value Reference Range Interpretation Comments PTT (test code = 82.7 See_Comment H [Automated message] 76908-3) The system Astley Clarke generated this result transmitted ref erence range: 22.5 - 3 6.0 seconds. The reference range was not used to int erpret this result as normal/abnormal . Lab Interpretation (test Abnormal code = 73146-4) [facility] [place] [facility] [id number] 02:42:00 Test Item Value Reference Range Interpretation Comments PTT (test code = 82.7 See_Comment H [Automated message] 10888-2) The system Astley Clarke generated this result transmitted ref erence range: 22.5 - 3 6.0 seconds. The reference range was not used to int erpret this result as normal/abnormal . Lab Interpretation (test Abnormal code = 30098-8) [place] [id number] 02:42:00 Test Item Value Reference Range Interpretation Comments PTT (test code = 82.7 See_Comment H [Automated message] 02906-0) The system Astley Clarke generated this result transmitted ref erence range: 22.5 - 3 6.0 seconds. The reference range was not used to int erpret this result as normal/abnormal . Lab Interpretation (test Abnormal code = 40444-8) [place] [id number] 02:42:00 Test Item Value Reference Range Interpretation Comments PARTIAL THROMBOPLASTIN TIME 82.7 seconds 22.5-36.0 H (BEAKER) (test code = 760) Reticulocyte [id number] 02:32:00 Test Item Value Reference Range Interpretation Comments % Retic (test code = 1.9 % 0.5-1.8 H 41260-3) CARO (test code = CARO) Ultrasound Specialist ID - [id number] Lab Interpretation (test Abnormal code = 28727-4) [facility]eticul[facility] [id number] 02:32:00 Test Item Value Reference Range Interpretation Comments % Retic (test code = 1.9 % 0.5-1.8 H 37958-9) CARO (test code = CARO) Ultrasound Specialist ID - [id number] Lab Interpretation (test Abnormal code = 57583-5) [facility] HospitalReticulocyte [id number] 02:32:00 Test Item Value Reference Range Interpretation Comments % Retic (test code = 1.9 % 0.5-1.8 H 96080-5) CARO (test code = CARO) Ultrasound Specialist ID - [id number] Lab Interpretation (test Abnormal code = 68103-7) [facility] HospitalRETICULOCYTE [id number] 02:32:00 Test Item Value Reference Range Interpretation Comments RETICULOCYTE COUNT PCT (VIET) (test 1.9 % 0.5-1.8 H code = 575) Ultrasound Specialist ID - [id number], FOOT, MIN 3 VIEWS, [id number] 23:20:00Reason for exam:->[facility] and [facility] : 1955 Sex: MFINAL REPORT CLINICAL HISTORY: Pain and tenderness COMPARISON: None. FINDINGS: 3 images of the right foot are submitted. There is no acute fracture or malalignment. Nodestructive bony lesion, radiopaque foreign body or significant degenerative change is present. The soft tissues are grossly unremarkable. Signed: Peter Justin Verified Date/Time: 01/29/2020 23:20:24 XR foot 3 views [id number] 23:20:00Interface, External Ris In - 01/29/2020 11:22 PM CSTFINAL REPORT CLINICAL HISTORY: Pain and tenderness COMPARISON: None. FINDINGS: 3 images of the right foot are submitted. There is no acute fracture or malalignment. No destructive bony lesion, radiopaque foreign body or significant degenerative change is present. The soft tissues are grossly unremarkable. Signed: Peter Justin Verified Date/Time: 01/29/2020 23:20:24 [facility] CenterXR foot 3 views [id number] 23:20:00Interface, External Ris In - 01/29/2020 11:22 PM CSTFINAL REPORT CLINICAL HISTORY: Pain and tenderness COMPARISON: None. FINDINGS: 3 images of the right foot are submitted. There is no acute fracture or malalignment. No destructive bony lesion, radiopaque foreign body or significant degenerative change is present. The soft tissues are grossly unremarkable. Signed: Peter Justin [facility]eport Verified Date/Time: 01/29/2020 23:20:24 [facility] [id number] 23:20:00Interface, External Ris In - 01/29/2020 11:22 PM CSTFINAL REPORT CLINICAL HISTORY: Pain and tenderness COMPARISON: None. FINDINGS: 3 images of the right foot are submitted. There is no acute fracture or malalignment. No destructive bony lesion, radiopaque foreign body or signifi cant degenerative change is present. The soft tissues are grossly unremarkable. Signed: Peter Justin MDRyvette Verified Date/Time: 01/29/2020 23:20:24 [facility] CenterAPTT2020-[facility] 20:24:00 Test Item Value Reference Range Interpretation Comments PARTIAL THROMBOPLASTIN TIME 77.5 seconds 22.5-36.0 H (BEAKER) (test code = 760) Thrombin [id number] 13:19:00 Test Item Value Reference Range Interpretation Comments Thrombin Time (test code >240.0 See_Comment H A p art of lupus tst = 3243-3) [Automated mess age] The system Astley Clarke generated this result transmitted ref erence range: 13.8 - 2 0.0 secs. The refer ence range was not u sed to interpret this result as normal/abnor mal. Lab Interpretation (test Abnormal code = 64042-7) [facility] HospitalThrom[facility] [id number] 13:19:00 Test Item Value Reference Range Interpretation Comments Thrombin Time (test code >240.0 See_Comment H A p art of lupus tst = 3243-3) [Automated mess age] The system Astley Clarke generated this result transmitted ref erence range: 13.8 - 2 0.0 secs. The refer ence range was not u sed to interpret this result as normal/abnor mal. Lab Interpretation (test Abnormal code = 62672-7) [facility] HospitalTh[facility] [id number] 13:19:00 Test Item Value Reference Range Interpretation Comments Thrombin Time (test code >240.0 See_Comment H A p art of lupus tst = 3243-3) [Automated mess age] The system Astley Clarke generated this result transmitted ref erence range: 13.8 - 2 0.0 secs. The refer ence range was not u sed to interpret this result as normal/abnor mal. Lab Interpretation (test Abnormal code = 42611-3) [facility] HospitalTHROMBIN [id number] 13:19:00 Test Item Value Reference Range Interpretation Comments THROMBIN TIME (BEAKER) > secs 13.8-20.0 H A par t of lupus tst (test code = 550) Carcinoembryonic Antigen (CEA)2020-01-29 13:14:00 Test Item Value Reference Range Interpretation Comments CEA, SERUM (test code = 0.7 ng/mL 0-5 2038-6) CARO (test code = CARO) Ultrasound Specialist ID - CHUCK Lab Interpretation (test Normal code = 20376-7) [facility] HospitalAlpha fetoprotein (AFP), tumor [id number] 13:14:00 Test Item Value Reference Range Interpretation Comments Alpha-Fetoprotein (test 8.0 ng/mL <10.0 code = 1834-1) CARO (test code = CARO) Ultrasound Specialist ID - CHUCK Lab Interpretation (test Normal code = 24234-4) [facility] HospitalCarcinoembryonic Antigen (CEA)2020-01-29 13:14:00 Test Item Value Reference Range Interpretation Comments CEA, SERUM (test code = 0.7 ng/mL 0-5 2038-6) CARO (test code = CAOR) Ultrasound Specialist ID - CHUCK Lab Interpretation (test Normal code = 39927-4) [facility] HospitalAlpha fetoprotein (AFP), tumor [id number] 13:14:00 Test Item Value Reference Range Interpretation Comments Alpha-Fetoprotein (test 8.0 ng/mL <10.0 code = 1834-1) CARO (test code = CARO) Ultrasound Specialist ID - CHUCK Smith Lab Interpretation (test Normal code = 43654-1) [facility] HospitalCarcinoembryonic Antigen (CEA)2020-01-29 13:14:00 Test Item Value Reference Range Interpretation Comments CEA, SERUM (test code = 0.7 ng/mL 0-5 2039-6) CARO (test code = CARO) Ultrasound Specialist ID - CHUCK Smith Lab Interpretation (test Normal code = 21091-5) [facility] HospitalAlpha fetoprotein (AFP), tumor [id number] 13:14:00 Test Item Value Reference Range Interpretation Comments Alpha-Fetoprotein (test 8.0 ng/mL <10.0 code = 1834-1) CARO (test code = CARO) Ultrasound Specialist ID Jojo Smith Lab Interpretation (test Normal code = 46675-6) [facility] HospitalCARCINOEMBRYONIC ANTIGEN (CEA)2020-01-29 13:14:00 Test Item Value Reference Range Interpretation Comments CARCINOEMBRYONIC ANTIGEN (BEAKER) 0.7 ng/mL 0.0-5.0 (test code = 685) Ultrasound Specialist ID - CHUCK MALPHA FETOPROTEIN (AFP), TUMOR [id number] 13:14:00 Test Item Value Reference Range Interpretation Comments ALPHA-FETOPROTEIN (BEAKER) (test 8.0 ng/mL <10.0 code = 1094) Ultrasound Specialist ID - CHUCK [id number] 12:32:00 Test Item Value Reference Range Interpretation Comments PARTIAL THROMBOPLASTIN TIME 97.2 seconds 22.5-36.0 H (BEAKER) (test code = 760) [id number] 11:37:00 Test Item Value Reference Range Interpretation Comments RPR (test code = 69147-0) Nonreactive Nonreactive Lab Interpretation (test code = Normal 37417-0) [facility]RPR2020-[facility] 11:37:00 Test Item Value Reference Range Interpretation Comments RPR (test code = 25983-9) Nonreactive Nonreactive Lab Interpretation (test code = Normal 95763-6) [facility]PR2020-[facility]-30 11:37:00 Test Item Value Reference Range Interpretation Comments RPR (test code = 60167-0) Nonreactive Nonreactive Lab Interpretation (test code = Normal 29684-9) [facility]PR2020-[facility]-30 11:37:00 Test Item Value Reference Range Interpretation Comments RPR SCREEN (BEAKER) (test code = Nonreactive Nonreactive 420) [id number] 07:02:00 Test Item Value Reference Range Interpretation Comments PSA (test code = 2857-1) 3.9 ng/mL 0-4 CARO (test code = CARO) Ultrasound Specialist ID - EDASI Lab Interpretation (test Normal code = 26110-1) [facility]PSA[facility] 07:02:00 Test Item Value Reference Range Interpretation Comments PSA (test code = 2857-1) 3.9 ng/mL 0-4 CARO (test code = CARO) Ultrasound Specialist ID - EDASI Lab Interpretation (test Normal code = 96249-8) [facility]PSA[facility] 07:02:00 Test Item Value Reference Range Interpretation Comments PSA (test code = 2857-1) 3.9 ng/mL 0-4 CARO (test code = CARO) Ultrasound Specialist ID - EDASI Lab Interpretation (test Normal code = 56440-0) [facility]PSA[facility] 07:02:00 Test Item Value Reference Range Interpretation Comments PROSTATE SPECIFIC ANTIGEN (BEAKER) 3.9 ng/mL 0.0-4.0 (test code = 844) Ultrasound Specialist ID - EDASIBASIC METABOLIC [id number] 06:41:00 Test Item Value Reference Range Interpretation [...] 697) EGFR (BEAKER) (test 48 mL/min/1.73 ESTIMA WILNER GFR IS code = 1092) sq m NOT ACCURATE CREATININE CLEARANCE IN PREDICTING GLOMERULAR FILTRATION RATE . ESTIMATED GFR I S NOT APPLICABLE FOR DIALYSIS PATIEN TS. Ultrasound Specialist ID - [id number] 06:41:00 Test Item Value Reference Range Interpretation Comments MAGNESIUM (BEAKER) (test code = 2.2 mg/dL 1.6-2.6 627) Ultrasound Specialist ID - [id number] 06:17:00 Test Item Value Reference Range Interpretation Comments PARTIAL THROMBOPLASTIN TIME 89.0 seconds 22.5-36.0 H (BEAKER) (test code = 760) [id number] 22:50:00 Test Item Value Reference Range Interpretation Comments PARTIAL THROMBOPLASTIN TIME 44.0 seconds 22.5-36.0 H (BEAKER) (test code = 760) [id number] 16:59:00 Test Item Value Reference Range Interpretation Comments PARTIAL THROMBOPLASTIN TIME 78.1 seconds 22.5-36.0 H (BEAKER) (test code = 760) Echo w contrast limited [id number] 15:29:01Ejection FractionSLEH ECHO HEARTLAB MKCKESSON CPACSInterface, External Ris In - 01/28/2020 3:29 PM C STTransthoracic Echocardiography Report (TTE) Demographics Patient Name KITTY CRANE, Date ofStudy 01/28/2020 ALISON Gender Male Visit Number [id number] Race Unknown Room Number 2206 Number Date of 1955 Referring Physician Age 64 year(s) [employer] Machine Operator Abed Everett Interpreting Yessica Banks, Physician Procedure Type of Study TTE procedure:ECHO [...] peak systolic PA pressure is 60-65 mmHg (xgyyppez-mr-rvfuia pulmonary hypertension) . Pulmonic Valve PV is [...] TR Velocity: 3.48 m/s TR Gradient: 48.41 [facility] [id number] 15:29:01Ejection FractionSLEH ECHO HEARTLAB MKCKESSON CPACSInterface, External Ris In - 01/28/2020 3:29 PM CSTTransthoracic Echocardiography Report (TTE) Demographics Patient Name KITTY CRANE, Date ofStudy 01/28/2020 ALISON Gender Male Visit Number [id number] Race Unknown Room Number 2206 Number Date of 1955 Referring Physician Age 64 year(s) [employer] Machine Operator Abed Everett Interpreting Physician DELORIS Das Procedure Type of Study TTE procedure:ECHO W/CONT [...] peak systolic PA pressure is 60-65 mmHg (gvgpkfvn-lx-oekctu pulmonary hypertension) . Pulmonic Valve PV is [...] TR Velocity: 3.48 m/s TR Gradient: 48.41 mmHgCent[facility] w [facility] limited [id number] 15:29:01Ejection FractionSLE ECHO HEARTLAB MKCKESSON CPACSInterface, External Ris In - 01/28/2020 3:29 PM CSTTransthoracic Echocardiography Report (TTE) Demographics Patient Name KITTY CRANE, Date ofStudy 01/28/2020 ALISON Gender Male Visit Number [id number] Race Unknown Room Number 2206 Number Date of 1955 Referring Physician Age 64 year(s) [employer] Processing Machine Operator Kenny Floyd Interpreting Physician DELORIS Das Procedure Type of Study TTE procedure:ECHO W/CONT [...] peak systolic PA pressure is 60-65 mmHg (tzdtmnij-rg-xdgqtf pulmonary hypertension) . Pulmonic Valve PV is [...] TR Velocity: 3.48 m/s TR Gradient: 48.41 mmHgKaiser Foundation HospitalAPTT2020-11-29 09:33:00 Test Item Value Reference Range Interpretation Comments PARTIAL THROMBOPLASTIN TIME 100.1 seconds 22.5-36.0 H (BEAKER) (test code = 760) Troponin [id number] 09:16:00 Test Item Value Reference Range Interpretation Comments Troponin I (test code = 1.40 ng/mL 0-0.03 25311-5) CARO (test code = CARO) Troponin I [...] failure, acidosis, acute neurological disease, and persistent tachyarrhythmia.[facility] Lab Interpretation (test Abnormal code = 04920-2) [facility] [id number] 09:16:00 Test Item Value Reference Range Interpretation Comments Troponin I (test code = 1.40 ng/mL 0-0.03 [place] [address]52-6) CARO (test code = CARO) Troponin I [...] failure, acidosis, acute neurological disease, and persistent tachyarrhythmia.[facility] Lab Interpretation (test Abnormal code = 44927-5) [facility] [id number] 09:16:00 Test Item Value Reference Range Interpretation Comments Troponin I (test code = 1.40 ng/mL 0-0.03 [place] [address]-3) CARO (test code = CARO) Troponin I [...] failure, acidosis, acute neurological disease, and persistent tachyarrhythmia.[facility] Lab Interpretation (test Abnormal code = 99415-7) [facility] [id number] 09:16:00 Test Item Value Reference Range Interpretation [...] failure, acidosis, acute neurological disease, and persistent tachyarrhythmia.Ultrasound Specialist ID - DOTTIE MTROPONIN [id number] 02:47:00 Test Item Value Reference Range Interpretation Comments TROPONIN I (BEAKER) (test code = 1.82 ng/mL 0.00-0.03 397) Troponin I (TnI) levels [...] failure, acidosis, acute neurological disease, and persistent tachyarrhythmia.Ultrasound Specialist ID - DOTTIE MBASIC METABOLIC [id number] 02:22:00 Test Item Value Reference Range Interpretation [...] 697) EGFR (BEAKER) (test 56 mL/min/1.73 ESTIMA WILNER GFR IS code = 1092) sq m NOT ACCURATE CREATININE CLEARANCE IN PREDICTING GLOMERULAR FILTRATION RATE . ESTIMATED GFR I S NOT APPLICABLE FOR DIALYSIS PATIEN TS. Ultrasound Specialist ID - [id number] 02:22:00 Test Item Value Reference Range Interpretation Comments MAGNESIUM (BEAKER) (test code = 2.1 mg/dL 1.6-2.6 627) Ultrasound Specialist ID - [id number] 02:17:00 Test Item Value Reference Range Interpretation Comments PARTIAL THROMBOPLASTIN TIME 96.5 seconds 22.5-36.0 H (VIET) (test code = 760) TROPONIN [id number] 19:13:00 Test Item Value Reference Range Interpretation [...] failure, acidosis, acute neurological disease, and persistent tachyarrhythmia.Ultrasound Specialist ID - DOTTIE [id number] 19:03:00 Test Item Value Reference Range Interpretation Comments PARTIAL THROMBOPLASTIN TIME 59.7 seconds 22.5-36.0 H (VIET) (test code = 760) Transthoracic 2D echo w/ doppler (cw/pw/color)2020-01-27 12:53:18Ejection FractionSLEH ECHO HEARTLAB MKCKESSON CPACSInterface, External Ris In - 01/27/2020 12:53 PM CSTTransthoracic Echocardiography Report (TTE) Demographics Patient Name KITTY CRANE, Date of Study 01/27/2020 ALISON Gender Male Visit Number [id number] Race Unknown Room Number 7401 Number Date of 1955 Referring Fifi Alfredo NP Physician Age 64 year(s) Staple Processing Machine Operator Ruth Espinosa [facility] [employer] Manager Sudeep Corea Interpreting Yessica Banks MD Physician [...] MV leaflet thickening. Mild mitral annular calcification. Uort-mq-blqtqirt mitral regurgitation. Tricuspid Valve Mild tricuspid regurgitation. 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 [...] pulmonary hypertension) . Previous Study No prior studiesavailable for comparison. Signature -- Findings Left Ventricle LV endocardium is adequately [...] MV leaflet thickening. Mild mitral annular calcification. Cgvl-sl-dxbwdmoe mitral regurgitation. Tricuspid Valve Mild tricuspid regurgitation. 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 [...] pulmonary hypertension) . Previous Study No prior studiesavailable for comparison. Signature -- Findings Left Ventricle LV endocardium is adequately [...] MV leaflet thickening. Mild mitral annular calcification. Rvrc-qj-yhnucszf mitral regurgitation. Tricuspid Valve Mild tricuspid regurgitation. [...] TR Velocity: 3.71 m/s TR Gradient: 55.06 mmHgKaiser Foundation HospitalJAVON [id number] 08:52:00 Test Item Value Reference Range Interpretation Comments TROPONIN I (BEAKER) (test code = 1.70 ng/mL 0.00-0.03 [facility]) Troponin I (TnI) levels must be interpreted [...] failure, acidosis, acute neurological disease, and persistent tachyarrhythmia.Ultrasound Specialist ID - DOTTIE [id number] 08:25:00 Test Item Value Reference Range Interpretation Comments PARTIAL THROMBOPLASTIN TIME 65.8 seconds 22.5-36.0 H (BEAKER) (test code = 760) Hemoglobin A1c - [id number] 08:16:00 Test Item Value Reference Range Interpretation Comments Hemoglobin A1C (test code = 4548-4) 5.9 % 4.3-6.1 CARO (test code = CARO) Fasting Lab Interpretation (test code = Normal 67750-5) [facility] HospitalHemoglobin A1c - [id number] 08:16:00 Test Item Value Reference Range Interpretation Comments Hemoglobin A1C (test code = 4548-4) 5.9 % 4.3-6.1 CARO (test code = CARO) Fasting Lab Interpretation (test code = Normal 52169-8) [facility] HospitalHemoglobin A1c - [id number] 08:16:00 Test Item Value Reference Range Interpretation Comments Hemoglobin A1C (test code = 4548-4) 5.9 % 4.3-6.1 CARO (test code = CARO) Fasting Lab Interpretation (test code = Normal 37639-7) [facility] HospitalHEMOGLOBIN [id number] 08:16:00 Test Item Value Reference Range Interpretation Comments HEMOGLOBIN A1C (BEAKER) (test code = 5.9 % 4.3-6.1 368) FastingHEMOGLOBIN [id number] 08:16:00 Test Item Value Reference Range Interpretation Comments HEMOGLOBIN A1C (VIET) (test code = 5.8 % 4.3-6.1 368) CT, BRAIN, WITHOUT [id number] 05:00:00Verify current renal function studies, consider renal protection order set as neededUnlisted Reason for Exam - Click Yes and Enter Reason Below->No [facility] 1955 Sex: [...] hemorrhage or mass effect. Signed: Anca Solis MDReport Verified Date/Time: 01/27/2020 05:00:11 [facility] brain without IV contrast 2020-01-27 05:00:00Interface, External [...] intracranial hemorrhage ormass effect. Signed: Anca Solis [facility] Verified Date/Time: 01/27/2020 05:00:11 [facility] [id number] 05:00:00Interface, External Ris In - 01/27/2020 5:02 [...] acute infarct.There is no acute intracranial hemorrhage, extra- axial fluid collection, mass effect, herniation or hydrocephalus. The basal cisterns are patent. The visualized orbits are normal. The visualized paranasal sinuses and tympanomastoid cavities areclear. The skull base and calvarium are intact. IMPRESSION: Small hypodensity in the left insula, which may represent an acute infarct, better assessed with an MRI.No acute intracranial hemorrhage ormass effect. Signed: Anca Solis Verified Date/Time: 01/27/2020 05:00:11 [facility] [id number] 05:00:00Interface, External Ris In - 01/27/2020 5:02 [...] Signed: Anca Solis Verified Date/Time: 01/27/2020 05:00:11 [facility]2020-01-27 01:26:00 Test Item Value Reference Range Interpretation Comments WBC (test code = 6690-2) 6.4 See_Comment [A utomated message] The system Astley Clarke generated this result transmitted ref erence range: 3.5 - 10 .5 K/L. The refe rence range was not u sed to interpret this result as normal/abnor mal. RBC (test code = 789-8) 4.28 See_Comment L [Au tomated message] The system Astley Clarke generated this result transmitted ref erence range: 4.63 - 6 .08 M/L. The refe rence range was not u sed to interpret this result as normal/abnor mal. MCHC (test code = 786-4) 32.3 See_Comment L [A utomated message] The system Astley Clarke generated this result transmitted ref erence range: 32.3 - 3 6.5 GM/DL. The refe rence range was not u sed to interpret this result as normal/abnor mal. Hematocrit (test code = 39.6 % 40.1-51 L 4544-3) MCV (test code = 787-2) 92.5 fL 79-92.2 H MCH (test code = 785-6) 29.9 pg 25.7-32.2 RDW (test code = 788-0) 12.7 % 11.6-14.4 Platelets (test code = 201 See_Comment [Aut omated message] 777-3) The system Astley Clarke generated this result transmitted ref erence range: 150 - 45 0 K/CU MM. The referen ce range was not u sed to interpret this result as normal/abnor mal. MPV (test code = 12.4 fL 9.4-12.4 46262-6) nRBC (test code = 413) 0 See_Comment [Aut omated message] The system Astley Clarke generated this result transmitted ref erence range: 0 - 0 /1 00 WBC. The refere nce range was not u sed to interpret this result as normal/abnor mal. Lab Interpretation (test Abnormal code = 60819-4) [facility] (Hemogram only)2020-01-27 01:26:00 Test Item Value Reference Range Interpretation Comments WBC (test code = 6690-2) 6.4 See_Comment [A utomated message] The system Astley Clarke generated this result transmitted ref erence range: 3.5 - 10 .5 K/L. The refe rence range was not u sed to interpret this result as normal/abnor mal. RBC (test code = 789-8) 4.28 See_Comment L [Au tomated message] The system Astley Clarke generated this result transmitted ref erence range: 4.63 - 6 .08 M/L. The refe rence range was not u sed to interpret this result as normal/abnor mal. MCHC (test code = 786-4) 32.3 See_Comment L [A utomated message] The system Astley Clarke generated this result transmitted ref erence range: 32.3 - 3 6.5 GM/DL. The refe rence range was not u sed to interpret this result as normal/abnor mal. Hematocrit (test code = 39.6 % 40.1-51 L 4544-3) MCV (test code = 787-2) 92.5 fL 79-92.2 H MCH (test code = 785-6) 29.9 pg 25.7-32.2 RDW (test code = 788-0) 12.7 % 11.6-14.4 Platelets (test code = 201 See_Comment [Aut omated message] 777-3) The system Astley Clarke generated this result transmitted ref erence range: 150 - 45 0 K/CU MM. The referen ce range was not u sed to interpret this result as normal/abnor mal. MPV (test code = 12.4 fL 9.4-12.4 08483-9) nRBC (test code = 413) 0 See_Comment [Aut omated message] The system Astley Clarke generated this result transmitted ref erence range: 0 - 0 /1 00 WBC. The refere nce range was not u sed to interpret this result as normal/abnor mal. Lab Interpretation (test Abnormal code = 84285-3) [facility] (Hemogram only)2020-01-27 01:26:00 Test Item Value Reference Range Interpretation Comments WBC (test code = 6690-2) 6.4 See_Comment [A utomated message] The system Astley Clarke generated this result transmitted ref erence range: 3.5 - 10 .5 K/L. The refe rence range was not u sed to interpret this result as normal/abnor mal. RBC (test code = 789-8) 4.28 See_Comment L [Au tomated message] The system Astley Clarke generated this result transmitted ref erence range: 4.63 - 6 .08 M/L. The refe rence range was not u sed to interpret this result as normal/abnor mal. MCHC (test code = 786-4) 32.3 See_Comment L [A utomated message] The system Astley Clarke generated this result transmitted ref erence range: 32.3 - 3 6.5 GM/DL. The refe rence range was not u sed to interpret this result as normal/abnor mal. Hematocrit (test code = 39.6 % 40.1-51 L 4544-3) MCV (test code = 787-2) 92.5 fL 79-92.2 H MCH (test code = 785-6) 29.9 pg 25.7-32.2 RDW (test code = 788-0) 12.7 % 11.6-14.4 Platelets (test code = 201 See_Comment [Aut omated message] 777-3) The system Astley Clarke generated this result transmitted ref erence range: 150 - 45 0 K/CU MM. The referen ce range was not u sed to interpret this result as normal/abnor mal. MPV (test code = 12.4 fL 9.4-12.4 61894-6) nRBC (test code = 413) 0 See_Comment [Aut omated message] The system Astley Clarke generated this result transmitted ref erence range: 0 - 0 /1 00 WBC. The refere nce range was not u sed to interpret this result as normal/abnor mal. Lab Interpretation (test Abnormal code = 51199-0) [facility] (HEMOGRAM ONLY)2020-01-27 01:26:00 Test Item Value Reference [...] (BEAKER) (test code = 413) Fasting lipid [id number] 01:25:00 Test Item Value Reference Range Interpretation Comments Triglycerides (test 139 mg/dL code = 2571-8) Cholesterol (test code 203 mg/dL = 3-3) HDL (test code = 40 mg/dL 2084-) LDL Calculated (test 135 mg/dL code = 28988-5) CARO (test code = CARO) Triglyceride Reference Range: Low Risk <150 Borderline 150-199 High Risk 200-499 Very High Risk >=500 Cholesterol Reference Range: Low Risk <200 Borderline 200-239 High Risk >240 HDL Cholesterol Reference Range: Low Risk >=60 High Risk <40 LDL Cholesterol Reference Range: Optimal <100 Near Optimal 100-129 Borderline 130-159 High 160-189 Very High >=190 Ultrasound Specialist [place] [facility] HospitalPhosphorus2020-11-28 01:25:00 Test Item Value Reference Range Interpretation Comments Phosphorus (test code = 3.6 mg/dL 2.3-4.7 2777-1) CARO (test code = CARO) Ultrasound Specialist [place] Lab Interpretation (test Normal code = 66764-4) [facility] HospitalFasting lipid [id number] 01:25:00 Test Item Value Reference Range Interpretation Comments Triglycerides (test 139 mg/dL code = 2571-8) Cholesterol (test code 203 mg/dL = 3-3) HDL (test code = 40 mg/dL 2084-9) LDL Calculated (test 135 mg/dL code = 43049-6) CARO (test code = CARO) Triglyceride Reference Range: Low Risk <150 Borderline 150-199 High Risk 200-499 Very High Risk >=500 Cholesterol Reference Range: Low Risk <200 Borderline 200-239 High Risk >240 HDL Cholesterol Reference Range: Low Risk >=60 High Risk <40 LDL Cholesterol Reference Range: Optimal <100 Near Optimal 100-129 Borderline 130-159 High 160-189 Very High >=190 Ultrasound Specialist [place] [facility]Phosphorus2020-11-28 01:25:00 Test Item Value Reference Range Interpretation Comments Phosphorus (test code = 3.6 mg/dL 2.3-4.7 2777-1) CARO (test code = CARO) Ultrasound Specialist [place] Lab Interpretation (test Normal code = 90223-3) [facility] HospitalFasting lipid [id number] 01:25:00 Test Item Value Reference Range Interpretation Comments Triglycerides (test 139 mg/dL code = 2571-8) Cholesterol (test code 203 mg/dL = 2093-3) HDL (test code = 40 mg/dL 2084-9) LDL Calculated (test 135 mg/dL code = 80196-8) CARO (test code = CARO) Triglyceride Reference Range: Low Risk <150 Borderline 150-199 High Risk 200-499 Very High Risk >=500 Cholesterol Reference Range: Low Risk <200 Borderline 200-239 High Risk >240 HDL Cholesterol Reference Range: Low Risk >=60 High Risk <40 LDL Cholesterol Reference Range: Optimal <100 Near Optimal 100-129 Borderline 130-159 High 160-189 Very High >=190 Ultrasound Specialist [place] [facility]2020-11-28 01:25:00 Test Item Value Reference Range Interpretation Comments Phosphorus (test code = 3.6 mg/dL 2.3-4.7 2777-1) CARO (test code = CARO) Ultrasound Specialist [place] Lab Interpretation (test Normal code = 19339-7) [facility] HospitalBASIC METABOLIC [id number] 01:25:00 Test Item Value Reference Range Interpretation [...] 697) EGFR (BEAKER) (test 49 mL/min/1.73 ESTIMA WILNER GFR IS code = 1092) sq m NOT ACCURATE CREATININE CLEARANCE IN PREDICTING GLOMERULAR FILTRATION RATE . ESTIMATED GFR I S NOT APPLICABLE FOR DIALYSIS PATIEN TS. Ultrasound Specialist ID - DOTTIE [id number] 01:25:00 Test Item Value Reference Range Interpretation Comments MAGNESIUM (BEAKER) (test code = 2.1 mg/dL 1.6-2.6 627) Ultrasound Specialist ID - DOTTIE [id number] 01:25:00 Test Item Value Reference Range Interpretation Comments PHOSPHORUS (BEAKER) (test code = 3.6 mg/dL 2.3-4.7 604) Ultrasound Specialist ID - DOTTIE MLIPID [id number] 01:25:00 Test Item Value Reference Range Interpretation [...] Borderline 130-159 High 160-189 Very High >=190 Ultrasound Specialist ID - DOTTIE [id number] 01:09:00 Test Item Value Reference Range Interpretation Comments PARTIAL THROMBOPLASTIN TIME 45.7 seconds 22.5-36.0 H (BEAKER) (test code = 760) TROPONIN [id number] 01:03:00 Test Item Value Reference Range Interpretation Comments TROPONIN I (BEAKER) (test code = 2.03 ng/mL 0.00-0.03 397) Troponin I (TnI) levels [...] failure, acidosis, acute neurological disease, and persistent tachyarrhythmia.Ultrasound Specialist ID - DOTTIE MType and screen, [id number] 19:10:00 Test Item Value Reference Range Interpretation Comments ABO/RH AUTOMATED (BEAKER) (test A POSITIVE code = 2260) Ab Scrn (test code = 890-4) NEGATIVE [facility] HospitalType [facility] screen, [id number] 19:10:00 Test Item Value Reference Range Interpretation Comments ABO/RH AUTOMATED (BEAKER) (test A POSITIVE code = 2260) Ab Scrn (test code = 890-4) NEGATIVE [facility] HospitalType [facility] screen, [id number] 19:10:00 Test Item Value Reference Range Interpretation Comments ABO/RH AUTOMATED (BEAKER) (test A POSITIVE code = 2260) Ab Scrn (test code = 890-4) [facility] [id number] 18:45:00 Test Item Value Reference Range Interpretation Comments Rh Factor (test code = 2589) POS ABO Grouping (test code = 2588) A [facility], [id number] 18:45:00 Test Item Value Reference Range Interpretation Comments Rh Factor (test code = 2589) POS ABO Grouping (test code = 2588) A [facility], [id number] 18:45:00 Test Item Value Reference Range Interpretation Comments Rh Factor (test code = 2589) POS ABO Grouping (test code = 2588) A [facility] HospitalHomocysteine2020-11-27 18:41:00 Test Item Value Reference Range Interpretation Comments Homocysteine (test code = 14.5 umol/L 5.1-15.4 82118-8) ACRO (test code = CARO) Ultrasound Specialist ID - ADMIN Lab Interpretation (test Normal code = 08888-8) [facility] HospitalHomocysteine2020-11-27 18:41:00 Test Item Value Reference Range Interpretation Comments Homocysteine (test code = 14.5 umol/L 5.1-15.4 30768-7) CARO (test code = CARO) Ultrasound Specialist ID - ADMIN Lab Interpretation (test Normal code = 07724-6) [facility] Hospital[facility]ocysteine2020-11-27 18:41:00 Test Item Value Reference Range Interpretation Comments Homocysteine (test code = 14.5 umol/L 5.1-15.4 90963-4) CAOR (test code = CARO) Ultrasound Specialist ID - ADMIN Lab Interpretation (test Normal code = 83799-3) [facility] HospitalHOMOCYSTEINE2020-11-27 18:41:00 Test Item Value Reference Range Interpretation Comments HOMOCYSTEINE (BEAKER) (test code 14.5 umol/L 5.1-15.4 = 642) Ultrasound Specialist ID - ADMINBASIC METABOLIC [id number] 18:20:00 Test Item Value Reference Range Interpretation [...] 697) EGFR (BEAKER) (test 49 mL/min/1.73 ESTIMA WILNER GFR IS code = 1092) sq m NOT ACCURATE CREATININE CLEARANCE IN PREDICTING GLOMERULAR FILTRATION RATE . ESTIMATED GFR I S NOT APPLICABLE FOR DIALYSIS PATIEN TS. Ultrasound Specialist ID - [id number] 18:14:00 Test Item Value Reference Range Interpretation Comments PARTIAL THROMBOPLASTIN TIME 33.8 seconds 22.5-36.0 (BEAKER) (test code = 760) 6 hours after starting heparin infusion and as indicated per sliding scaleCBC W/PLT COUNT & AUTO [id number] 18:07:00 Test Item Value Reference Range Interpretation [...] % 0-1 PERCENT (BEAKER) (test code = 2800)
[2021-03-18 17:00] LABS: SARS-COV-2 RT PCR POSITIVE (NEGATIVE)
--- NOTE | 2021-03-18 17:01 | EDPHYS ---
Physician Documentation [facility] Name: Krzysztof Gay Age: 66 yrs Sex: Male : 1955 Arrival Date: 03/18/2021 Time: 15:23 Bed 11 Private MD: ED Physician Adrian Martinez HPI: 03/18 15:50 This 66 yrs old Male presents to ER via Ambulatory with complaints of Cough, kb Congestion, Vomiting. 15:50 The patient or guardian reports cough, that is intermittent, described as mild. Onset: kb The symptoms/episode began/occurred 2 day(s) ago. Severity of symptoms: At their worst the symptoms were moderate, in the emergency department the symptoms are unchanged. Modifying factors: The symptoms are alleviated by nothing, the symptoms are aggravated by nothing. Associated signs and symptoms: The patient has no apparent associated signs or symptoms. The patient has not experienced similar symptoms in the past. The patient has not recently seen a physician. Pt reports cough and congestion for 2 days. Denies fever. Today cough has become productive. . Historical: - Allergies: 15:34 No Known Allergies; ww - PMHx: 15:32 Depression; HEART FAILURE; Hypertension; ww - PSHx: 15:35 pacemaker; ww - Immunization history:: Client reports receiving the 2nd dose of the Covid vaccine. - Social history:: Smoking status: Patient denies any tobacco usage or history of. ROS: 15:50 Constitutional: Negative for fever, chills, and weight loss. kb 15:50 ENT: Positive for sinus congestion. 15:50 Respiratory: Positive for cough, Negative for dyspnea on exertion, hemoptysis, orthopnea, pleurisy, shortness of breath, sputum production, wheezing. 15:50 All other systems are negative. Exam: 15:50 Constitutional: This is a well developed, well nourished patient who is awake, alert, kb and in no acute distress. Head/Face: Normocephalic, atraumatic. ENT: Moist Mucous membranes Cardiovascular: Regular rate and rhythm with a normal S1 and S2. No gallops, murmurs, or rubs. No pulse deficits. Respiratory: Respirations even and unlabored. No increased work of breathing. Talking in full sentences Skin: Warm, dry with normal turgor. Normal color. MS/ Extremity: Pulses equal, no cyanosis. Neurovascular intact. Full, normal range of motion. Neuro: Awake and alert, GCS 15, oriented to person, place, time, and situation. Moves all extremities. Normal gait. Psych: Awake, alert, with orientation to person, place and time. Behavior, mood, and affect are within normal limits. Vital Signs: 15:32 BP 102 / 67; Pulse 87; Resp 18; Temp 96.6; Pulse Ox 97% on R/A; Weight 83.91 kg; Height ww 5 ft. 5 in. (165.10 cm); Pain 0/10; 15:32 Body Mass Index 30.79 (83.91 kg, 165.10 cm) ww MDM: 15:37 Patient medically screened. kb 15:51 Data reviewed: vital signs, nurses notes. Data interpreted: Pulse oximetry: on room air kb is 97 %. Interpretation: normal. 17:00 Counseling: I had a detailed discussion with the patient and/or guardian regarding: the kb historical points, exam findings, and any diagnostic results supporting the discharge/admit diagnosis, lab results, the need for outpatient follow up, a family practitioner, to return to the emergency department if symptoms worsen or persist or if there are any questions or concerns that arise at home. 03/18 15:38 Order name: COVID-19/FLU A+B (Document "Date of Onset" if Symptomatic); Complete Time: kb 17:01 03/18 15:38 Order name: Chest Pa And Lat (2 Views) XRAY kb Administered Medications: No medications were administered Disposition: 03/19 08:24 Co-signature as Attending Physician, Adrian Martinez MD I agree with the assessment and siri plan of care. Disposition Summary: 03/18/21 17:01 Discharge Ordered Location: Home kb Condition: Stable kb Diagnosis - Coronavirus infection, unspecified kb Followup: kb - With: Emergency Department - When: As needed - Reason: Worsening of condition Followup: kb - With: Private Physician - When: 2 - 3 days - Reason: Recheck today's complaints, Continuance of care, Re-evaluation by your physician Discharge Instructions: - Discharge Summary Sheet kb - Viral Respiratory Infection, [id number]-[id number] kb - COVID-19 kb Forms: - Medication Reconciliation Form kb - Thank You Letter kb - Antibiotic Education kb - Prescription Opioid Use kb Signatures: Dispatcher [employer] Carlyn Castle, [employer] DEVELOPER-C [employer] DEVELOPER-Ckb Adrian Martinez MD MD cha Wood, Whitney, RN RN ww
--- NOTE | 2021-03-18 17:01 | ER ---
Nurse's Notes [facility] Name: Krzysztof Gay Age: 66 yrs Sex: Male : 1955 Arrival Date: 03/18/2021 Time: 15:23 Bed 11 Private MD: Diagnosis: Coronavirus infection, unspecified Presentation: 03/18 15:32 Chief complaint: Patient states: Flu like symptoms, productive cough, trouble ww swallowing for 2 days. Coronavirus screen: Vaccine status: Patient reports receiving the 2nd dose of the covid vaccine. Ebola Screen: Patient negative for fever greater than or equal to 101.5 degrees Fahrenheit, and additional compatible Ebola Virus Disease symptoms Patient denies exposure to infectious person. Patient denies travel to an Ebola-affected area in the 21 days before illness onset. Initial Sepsis Screen: Does the patient meet any 2 criteria? No. Patient's initial sepsis screen is negative. Does the patient have a suspected source of infection? No. Patient's initial sepsis screen is negative. Risk Assessment: Do you want to hurt yourself or someone else? Patient reports no desire to harm self or others. Onset of symptoms was March 17, 2021. 15:32 Method Of Arrival: Ambulatory ww 15:32 Acuity: GELACIO 4 ww Triage Assessment: 15:35 General: Appears comfortable, Behavior is calm, cooperative, appropriate for age. Pain: ww Denies pain. EENT: Reports nasal congestion. Neuro: Level of Consciousness is awake, alert, obeys commands, Oriented to person, place, time, situation. Cardiovascular: Capillary refill < 3 seconds. Respiratory: Airway is patent Respiratory effort is even, unlabored, Respiratory pattern is regular, symmetrical. GI: No deficits noted. No signs and/or symptoms were reported involving the gastrointestinal system. : No deficits noted. No signs and/or symptoms were reported regarding the genitourinary system. Derm: Skin is intact. Musculoskeletal: No deficits noted. No signs and/or symptoms reported regarding the musculoskeletal system. 16:30 Respiratory: Breath sounds are coarse Breath sounds with crackles. jh5 Historical: - Allergies: 15:34 No Known Allergies; ww - PMHx: 15:32 Depression; HEART FAILURE; Hypertension; ww - PSHx: 15:35 pacemaker; ww - Immunization history:: Client reports receiving the 2nd dose of the Covid vaccine. - Social history:: Smoking status: Patient denies any tobacco usage or history of. Screenin:36 Abuse screen: Denies threats or abuse. Denies injuries from another. Nutritional ww screening: No deficits noted. Tuberculosis screening: No symptoms or risk factors identified. Fall Risk None identified. Vital Signs: 15:32 BP 102 / 67; Pulse 87; Resp 18; Temp 96.6; Pulse Ox 97% on R/A; Weight 83.91 kg; Height ww 5 ft. 5 in. (165.10 cm); Pain 0/10; 15:32 Body Mass Index 30.79 (83.91 kg, 165.10 cm) ww ED Course: 15:23 Patient arrived in ED. mr 15:34 Triage completed. ww 15:35 Arm band placed on left wrist. ww 15:37 Carlyn Brown FNP-C is [facility]. kb 15:37 Adrian Martinez MD is Attending Physician. kb 16:05 COVID-19/FLU A+B (Document "Date of Onset" if Symptomatic) Sent. [facility] 16:24 Chest Pa And Lat (2 Views) XRAY In Process Unspecified. EDMS 16:30 Patient has correct armband on for positive identification. Bed in low position. Call [facility] light in reach. Side rails up X 1. 16:30 No provider procedures requiring assistance completed. [facility] 17:08 Tram Spencer, RN is Primary Nurse. 5 17:08 Patient did not have IV access during this emergency room visit. 5 Administered Medications: No medications were administered Outcome: 17:01 Discharge ordered by . kb 17:08 Discharged to home ambulatory. 5 17:08 Condition: good 17:08 Discharge instructions given to patient, family, Instructed on discharge instructions, follow up and referral plans. safety practices, Demonstrated understanding of instructions, follow-up care, medications. 17:09 Patient left the ED. [facility] Signatures: Dispatcher [employer] EDWV Carlyn Brown FNP-C FNP-Ckb Rivera, Mary mr Tram Spencer, RN RN [facility] Alicia Mariee RN RN
--- NOTE | 2021-03-18 17:09 | RAD REPORT ---
EXAM DESCRIPTION: Anatoly Mendes (2 Views)03/18/2021 4:22 pm CLINICAL HISTORY: Cough COMPARISON: 2019 FINDINGS: The lungs appear clear of acute infiltrate. The heart is normal size. Pacemaker leads in place IMPRESSION: No acute abnormalities displayed
[2021-03-18 17:14] VITALS: BP 102/67; TEMP 96.6; O2SAT 97
== END 2021-03-18 17:09 | disposition home or self-care (01) ==
LOC: ER 15:18
DX: U07.1 COVID-19 (principal); I10 Essential (primary) hypertension; Z95.0 Presence of cardiac pacemaker
CPT/HCPCS: 0240U; 71046; 99283

== ENCOUNTER 2023-07-26 22:43 | Emergency (ER) | payer OTHER ==
[2023-07-26] MEDS ORDERED: ALBUTEROL 2.5 MG/3 ML NEB SOL ONE (23:24)
[2023-07-26] MEDS ORDERED: IPRATROPIUM BROM 0.5MG/2.5ML ONE (23:24)
[2023-07-26 23:59] LABS: SARS-CoV-2 Antigen CONTROL BLUE LINE VIS/BG OK; SARS-CoV-2 Antigen Rapid Res Negative (Negative)
--- NOTE | 2023-07-27 00:46 | EDPHYS ---
Physician Documentation [facility] Name: Krzysztof Gay Age: 68 yrs Sex: Male : 1955 Arrival Date: 07/26/2023 Time: 22:43 Bed 13 Private MD: ED Physician Jacob Lamb HPI: 07/25 23:14 This 68 yrs old Male presents to ER via Ambulatory with complaints of ec2 Shortness Of Breath, Cough. 23:15 Patient arrives today for cough and cold symptoms as well as shortness of breath. ec2 Patient reports that he has been experiencing cough frequently and causing him shortness of breath. No leg swelling. Patient reports history of CHF. Patient reports no fevers or chills, nausea or vomiting.. Historical: - Allergies: 22:58 No Known Allergies; jj7 - PMHx: 22:58 Depression; HEART FAILURE; Hypertension; jj7 - PSHx: 22:58 pacemaker; jj7 - Immunization history:: Adult Immunizations up to date, Client reports receiving the 2nd dose of the Covid vaccine, Flu vaccine is up to date. - Infectious Disease History:: Denies. - Social history:: Smoking status: Patient denies any tobacco usage or history of. Patient/guardian denies using alcohol, street drugs, IV drugs. ROS: 23:16 Constitutional: as per hpi ec2 Exam: 23:16 Constitutional: GEN: NAD Head: atraumatic Eyes: EOMI Ears: External ears are ec2 normal. CV: regular rate LUNGS: no respiratory distress, no significant wheezes or rales or rhonchi. ABD: non-distended SKIN: no evidence of rashes MSK: no evidence of trauma NEURO: moves all extremities equally Vital Signs: 22:55 BP 139 / 82; Pulse 67; Resp 17; Temp 97.2; Pulse Ox 100% ; Weight 79.38 kg; Height 5 jj7 ft. 10 in. ; Pain 0/10; 23:30 BP 128 / 87; Pulse 74; Resp 18 S; Pulse Ox 99% on R/A; jw7 07/26 00:30 BP 136 / 80; Pulse 68; Resp 16 S; Pulse Ox 100% on R/A; jw7 07/25 22:55 Body Mass Index 25.11 (79.38 kg, 177.8 cm) j7 07/25 22:55 Pain Scale: Adult jj7 MDM: 07/25 22:55 Patient medically screened. ec2 23:16 Data reviewed: vital signs. ED course: Patient arrives today for evaluation of cough ec2 and cold symptoms as well as shortness of breath. Examination remarkable for well-appearing nontoxic dividual is otherwise in no acute distress with a reassuring cardiopulmonary examination. No evidence of lower extremity edema. Differential diagnosis included viral infection, pneumonia, CHF exacerbation. . 07/26 00:40 ED course: Chest x-ray independently reviewed and interpreted by me, shows no acute ec2 intrathoracic process. Flu and COVID testing negative. On reassessment patient remains well-appearing in no acute distress. Will discharge home with outpatient cough medications have the patient follow-up outpatient. Return precautions given.. 07/25 23:14 Order name: Influenza Screen (a \T\ B); Complete Time: 00:40 ec2 07/25 23:14 Order name: SARS RAPID; Complete Time: 00:40 ec2 07/25 23:14 Order name: CXR XRAY ec2 Administered Medications: 07/25 23:30 Drug: DuoNeb Nebulize (3:1) (2.5 mg - 0.5 mg) 3 ml Nebulizer once Route: Nebulizer; jw7 07/26 00:47 Follow up: Response: No adverse reaction; Marked relief of symptoms jw7 01:03 Drug: Codeine-Guaifenesin PO Liquid (10 mg-100 mg/5 mL) 5 ml PO once Route: PO; jw7 01:03 Follow up: Response: No adverse reaction; Medication administered at discharge. jw7 Disposition Summary: 07/27/23 00:45 Discharge Ordered Notes: Location: Home ec2 Condition: Stable ec2 Diagnosis - Viral infection, unspecified ec2 Followup: ec2 - With: Private Physician - When: - Reason: Re-evaluation by your physician Discharge Instructions: - Discharge Summary Sheet ec2 - Viral Illness, Adult ec2 Forms: - Medication Reconciliation Form ec2 - Antibiotic Education ec2 - Prescription Opioid Use ec2 - Patient Portal Instructions ec2 - Leadership Thank You Letter ec2 Prescriptions: - albuterol sulfate 90 mcg/actuation Inhalation HFA Aerosol Inhaler - inhale 2 inhalation INHALATION route 4 times per day; 1 unit; Refills: 0, ec2 Product Selection Permitted - Tessalon Perles 100 mg Oral Capsule - take 1 capsule ORAL route every 8 hours As needed; 15 capsule; Refills: 0, ec2 Product Selection Permitted - Prednisone 20 mg Oral Tablet - take 2 tablets ORAL route once daily for 5 days; 10 tablet; Refills: 0, Product ec2 Selection Permitted Signatures: Dispatcher [employer] Julia Fuller RN RN jw7 Vinny Fonseca RN RN jj7 Jacob Lamb MD MD ec2
--- NOTE | 2023-07-27 00:46 | ER ---
Nurse's Notes [facility] Name: Krzysztof Gay Age: 68 yrs Sex: Male : 1955 Arrival Date: 07/26/2023 Time: 22:43 Bed 13 Private MD: Diagnosis: Viral infection, unspecified Presentation: 07/25 22:55 Chief complaint: Patient's son or daughter states: COUGH SO MUCH CAUSING HIM TO HAVE jj7 SOB. STARTED 3 DAYS AGO. Coronavirus screen: At this time, the client does not indicate any symptoms associated with coronavirus-19. Ebola Screen: No symptoms or risks identified at this time. Initial Sepsis Screen: Does the patient meet any 2 criteria? No. Patient's initial sepsis screen is negative. Does the patient have a suspected source of infection? No. Patient's initial sepsis screen is negative. Risk Assessment: Do you want to hurt yourself or someone else? Patient reports no desire to harm self or others. Onset of symptoms was July 23, 2023. 22:55 Method Of Arrival: Ambulatory [facility] 22:55 Acuity: GELACIO 4 jj7 Triage Assessment: 22:58 General: Appears in no apparent distress. comfortable, Behavior is calm, cooperative, jj7 appropriate for age. Pain: Denies pain. Respiratory: No deficits noted. Reports shortness of breath at rest cough that is dry, Airway is patent Respiratory effort is even, unlabored, Respiratory pattern is regular, symmetrical, Onset: The symptoms/episode began/occurred 3 DAYS AGO, the patient has mild shortness of breath. Historical: - Allergies: 22:58 No Known Allergies; jj7 - PMHx: 22:58 Depression; HEART FAILURE; Hypertension; jj7 - PSHx: 22:58 pacemaker; jj7 - Immunization history:: Adult Immunizations up to date, Client reports receiving the 2nd dose of the Covid vaccine, Flu vaccine is up to date. - Infectious Disease History:: Denies. - Social history:: Smoking status: Patient denies any tobacco usage or history of. Patient/guardian denies using alcohol, street drugs, IV drugs. Screenin:01 [facility] ED Fall Risk Assessment (Adult) History of falling in the last 3 months, jj7 including since admission No falls in past 3 months (0 pts) Confusion or Disorientation No (0 pts) Intoxicated or Sedated No (0 pts) Impaired Gait No (0 pts) Mobility Assist Device Used No (0 pt) Altered Elimination No (0 pt) Score/Fall Risk Level 0 - 2 = Low Risk Oriented to surroundings, Maintained a safe environment, Educated pt \T\ family on fall prevention, incl call for assistance when getting out of bed. Abuse screen: Denies threats or abuse. Nutritional screening: No deficits noted. Tuberculosis screening: No symptoms or risk factors identified. Assessment: 23:10 General: Appears in no apparent distress. comfortable, Behavior is calm, cooperative, jw7 appropriate for age. Pain: Denies pain. Neuro: Level of Consciousness is awake, alert, obeys commands, Oriented to person, place, time, situation, Appropriate for age. Cardiovascular: Reports shortness of breath, Heart tones S1 S2 present Capillary refill < 3 seconds Clubbing of nail beds is absent JVD is absent Patient's skin is warm and dry. Rhythm is sinus rhythm. Respiratory: Reports shortness of breath at rest Airway is patent Trachea midline Respiratory effort is even, unlabored, Respiratory pattern is regular, symmetrical, Breath sounds are clear bilaterally. GI: Abdomen is flat, non-distended, Bowel sounds present X 4 quads. Abd is soft and non tender X 4 quads. : No deficits noted. No signs and/or symptoms were reported regarding the genitourinary system. EENT: No deficits noted. No signs and/or symptoms were reported regarding the EENT system. Derm: Skin is intact, is healthy with good turgor, Skin is dry, Skin is normal, Skin temperature is warm. Musculoskeletal: Circulation, motion, and sensation intact. Range of motion: intact in all extremities. 07/26 00:00 Reassessment: Patient appears in no apparent distress at this time. Patient and/or jw7 family updated on plan of care and expected duration. Pain level reassessed. Patient is alert, oriented x 3, equal unlabored respirations, skin warm/dry/pink. Patient states feeling better. Patient states symptoms have improved. 01:04 Reassessment: Patient appears in no apparent distress at this time. No changes from jw7 previously documented assessment. Patient and/or family updated on plan of care and expected duration. Pain level reassessed. Patient is alert, oriented x 3, equal unlabored respirations, skin warm/dry/pink. Vital Signs: 07/25 22:55 BP 139 / 82; Pulse 67; Resp 17; Temp 97.2; Pulse Ox 100% ; Weight 79.38 kg; Height 5 j7 ft. 10 in. ; Pain 0/10; 23:30 BP 128 / 87; Pulse 74; Resp 18 S; Pulse Ox 99% on R/A; jw7 07/26 00:30 BP 136 / 80; Pulse 68; Resp 16 S; Pulse Ox 100% on R/A; jw7 07/25 22:55 Body Mass Index 25.11 (79.38 kg, 177.8 cm) j7 07/25 22:55 Pain Scale: Adult [facility] ED Course: 07/25 22:50 Patient arrived in ED. gm2 22:54 Jacob Lamb MD is Attending Physician. ec2 22:58 Triage completed. j7 22:58 Arm band placed on right wrist. j7 23:01 Patient has correct armband on for positive identification. Bed in low position. Call [facility] light in reach. Adult w/ patient. Provided Education on: USE OF CALL HUSSEIN. 23:18 Julia Platt, RN is Primary Nurse. jw7 23:18 SARS RAPID Sent. jw7 23:29 SARS RAPID Sent. rv1 23:29 Influenza Screen (a \T\ B) Sent. rv1 23:40 CXR XRAY In Process Unspecified. EDMS 07/26 01:05 No provider procedures requiring assistance completed. Patient did not have IV access jw7 during this emergency room visit. Administered Medications: 07/25 23:30 Drug: DuoNeb Nebulize (3:1) (2.5 mg - 0.5 mg) 3 ml Nebulizer once Route: Nebulizer; jw7 07/26 00:47 Follow up: Response: No adverse reaction; Marked relief of symptoms jw7 01:03 Drug: Codeine-Guaifenesin PO Liquid (10 mg-100 mg/5 mL) 5 ml PO once Route: PO; jw7 01:03 Follow up: Response: No adverse reaction; Medication administered at discharge. jw7 Medication: 07/25 23:01 VIS not applicable for this client. jj7 Outcome: 07/26 00:45 Discharge ordered by . ec2 01:05 Discharged to home ambulatory, jw7 01:05 Condition: stable 01:05 Discharge instructions given to patient, family, Instructed on discharge instructions, follow up and referral plans. medication usage, Demonstrated understanding of instructions, follow-up care, medications, Prescriptions given X 2, 01:06 Patient left the ED. jw7 Signatures: Dispatcher [employer] EDMS Julia Platt RN RN jw7 Vinny Fonseca RN RN jj7 April Bingham rv1 Jacob Lamb MD MD ec2 Faye Howard 2
[2023-07-27] MEDS ORDERED: GUAIFENESIN/CODEINE 5ML UCUP ONE (00:59)
[2023-07-27 01:36] VITALS: BP 136/80; TEMP 97.2; O2SAT 100
--- NOTE | 2023-07-27 17:27 | RAD REPORT ---
EXAM DESCRIPTION: RAD - Chest Single View - 07/26/2023 11:38 pm CLINICAL HISTORY: The patient is 68 years old and is Male; cough, sob TECHNIQUE: Frontal view of the chest. COMPARISON: No relevant prior studies available. FINDINGS: Lungs: Unremarkable. No consolidation. Pleural space: Unremarkable. No pneumothorax. Heart: Unremarkable. Mediastinum: Unremarkable. Normal mediastinal contour. Bones/joints: No acute findings. Tubes, lines and devices: Left-sided pacemaker/AICD. IMPRESSION: No acute findings in the chest. Electronically signed by: Con Godinez MD 07/26/2023 11:54 PM CDT RP 8 Due to temporary technical issues with the PACS/Fluency reporting system, reports are being signed by the in house radiologists without review as a courtesy to insure prompt reporting. The interpreting radiologist is fully responsible for the content of the report
== END 2023-07-27 01:06 | disposition home or self-care (01) ==
LOC: ER 22:43
DX: B34.9 Viral infection, unspecified (principal); Z11.52 Encounter for screening for COVID-19; I50.9 Heart failure, unspecified; Z95.0 Presence of cardiac pacemaker
CPT/HCPCS: 36415; 87804 ×2; 71045; 94640; 99284; 87811; J7613; J7644

== ENCOUNTER 2023-12-19 13:36 | Emergency (ER) | payer OTHER ==
[2023-12-19] MEDS ORDERED: GABAPENTIN 300 MG CAP ONE (15:00)
[2023-12-19] MEDS ORDERED: IBUPROFEN 400 MG TAB ONE (15:00)
[2023-12-19] MEDS ORDERED: IBUPROFEN 200 MG TAB PO ONE (15:00)
[2023-12-19] MEDS ORDERED: HYDROCODONE/APAP 7.5/325 MG TAB ONE (15:01)
[2023-12-19] MEDS ORDERED: ONDANSETRON 4 MG (ODT) TAB ONE (15:01)
--- NOTE | 2023-12-19 15:12 | ER ---
Nurse's Notes [facility] Name: Krzysztof Gay Age: 68 yrs Sex: Male : 1955 Arrival Date: 12/19/2023 Time: 13:36 Bed 18 Private MD: Diagnosis: Zoster without complications;Other postherpetic nervous system involvement Presentation: 12/18 13:45 Chief complaint: Patient states: Shingles pain R upper chest area and R arm. No fever. ll1 Coronavirus screen: Client denies travel out of the [place] in the last 14 days. At this time, the client does not indicate any symptoms associated with coronavirus-19. Ebola Screen: Patient denies travel to an Ebola-affected area in the 21 days before illness onset. Initial Sepsis Screen: Does the patient meet any 2 criteria? No. Patient's initial sepsis screen is negative. Does the patient have a suspected source of infection? No. Patient's initial sepsis screen is negative. Risk Assessment: Do you want to hurt yourself or someone else? Patient reports no desire to harm self or others. 13:45 Method Of Arrival: Ambulatory ll1 13:45 Acuity: GELACIO 4 ll1 Triage Assessment: 13:46 General: Appears uncomfortable, Behavior is calm, cooperative, appropriate for age. ll1 Pain: Complains of pain in R upper chest and R arm Quality of pain is described as aching. Derm: Reports pain rash to R upper chest. Musculoskeletal: Circulation, motion, and sensation intact. Capillary refill < 3 seconds, in right fingers. Reports pain in right hand. Historical: - Allergies: 13:41 No Known Allergies; ll1 - PMHx: 13:41 Depression; HEART FAILURE; Hypertension; ll1 - PSHx: 13:41 pacemaker; ll1 - Immunization history:: Adult Immunizations up to date. - Infectious Disease History:: currently has shingles. - Social history:: Smoking status: Patient denies any tobacco usage or history of. Screenin:31 [facility] ED Fall Risk Assessment (Adult) History of falling in the last 3 months, tm6 including since admission No falls in past 3 months (0 pts) Confusion or Disorientation No (0 pts) Intoxicated or Sedated No (0 pts) Impaired Gait No (0 pts) Mobility Assist Device Used No (0 pt) Altered Elimination No (0 pt) Score/Fall Risk Level 0 - 2 = Low Risk Oriented to surroundings, Maintained a safe environment, Educated pt \T\ family on fall prevention, incl call for assistance when getting out of bed. Abuse screen: Denies threats or abuse. Denies injuries from another. Nutritional screening: No deficits noted. Tuberculosis screening: No symptoms or risk factors identified. Assessment: 14:31 General: Appears in no apparent distress. Behavior is calm, cooperative. Pain: tm6 Complains of pain in right hand, anterior aspect of right shoulder and neck Pain currently is 10 out of 10 on a pain scale. Neuro: Level of Consciousness is awake, alert, obeys commands, Oriented to person, place, time, situation. Cardiovascular: Patient's skin is warm and dry. Respiratory: Airway is patent Respiratory effort is even, unlabored, Respiratory pattern is regular, symmetrical. GI: No signs and/or symptoms were reported involving the gastrointestinal system. Abdomen is flat, non-distended. : No signs and/or symptoms were reported regarding the genitourinary system. EENT: No signs and/or symptoms were reported regarding the EENT system. Derm: Reports pain that is 10 out of 10 on a pain scale. from shingles. Musculoskeletal: Reports pain in right hand and neck Pain is 10 out of 10 on a pain scale. 15:11 Reassessment: Patient and/or family updated on plan of care and expected duration. Pain tm6 level reassessed. Patient is alert, oriented x 3, equal unlabored respirations, skin warm/dry/pink. 16:01 Reassessment: Patient and/or family updated on plan of care and expected duration. Pain tm6 level reassessed. Patient is alert, oriented x 3, equal unlabored respirations, skin warm/dry/pink. Vital Signs: 13:45 BP 159 / 94; Pulse 66; Resp 17; Temp 97.2; Pulse Ox 99% on R/A; Weight 74.84 kg; Height ll1 5 ft. 10 in. ; Pain 10/10; 15:11 BP 131 / 72; Pulse 63; Pulse Ox 100% on R/A; MAP 88 mmHg; tm6 16:01 BP 137 / 80; Pulse 70; Resp 14; Temp 97.3; Pulse Ox 100% on R/A; Pain 7/10; tm6 13:45 Body Mass Index 23.67 (74.84 kg, 177.8 cm) ll1 13:45 Pain Scale: Adult ll1 16:01 Pain Scale: Adult tm6 Jenise Coma Score: 15:03 Eye Response: spontaneous(4). Motor Response: obeys commands(6). Verbal Response: siri oriented(5). Total: 15. ED Course: 13:38 Patient arrived in ED. mr 13:40 Adrian Martinez MD is Attending Physician. [facility] 13:41 Arm band placed on Patient placed in an exam room, on a stretcher. ll1 13:46 Triage completed. ll1 14:20 Olegario Mishra RN is Primary Nurse. tm6 14:31 Patient has correct armband on for positive identification. Bed in low position. Call tm6 light in reach. Side rails up X 1. Provided Education on: use of call galicia. Door closed. Noise minimized. 15:10 Itz Jernigan MD is Referral Physician. [facility] 16:01 No provider procedures requiring assistance completed. Patient did not have IV access tm6 during this emergency room visit. Administered Medications: 15:06 Drug: Ondansetron Oral Disintegrating Tablet Oral Disintegrating Tablet 4 mg PO once tm6 Route: PO; 16:02 Follow up: Response: No adverse reaction tm6 15:07 Drug: Gabapentin PO 300 mg PO once Route: PO; tm6 16:02 Follow up: Response: No adverse reaction tm6 15:07 Not Given (Patient Refused): [id number] mg PO once tm6 15:07 Drug: Hydrocodone-Acetaminophen PO (7.5 mg-325 mg) 1 tabs PO once Route: PO; tm6 16:02 Follow up: Response: No adverse reaction tm6 Medication: 14:31 VIS not applicable for this client. tm6 Outcome: 15:11 Discharge ordered by . [facility] 16:01 Discharged to home ambulatory, with family, tm6 16:01 Condition: stable 16:01 Discharge instructions given to patient, family, Instructed on discharge instructions, follow up and referral plans. medication usage, Demonstrated understanding of instructions, follow-up care, medications, Prescriptions given X 3, 16:01 Patient left the ED. tm6 Signatures: Adrian Martinez MD MD cha Rivera, Mary, Reg Reg Rand Hart RN RN ll1 Danica, Tawney, RN RN tm6
--- NOTE | 2023-12-19 15:12 | EDPHYS ---
Physician Documentation [facility] Name: Krzysztof Gay Age: 68 yrs Sex: Male : 1955 Arrival Date: 12/19/2023 Time: 13:36 Bed 18 Private MD: ED Physician Adrian Martinez HPI: 12/18 14:56 This 68 yrs old Male presents to ER via Ambulatory with complaints of Shingle siri pain. Historical: - Allergies: 13:41 No Known Allergies; ll1 - PMHx: 13:41 Depression; HEART FAILURE; Hypertension; ll1 - PSHx: 13:41 pacemaker; ll1 - Immunization history:: Adult Immunizations up to date. - Infectious Disease History:: currently has shingles. - Social history:: Smoking status: Patient denies any tobacco usage or history of. ROS: 14:57 Constitutional: Negative for fever, chills, and weight loss, Eyes: Negative for injury, siri pain, redness, and discharge, ENT: Negative for injury, pain, and discharge, Neck: Negative for injury, pain, and swelling, Cardiovascular: Negative for chest pain, palpitations, and edema, Respiratory: Negative for shortness of breath, cough, wheezing, and pleuritic chest pain, Abdomen/GI: Negative for abdominal pain, nausea, vomiting, diarrhea, and constipation, Back: Negative for injury and pain, : Negative for injury, bleeding, discharge, and swelling, MS/Extremity: Negative for injury and deformity, Neuro: Negative for headache, weakness, numbness, tingling, and seizure, Psych: Negative for depression, anxiety, suicide ideation, homicidal ideation, and hallucinations, Allergy/Immunology: Negative for hives, rash, and allergies, Endocrine: Negative for neck swelling, polydipsia, polyuria, polyphagia, and marked weight changes, Hematologic/Lymphatic: Negative for swollen nodes, abnormal bleeding, and unusual bruising, 14:57 Skin: Positive for rash, Exam: 15:03 Constitutional: This is a well developed, well nourished patient who is awake, alert, siri and in no acute distress. Head/Face: Normocephalic, atraumatic. Eyes: Pupils equal round and reactive to light, extra-ocular motions intact. Lids and lashes normal. Conjunctiva and sclera are non-icteric and not injected. Cornea within normal limits. Periorbital areas with no swelling, redness, or edema. ENT: Nares patent. No nasal discharge, no septal abnormalities noted. Tympanic membranes are normal and external auditory canals are clear. Oropharynx with no redness, swelling, or masses, exudates, or evidence of obstruction, uvula midline. Mucous membranes moist. Neck: Trachea midline, no thyromegaly or masses palpated, and no cervical lymphadenopathy. Supple, full range of motion without nuchal rigidity, or vertebral point tenderness. No Meningismus. Chest/axilla: Normal chest wall appearance and motion. Nontender with no deformity. No lesions are appreciated. Cardiovascular: Regular rate and rhythm with a normal S1 and S2. No gallops, murmurs, or rubs. Normal PMI, no JVD. No pulse deficits. Respiratory: Lungs have equal breath sounds bilaterally, clear to auscultation and percussion. No rales, rhonchi or wheezes noted. No increased work of breathing, no retractions or nasal flaring. Abdomen/GI: Soft, non-tender, with normal bowel sounds. No distension or tympany. No guarding or rebound. No evidence of tenderness throughout. Back: No spinal tenderness. No costovertebral tenderness. Full range of motion. Male : Normal genitalia with no discharge or lesions. MS/ Extremity: Pulses equal, no cyanosis. Neurovascular intact. Full, normal range of motion. Neuro: Awake and alert, GCS 15, oriented to person, place, time, and situation. Cranial nerves II-XII grossly intact. Motor strength 5/5 in all extremities. Sensory grossly intact. Cerebellar exam normal. Normal gait. Psych: Awake, alert, with orientation to person, place and time. Behavior, mood, and affect are within normal limits. 15:03 Skin: Appearance: Color: normal in color, Temperature: normal temperature, Moisture: normal moisture, petechiae, not noted, ecchymosis, not noted, flushing, not noted, diaphoresis is not appreciated, abscess, not appreciated, cellulitis, is not appreciated, induration, is not appreciated, post zoster, Vital Signs: 13:45 BP 159 / 94; Pulse 66; Resp 17; Temp 97.2; Pulse Ox 99% on R/A; Weight 74.84 kg; Height ll1 5 ft. 10 in. ; Pain 10/10; 15:11 BP 131 / 72; Pulse 63; Pulse Ox 100% on R/A; MAP 88 mmHg; tm6 16:01 BP 137 / 80; Pulse 70; Resp 14; Temp 97.3; Pulse Ox 100% on R/A; Pain 7/10; tm6 13:45 Body Mass Index 23.67 (74.84 kg, 177.8 cm) ll1 13:45 Pain Scale: Adult ll1 16:01 Pain Scale: Adult tm6 [place] Coma Score: 15:03 Eye Response: spontaneous(4). Motor Response: obeys commands(6). Verbal Response: siri oriented(5). Total: 15. MDM: 13:41 Medical Screening Exam initiated siri 15:04 Differential diagnosis: impetigo, varicella, allergic reaction, parasite infection. siri Data reviewed: vital signs, nurses notes. Consideration of Admission/Observation Escalation of care including admission/observation considered. I considered the following discharge prescriptions or medication management in the emergency department Medications were administered in the Emergency Department. See MAR. Test considered but Not performed: Labs: no labs. Care significantly affected by the following chronic conditions: Hypertension, Congestive Heart Failure, depression. Administered Medications: 15:06 Drug: Ondansetron Oral Disintegrating Tablet Oral Disintegrating Tablet 4 mg PO once tm6 Route: PO; 16:02 Follow up: Response: No adverse reaction tm6 15:07 Drug: Gabapentin PO 300 mg PO once Route: PO; tm6 16:02 Follow up: Response: No adverse reaction tm6 15:07 Not Given (Patient Refused): [id number] mg PO once tm6 15:07 Drug: Hydrocodone-Acetaminophen PO (7.5 mg-325 mg) 1 tabs PO once Route: PO; tm6 16:02 Follow up: Response: No adverse reaction tm6 Disposition Summary: 12/19/23 15:11 Discharge Ordered Notes: Location: Home siri Problem: new siri Symptoms: have improved siri Condition: Stable siri Diagnosis - Zoster without complications siri - Other postherpetic nervous system involvement siri Followup: siri - With: Private Physician - When: 2 - 3 days - Reason: Recheck today's complaints, Continuance of care, Re-evaluation by your physician Followup: siri - With: Itz Jernigan MD - When: 2 - 3 days - Reason: Recheck today's complaints, Continuance of care, Re-evaluation by your physician Discharge Instructions: - Discharge Summary Sheet siri - Neuropathic Pain siri - Shingles siri - Shingles, [id number] siri - Postherpetic Neuralgia [facility] Forms: - Medication Reconciliation Form siri - Antibiotic Education siri - Prescription Opioid Use siri - Patient Portal Instructions siri - Leadership Thank You Letter [facility] Prescriptions: - acetaminophen-codeine 300-30 mg Oral tablet - take 2 tablet ORAL route every 6 hours; 24 tablet; Refills: 0, Product [facility] Selection Permitted - gabapentin 300 mg Oral capsule - take 1 capsule ORAL route 2 times per day may increase to 3 x daily after 1 siri week if nedded for pain; 60 capsule; Refills: 0, Product Selection Permitted - Motrin IB 200 mg Oral tablet - take 1 tablet ORAL route every 6 hours As needed as needed with food; 30 siri tablet; Refills: 0, Product Selection Permitted Signatures: Adrian Martinez MD MD cha Lewis, Lynsay RN RN ll1 Olegario Mishra RN RN tm6
[2023-12-19 19:13] VITALS: O2SAT 100
[2023-12-19 19:14] VITALS: BP 137/80; TEMP 97.3
== END 2023-12-19 16:01 | disposition home or self-care (01) ==
LOC: ER 13:36
DX: B02.9 Zoster without complications (principal); B02.29 Other postherpetic nervous system involvement; Z95.0 Presence of cardiac pacemaker
CPT/HCPCS: 99283; Q0162

== ENCOUNTER 2023-12-22 15:17 | Inpatient (IN) | payer OTHER ==
[2023-12-22] MEDS ORDERED: FOLIC ACID 5 MG/ML VIAL ONE (15:46)
[2023-12-22] MEDS ORDERED: NA CHLORIDE 0.9% 1,000 ML ONE (15:46)
[2023-12-22] MEDS ORDERED: NA CHLORIDE 0.9% 500 ML ONE (15:46)
--- NOTE | 2023-12-22 15:58 | RAD REPORT ---
EXAM: CT brain without contrast HISTORY: Slurred speech. COMPARISON: 2019 TECHNIQUE: Multiple contiguous axial images were obtained and a CT of the brain without contrast. Sagittal and coronal reformats were performed. Automated exposure control, adjustment of the mA and/or kV according to patient size, and/or itera tive reconstruction. Unless otherwise specified, incidental findings do not require dedicated imaging follow-u FINDINGS: An intracranial bleed is not seen Ventricles are normal caliber No extra-axial fluid collection noted Mild low-density paraventricular, deep and subcortical white matter probably ischemic changes seconda ry to small vessel disease. No fluid within the visualized sinuses or mastoids noted. IMPRESSION: No acute intracranial abnormality noted. If the patient's symptoms persist MRI of the brain would be recommended. from the emergency room was notified at 3:54 PM December 22, 2023
[2023-12-22 16:07] LABS: Absolute Monocytes 1.4 K/uL (0.1-1.3); Absolute Neutrophil 6.7 K/uL (1.8-8.0); Basophils % 0.4 % (0-1.3); Eosinophils % 0.1 % (0-4.4); Hematocrit 35.2 % (39.6-49.0); Hemoglobin 11.3 g/dL (13.6-17.9); Lymphocytes % 11.3 % (15.3-44.8); MCH 30.4 pg (27.0-35.0); MCHC 32.1 g/dL (32.0-36.0); MCV 94.8 fL (80-100); MPV 9.7 fL (7.6-11.3); Monocytes % 15.4 % (3.3-12.3); Neutrophils % 72.8 % (41.7-73.7); Platelets 141 thou/uL (152-406); RBC Red Blood Cell Count 3.71 M/uL (4.33-5.43); Red Cell Distribution Width 13.6 % (12.1-15.2)
[2023-12-22 16:10] LABS: PT Prothrombin Time 18.1 SECONDS (9.4-12.5); Protime INR 1.64
[2023-12-22 16:28] LABS: Albumin 2.9 g/dL (3.4-5.0); Albumin/Globulin Ratio 0.7 (1.1-1.8); Anion Gap 14.6 mEq/L (5.0-15.0); Bilirubin Direct 0.2 mg/dL (0-0.2); Bilirubin Indirect, Calculated 0.4 mg/dL (0.2-0.8); Bilirubin Total 0.6 mg/dL (0.2-1.0); Globulin 4.3 g/dL (2.3-3.5); Magnesium 2.3 mg/dL (1.6-2.4); Potassium 4.6 mEq/L (3.5-5.1); Protein, Total 7.2 g/dL (6.4-8.2)
--- NOTE | 2023-12-22 17:45 | RAD REPORT ---
EXAMINATION: Stone Protocol CLINICAL INDICATION: Abdominal pain. Flank pain TECHNIQUE: CT abdomen and pelvis was performed, without IV contrast, as per department protocol. Oral contrast not given. Axial, sagittal and coronal reconstructions were obtained. One or more of the following dose reduction techniques were used: Automated exposure control, adjustment of the mA and k V according to the patient size, and iterative reconstruction. Unless otherwise specified, incidental findings do not require dedicated imaging follow-up. COMPARISON: No prior exam. FINDINGS: The lack of intravenous and oral contrast limits the sensitivity of this exam for evaluation of solid visceral organs, vascular structures, and bowel A renal calculus not seen. No ureteral calculus. A bladder calculus not noted. No hydronephrosis. Bilateral low-density renal masses nonspecific but probably cysts. Stomach mildly distended. Gallbladder moderately distended. Liver, spleen, pancreas and adrenals grossly normal No evidence of diverticulitis. Normal appendix. Moderate prostatic enlargement. Small right and [id number] left inguinal hernias containing fat IMPRESSION: Negative for a genitourinary calculus Mild gallbladder distention. Mild gastric distention
--- NOTE | 2023-12-22 17:55 | RAD REPORT ---
Procedure: Chest Single View HISTORY: Chest pain COMPARISON: June 2023 FINDINGS: Area of subsegmental atelectasis right lung base Left lung appears clear. No significant pleural effusion noted. The heart is normal size. Pacemaker leads in place.
--- NOTE | 2023-12-22 18:16 | EDPHYS ---
Physician Documentation [facility] Name: Krzysztof Gay Age: 68 yrs Sex: Male : 1955 Arrival Date: 12/22/2023 Time: 15:17 Bed 20 Private MD: ED Physician Adrian Martinez HPI: 12/21 17:36 This 68 yrs old Male presents to ER via Wheelchair with complaints of siri Dizziness, Weakness. 17:36 The patient presents with dizziness, generalized weakness, lightheadedness, feeling off siri balance, a sense of confusion. Onset: The symptoms/episode began/occurred yesterday. . Historical: - Allergies: 15:33 No Known Allergies; cm10 - PMHx: 15:33 Depression; HEART FAILURE; Hypertension; cm10 - PSHx: 15:33 pacemaker; cm10 - Immunization history:: Adult Immunizations up to date. - Infectious Disease History:: Denies. - Social history:: Smoking status: unknown. ROS: 17:37 Constitutional: Negative for fever, chills, and weight loss, Eyes: Negative for injury, siri pain, redness, and discharge, ENT: Negative for injury, pain, and discharge, Neck: Negative for injury, pain, and swelling, Cardiovascular: Negative for chest pain, palpitations, and edema, Respiratory: Negative for shortness of breath, cough, wheezing, and pleuritic chest pain, Abdomen/GI: Negative for abdominal pain, nausea, vomiting, diarrhea, and constipation, Back: Negative for injury and pain, : Negative for injury, bleeding, discharge, and swelling, Skin: Negative for injury, rash, and discoloration, Psych: Negative for depression, anxiety, suicide ideation, homicidal ideation, and hallucinations, Allergy/Immunology: Negative for hives, rash, and allergies, Endocrine: Negative for neck swelling, polydipsia, polyuria, polyphagia, and marked weight changes, Hematologic/Lymphatic: Negative for swollen nodes, abnormal bleeding, and unusual bruising, 17:37 MS/extremity: Positive for 17:37 Neuro: Positive for altered mental status, gait disturbance, speech changes, tremor, weakness, Exam: 17:37 Constitutional: This is a well developed, well nourished patient who is awake, alert, siri and in no acute distress. Head/Face: Normocephalic, atraumatic. Eyes: Pupils equal round and reactive to light, extra-ocular motions intact. Lids and lashes normal. Conjunctiva and sclera are non-icteric and not injected. Cornea within normal limits. Periorbital areas with no swelling, redness, or edema. ENT: Nares patent. No nasal discharge, no septal abnormalities noted. Tympanic membranes are normal and external auditory canals are clear. Oropharynx with no redness, swelling, or masses, exudates, or evidence of obstruction, uvula midline. Mucous membranes moist. Neck: Trachea midline, no thyromegaly or masses palpated, and no cervical lymphadenopathy. Supple, full range of motion without nuchal rigidity, or vertebral point tenderness. No Meningismus. Chest/axilla: Normal chest wall appearance and motion. Nontender with no deformity. No lesions are appreciated. Cardiovascular: Regular rate and rhythm with a normal S1 and S2. No gallops, murmurs, or rubs. Normal PMI, no JVD. No pulse deficits. Respiratory: Lungs have equal breath sounds bilaterally, clear to auscultation and percussion. No rales, rhonchi or wheezes noted. No increased work of breathing, no retractions or nasal flaring. Abdomen/GI: Soft, non-tender, with normal bowel sounds. No distension or tympany. No guarding or rebound. No evidence of tenderness throughout. Back: No spinal tenderness. No costovertebral tenderness. Full range of motion. Male : Normal genitalia with no discharge or lesions. Skin: Warm, dry with normal turgor. Normal color with no rashes, no lesions, and no evidence of cellulitis. MS/ Extremity: Pulses equal, no cyanosis. Neurovascular intact. Full, normal range of motion. Psych: Awake, alert, with orientation to person, place and time. Behavior, mood, and affect are within normal limits. 17:37 ECG was reviewed by the Attending Physician. 17:37 PACED siri 17:42 Radiologist reports: NAD [facility] Vital Signs: 15:30 BP 82 / 58; Pulse 91; Resp 16; Temp 97.2; Pulse Ox 91% on R/A; Weight 74.84 kg; Height cm10 6 ft. 1 in. ; Pain 0/10; 16:15 BP 113 / 80; Pulse 93; Resp 18; Pulse Ox 96% ; db 16:17 BP 132 / 86; Pulse 97; Resp 18; Pulse Ox 95% on R/A; db 16:30 BP 120 / 78; Pulse 99; Resp 18; Pulse Ox 96% on R/A; db 17:00 BP 94 / 69; Pulse 90; Resp 16; Pulse Ox 94% on R/A; db 17:45 BP 129 / 96; Pulse 87; Resp 18; Pulse Ox 94% on R/A; db 18:00 BP 117 / 57; Pulse 93; Resp 16; Pulse Ox 94% on R/A; db 18:30 BP 118 / 69; Pulse 85; Resp 18; Temp 97.8; Pulse Ox 94% ; db 19:00 BP 109 / 63; Pulse 90; Resp 16; Pulse Ox 95% on R/A; jb4 15:30 Body Mass Index 21.77 (74.84 kg, 185.42 cm) cm10 15:30 Pain Scale: Adult cm10 NIH Stroke Scale Scores: 16:26 NIHSS Score: 1 db [place] Coma Score: 16:27 Eye Response: spontaneous(4). Motor Response: obeys commands(6). Verbal Response: db oriented(5). Total: 15. MDM: 15:36 Medical Screening Exam initiated siri 17:42 Data reviewed: vital signs, nurses notes, lab test result(s), EKG, radiologic studies, [facility] CT scan, plain films. Consideration of Admission/Observation Patient was admitted/placed on observation. Escalation of care including admission/observation considered. I considered the following discharge prescriptions or medication management in the emergency department Medications were administered in the Emergency Department. See MAR. Independent interpretation of the following test(s) in the Emergency Department EKG: See my EKG interpretation above. Historians other than the Patient: Daughter/Son: DAUGHTER WELL INFORMED. Care significantly affected by the following chronic conditions: Hypertension, Chronic Kidney Disease, DEPRESSION. 17:43 TNKase (Tenecteplase) Screening: Contraindications: Other: BEGAN YESTERDAY MORNING, ON [facility] ELIQUIS 5 MG PO BID Patient reports onset of signs and symptoms of stroke greater than 6 hours ago: No. Is the patient on Aspirin, Heparin, or Warfarin: Yes. 12/21 15:43 Order name: Basic Metabolic Panel; Complete Time: 16:38 [facility] 12/21 15:43 Order name: CBC with Diff; Complete Time: 16:38 12/21 15:43 Order name: LFT's; Complete Time: 16:38 12/21 15:43 Order name: Magnesium; Complete Time: 16:38 12/21 15:43 Order name: NT PRO-BNP; Complete Time: 16:38 12/21 15:43 Order name: PT-INR; Complete Time: 16:38 12/21 15:43 Order name: Troponin HS; Complete Time: 16:38 12/21 15:43 Order name: Urinalysis w/ reflexes 12/21 15:58 Order name: Lipase; Complete Time: 16:38 12/21 16:30 Order name: Glucose, Ancillary Testing; Complete Time: 16:38 EDMS 12/21 15:42 Order name: Ct Stroke Brain Wo Cont; Complete Time: 16:38 EDPR 12/21 15:43 Order name: XRAY Chest (1 view); Complete Time: 18:22 [facility] 12/21 15:58 Order name: CT Stone Protocol; Complete Time: 18:22 [facility] 12/21 17:40 Order name: US Carotid Artery Bilateral [facility] 12/21 15:43 Order name: Cardiac monitoring; Complete Time: 16:15 [facility] 12/21 15:43 Order name: EKG - Nurse/Tech; Complete Time: 16:15 [facility] 12/21 15:43 Order name: IV Saline Lock; Complete Time: 16:15 [facility] 12/21 15:43 Order name: Labs collected and sent; Complete Time: 16:15 [facility] 12/21 15:43 Order name: O2 Per Protocol; Complete Time: 16:15 [facility] 12/21 15:43 Order name: O2 Sat Monitoring; Complete Time: 16:15 [facility] EC:37 Rate is 88 beats/min. Rhythm is regular. QRS Ennis is Normal. FL interval is normal. QRS siri interval is normal. No Q waves. T waves are Peaked. No ST changes noted. Clinical impression: NSR w/ Non-specific ST/T Changes and No evidence of ischemia. Interpreted by me. Reviewed by me. Administered Medications: 15:58 Drug: foLIC Acid IVPB 1 mg IVPB once Route: IVPB; Site: left antecubital; db 18:52 Follow up: Response: No adverse reaction; IV Status: Completed infusion db 15:58 Drug: NS 0.9% IV 1000 ml IV at 125 ml/hr continuous Route: IV; Rate: 125 ml/hr; Site: db left antecubital; 18:51 Follow up: Response: No adverse reaction; IV Status: Infusion continued upon admission db 15:58 Drug: NS 0.9% IV 500 ml 500 ml IV at 1 bolus once; to be given as a bolus over 30 db minutes Volume: 500 ml; Route: IV; Rate: 1 bolus; Site: left antecubital; 18:51 Follow up: Response: No adverse reaction; IV Status: Completed infusion; IV Intake: db 500ml Point of Care Testing: Blood Glucose: 16:18 Blood Glucose: 114 mg/dL; db Ranges: Critical Glucose Levels:Adult <50 mg/dl or >400 mg/dl <40 mg/dl or >180 mg/dl Disposition Summary: 12/22/23 18:15 Hospitalization Ordered Notes: Hospitalization Status: Inpatient Admission siri Provider: Prince siri Umanzor Location: Telemetry/MedSurg (Inpatient) siri Condition: Fair siri Problem: new siri Symptoms: have improved siri Bed/Room Type: Standard siri Room Assignment: 204(12/22/23 18:43) bd 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 Dysarthria (speech clarity - read or repeat words) - 1(Mild to Moderate) 11. Extinction and Inattention (visual/tactile/auditory/spatial/personal) - 0(No abnormality) 1a. Level of Consciousness (LOC) - 0(Alert) 1b. Level of Consciousness (LOC) (Month \T\ Age) - 0(Both) 1c. LOC Commands (Open \T\ Closes Eyes/Telegraphic Instrument Supervisor) - 0(Both) 2. Best Gaze (Lateral Gaze Paresis) - 0(Normal) 3. Visual Field Loss - 0(No visual loss) 4. Facial Palsy - 0(Normal) 5a. Left Arm: Motor (10-second hold) - 0(No drift) 5b. Right Arm: Motor (10-second hold) - 0(No drift) 6a. Left Leg: Motor (5-second hold - always test supine) - 0(No drift) 6b. Right Leg: Motor (5-second hold - always test supine) - 0(No drift) 7. Limb Ataxia (finger/nose \T\ heel/de guzman - test with eyes open) - 0(Absent) 8. Sensory Loss (pinprick arms/legs/face) - 0(Normal) 9. Best Language: Aphasia (description/naming/reading) - 0(No aphasia) Initials: db Signatures: Dispatcher [employer] EDMS Eden Nunez Corey, MD MD cha Benton, Danielle, RN RN Conchita Trejo RN RN cm10 Corrections: (The following items were deleted from the chart) 15:43 15:43 BASIC METABOLIC PANEL+C.LAB.BRZ ordered. EDMS EDMS 15:43 15:43 CBC+H.LAB.BRZ ordered. EDMS EDMS 15:43 15:43 HEPATIC FUNCTION+C.LAB.BRZ ordered. EDMS EDMS 15:43 15:43 MAGNESIUM+C.LAB.BRZ ordered. EDMS EDMS 15:43 15:43 PROBNP+C.LAB.BRZ ordered. EDMS EDMS 15:43 15:43 PROTIME (+INR)+COAG.LAB.BRZ ordered. EDMS EDMS 15:43 15:43 Troponin High Sensitivity+C.LAB.BRZ ordered. EDMS EDMS 15:43 15:43 Urinalysis+U.LAB.BRZ ordered. EDMS EDMS 15:43 15:43 Chest Single View+RAD.RAD.BRZ ordered. EDMS EDMS 15:43 15:43 CT-STROKE BRAIN W/O CONTRAST+CT.RAD.BRZ ordered. EDMS EDMS 15:44 15:44 Neck Angio+CT.RAD.BRZ ordered. EDMS EDMS 15:44 15:44 MR STROKE PROTOCOL+MRI.RAD.BRZ ordered. EDMS EDMS 16:05 15:51 Head angio ordered. EDMS EDMS 17:40 17:37 Rate is 88 beats/min. Rhythm is regular. QRS Ennis is Normal. FL interval siri is normal. QRS interval is normal. No Q waves. T waves are Peaked. No ST changes noted. Clinical impression: NSR w/ Non-specific ST/T Changes and No evidence of ischemia. Interpreted by me. Reviewed by me. siri 18:43 18:15 siri bd 18:51 16:38 Summers ordered. siri db 19:07 18:22 [facility]. Order ordered. [facility] jb4
--- NOTE | 2023-12-22 18:16 | ER ---
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 cm10 Pt's daughter states that this morning at approximately 10am pt was confused and his speech is slurred. Coronavirus screen: Client denies travel out of the [place] in the last 14 days. Ebola Screen: Patient denies travel to an Ebola-affected area in the 21 days before illness onset. No symptoms or risks identified at this time. Initial Sepsis Screen: Does the patient meet any 2 criteria? HR > 90 bpm. Does the patient have a suspected source of infection? No. Patient's initial sepsis screen is negative. Risk Assessment: Do you want to hurt yourself or someone else? Patient reports no desire to harm self or others. Onset of symptoms was December 22, 2023. 15:30 Method Of Arrival: Wheelchair cm10 15:30 Acuity: GELACIO 2 cm10 Historical: - Allergies: 15:33 No Known Allergies; cm10 - PMHx: 15:33 Depression; HEART FAILURE; Hypertension; cm10 - PSHx: 15:33 pacemaker; cm10 - Immunization history:: Adult Immunizations up to date. - Infectious Disease History:: Denies. - Social history:: Smoking status: unknown. Screenin:28 [facility] ED Fall Risk Assessment (Adult) History of falling in the last 3 months, db including since admission No falls in past 3 months (0 pts) Confusion or Disorientation No (0 pts) Intoxicated or Sedated No (0 pts) Impaired Gait Yes (1 pt) Mobility Assist Device Used No (0 pt) Altered Elimination No (0 pt) Score/Fall Risk Level 0 - 2 = Low Risk Oriented to surroundings, Maintained a safe environment. Abuse screen: Denies threats or abuse. Denies injuries from another. Nutritional screening: No deficits noted. Tuberculosis screening: No symptoms or risk factors identified. [place] Swallow Protocol Exclusion Criteria: Brief Cognitive Screen What is your name? Normal, Where are you right now? Normal, What year is it? Normal. Oral Mechanism Examination Facial Symmetry: Normal, Motion: Normal, Lip Closure: Normal, Oral Mechanism Result: Normal. 3 oz Water Swallow Challenge: Pt able to drink all water without stopping, coughing, choking or throat clearing: Yes Result: PASS Notified: Adrian Vazquez MD. Assessment: 15:34 General: CODE STROKE CALLED AT THIS TIME.. cm10 15:54 Reassessment: TO CT. db 16:21 Reassessment: Patient appears in no apparent distress at this time. Patient and/or db family updated on plan of care and expected duration. Pain level reassessed. Patient is alert, oriented x 3, equal unlabored respirations, skin warm/dry/pink. PATIENT REFUSED MADISON CATHETER WILL NOTIFY DR. VAZQUEZ. Pain: Denies pain. Neuro: Level of Consciousness is awake, alert, obeys commands, Oriented to person, place, time, situation, Moves all extremities. Speech is normal, Facial symmetry appears normal. Respiratory: Airway is patent Respiratory effort is even, unlabored, Respiratory pattern is regular, symmetrical. 17:56 Reassessment: Patient appears in no apparent distress at this time. Patient and/or db family updated on plan of care and expected duration. Pain level reassessed. Patient is alert, oriented x 3, equal unlabored respirations, skin warm/dry/pink. E BUSINESS CONSULTANT AT PATIENT BEDSIDE. Neuro: Level of Consciousness is awake, alert, obeys commands, Oriented to person, place, time, situation. 17:57 Reassessment: DR. VAZQUEZ AT PATIENT BEDSIDE. SPEAKING WITH PT REGARDING IMPORTANCE OF db MADISON CATHETER. 18:30 Reassessment: Patient appears in no apparent distress at this time. Patient and/or db family updated on plan of care and expected duration. Pain level reassessed. Patient is alert, oriented x 3, equal unlabored respirations, skin warm/dry/pink. 18:43 Reassessment: HOSPITALIST AT PATIENT BEDSIDE. WILL HOLD MADISON AT THIS TIME PER db HOSPITALIST REQUEST TO FIRST ASSESS PATIENT. 18:50 Reassessment: HOSPITALIST PHYSICIAN OKAYED PATIENT TO NOT HAVE MADISON CATHETER. DUE TO db PATIENT REFUSAL OF MADISON CATHETER. 19:24 Reassessment: Patient appears in no apparent distress at this time. Patient and/or jb4 family updated on plan of care and expected duration. Pain level reassessed. Patient is alert, oriented x 3, equal unlabored respirations, skin warm/dry/pink. updated on plan of care. Vital Signs: 15:30 BP 82 / 58; Pulse 91; Resp 16; Temp 97.2; Pulse Ox 91% on R/A; Weight 74.84 kg; Height cm10 6 ft. 1 in. ; Pain 0/10; 16:15 BP 113 / 80; Pulse 93; Resp 18; Pulse Ox 96% ; db 16:17 BP 132 / 86; Pulse 97; Resp 18; Pulse Ox 95% on R/A; db 16:30 BP 120 / 78; Pulse 99; Resp 18; Pulse Ox 96% on R/A; db 17:00 BP 94 / 69; Pulse 90; Resp 16; Pulse Ox 94% on R/A; db 17:45 BP 129 / 96; Pulse 87; Resp 18; Pulse Ox 94% on R/A; db 18:00 BP 117 / 57; Pulse 93; Resp 16; Pulse Ox 94% on R/A; db 18:30 BP 118 / 69; Pulse 85; Resp 18; Temp 97.8; Pulse Ox 94% ; db 19:00 BP 109 / 63; Pulse 90; Resp 16; Pulse Ox 95% on R/A; jb4 15:30 Body Mass Index 21.77 (74.84 kg, 185.42 cm) cm10 15:30 Pain Scale: Adult cm10 Vitals: 17:00 Cardiac Rhythm Assessment Regular. db [place] Coma Score: 16:27 Eye Response: spontaneous(4). Motor Response: obeys commands(6). Verbal Response: db oriented(5). Total: 15. NIH Stroke Scale Scores: 16:26 NIHSS Score: 1 db ED Course: 15:21 Patient arrived in ED. im 15:33 Triage completed. cm10 15:34 Arm band placed on Patient placed in an exam room, on a stretcher. cm10 15:36 Adrian Vazquez MD is Attending Physician. siri 15:43 Molly Smith RN is Primary Nurse. db 15:45 Ct Stroke Brain Wo Cont In Process Unspecified. EDMS 16:05 EKG done. db 16:09 Initial lab(s) drawn, by me, sent to lab. Inserted saline lock: 22 gauge in left cm10 antecubital area, using aseptic technique. Blood collected. Flushed with 10 mL NS. Missed attempt(s): 22 gauge in right antecubital area. Bleeding controlled, band aid applied, catheter tip intact. 16:29 Patient has correct armband on for positive identification. Bed in low position. Call db light in reach. Side rails up X 1. Provided Education on: STROKE INFORMATION. Client placed on continuous cardiac and pulse oximetry monitoring. NIBP monitoring applied. floor broker on. Pulse ox on. NIBP on. Warm blanket given. Pillow given. 16:30 XRAY Chest (1 view) In Process Unspecified. EDMS 17:[address] via stretcher. db 17:27 CT Stone Protocol In Process Unspecified. EDMS 17:[address] Patient moved back from CT. db 18:11 US Carotid Artery Bilateral In Process Unspecified. EDMS 18:11 Prince Umanzor MD is Hospitalizing Provider. siri 18:50 1850 CM met with patient and his granddaughter Stormy at the bedside in the ED exam ane room. Patient identified by name and . Demographic sheet confirmed. Patient reports he llives with his in a single story home and that prior to admission, he performs ADLs independently. No HH, no home oxygen, or other medical services at this time. No MPOA in place. Patient's preferred language is French. Patient's PCP his Dr. Elizabeth Montgomery. Patient wishes to return home upon discharge and Stormy states she will transport him home. CM team will continue to follow and coordinate care during this hospital stay. 18:52 No provider procedures requiring assistance completed. db 19:22 Barron Oates, RN is Primary Nurse. jb4 19:44 Patient admitted, IV remains in place. jb4 Administered Medications: 15:58 Drug: foLIC Acid IVPB 1 mg IVPB once Route: IVPB; Site: left antecubital; db 18:52 Follow up: Response: No adverse reaction; IV Status: Completed infusion db 15:58 Drug: NS 0.9% IV 1000 ml IV at 125 ml/hr continuous Route: IV; Rate: 125 ml/hr; Site: db left antecubital; 18:51 Follow up: Response: No adverse reaction; IV Status: Infusion continued upon admission db 15:58 Drug: NS 0.9% IV 500 ml 500 ml IV at 1 bolus once; to be given as a bolus over 30 db minutes Volume: 500 ml; Route: IV; Rate: 1 bolus; Site: left antecubital; 18:51 Follow up: Response: No adverse reaction; IV Status: Completed infusion; IV Intake: db 500ml Medication: 16:28 VIS not applicable for this client. db Point of Care Testing: Blood Glucose: 16:18 Blood Glucose: 114 mg/dL; db Ranges: Intake: 18:51 IV: 500ml; Total: 500ml. db Outcome: 18:15 Decision to Hospitalize by Provider. siri 18:52 Admitted to ER Hold. Please see MoPals for further documentation. db 18:52 Condition: stable 18:52 Instructed on the need for admit, 19:45 Patient left the ED. jb4 NIH Stroke Scale - NIH Stroke Score Date: 12/22/2023 Time: 16:26 Total Score = 1 10. Dysarthria (speech clarity - read or repeat words) - 1(Mild to Moderate) 11. Extinction and Inattention (visual/tactile/auditory/spatial/personal) - 0(No abnormality) 1a. Level of Consciousness (LOC) - 0(Alert) 1b. Level of Consciousness (LOC) (Month \T\ Age) - 0(Both) 1c. LOC Commands (Open \T\ Closes Eyes/Refractory Grinder Operator) - 0(Both) 2. Best Gaze (Lateral Gaze Paresis) - 0(Normal) 3. Visual Field Loss - 0(No visual loss) 4. Facial Palsy - 0(Normal) 5a. Left Arm: Motor (10-second hold) - 0(No drift) 5b. Right Arm: Motor (10-second hold) - 0(No drift) 6a. Left Leg: Motor (5-second hold - always test supine) - 0(No drift) 6b. Right Leg: Motor (5-second hold - always test supine) - 0(No drift) 7. Limb Ataxia (finger/nose \T\ heel/de guzman - test with eyes open) - 0(Absent) 8. Sensory Loss (pinprick arms/legs/face) - 0(Normal) 9. Best Language: Aphasia (description/naming/reading) - 0(No aphasia) Initials: db Signatures: Dispatcher [employer] Adrian Varner MD MD cha Bryson, James RN RN jb4 Molly Smith RN RN Sharon Vargas Clarissa RN RN cm10 Suzi Lopez RN RN ane Corrections: (The following items were deleted from the chart) 18:46 18:[address] via stretcher. db db 18:56 18:30 BP 118 / 69; Pulse 85bpm; Resp 18bpm; Pulse Ox 94%; db db
[2023-12-22] MEDS ORDERED: ONDANSETRON 4 MG/2 ML VIAL IV PRN (18:28)
[2023-12-22] MEDS: NACHLORIDE 0.45% 1,000 ML IV SCH (18:32)
--- NOTE | 2023-12-22 18:33 | RAD REPORT ---
EXAMINATION: US CAROTID DUPLEX CLINICAL INDICATION: Slurred speech TECHNIQUE: Real-time grayscale, color flow and spectral Doppler sonographic images were obtained of t extracranial carotid system using a linear transducer. COMPARISON: No prior exam. FINDINGS: The velocity of the right internal carotid artery 133 cm/s. The artery is tortuous. The right ICA/CCA ratio normal The velocity left internal carotid artery 114 cm/s The left ICA/CCA ratio normal No significant plaque noted. Vertebral arteries demonstrate anterograde flow. No significant abnormality external carotid arteries Methods for NASCET criteria: mild stenosis, 0% to 49%; moderate, 50% to 69%; severe stenosis, 70% to 99% IMPRESSION: Tortuous right common and right internal carotid arteries Significant plaque not noted
--- NOTE | 2023-12-22 19:05 | P.HP ---
Certification for Inpatient Patient admitted to: Inpatient With expected LOS: >2 Midnights Practitioner: I am a practitioner with admitting privileges, knowledge of patient current condition, hospital course, and medical plan of care. Services: Services provided to patient in accordance with Admission requirements found in Title 42 Section 412.3 of the Code of Federal Regulations Patient History Date of Service: 12/22/23 Reason for admission: Altered mental status, slurred speech and difficulty walking History of Present Illness: Patient is a 68-year-old Azeri-speaking male with extensive cardiovascular history including CVA, chronic systolic CHF, pulmonary embolism and chronic kidney disease. He is being admitted after he presented for slurred speech, difficulty walking and occasional altered mental status. Patient has been in his usual state of health until 2 weeks ago when he developed shingles. He was prescribed a medication that could not alleviate his pain. He returned to the ER a few days ago where he was prescribed gabapentin, [place] and Motrin. Since he has been on this medication, his mental status is changed. He has become forgetful. He speech has become slurred and he has had difficulty walking. He is here for CVA workup. CT head is unremarkable. Labs are significant for severe renal insufficiency. He has a creatinine of 6.2. His baseline creatinine 1.7. CT head in the ER is unremarkable. Cannot do a brain MRI secondary to pacemaker placement. Carotid Doppler is negative for significant plaques. He has torturous right, and right internal carotid artery. CT abdomen and pelvis did not show any obstructive stone. Allergies No Known Allergies Allergy (Verified 01/25/20 01:08) Home Medications: OLANZapine [Zyprexa] 5 mg PO BEDTIME 01/25/20 Amiodarone HCl 100 mg PO DAILY 02/14/20 Apixaban [Eliquis] 5 mg PO BID 02/14/20 Atorvastatin Calcium [Lipitor] 80 mg PO BEDTIME 02/14/20 Furosemide [Lasix] 40 mg PO DAILY #30 tablet 02/15/20 Lisinopril [Zestril] 2.5 mg PO DAILY #30 tablet 02/15/20 carvediloL [Coreg] 3.125 mg PO BID #60 tab 02/15/20 - Past Medical/Surgical History Diabetic: No -: Hypertension -: Depression -: Neck Surgery - Family History Mother -: Diabetes - Social History Alcohol use: No CD- Drugs: No Caffeine use: Yes Physical Examination - Physical Exam General: Alert, In no apparent distress HEENT: Atraumatic, Normocephalic Respiratory: Clear to auscultation bilaterally, Normal air movement Cardiovascular: No edema, Normal pulses, Regular rate/rhythm, Other (Pacemaker in place) Musculoskeletal: No clubbing, No swelling Neurological: Normal strength at 5/5 x4 extr, Abnormal speech - Studies Laboratory Data (last 24 hrs) 12/22/23 12/22/23 12/22/23 16:00 16:00 16:00 WBC 9.20 Hgb 11.3 L Hct 35.2 L Plt Count 141 L PT 18.1 H INR 1.64 Sodium Potassium BUN Creatinine Glucose Magnesium Total Bilirubin AST ALT Alkaline Phosphatase Lipase 20 12/22/23 16:00 WBC Hgb Hct Plt Count PT INR Sodium 137 Potassium 4.6 BUN 74 H Creatinine 6.88 H Glucose 137 H Magnesium 2.3 Total Bilirubin 0.6 AST 66 H ALT 155 H Alkaline Phosphatase 70 Lipase Assessment and Plan - Problems (Diagnosis) (1) Acute encephalopathy Current Visit: Yes Status: Acute (2) ARF (acute renal failure) Current Visit: No Status: Acute (3) CVA (cerebral vascular accident) Current Visit: No Status: Acute Qualifiers: (4) Pulmonary embolus Current Visit: No Status: Acute Qualifiers: (5) Hypertension Current Visit: No Status: Chronic - Plan Assessment Patient is a 68-year-old Azeri-speaking male with extensive cardiovascular history and recently shingles. He presented to the ER for altered mental status, expressive aphasia and difficulty walking. Patient has been prescribed gabapentin, [place] and Motrin for postherpetic neuralgia a few days before this presentation. Stroke workup was negative in the ER. Labs are significant for sharp rise in creatinine, which is currently more than 6. Neurology and nephrology have been consulted. 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
--- NOTE | 2023-12-22 20:34 | P.CNS ---
Date of Consult: 12/23/23 Reason for Consult: ALYSSA/ CKD Requesting Physician: Jacquie Benedict Chief Complaint: Altered mental status, slurred speech and difficulty walking History of Present Illness: Patient is a 68-year-old Serbian-speaking male with extensive cardiovascular history including CVA, chronic systolic CHF, pulmonary embolism and chronic kidney disease. He is being admitted after he presented for slurred speech, difficulty walking and occasional altered mental status. Patient has been in his usual state of health until 2 weeks ago when he developed shingles. He was prescribed a medication that could not alleviate his pain. He returned to the ER a few days ago where he was prescribed gabapentin, [place] and Motrin. Since he has been on this medication, his mental status is changed. He has become forgetful. He speech has become slurred and he has had difficulty walking. He is here for CVA workup. CT head is unremarkable. Labs are significant for severe renal insufficiency. He has a creatinine of 6.2. His baseline creatini ne 1.7. CT head in the ER is unremarkable. Cannot do a brain MRI secondary to pacemaker placement. Carotid Doppler is negative for significant plaques. He has torturous right, and right internal carotid artery. CT abdomen and pelvis did not show any obstructive stone. [id number] 17:36 This 68 yrs old Male presents to ER via Wheelchair with comp laints of siri Dizziness, Weakness. 17:36 The patient presents with dizziness, generalized weakness, lightheadedness, feeling off siri balance, a sense of confusion. Onset: The symptoms/episode began/occurred yesterday. Allergies No Known Allergies Allergy (Verified 01/25/20 01:08) Home medications list reviewed: Yes Home Medications: OLANZapine [Zyprexa] 5 mg PO BEDTIME 01/25/20 Amiodarone HCl 100 mg PO DAILY 02/14/20 Apixaban [Eliquis] 5 mg PO BID 02/14/20 Atorvastatin Calcium [Lipitor] 80 mg PO BEDTIME 02/14/20 Furosemide [Lasix] 40 mg PO DAILY #30 tablet 02/15/20 Lisinopril [Zestril] 2.5 mg PO DAILY #30 tablet 02/15/20 carvediloL [Coreg] 3.125 mg PO BID #60 tab 02/15/20 - Past Medical/Surgical History Diabetic: No -: HTN -: HLD -: CKD IV (Dr. Rollins/ [facility]) -: Systolic CHF -: BPH/ Elevated PSA -: Depression -: Neck Surgery - Family History Mother Medical History: Diabetes - Social History Alcohol use: No CD- Drugs: No Caffeine use: Yes Review of Systems 10-point ROS is otherwise unremarkable General: Weakness, Malaise Physical Examination General: In no apparent distress, Oriented x3, Cooperative HEENT: Atraumatic Neck: Supple Respiratory: Clear to auscultation bilaterally Cardiovascular: No edema, Regular rate/rhythm Gastrointestinal: Normal bowel sounds, Soft and benign, Non-distended Musculoskeletal: No clubbing, No contractures Integumentary: No rashes, No cyanosis Neurological: Normal speech Laboratory Data (last 24 hrs) 12/22/23 12/22/23 12/22/23 16:00 16:00 16:00 WBC 9.20 Hgb 11.3 L Hct 35.2 L Plt Count 141 L PT 18.1 H INR 1.64 Sodium Potassium BUN Creatinine Glucose Magnesium Total Bilirubin AST ALT Alkaline Phosphatase Lipase 20 12/22/23 16:00 WBC Hgb Hct Plt Count PT INR Sodium 137 Potassium 4.6 BUN 74 H Creatinine 6.88 H Glucose 137 H Magnesium 2.3 Total Bilirubin 0.6 AST 66 H ALT 155 H Alkaline Phosphatase 70 Lipase Imagings Data: EXAMINATION: Stone Protocol CLINICAL INDICATION: Abdominal pain. Flank pain COMPARISON: No prior exam. FINDINGS: The lack of intravenous and oral contrast limits the sensitivity of this exam for evaluation of solid visceral organs, vascular structures, and bowel A renal calculus not seen. No ureteral calculus. A bladder calculus not noted. No hydronephrosis. Bilateral low-density renal masses nonspecific but probably cysts. Stomach mildly distended. Gallbladder moderately distended. Liver, spleen, pancreas and adrenals grossly normal No evidence of diverticulitis. Normal appendix. Moderate prostatic enlargement. Small right and [id number] left inguinal hernias containing fat IMPRESSION: Negative for a genitourinary calculus Mild gallbladder distention. Mild gastric distention Procedure: Chest Single View HISTORY: Chest pain COMPARISON: June 2023 FINDINGS: Area of subsegmental atelectasis right lung base Left lung appears clear. No significant pleural effusion noted. The heart is normal size. Pacemaker leads in place. EXAMINATION: US CAROTID DUPLEX CLINICAL INDICATION: Slurred speech COMPARISON: No prior exam. FINDINGS: The velocity of the right internal carotid artery 133 cm/s. The artery is tortuous. The right ICA/CCA ratio normal The velocity left internal carotid artery 114 cm/s The left ICA/CCA ratio normal No significant plaque noted. Vertebral arteries demonstrate anterograde flow. No significant abnormality external carotid arteries Methods for NASCET criteria: mild stenosis, 0% to 49%; moderate, 50% to 69%; severe stenosis, 70% to 99% IMPRESSION: Tortuous right common and right internal carotid arteries Significant plaque not noted EXAM: CT brain without contrast HISTORY: Slurred speech. COMPARISON: 2019 FINDINGS: An intracranial bleed is not seen Ventricles are normal caliber No extra-axial fluid collection noted Mild low-density paraventricular, deep and subcortical white matter probably ischemic changes secondary to small vessel disease. No fluid within the visualized sinuses or mastoids noted. IMPRESSION: No acute intracranial abnormality noted. If the patient's symptoms persist MRI of the brain would be recommended. Conclusions/Impression: Stage III ALYSSA in the setting of hypotension and motrin CKD IV with Proteinuria -No NSAIDs -Change IVF to LR -Hepatitis panel negative NAG Metabolic Acidosis -Continue IVF with LR -Start oral bicarb Systolic CHF, chronic LVEF 45% Pulmonary HTN -Daily weight -Echocardiogram pending PreDM -Low sugar diet Transaminitis -Monitor LFT Hypoalbuminemia -Start Nepro Anemia in chronic illness Hx iron and B12 deficiency Thrombocytopenia -Monitor CBC -Start MVI CKD MBD -Start Ergo -Renal diet Enlarged Prostate Elevated PSA 92.2 -CT negative for urinary retention -Summers prn; monitor for retention -Recommend a urology follow up Hospitalist and ER notes reviewed Thank you kindly for the consultation
[2023-12-22] MEDS: Ringers Lactate 1,000 ML IV SCH (22:01)
[2023-12-22 22:22] LABS: Magnesium 2.4 mg/dL (1.6-2.4); Phosphorus 5.5 mg/dL (2.5-4.9)
[2023-12-22 22:26] LABS: PT Prothrombin Time 17.1 SECONDS (9.4-12.5); Protime INR 1.55
[2023-12-23 03:08] LABS: Specific Gravity 1.017 (1.005-1.030); Sqamous Epithelial <5 /HPF (None Seen); Urine Bacteria <20 /HPF (<20); Urine Bilirubin NEGATIVE (Negative); Urine Blood Negative (Negative); Urine Clarity Extremely Turbid (Clear); Urine Color Yellow (Yellow); Urine Culture Reflex Order NOT NEEDED; Urine Glucose NEGATIVE (Negative); Urine Ketones NEGATIVE (Negative); Urine Microscopic Reflex YN ORDER UMIC; Urine Mucus Slight /HPF (None Seen); Urine Nitrite NEGATIVE (Negative); Urine Protein 1+ (Negative); Urine RBC <5 /HPF (None Seen); Urine Urobilinogen Normal (Normal); Urine WBC <5 /HPF (<5)
[2023-12-23] MEDS: HEPARIN 5000 UNIT/ML 1 ML VIAL SQ SCH (03:12)
[2023-12-23 05:35] LABS: Absolute Eosinophils 0.1 K/uL (0-0.5); Absolute Lymphocytes (CBC) 1.1 K/uL (0.7-4.9); Absolute Monocytes 1.3 K/uL (0.1-1.3); Absolute Neutrophil 6.7 K/uL (1.8-8.0); Basophils % 0.3 % (0-1.3); Eosinophils % 0.7 % (0-4.4); Hematocrit 32.4 % (39.6-49.0); Hemoglobin 10.6 g/dL (13.6-17.9); Lymphocytes % 12.3 % (15.3-44.8); MCH 30.9 pg (27.0-35.0); MCHC 32.6 g/dL (32.0-36.0); MCV 94.8 fL (80-100); MPV 9.7 fL (7.6-11.3); Monocytes % 14.2 % (3.3-12.3); Neutrophils % 72.5 % (41.7-73.7); Platelets 135 thou/uL (152-406); RBC Red Blood Cell Count 3.42 M/uL (4.33-5.43); Red Cell Distribution Width 13.8 % (12.1-15.2)
[2023-12-23 06:15] LABS: Albumin 2.8 g/dL (3.4-5.0); Albumin/Globulin Ratio 0.7 (1.1-1.8); Anion Gap 12.6 mEq/L (5.0-15.0); Bilirubin Direct 0.2 mg/dL (0-0.2); Bilirubin Indirect, Calculated 0.4 mg/dL (0.2-0.8); Bilirubin Total 0.6 mg/dL (0.2-1.0); Globulin 4.1 g/dL (2.3-3.5); Potassium 4.6 mEq/L (3.5-5.1); Protein, Total 6.9 g/dL (6.4-8.2); Uric Acid 10.8 mg/dL (3.5-7.2)
[2023-12-23 06:51] LABS: Hepatitis B Core Ab, Total Nonreactive (Nonreactive); Hepatitis B surface AG Interp. Nonreactive (Nonreactive); Hepatitis C Virus Ab Nonreactive (Nonreactive)
[2023-12-23 06:57] LABS: Hepatitis B Surface Ab - Quant < 3.10 mIU/mL (<8.0)
[2023-12-23 06:58] LABS: HBsAG Nonreactive Report Report
--- NOTE | 2023-12-23 07:58 | RAD REPORT ---
EXAMINATION: US RENAL ULTRASOUND CLINICAL INDICATION: melvin TECHNIQUE: Real-time ultrasonography of the abdomen was performed. COMPARISON: 01/26/2020 FINDINGS: RIGHT KIDNEY: Right renal length measurement: 10.6 x 4.8 cm. There is an increase in echogenicity not ed. Multiple benign cysts involving the cortex. LEFT KIDNEY: Left renal length measurement: 11.1 x 5.3 cm. There is an increased echogenicity noted. Multiple benign cysts involving the cortex. URINARY BLADDER: Incompletely distended without gross abnormality detected. ADDITIONAL FINDINGS: Mildly prominent prostate gland. IMPRESSION: Echogenic kidneys bilaterally suggests medical renal disease. No hydronephrosis. Multiple benign renal cysts are present bilaterally.
--- NOTE | 2023-12-23 10:34 | P.PN ---
Subjective Date of Service: 12/23/23 Chief Complaint: Altered mental status, slurred speech and difficulty walking Subjective: Improving (pt without c/o this am. I noted him to be tremulous like Parkinsonian movements to upper torso/limbs but he states he is just cold) <Corazon Coy Jim - Last Filed: 12/23/23 10:29> Date of Service: 12/23/23 <MarichuyShadmyriam Garcia - Last Filed: 12/23/23 14:10> Review of Systems General: Weakness Eyes: Unremarkable ENT: Unremarkable Respiratory: Unremarkable Cardiovascular: Light Headedness Gastrointestinal: Unremarkable Genitourinary: Unremarkable Musculoskeletal: Unremarkable Integumentary: Other (recent shingles with new medications) Neurological: Weakness, Incoordination, Change in Speech, Confusion, As per HPI Lymphatics: Unremarkable <Corazon Coy Jim - Last Filed: 12/23/23 10:29> Physical Examination - Vital Signs Temperature: 97.9 F Blood Pressure: 119/68 Pulse: 83 Respirations: 14 Pulse Ox (%): 93 - Physical Exam General: Alert, In no apparent distress, Oriented x3, Other (denies discomfort) HEENT: Atraumatic, Normocephalic Neck: Supple, 2+ carotid pulse no bruit Respiratory: Normal air movement Cardiovascular: Regular rate/rhythm Capillary refill: <2 Seconds Gastrointestinal: Normal bowel sounds, Soft and benign, Non-distended Musculoskeletal: No clubbing, No swelling Integumentary: No rashes Neurological: Normal speech, Normal tone, Other (tremulous - parkinsonian like, when questioned patient - ) Lymphatics: No axilla or inguinal lymphadenopathy Urinary: Other (mildly tender, suprapubic area) External genitalia: Deferred Rectal: Deferred - Studies Laboratory Data (last 24 hrs) 12/22/23 12/22/23 12/22/23 16:00 16:00 16:00 WBC 9.20 Hgb 11.3 L Hct 35.2 L Plt Count 141 L PT 18.1 H INR 1.64 Sodium Potassium BUN Creatinine Glucose Magnesium Total Bilirubin AST ALT Alkaline Phosphatase Lipase 20 12/22/23 16:00 WBC Hgb Hct Plt Count PT INR Sodium 137 Potassium 4.6 BUN 74 H Creatinine 6.88 H Glucose 137 H Magnesium 2.3 Total Bilirubin 0.6 AST 66 H ALT 155 H Alkaline Phosphatase 70 Lipase <Corazon Coy - Last Filed: 12/23/23 10:29> - Studies Laboratory Data (last 24 hrs) 12/22/23 12/22/23 12/22/23 16:00 16:00 16:00 WBC 9.20 Hgb 11.3 L Hct 35.2 L Plt Count 141 L PT 18.1 H INR 1.64 Sodium Potassium BUN Creatinine Glucose Magnesium Total Bilirubin AST ALT Alkaline Phosphatase Lipase 20 12/22/23 16:00 WBC Hgb Hct Plt Count PT INR Sodium 137 Potassium 4.6 BUN 74 H Creatinine 6.88 H Glucose 137 H Magnesium 2.3 Total Bilirubin 0.6 AST 66 H ALT 155 H Alkaline Phosphatase 70 Lipase <Jacquie Benedict - Last Filed: 12/23/23 14:10> Assessment And Plan - Plan Assessment and Plan - Problems (Diagnosis) (1) Acute encephalopathy Current Visit: Yes Status: Acute (2) ARF (acute renal failure) Current Visit: yes Status: Acute (3) CVA (cerebral vascular accident) Current Visit: No Status: Acute Qualifiers: (4) Pulmonary embolus Current Visit: No Status: Acute Qualifiers: (5) Hypertension Current Visit: yes Status: Chronic (6) Enlarged prostate - Plan Assessment Patient is a 68-year-old Frisian-speaking male with extensive cardiovascular history and recently shingles. He presented to the ER for altered mental status, expressive aphasia and difficulty walking. Patient has been prescribed gabapentin, [place] and Motrin for postherpetic neuralgia a few days before this presentation. Stroke workup was negative in the ER. Labs are significant for sharp rise in creatinine, which is currently more than 6. Neurology and nephrology have been consulted. Acute on chronic kidney disease stage III Acute encephalopathy Ataxia Chronic systolic CHF History of CVA History of pulmonary embolism Plan: Will admit inpatient with telemetry Start patient on half-normal saline infusion = changed to LR per Nephrology symptoms could be secondary to toxic encephalopathy precipitated by NSAID induced ALYSSA and gabapentin with [place] Will hold offending agents including NSAIDs and contrast Renal ultrasound - increased echogenicity Unable to obtain brain MRI due to pacemaker 2D echo ordered Nephrology and neurology have been consulted PSA 92.2 - US shows "mildly prominent" prostate, f/u with Urology 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 I agree with the note by the [employer] MODEL MAKER. ALYSSA is likely due to nephrotoxins. Will continue IVF. Hold norco and gabapentin due to acute encephalopathy. Unable to do MRI due to presence of pacemaker. Pt has PSA of 92.2. Will f/u with Urology. Continue home meds for other chronic medical problems. <Jacquie Benedict - Last Filed: 12/23/23 14:10>
[2023-12-23 10:46] LABS: Ferritin 100.6 ng/mL (26-388)
[2023-12-23] MEDS: SODIUM BICARB 325 MG TAB PO SCH (11:08)
[2023-12-23] MEDS: FE SULF/FA/VIT B COMP & C TAB PO SCH (11:08)
[2023-12-23] MEDS ORDERED: SODIUM BICARB 325 MG TAB PO SCH (12:00)
--- NOTE | 2023-12-23 12:15 | EKG ---
Test Date: 2023-12-22 Test Time: 16:05:52 [employer] Site Manager: HANNA MEASUREMENT RESULTS: Intervals: Rate: 88 PA: 146 QRSD: 116 QT: 382 QTc: 462 [place]: P: 79 PA: 146 QRS: 58 T: 105 INTERPRETIVE STATEMENTS: Sinus rhythm with premature atrial complexes Otherwise normal ECG Compared to ECG 02/14/2020 14:22:20 Atrial premature complex(es) now present Sinus tachycardia no longer present Right-axis deviation no longer present Electronically Signed On 12-23-23 12:12:53 CDT by Ben Pritchard
[2023-12-23] MEDS: NEPRO SHAKE 237 ML CAN PO SCH (12:53)
[2023-12-23] MEDS: DOCUSATE NA 100 MG CAP PO SCH (20:10)
--- NOTE | 2023-12-24 06:38 | ECHO ---
HEIGHT: 5 ft 4 in WEIGHT: 175 lb 0 oz DATE OF STUDY: 12/23/[address]: Prince Christen Umanzor MD 2-DIMENSIONAL: YES M.MODE: YES DOPPLER: YES COLOR FLOW: YES TDS: PORTABLE: YES DEFINITY: BUBBLE STUDY: DIAGNOSIS: TRANSIENT ISCHEMIC ATTACK CARDIAC HISTORY: CATHERIZATION: SURGERY: PROSTHETIC VALVE: PACEMAKER: MEASUREMENTS (cm) DIASTOLIC (NORMALS) SYSTOLIC (NORMALS) IVSd 0.9 (0.6-1.2) LA Diam 3.4 (1.9-4.0) LVEF 55-60% LVIDd 4.7 (3.5-5.7) LVIDs 3.3 (2.0-3.5) %FS 30% LVPWd 0.9 (0.6-1.2) Ao Diam 2.5 (2.0-3.7) 2 DIMENSIONAL ASSESSMENT: RIGHT ATRIUM: NORMAL LEFT ATRIUM: NORMAL RIGHT VENTRICLE: NORMAL LEFT VENTRICLE: NORMAL TRICUSPID VALVE: MILD TRICUSPID REGURGITATION MITRAL VALVE: MILD MITRAL REGURGITATION PULMONIC VALVE: NORMAL AORTIC VALVE: MILD AORTIC INSUFFICIENCY PERICARDIAL EFFUSION: NONE AORTIC ROOT: NORMAL LEFT VENTRICULAR WALL MOTION: NORMAL DOPPLER/COLOR FLOW: SEE BELOW COMMENTS: 1. NORMAL LEFT VENTRICULAR EJECTION FRACTION 55-60% WITH NORMAL WALL MOTION 2. MILD MITRAL REGURGITATION 3. MILD TRICUSPID REGURGITATION 4. MILD AORTIC INSUFFICIENCY TECHNOLOGIST: YAMILE MAO
[2023-12-24 06:40] LABS: Absolute Eosinophils 0.1 K/uL (0-0.5); Absolute Lymphocytes (CBC) 0.9 K/uL (0.7-4.9); Absolute Neutrophil 3.8 K/uL (1.8-8.0); Basophils % 0.4 % (0-1.3); Eosinophils % 1.4 % (0-4.4); Hematocrit 30.1 % (39.6-49.0); Hemoglobin 10.3 g/dL (13.6-17.9); Lymphocytes % 15.6 % (15.3-44.8); MCH 31.5 pg (27.0-35.0); MCHC 34.2 g/dL (32.0-36.0); MCV 92.1 fL (80-100); MPV 9.3 fL (7.6-11.3); Monocytes % 16.9 % (3.3-12.3); Neutrophils % 65.7 % (41.7-73.7); Platelets 144 thou/uL (152-406); RBC Red Blood Cell Count 3.27 M/uL (4.33-5.43); Red Cell Distribution Width 13.5 % (12.1-15.2)
[2023-12-24 06:58] LABS: Anion Gap 11.3 mEq/L (5.0-15.0); Potassium 4.3 mEq/L (3.5-5.1); Uric Acid 9.9 mg/dL (3.5-7.2)
[2023-12-24] MEDS: DRISDOL (VITAMIN D=ERGOCALCIFEROL) 50000 UNIT CAP PO SCH (08:36)
[2023-12-24] MEDS: Ringers Lactate 1,000 ML IV SCH (10:01)
--- NOTE | 2023-12-24 10:47 | P.PN ---
Nephrology note (S) Pt denies any acute complaints, renal function improving on IVF, denies difficulty emptying his bladder, denies any sig FONTANEZ, no orthostatic symptoms Vitals reviewed in the EMR General: In no apparent distress, Cooperative HEENT: Atraumatic, sclera anicteric, not on o2 Neck: Supple Respiratory: Clear to auscultation bilaterally mostly Cardiovascular: No edema, non tachy Gastrointestinal: Soft and Non-distended Musculoskeletal: No contractures Integumentary: No rashes, Neurological: Normal speech, alert Imagings Data: EXAMINATION: Stone Protocol CLINICAL INDICATION: Abdominal pain. Flank pain COMPARISON: No prior exam. FINDINGS: The lack of intravenous and oral contrast limits the sensitivity of this exam for evaluation of solid visceral organs, vascular structures, and bowel A renal calculus not seen. No ureteral calculus. A bladder calculus not noted. No hydronephrosis. Bilateral low-density renal masses nonspecific but probably cysts. Stomach mildly distended. Gallbladder moderately distended. Liver, spleen, pancreas and adrenals grossly normal No evidence of diverticulitis. Normal appendix. Moderate prostatic enlargement. Small right and [id number] left inguinal hernias containing fat IMPRESSION: Negative for a genitourinary calculus Mild gallbladder distention. Mild gastric distention Conclusions/Impression: Stage III ARF per KAYLYNN definition on underlying CKD Stage IIIb/IV historically presumably 2nd to hypertensive nephrosclerosis seen prev by Dr. Fong in clinic but lost to f/u since -ARF 2nd to vol depletion, pre-renal azotemia on diuretics +/- other. Need to verify home meds -Renal imaging shows no obstructive uropathy, renal size preserved but kidneys echogenics. Presumed acquired renal cysts -Automated UA did not report any casts, hopefully more of a functional ALYSSA episode than instrinsic/ATN given prompt renal recovery -Cont IVF but lower rate and may stop after current bag Hyperchloremic metab acidosis -Bicarb deficit improved Valvular insufficiencies, MR/other non rheumatic on TTE -No sig LVEF dysfunction reported, LA was not dilated, BNP is not elevated, may not need scheduled diuretics on discharge Chronic HTN -Trend BP, higher today but with acute CVA, follow BP goals per Neurology Acute CVA on MRI brain -Management per IM/Neuro Prostomegaly, markedly elevated PSA level -No hydro, urinary retention on imaging -Needs OP Urology eval, MRI prostate/prostate biopsy
--- NOTE | 2023-12-24 15:48 | P.PN ---
Date of Service: 12/24/23 Subjective Date of Service: 12/24/23 Chief Complaint: Altered mental status, slurred speech and difficulty walking Subjective: Improving (tremulous) Review of Systems General: Weakness Eyes: Unremarkable ENT: Unremarkable Respiratory: Unremarkable Cardiovascular: Light Headedness Gastrointestinal: Unremarkable Genitourinary: Unremarkable Musculoskeletal: Unremarkable Integumentary: Other (recent shingles with new medications) Neurological: Weakness, Lymphatics: Unremarkable Physical Examination - Vital Signs Temperature: 97.9 F Blood Pressure: 119/68 Pulse: 83 Respirations: 14 Pulse Ox (%): 93 - Physical Exam General: Alert, In no apparent distress, Oriented x3, Other (denies discomfort) HEENT: Atraumatic, Normocephalic Neck: Supple, 2+ carotid pulse no bruit Respiratory: Normal air movement Cardiovascular: Regular rate/rhythm Capillary refill: <2 Seconds Gastrointestinal: Normal bowel sounds, Soft and benign, Non-distended Musculoskeletal: No clubbing, No swelling Integumentary: No rashes Neurological: Normal speech, Normal tone, sitting up in bed looking at the paper(tremulous) Lymphatics: No axilla or inguinal lymphadenopathy Urinary: Other (mildly tender, suprapubic area) External genitalia: Deferred Rectal: Deferred - Studies Assessment And Plan Assessment and Plan - Problems (Diagnosis) (1) Acute encephalopathy Current Visit: Yes Status: Acute (2) ARF (acute renal failure) Current Visit: yes Status: Acute (3) CVA (cerebral vascular accident) Current Visit: No Status: Acute Qualifiers: (4) Pulmonary embolus Current Visit: No Status: Acute Qualifiers: (5) Hypertension Current Visit: yes Status: Chronic (6) Enlarged prostate - Plan Assessment Patient is a 68-year-old Malay-speaking male with extensive cardiovascular history and recently shingles. He presented to the ER for altered mental status, expressive aphasia and difficulty walking. Patient has been prescribed gabapentin, Winfield and Motrin for postherpetic neuralgia a few days before this presentation. Stroke workup was negative in the ER. Labs are significant for s harp rise in creatinine, which is currently more than 6. Neurology and nephrology have been consulted. Acute on chronic kidney disease stage III Acute encephalopathy Ataxia Chronic systolic CHF History of CVA History of pulmonary embolism Plan: Will admit inpatient with telemetry Start patient on half-normal saline infusion = changed to LR per Nephrology symptoms could be secondary to toxic encephalopathy precipitated by NSAID induced ALYSSA and gabapentin with Winfield Will hold offending agents including NSAIDs and contrast Renal ultrasound - increased echogenicity Unable to obtain brain MRI due to pacemaker 2D echo ordered Nephrology and neurology have been consulted PSA 92.2 - US shows "mildly prominent" prostate, f/u with Urology 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 I agree with the note by the MARKETING OPERATIONS INTERN. ALYSSA is likely due to nephrotoxins. Will continue IVF and monitor renal function. Cr is improving 2.4 <- 4.99 <- 6.88. Hold norco and gabapentin due to acute encephalopathy. Unable to do MRI due to presence of pacemaker. Pt has PSA of 92.2. Will f/u with Urology. Continue home meds for other chronic medical problems. <Jacquie Benedict - Last Filed: 12/24/23 17:40>
[2023-12-24 17:29] VITALS: O2SAT 95
[2023-12-24] MEDS: ACETAMINOPHEN 500 MG TAB PO PRN (21:10)
[2023-12-25 05:19] LABS: Absolute Eosinophils 0.1 K/uL (0-0.5); Absolute Lymphocytes (CBC) 1.1 K/uL (0.7-4.9); Absolute Monocytes 0.8 K/uL (0.1-1.3); Absolute Neutrophil 1.9 K/uL (1.8-8.0); Basophils % 0.6 % (0-1.3); Eosinophils % 2.8 % (0-4.4); Hematocrit 28.8 % (39.6-49.0); Hemoglobin 9.5 g/dL (13.6-17.9); Lymphocytes % 27.6 % (15.3-44.8); MCH 30.5 pg (27.0-35.0); MCHC 33.1 g/dL (32.0-36.0); MCV 92.4 fL (80-100); Monocytes % 20.1 % (3.3-12.3); Neutrophils % 48.9 % (41.7-73.7); Platelets 135 thou/uL (152-406); RBC Red Blood Cell Count 3.12 M/uL (4.33-5.43); Red Cell Distribution Width 13.3 % (12.1-15.2)
[2023-12-25 05:45] LABS: Anion Gap 8.9 mEq/L (5.0-15.0); Potassium 3.9 mEq/L (3.5-5.1)
[2023-12-25 08:12] VITALS: BP 144/83; TEMP 98.8
[2023-12-25 08:50] LABS: Atypical Lymphocytes 2 %; Blood Morphology Comment NOT SEEN (NOT SEEN); Differential Total Cells Count 100; Eosinophils 1 % (0-3); Lymphocytes 17 % (15-42); Monocytes 26 % (0-10); Platelet Estimate ADEQ; Segmented Neutrophils 54 % (40-80)
== END 2023-12-25 11:44 | disposition home or self-care (01) | DRG 92 ==
LOC: ER 15:17 → ERHOLD 18:28 → 2ND 18:49
PROVIDERS: ADMIT Internal Medicine; ATTEND Hospitalist
DX: G92.8 Other toxic encephalopathy (principal); B02.29 Other postherpetic nervous system involvement; N17.9 Acute kidney failure, unspecified; I13.0 Hypertensive heart and chronic kidney disease with heart failure and stage 1 through stage 4 chronic kidney disease, or unspecified chronic kidney disease; I50.22 Chronic systolic (congestive) heart failure; E87.20 Acidosis, unspecified; I38 Endocarditis, valve unspecified; N18.4 Chronic kidney disease, stage 4 (severe); R47.01 Aphasia; D63.1 Anemia in chronic kidney disease; D50.9 Iron deficiency anemia, unspecified; D69.6 Thrombocytopenia, unspecified; D51.9 Vitamin B12 deficiency anemia, unspecified; E86.9 Volume depletion, unspecified; F32.A Depression, unspecified; I27.20 Pulmonary hypertension, unspecified; N40.0 Benign prostatic hyperplasia without lower urinary tract symptoms; E88.09 Other disorders of plasma-protein metabolism, not elsewhere classified; I95.9 Hypotension, unspecified; R27.0 Ataxia, unspecified; R74.01 Elevation of levels of liver transaminase levels; R41.82 Altered mental status, unspecified; R29.701 NIHSS score 1; R73.03 Prediabetes; T42.6X5A Adverse effect of other antiepileptic and sedative-hypnotic drugs, initial encounter; T39.1X5A Adverse effect of 4-Aminophenol derivatives, initial encounter; T39.395A Adverse effect of other nonsteroidal anti-inflammatory drugs [NSAID], initial encounter; Z95.0 Presence of cardiac pacemaker; Z79.01 Long term (current) use of anticoagulants; Z86.73 Personal history of transient ischemic attack (TIA), and cerebral infarction without residual deficits; Z79.02 Long term (current) use of antithrombotics/antiplatelets; Z79.899 Other long term (current) drug therapy; Z86.711 Personal history of pulmonary embolism
CPT/HCPCS: 36415; 70450; 71045; 74176; 76377; 76770; 80048; 80076; 81001; 82565; 82607; 82728; 82947; 83540; 83690; 83735; 83880; 84100; 84153; 84466; 84484; 84550; 85025; 85610; 86704; 86706; 86803; 87340; 92523; 93005; 93306; 93880; 96365; 96366; 97116; 97161; 97165; 99285; J1644; J7030; J7040; J7120

== ENCOUNTER 2024-06-15 09:30 | Emergency (ER) | payer OTHER ==
--- NOTE | 2024-06-15 10:49 | RAD REPORT ---
EXAMINATION: ONE VIEW CHEST XR CLINICAL INDICATION: Male, 69 years old.,SOB TECHNIQUE: Frontal chest projection is submitted. Examination is limited by patient positioning and t echnique. COMPARISON: 12/22/2023 FINDINGS: The lungs are well inflated and clear. No pneumothorax or sizable effusion. The heart is normal in s ize. Mediastinal contours are unremarkable. Left chest wall pacer in place. IMPRESSION: No acute intrathoracic abnormalities.
[2024-06-15 10:52] LABS: Absolute Eosinophils 0.1 K/uL (0-0.5); Absolute Lymphocytes (CBC) 1.4 K/uL (0.7-4.9); Absolute Monocytes 0.5 K/uL (0.1-1.3); Absolute Neutrophil 3.4 K/uL (1.8-8.0); Basophils % 0.8 % (0-1.3); Eosinophils % 1.1 % (0-4.4); Hematocrit 36.8 % (39.6-49.0); Hemoglobin 12.4 g/dL (13.6-17.9); Lymphocytes % 25.7 % (15.3-44.8); MCH 30.3 pg (27.0-35.0); MCHC 33.6 g/dL (32.0-36.0); MCV 90.2 fL (80-100); MPV 10.7 fL (7.6-11.3); Monocytes % 9.3 % (3.3-12.3); Neutrophils % 63.1 % (41.7-73.7); Nucleated Red Blood Cells % 0.1 % (0-0); Platelets 158 thou/uL (152-406); RBC Red Blood Cell Count 4.08 M/uL (4.33-5.43)
[2024-06-15] MEDS ORDERED: FUROSEMIDE 40 MG/4 ML VIAL ONE (11:26)
[2024-06-15 11:59] LABS: Anion Gap 10.4 mEq/L (5.0-15.0); Potassium 4.4 mEq/L (3.5-5.1); Troponin High Sensitivity 12.2 pg/mL (<58.9)
--- NOTE | 2024-06-15 12:13 | EDPHYS ---
Physician Documentation [facility] Name: Krzysztof Gay Age: 69 yrs Sex: Male : 1955 Arrival Date: 06/15/2024 Time: 09:30 Bed 6 Private MD: JOHANA Physician Jessica Donovan HPI: 06/15 10:11 This 69 yrs old Male presents to ER via Ambulatory with complaints of Feet sw6 Swelling, Rash, toe fungus. 10:11 The patient presents from home complaining of bilateral lower leg swelling for the past sw6 1.5 weeks. No shortness of breath. No cough or congestion. No chest pain or pressure. No injury or trauma to his legs. He does have history of congestive heart failure and takes Lasix daily. He admits to compliance with his medication. He also admits to normal urine output for him. He does avoid salty food such as ham, soup as well as Faroese food. He also complains of toenail fungus that he had for quite some time. He does follow with cardiology here in [place] and last saw them in April. He reports his next appointment is in August of this year. Here for evaluation.. Historical: - Allergies: 09:52 No Known Allergies; aa5 - PMHx: 09:52 Depression; HEART FAILURE; Hypertension; aa5 - PSHx: 09:52 pacemaker; aa5 - Immunization history:: Adult Immunizations unknown. - Infectious Disease History:: Denies. - Social history:: Smoking status: Patient denies any tobacco usage or history of. ROS: 10:11 Constitutional: Negative for fever, chills, and weight loss, Cardiovascular: Negative sw6 for chest pain, palpitations, and edema, Respiratory: Negative for shortness of breath, cough, wheezing, and pleuritic chest pain, Abdomen/GI: Negative for abdominal pain, nausea, vomiting, diarrhea, and constipation, 10:11 MS/extremity: Positive for swelling, 10:11 Skin: Positive for Nail fungus to his toenails, 10:11 All other systems are negative, Exam: 10:11 Constitutional: This is a well developed, well nourished patient who is awake, alert, sw6 and in no acute distress. Chest/axilla: Normal chest wall appearance and motion. Nontender with no deformity. No lesions are appreciated. Cardiovascular: Regular rate and rhythm with a normal S1 and S2. No gallops, murmurs, or rubs. Normal PMI, no JVD. No pulse deficits. Respiratory: Lungs have equal breath sounds bilaterally, clear to auscultation and percussion. No rales, rhonchi or wheezes noted. No increased work of breathing, no retractions or nasal flaring. Abdomen/GI: Soft, non-tender, with normal bowel sounds. No distension or tympany. No guarding or rebound. No evidence of tenderness throughout. 10:11 ENT: Nares patent. No nasal discharge, no septal abnormalities noted. Tympanic membranes are normal and external auditory canals are clear. Oropharynx with no redness, swelling, or masses, exudates, or evidence of obstruction, uvula midline. Mucous membranes moist. Neck: Trachea midline, no thyromegaly or masses palpated, and no cervical lymphadenopathy. Supple, full range of motion without nuchal rigidity, or vertebral point tenderness. No Meningismus. 10:11 Musculoskeletal/extremity: Nails: Toenail fungus to his bilateral great toes, Pitting edema to his bilateral lower legs. 11:25 ECG was reviewed by the Attending Physician. Vital Signs: 09:51 BP 152 / 73; Pulse 68; Resp 16 S; Temp 98.2(O); Pulse Ox 99% on R/A; Weight 74.84 kg aa5 (R); Height 5 ft. 10 in. (R); 11:00 BP 148 / 72; Pulse 67; Resp 18; Pulse Ox 98% on R/A; ph 12:30 BP 132 / 76; Pulse 68; Resp 16; Temp 97.9; Pulse Ox 98% on R/A; ph 09:51 Body Mass Index 23.67 (74.84 kg, 177.8 cm) aa5 MDM: 10:10 Medical Screening Exam initiated 10:11 Differential diagnosis: Toenail fungus, peripheral edema, CHF exacerbation. 12:04 Data reviewed: lab test result(s), cardiac enzymes, troponin i, CBC, electrolytes, EKG. ED course: The patient is doing well from the ER. His EKG shows a normal sinus rhythm, no STEMI. His laboratory studies showed normal troponin as well as a normal BNP. His creatinine of 1.59 is significantly improved from his prior values of 6.88 on his most recent visit to the ER. He was given a dose of IV Lasix here in the ER and has been able to diurese out. He remained stable here in the ER and is okay for discharge home with outpatient cardiology follow-up. Recommend leg elevation as well as the use of compression socks to help with his leg swelling.. 06/15 10:11 Order name: Basic Metabolic Panel; Complete Time: 12:02 06/15 12:04 Interpretation: Abnormal: Creatinine improved from prior. 06/15 10:11 Order name: CBC with Diff; Complete Time: 11:24 06/15 11:24 Interpretation: Within normal limits. 06/15 10:11 Order name: NT PRO-BNP; Complete Time: 12:02 06/15 12:02 Interpretation: Within normal limits. 06/15 10:11 Order name: Troponin HS; Complete Time: 12:02 06/15 12:02 Interpretation: Within normal limits. 06/15 10:11 Order name: XRAY Chest (1 view); Complete Time: 11:24 06/15 11:24 Interpretation: No acute disease. 06/15 10:11 Order name: Cardiac monitoring; Complete Time: 10:35 06/15 10:11 Order name: EKG - Nurse/Tech; Complete Time: 10:36 06/15 10:11 Order name: IV Saline Lock; Complete Time: 10:36 06/15 10:11 Order name: Labs collected and sent; Complete Time: 10:36 06/15 10:11 Order name: O2 Per Protocol; Complete Time: 10:19 06/15 10:11 Order name: O2 Sat Monitoring; Complete Time: 10:19 EC:25 Rate is 66 beats/min. Rhythm is regular. QRS interval is normal. QT interval is normal. No Q waves. T waves are Normal. No ST changes noted. Administered Medications: 11:49 Drug: Furosemide IVP 40 mg IVP once; give over 2 minutes Route: IVP; Site: right ph antecubital; 12:40 Follow up: Response: No adverse reaction ph Disposition Summary: 06/15/24 12:13 Discharge Ordered Notes: Location: Home sw6 Condition: Stable sw6 Diagnosis - peripheral edema bilateral legs sw6 - onychomycosis sw6 Discharge Instructions: - Discharge Summary Sheet sw6 - Fungal Nail Infection sw6 - Edema, [id number] sw6 Forms: - Medication Reconciliation Form sw6 - Antibiotic Education sw6 - Prescription Opioid Use sw6 - Patient Portal Instructions 6 - Leadership Thank You Letter 6 Prescriptions: - PENLAC - Apply to affected area 1 application TOPICAL route once daily Apply to toe sw6 nails daily. After [address] [facility] and start again.; 1 unit; Refills: 0, Product Selection Permitted Signatures: Dispatcher [employer] EDMS Kelly Abbott RN RN aa5 Rossy Mandujano RN RN ph Zino, MD DELORIS Lopez 6 Corrections: (The following items were deleted from the chart) 10:11 10:11 BASIC METABOLIC PANEL+C.LAB.BRZ ordered. EDMS EDMS 10:11 10:11 CBC+H.LAB.BRZ ordered. EDMS EDMS 10:11 10:11 PROBNP+C.LAB.BRZ ordered. EDMS EDMS 10:11 10:11 Troponin High Sensitivity+C.LAB.BRZ ordered. EDMS EDMS 10:11 10:11 Chest Single View+RAD.RAD.BRZ ordered. EDMS EDMS
--- NOTE | 2024-06-15 12:13 | ER ---
Nurse's Notes [facility] Name: Krzysztof Gay Age: 69 yrs Sex: Male : 1955 Arrival Date: 06/15/2024 Time: 09:30 Bed 6 Private MD: Diagnosis: peripheral edema bilateral legs;onychomycosis Presentation: 06/15 09:51 Chief complaint: Patient states: lower extremity swelling "for a few weeks". Pt states aa5 "I also had shingles and I still have an itching sensation to my right shoulder from it". Pt also c/o toenail fungal infection. Coronavirus screen: At this time, the client does not indicate any symptoms associated with coronavirus-19. Ebola Screen: Patient denies travel to an Ebola-affected area in the 21 days before illness onset. Initial Sepsis Screen: Does the patient meet any 2 criteria? No. Patient's initial sepsis screen is negative. Does the patient have a suspected source of infection? No. Patient's initial sepsis screen is negative. Risk Assessment: Do you want to hurt yourself or someone else? Patient reports no desire to harm self or others. Onset of symptoms was May 2024. 09:51 Acuity: GELACIO 3 aa5 09:51 Method Of Arrival: Ambulatory aa5 Historical: - Allergies: 09:52 No Known Allergies; aa5 - PMHx: 09:52 Depression; HEART FAILURE; Hypertension; aa5 - PSHx: 09:52 pacemaker; aa5 - Immunization history:: Adult Immunizations unknown. - Infectious Disease History:: Denies. - Social history:: Smoking status: Patient denies any tobacco usage or history of. Screenin:39 [facility] ED Fall Risk Assessment (Adult) History of falling in the last 3 months, ph including since admission No falls in past 3 months (0 pts) Confusion or Disorientation No (0 pts) Intoxicated or Sedated No (0 pts) Impaired Gait No (0 pts) Mobility Assist Device Used No (0 pt) Altered Elimination No (0 pt) Score/Fall Risk Level 0 - 2 = Low Risk Oriented to surroundings, Maintained a safe environment, Hourly rounding (assess needs \\T\\ fall precautionary measures) done. Abuse screen: Denies threats or abuse. Denies injuries from another. Nutritional screening: No deficits noted. Tuberculosis screening: No symptoms or risk factors identified. Assessment: 10:30 General: Appears in no apparent distress. comfortable, well groomed, Behavior is calm, ph cooperative, appropriate for age. Pain: Denies pain. Neuro: Level of Consciousness is awake, alert, obeys commands, Oriented to person, place, time, situation. Cardiovascular: Capillary refill < 3 seconds in bilateral fingers Patient's skin is warm and dry. Edema is 1+ to left ankle, left foot, right ankle and right foot. Respiratory: Airway is patent Respiratory effort is even, unlabored, Respiratory pattern is regular, symmetrical. Derm: Skin is pink, warm \\T\\ dry. 12:39 Reassessment: Patient appears in no apparent distress at this time. Patient and/or ph family updated on plan of care and expected duration. Pain level reassessed. Patient is alert, oriented x 3, equal unlabored respirations, skin warm/dry/pink. Vital Signs: 09:51 BP 152 / 73; Pulse 68; Resp 16 S; Temp 98.2(O); Pulse Ox 99% on R/A; Weight 74.84 kg aa5 (R); Height 5 ft. 10 in. (R); 11:00 BP 148 / 72; Pulse 67; Resp 18; Pulse Ox 98% on R/A; ph 12:30 BP 132 / 76; Pulse 68; Resp 16; Temp 97.9; Pulse Ox 98% on R/A; ph 09:51 Body Mass Index 23.67 (74.84 kg, 177.8 cm) [facility] ED Course: 09:36 Patient arrived in ED. im 09:44 eJssica Donovan MD is Attending Physician. [facility] 09:51 Arm band placed on. aa5 09:52 Triage completed. aa5 10:36 Basic Metabolic Panel Sent. bc6 10:36 CBC with Diff Sent. bc6 10:36 NT PRO-BNP Sent. bc6 10:36 Troponin HS Sent. bc6 10:36 Initial lab(s) drawn, by pr, sent to lab. EKG done, by ED staff, reviewed by Jessica Donovan MD. Inserted saline lock: 20 gauge in right antecubital area, using aseptic technique. Blood collected. Flushed with 10 mL NS. 10:42 XRAY Chest (1 view) In Process Unspecified. EDMS 11:49 Mandujano, Rossy, RN is Primary Nurse. ph 12:40 Patient has correct armband on for positive identification. Bed in low position. Call ph light in reach. Side rails up X 1. Client placed on continuous cardiac and pulse oximetry monitoring. NIBP monitoring applied. manager monitoring on. 12:40 No provider procedures requiring assistance completed. IV discontinued, intact, ph bleeding controlled, No redness/swelling at site. Pressure dressing applied. Administered Medications: :49 Drug: Furosemide IVP 40 mg IVP once; give over 2 minutes Route: IVP; Site: right ph antecubital; 12:40 Follow up: Response: No adverse reaction ph Medication: 12:40 VIS not applicable for this client. ph Outcome: 12:13 Discharge ordered by sw6 12:40 Discharged to home ambulatory, ph 12:40 Condition: good 12:40 Discharge instructions given to patient, Instructed on discharge instructions, follow up and referral plans. medication usage, Demonstrated understanding of instructions, follow-up care, medications, Prescriptions given X 1, 12:40 Patient left the ED. ph Signatures: Dispatcher [employer] EDMS Kelly Abbott, RN RN aa5 Rossy Mandujano, RN RN ph Stephenie Arzola 6 Sharon Ogden Sandra, MD MD sw6
[2024-06-15 13:02] VITALS: BP 152/73; TEMP 98.2; O2SAT 99
== END 2024-06-15 12:40 | disposition home or self-care (01) ==
LOC: ER 09:30
DX: R60.9 Edema, unspecified (principal); B35.1 Tinea unguium; Z95.0 Presence of cardiac pacemaker
CPT/HCPCS: 93005; 85025; 80048; 36415; 84484; 83880; 71045; J1938

== ENCOUNTER 2024-11-23 07:41 | Emergency (ER) | payer OTHER ==
--- NOTE | 2024-11-23 08:38 | RAD REPORT ---
EXAMINATION: CT Thorax Wo Con CLINICAL INDICATION: Male, 69 years old. [facility] MAIN right anterior/inferior rib pain, blunt trauma Bed Name: 5 Y TECHNIQUE: Axial CT scan of the chest without intravenous contrast. Multiplanar reformats were genera wilner and reviewed. One or more of the following dose reduction techniques were used: Automated exposure control, adjustment of the mA and/or kV according patient size, and/or iterative reconstruct ion. Unless otherwise specified, incidental findings do not require dedicated imaging follow-up. COMPARISON: 01/24/2020 FINDINGS: LOWER NECK: Visualized thyroid gland and soft tissues are normal. LUNGS: Confluent peripheral right upper lobe nodules seen on axial image 25/55, largest individual no dule measures 6 mm. No evidence of airspace or interstitial process. No worrisome nodules. PLEURA: No pleural effusion. No pneumothorax. . MEDIASTINUM AND LYMPH NODES: No mediastinal mass or fluid collection. Normal size mediastinal, hilar, and axillary lymph nodes. OSSEOUS STRUCTURES AND CHEST WALL: Healing right seventh and eighth lateral rib fractures. On superio r endplate compression deformities throughout the upper thoracic spine, some associated with Schmorl's nodes. UPPER ABDOMEN: Partially visualized right upper renal pole cystic lesions, likely stable. IMPRESSION: Healing right seventh and eighth lateral rib fractures. Confluent peripheral right upper lobe nodules as above, could be of infectious or inflammatory nature . Follow-up CT in 1-3 months is recommended to ensure stability or resolution.
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
[2024-11-23 09:11] VITALS: TEMP 98.2
[2024-11-23 09:13] VITALS: BP 169/71; O2SAT 97
== END 2024-11-23 08:59 | disposition home or self-care (01) ==
LOC: ER 07:41
DX: S22.41XA Multiple fractures of ribs, right side, initial encounter for closed fracture (principal); V87.8XXA Person injured in other specified noncollision transport accidents involving motor vehicle (traffic), initial encounter; Z95.0 Presence of cardiac pacemaker
CPT/HCPCS: 71250; 99283